=== PATIENT | female | born 1965 | race Caucasian/White ===

== ENCOUNTER 2017-03-18 10:53 | Observation (INO) | payer BC, OTHER ==
--- NOTE | 2017-03-18 12:00 | PDOC ---
History of Present Illness - General Chief Complaint: Chest Pain Stated Complaint: CHEST PAIN Time Seen by Provider: 03/18/17 11:09 - History of Present Illness Initial Comments: 03/18/17 12:15 Patient is a 51 year old female with a history of HLD, arthritis, degenerative disk disease and TIA on coumadin who presents with chest and epigastric pain. Patient reports a several month history of intermittent 4-5 sec sharp chest pain with some accompanied tingling and weakness in her left arm. Over the past week, she has been experiencing intermittent epigastric pain prompting her visit to the ED today. She states that she hasn't tried anything for the pain and had a stress test many years ago. She endorses some nausea and diarrhea with dark fecal matter. She denies SOB, vomiting, tarry stools, fevers, chills , or changes with urination. Past History - Past Medical History Allergies/Adverse Reactions: Allergies Allergy/AdvReac Type Severity Reaction Status Date / Time Penicillins Allergy Severe Rash Verified 09/09/13 14:27 Home Medications: Ambulatory Orders Albuterol 0.083% Nebulizer Alena [Ventolin 0.083% Nebulizer Soln -] 1 amp NEB PRN 03/18/17 Azithromycin [Zithromax -] 250 mg PO DAILY 03/18/17 Beclomethasone Dipropionate [Qvar] 8.7 gm IH BID 03/18/17 Ergocalciferol [Drisdol -] 50,000 unit PO WEEKLY 03/18/17 Escitalopram Oxalate [Lexapro -] 20 mg PO DAILY 03/18/17 Gabapentin [Neurontin] 300 mg PO HS 03/18/17 Halobetasol Propionate 15 gm TP BID 03/18/17 Iron,Carbonyl/Vit C/Vit B12/FA [Fe C Plus Tablet] 142 each PO DAILY 03/18/17 Levothyroxine [Synthroid -] 50 mcg PO DAILY 03/18/17 Meclizine HCl 12.5 mg PO BID 03/18/17 Montelukast Na [Singulair -] 10 mg PO HS 03/18/17 Multivitamin [Poly-Vitamin] 1 each PO DAILY 03/18/17 Nortriptyline HCl [Pamelor -] 50 mg PO HS 03/18/17 Omeprazole 40 mg PO DAILY 03/18/17 Oxybutynin Chloride [Ditropan Xl] 10 mg PO BID 03/18/17 Oxycodone HCl/Acetaminophen [Percocet 10-325 mg Tablet] 10 mg PO PRN 03/18/17 Prednisone 10 mg PO DAILY 03/18/17 Simvastatin 20 mg PO HS 03/18/17 Zolpidem Tartrate [Ambien] 10 mg PO HS 03/18/17 Anemia: No Asthma: Yes (NO RECENT ATTACK) Cancer: Yes (UTERUS) Cardiac Disorders: No CVA: Yes (TIA) COPD: No CHF: No Dementia: No Diabetes: No GI Disorders: Yes (REFLUX) Disorders: No HTN: No Hypercholesterolemia: No Liver Disease: No Seizures: No Thyroid Disease: No - Surgical History Abdominal Surgery: No Appendectomy: No Cardiac Surgery: No Cholecystectomy: No Lung Surgery: No Neurologic Surgery: No Orthopedic Surgery: Yes (BIRD. BUNIONECTOMIES) - Psycho/Social/Smoking Cessation Hx Smoking History: Former smoker Have you smoked in the past 12 months: No If you are a former smoker, when did you quit?: 35 YRS AGO Information on smoking cessation initiated: No Hx Alcohol Use: No Drug/Substance Use Hx: No Substance Use Type: None Review of Systems - Review of Systems Constitutional: No: Chills, Fever HEENTM: No: Nose Congestion, Throat Swelling Respiratory: No: Cough, Shortness of Breath Cardiac (ROS): Yes: Chest Pain. No: Palpitations, Chest Tightness ABD/GI: Yes: Diarrhea, Nausea. No: Constipated, Rectal Bleeding, Vomiting : No: Burning, Dysuria Integumentary: No: Rash Neurological: No: Headache, Tingling, Weakness *Physical Exam - Physical Exam Comments: 03/18/17 12:24 General Appearance: Nourished. No Apparent Distress HEENT: No Pharyngeal Erythema, Tonsillar Exudate, Tonsillar Erythema Respiratory/Chest: Lungs Clear, Normal Breath Sounds. No Crackles, Rales, Rhonchi, Wheezing Cardiovascular: Regular Rhythm, Regular Rate. No Murmur, Gallop/S3, Gallop/S4 Gastrointestinal/Abdominal: Normal Bowel Sounds, Soft, Mild tenderness to palpation in the epigastric region. No Guarding, Rebound Extremity: Normal Capillary Refill Integumentary: Normal Color, Dry, Warm Neurologic: Fully Oriented, Alert, Normal Mood/Affect, Normal Response ED Treatment Course - LABORATORY CBC & Chemistry Diagram: 03/18/17 12:25 03/18/17 12:25 Medical Decision Making - Medical Decision Making 03/18/17 12:27 Patient is a 51 year old female who presents with chest and epigastric pain. Given her long history of chest pain as well as described pain, it is most likely that her symptoms may be due to a peptic ulcer or GERD. However it is reasonable to evaluate for ACS as well and we will obtain an EKG, troponin, and cmp to evaluate. We will also get a cbc to evaluate for anemia and a wbc. 03/18/17 15:25 Patient's EKG is unchanged from previous and labs have been unremarkable thus far with a negative troponin. Dr. Pedro was consulted and obtained a history more concerning for angina with exercise. The patient described her chest pain occurring more with walking up stairs or inclines. Dr. Pedro would like to obtain a stress echo as well as some additional labs. We will admit for observation for the patient to obtain her stress echo given her risk factors. *DC/Admit/Observation/Transfer Diagnosis at time of Disposition: Angina effort - Discharge Dispostion Condition at time of disposition: Stable - Attestations Physician Attestion: 03/18/17 15:30 I, Dr. Leonidas Moffett, attest that this document has been prepared under my direction and personally reviewed by me in its entirety. I further attest, that it accurately reflects all work, treatment, procedures and medical decision -making performed by me.
[2017-03-18 12:16] VITALS: BMI 34.8
--- NOTE | 2017-03-18 12:31 | EKG ---
Test Reason : Blood Pressure : / mmHG Vent. Rate : 062 BPM Atrial Rate : 062 BPM P-R Int : 000 ms QRS Dur : 092 ms QT Int : 442 ms P-R-T Axes : 000 193 178 degrees QTc Int : 448 ms NORMAL SINUS RHYTHM CANNOT RULE OUT SEPTAL INFARCT , AGE UNDETERMINED ABNORMAL ECG WHEN COMPARED WITH ECG OF 15-DEC-2010 12:28, NO SIGNIFICANT CHANGE WAS FOUND Confirmed by ELENA HEATON MD ([id number]) on 03/18/2017 12:30:51 PM Referred By: Confirmed By:ELENA HEATON MD
[2017-03-18 12:35] LABS: BASOPHIL 0.5 % (0-2.0); EOSINOPHIL 3.4 % (0-4.5); MCH 27.7 pg (25.7-33.7); MEAN PLT VOLUME 7.9 fl (7.5-11.1); NEUTROPHILS 61.4 % (42.8-82.8); PLATELET COUNT 179 K/MM3 (134-434); RDW 15.4 % (11.6-15.6); WHITE BLOOD COUNT 9.1 K/mm3 (4.0-10.0)
--- NOTE | 2017-03-18 12:37 | PDOC ---
Attending Attestation - Resident Resident Name: Leonidas Moffett - ED Attending Attestation I have performed the following: I have examined & evaluated the patient, The case was reviewed & discussed with the resident, I agree w/resident's findings & plan, Exceptions are as noted - HPI HPI: 03/18/17 12:34 Agree with the resident's HPI as documented in the electronic medical record. - Physicial Exam PE: 03/18/17 12:34 Agree with the resident's physical examination as documented in the electronic medical record. - Medical Decision Making 03/18/17 12:34 51-year-old female with history of thyroid disease and TIA on Coumadin presents to the emergency Department with complaints of several month history of intermittent chest pain radiating to the epigastric region intermittently associated with left arm tingling. Differential diagnosis includes but is not limited to: GERD, ACS, PUD, anemia, electrolyte abnormality, dehydration, toxic/ metabolic derangement. Plan: 1. EKG 2. Labs 3. Observe and reevaluate
[2017-03-18 12:58] LABS: ALBUMIN 3.5 g/dl (3.4-5.0); ANION GAP 3 (8-16); BILIRUBIN,TOTAL 0.2 mg/dL (0.2-1.0); CALCIUM 9.1 mg/dL (8.5-10.1); CO2 33 mmol/L (21-32); CREATININE 0.7 mg/dL (0.55-1.02); GLUCOSE,RANDOM 87 mg/dL (74-106); SGOT/AST 34 U/L (15-37); SGPT/ALT 40 U/L (12-78); TOT PROT 7.7 g/dl (6.4-8.2)
[2017-03-18 13:00] LABS: ALK PHOS 91 U/L (45-117); TROPONIN I < 0.02 ng/ml (0.00-0.05)
--- NOTE | 2017-03-18 13:04 | CON.CARD ---
Consult Consult Specialty:: Cardiology Referred by:: Gibson Coe MD Reason for Consultation:: Chest pain and dyspnea on exertion - History of Present Illness Chief Complaint: Chest pain and dyspnea on exertion History of Present Illness: Patient is a 51 year old female with a history of HLD, HTN/HCVD, rheumatoid arthritis, hypothyroidism, asthma, DVT, recurrent TIA on coumadin presented with sharp chest and epigastric pain after walking 3 minutes since this past week. Patient reports several month h/o dyspnea on exertion, palpitations, near syncope while walking inclines without true syncope, orthopnea, PND or LE edema. Asymptomatic at rest. - History Source History Provided By: Patient Limitations to Obtaining History: No Limitations - Past Medical History [employer]: Yes: TIA - Alcohol/Substance Use Hx Alcohol Use: No - Smoking History Smoking history: Former smoker Have you smoked in the past 12 months: No If you are a former smoker, when did you quit?: 35 YRS AGO Home Medications - Allergies Allergies/Adverse Reactions: Allergies Allergy/AdvReac Type Severity Reaction Status Date / Time Penicillins Allergy Severe Rash Verified 09/09/13 14:27 - Home Medications Home Medications: Ambulatory Orders Albuterol 0.083% Nebulizer Alena [Ventolin 0.083% Nebulizer Soln -] 1 amp NEB PRN 03/18/17 Azithromycin [Zithromax -] 250 mg PO DAILY 03/18/17 Beclomethasone Dipropionate [Qvar] 8.7 gm IH BID 03/18/17 Ergocalciferol [Drisdol -] 50,000 unit PO WEEKLY 03/18/17 Escitalopram Oxalate [Lexapro -] 20 mg PO DAILY 03/18/17 Gabapentin [Neurontin] 300 mg PO HS 03/18/17 Halobetasol Propionate 15 gm TP BID 03/18/17 Iron,Carbonyl/Vit C/Vit B12/FA [Fe C Plus Tablet] 142 each PO DAILY 03/18/17 Levothyroxine [Synthroid -] 50 mcg PO DAILY 03/18/17 Meclizine HCl 12.5 mg PO BID 03/18/17 Montelukast Na [Singulair -] 10 mg PO HS 03/18/17 Multivitamin [Poly-Vitamin] 1 each PO DAILY 03/18/17 Nortriptyline HCl [Pamelor -] 50 mg PO HS 03/18/17 Omeprazole 40 mg PO DAILY 03/18/17 Oxybutynin Chloride [Ditropan Xl] 10 mg PO BID 03/18/17 Oxycodone HCl/Acetaminophen [Percocet 10-325 mg Tablet] 10 mg PO PRN 03/18/17 Prednisone 10 mg PO DAILY 03/18/17 Simvastatin 20 mg PO HS 03/18/17 Zolpidem Tartrate [Ambien] 10 mg PO HS 03/18/17 Review of Systems - Review of Systems Cardiovascular: reports: Chest Pain Respiratory: reports: SOB on Exertion Vital Signs: Vital Signs Temperature 98.6 F 03/18/17 12:08 Pulse Rate 58 L 03/18/17 12:08 Respiratory Rate 22 03/18/17 12:08 Blood Pressure 121/79 03/18/17 12:08 O2 Sat by Pulse Oximetry (%) 97 03/18/17 12:08 Constitutional: Yes: No Distress, Calm Neck: Yes: Supple Respiratory: Yes: Regular, CTA Bilaterally Gastrointestinal: Yes: Normal Bowel Sounds, Soft Cardiovascular: Yes: Regular Rate and Rhythm JVD: No Carotid Bruit: No Heart Sounds: Yes: S1, S2 Edema: No - Other Data Labs, Other Data: CBC, BMP 03/18/17 12:25 03/18/17 12:25 Troponin, BNP 03/18/17 12:25 Troponin I < 0.02 Troponin, BNP 03/18/17 12:25 Troponin I < 0.02 NSR @ 62 Problem List - Problems (1) Exertional chest pain Code(s): R07.9 - CHEST PAIN, UNSPECIFIED (2) Dyspnea on exertion Code(s): R06.09 - OTHER FORMS OF DYSPNEA (3) Hyperlipidemia Code(s): E78.5 - HYPERLIPIDEMIA, UNSPECIFIED Qualifiers: Hyperlipidemia type: pure hypercholesterolemia Qualified Code(s): E78.00 - Pure hypercholesterolemia, unspecified; E78.0 - Pure hypercholesterolemia (4) Hypothyroidism Code(s): E03.9 - HYPOTHYROIDISM, UNSPECIFIED Qualifiers: Hypothyroidism type: unspecified Qualified Code(s): E03.9 - Hypothyroidism, unspecified (5) Hypertension Code(s): I10 - ESSENTIAL (PRIMARY) HYPERTENSION Qualifiers: Hypertension type: essential hypertension Qualified Code(s): I10 - Essential (primary) hypertension (6) Rheumatoid arthritis Code(s): M06.9 - RHEUMATOID ARTHRITIS, UNSPECIFIED Qualifiers: Rheumatoid arthritis location: unspecified site (7) Asthma Code(s): J45.909 - UNSPECIFIED ASTHMA, UNCOMPLICATED Qualifiers: Asthma severity: unspecified severity (8) Cerebrovascular disease Code(s): I67.9 - CEREBROVASCULAR DISEASE, UNSPECIFIED Assessment/Plan 1. Exertional chest pain and dyspnea r/o ischemia 2. HTN/HCVD 3. Hyperlipidemia 4. Hypothroidism 5. DVT, recurrent TIA on coumadin per INR 6. Rheumatoid arthritis 7. Asthma P:1. Ruling out for CA, check TSH, lipid panel, INR 2. After ruled out for CA, stress echocardiogram to r/o structural heart disease given multiple CV risk factors 3. Continue Zocor 20 qhs or equivalent 4. Thank you for consultative opportunity, further recommendations to follow
[2017-03-18 15:57] LABS: CHOLESTEROL 188 mg/dL (50-200); LDL CHOLESTEROL (ONLY SJRH) 105 mg/dL (5-100)
[2017-03-18 16:20] LABS: INR 2.66 (0.82-1.09); PROTHROMBIN TIME (PATIENT) 29.8 SEC (9.98-11.88)
[2017-03-18] MEDS ORDERED: ALBUTEROL SO4 0.083% IH SOL 2.5 MG/3 ML VIAL.NEB. NEB PRN (19:06)
[2017-03-18] MEDS ORDERED: ACETAMINOPHEN 325 MG TABLET (FP) PO PRN (19:06)
[2017-03-18 19:23] LABS: TROPONIN I < 0.02 ng/ml (0.00-0.05)
[2017-03-18] MEDS ORDERED: PT OWN MED DRAWER 7, Y5N ONE ×2 (20:44→23:07)
[2017-03-18] MEDS: PANTOPRAZOLE 40 MG TABLET (FP) PO SCH (20:45)
[2017-03-18 21:00] LABS: TROPONIN I < 0.02 ng/ml (0.00-0.05)
[2017-03-18] MEDS ORDERED: WARFARIN NA 10 MG TABLET (FP) PO ONE (21:00)
[2017-03-18] MEDS ORDERED: PATIENT'S OWN MEDICATION (NON-FORMULARY) (Oxybutynin Chloride [Ditropan Xl] 10 MG) PO SCH (22:00)
[2017-03-18] MEDS: GABAPENTIN 300 MG CAPSULE (FP) PO SCH (22:22)
[2017-03-18] MEDS: ATORVASTATIN CA 20 MG TABLET (FP) PO SCH (22:22)
[2017-03-18] MEDS: ZOLPIDEM TARTRATE 5 MG TABLET PO SCH (22:22)
[2017-03-18] MEDS: MONTELUKAST NA 10 MG TABLET PO SCH (22:22)
[2017-03-18] MEDS: NORTRIPTYLINE HCL 25 MG CAPSULE PO SCH (22:23)
[2017-03-18] MEDS: MOMETASONE FUROATE 220 MCG/IH INHALER IH SCH (23:04)
[2017-03-18] MEDS: MECLIZINE HCL 12.5 MG TABLET PO SCH (23:05)
[2017-03-19 07:24] LABS: BASOPHIL 0.7 % (0-2.0); EOSINOPHIL 5.8 % (0-4.5); MCH 27.9 pg (25.7-33.7); MCHC 33.4 g/dl (32.0-36.0); MEAN CELL VOLUME 83.4 fl (80-96); MEAN PLT VOLUME 8.4 fl (7.5-11.1); NEUTROPHILS 51.1 % (42.8-82.8); PLATELET COUNT 163 K/MM3 (134-434); RDW 15.5 % (11.6-15.6); WHITE BLOOD COUNT 6.4 K/mm3 (4.0-10.0)
[2017-03-19 07:33] LABS: INR 2.38 (0.82-1.09); PROTHROMBIN TIME (PATIENT) 26.6 SEC (9.98-11.88)
[2017-03-19] MEDS: LEVOTHYROXINE NA 50 MCG TABLET (FP) PO SCH (07:35)
[2017-03-19 08:00] LABS: ALBUMIN 3.2 g/dl (3.4-5.0); ANION GAP 7 (8-16); BILIRUBIN,TOTAL 0.3 mg/dL (0.2-1.0); CALCIUM 8.5 mg/dL (8.5-10.1); CO2 29 mmol/L (21-32); CREATININE 0.7 mg/dL (0.55-1.02); GLUCOSE,RANDOM 81 mg/dL (74-106); SGOT/AST 31 U/L (15-37); SGPT/ALT 35 U/L (12-78); TOT PROT 6.9 g/dl (6.4-8.2)
[2017-03-19 08:02] LABS: ALK PHOS 82 U/L (45-117); TROPONIN I < 0.02 ng/ml (0.00-0.05)
--- NOTE | 2017-03-19 08:29 | HP ---
Admitting History and Physical - Admission History of Present Illness: 51 year old female with a history of HLD, arthritis, degenerative disk disease and TIA on coumadin who presents with chest and epigastric pain. Patient reports several month history of intermittent 4-5 sec sharp chest pain with some accompanied tingling and weakness in her left arm. Over the past week, she has been experiencing intermittent epigastric pain prompting her visit to the ED . She states that she hasn't tried anything for the pain and had a stress test many years ago. She endorses some nausea and diarrhea with dark fecal matter. She denies SOB, vomiting, tarry stools, fevers, chills, or changes with urination. Patient complains of intermittent chest pain - Past Medical History [employer]: Yes: TIA Cardiovascular: Yes: HTN, Hyperlipdemia Pulmonary: Yes: COPD Gastrointestinal: Yes: GERD Heme/Onc: Yes: Hypercoaguable State (DVT) Musculoskeletal: Yes: Osteoarthritis Rheumatology: Yes: Rheumatoid Arthritis Endocrine: Yes: Hypothyroidism - Smoking History Smoking history: Former smoker Have you smoked in the past 12 months: No If you are a former smoker, when did you quit?: 35 YRS AGO - Alcohol/Substance Use Hx Alcohol Use: No Home Medications - Allergies Allergies/Adverse Reactions: Allergies Allergy/AdvReac Type Severity Reaction Status Date / Time Penicillins Allergy Severe Rash Verified 09/09/13 14:27 - Home Medications Home Medications: Ambulatory Orders Albuterol 0.083% Nebulizer Alena [Ventolin 0.083% Nebulizer Soln -] 1 amp NEB PRN 03/18/17 Azithromycin [Zithromax -] 250 mg PO DAILY 03/18/17 Beclomethasone Dipropionate [Qvar] 8.7 gm IH BID 03/18/17 Ergocalciferol [Drisdol -] 50,000 unit PO WEEKLY 03/18/17 Escitalopram Oxalate [Lexapro -] 20 mg PO DAILY 03/18/17 Gabapentin [Neurontin] 300 mg PO HS 03/18/17 Halobetasol Propionate 15 gm TP BID 03/18/17 Iron,Carbonyl/Vit C/Vit B12/FA [Fe C Plus Tablet] 142 each PO DAILY 03/18/17 Levothyroxine [Synthroid -] 50 mcg PO DAILY 03/18/17 Meclizine HCl 12.5 mg PO BID 03/18/17 Montelukast Na [Singulair -] 10 mg PO HS 03/18/17 Multivitamin [Poly-Vitamin] 1 each PO DAILY 03/18/17 Nortriptyline HCl [Pamelor -] 50 mg PO HS 03/18/17 Omeprazole 40 mg PO DAILY 03/18/17 Oxybutynin Chloride [Ditropan Xl] 10 mg PO BID 03/18/17 Oxycodone HCl/Acetaminophen [Percocet 10-325 mg Tablet] 10 mg PO PRN 03/18/17 Prednisone 10 mg PO DAILY 03/18/17 Simvastatin 20 mg PO HS 03/18/17 Zolpidem Tartrate [Ambien] 10 mg PO HS 03/18/17 Review of Systems - Review of Systems Cardiovascular: reports: Chest Pain. denies: Palpitations Respiratory: denies: Cough, SOB Gastrointestinal: reports: Abdominal Pain (epigastric) Physical Examination Vital Signs: Vital Signs Temperature 98.2 F 03/19/17 06:00 Pulse Rate 74 03/19/17 06:00 Respiratory Rate 20 03/19/17 06:00 Blood Pressure 116/79 03/19/17 06:00 O2 Sat by Pulse Oximetry (%) 95 03/19/17 04:00 Cardiovascular: Yes: Regular Rate and Rhythm Respiratory: Yes: Regular, CTA Bilaterally Gastrointestinal: Yes: Normal Bowel Sounds, Soft. No: Tenderness Edema: No Labs: CBC, BMP 03/19/17 05:35 Problem List - Problems (1) Chest pain Assessment/Plan: CE NEGATIVE STRESS TEST SAME MEDS Code(s): R07.9 - CHEST PAIN, UNSPECIFIED (2) Asthma Assessment/Plan: SAME MEDS Code(s): J45.909 - UNSPECIFIED ASTHMA, UNCOMPLICATED Qualifiers: Asthma severity: unspecified severity (3) Hyperlipidemia Assessment/Plan: SAME MEDS Code(s): E78.5 - HYPERLIPIDEMIA, UNSPECIFIED Qualifiers: Hyperlipidemia type: pure hypercholesterolemia Qualified Code(s): E78.00 - Pure hypercholesterolemia, unspecified; E78.0 - Pure hypercholesterolemia (4) Hypertension Assessment/Plan: SAME MEDS MONITOR Code(s): I10 - ESSENTIAL (PRIMARY) HYPERTENSION Qualifiers: Hypertension type: essential hypertension Qualified Code(s): I10 - Essential (primary) hypertension
[2017-03-19] MEDS ORDERED: DIPYRIDAMOLE STRESS TEST 50 MG in DEXTROSE 5%-WATER - 40 ML IVPB ONE (10:00)
--- NOTE | 2017-03-19 13:10 | EKG ---
Test Reason : Blood Pressure : / mmHG Vent. Rate : 067 BPM Atrial Rate : 067 BPM P-R Int : 152 ms QRS Dur : 090 ms QT Int : 426 ms P-R-T Axes : 046 -05 006 degrees QTc Int : 450 ms NORMAL SINUS RHYTHM MINIMAL VOLTAGE CRITERIA FOR LVH, MAY BE NORMAL VARIANT BORDERLINE ECG WHEN COMPARED WITH ECG OF 18-MAR-2017 12:34, NO SIGNIFICANT CHANGE WAS FOUND Confirmed by HANDY BRUNER MD ([id number]) on 03/19/2017 1:09:55 PM Referred By: REILLY ARMAS Confirmed By:HANDY BRUNER MD
[2017-03-19] MEDS ORDERED: PT OWN MED DRAWER 7, Y5N ONE ×3 (13:14→21:37)
[2017-03-19] MEDS: ESCITALOPRAM OXALATE 20 MG TABLET (FP) PO SCH (13:16)
[2017-03-19] MEDS: PANTOPRAZOLE 40 MG TABLET (FP) PO SCH (13:16)
[2017-03-19] MEDS: predniSONE 10 MG TABLET (UD) PO SCH (13:16)
[2017-03-19] MEDS: SOLIFENACIN SUCCINATE 5 MG TAB (FP) PO SCH (13:16)
[2017-03-19] MEDS: MECLIZINE HCL 12.5 MG TABLET PO SCH ×2 (13:16→21:42)
[2017-03-19] MEDS: MOMETASONE FUROATE 220 MCG/IH INHALER IH SCH (13:17)
--- NOTE | 2017-03-19 14:01 | PN ---
Progress Note, Physician - Current Medication List Current Medications: Active Medications Acetaminophen (Tylenol -) 650 mg PO Q4H PRN PRN Reason: FEVER OR PAIN Last Admin: 03/19/17 13:17 Dose: 650 mg Albuterol Sulfate (Ventolin 0.083% Nebulizer Soln -) 1 amp NEB Q6H PRN PRN Reason: SHORT OF BREATH/WHEEZING Atorvastatin Calcium (Lipitor -) 20 mg PO HS [facility] Last Admin: 03/18/17 22:22 Dose: 20 mg Escitalopram Oxalate (Lexapro -) 20 mg PO DAILY [facility] Last Admin: 03/19/17 13:16 Dose: 20 mg Gabapentin (Neurontin -) 300 mg PO HS [facility] Last Admin: 03/18/17 22:22 Dose: 300 mg Levothyroxine Sodium (Synthroid -) 50 mcg PO DAILY@0700 [facility] Last Admin: 03/19/17 07:35 Dose: Not Given Meclizine HCl (Antivert -) 12.5 mg PO BID [facility] Last Admin: 03/19/17 13:16 Dose: 12.5 mg Mometasone Furoate (Asmanex 220mcg -) 1 puff IH DAILY [facility] Last Admin: 03/19/17 13:17 Dose: 1 puff Montelukast Sodium (Singulair -) 10 mg PO HS [facility] Last Admin: 03/18/17 22:22 Dose: 10 mg Nortriptyline HCl (Pamelor -) 50 mg PO HS [facility] Last Admin: 03/18/17 22:23 Dose: 50 mg Pantoprazole Sodium (Protonix -) 40 mg PO DAILY [facility] Last Admin: 03/19/17 13:16 Dose: 40 mg Prednisone (Deltasone -) 10 mg PO DAILY [facility] Last Admin: 03/19/17 13:16 Dose: 10 mg Solifenacin (Vesicare -) 10 mg PO DAILY [facility] Last Admin: 03/19/17 13:16 Dose: 10 mg Zolpidem Tartrate (Ambien -) 10 mg PO [facility] Last Admin: 03/18/17 22:22 Dose: 10 mg - Objective Vital Signs: Vital Signs Temperature 98.2 F 03/19/17 06:00 Pulse Rate 74 03/19/17 06:00 Respiratory Rate 20 03/19/17 06:00 Blood Pressure 116/79 03/19/17 06:00 O2 Sat by Pulse Oximetry (%) 95 03/19/17 04:00 Labs: CBC, BMP 03/19/17 05:35 03/19/17 05:35 INR, PTT INR 2.38 (0.82-1.09) H 03/19/17 05:35
[2017-03-19] MEDS: oxyCODONE HCL 5 MG TABLET PO PRN ×2 (15:01→21:44)
--- NOTE | 2017-03-19 16:49 | PN ---
Progress Note, Physician Chief Complaint: Events noted Denies chest pain or SOB History of Present Illness: Patient was seen and examined. Awake and alert. Chart was reviewed Denies chest pain, SOB or palpitations today Patient was seen in Cardiology while getting nuclear myocardial perfusion imaging - Current Medication List Current Medications: Active Medications Acetaminophen (Tylenol -) 650 mg PO Q4H PRN PRN Reason: FEVER OR PAIN Last Admin: 03/19/17 13:17 Dose: 650 mg Acetaminophen (Tylenol -) 325 mg PO Q4H PRN PRN Reason: PAIN Albuterol Sulfate (Ventolin 0.083% Nebulizer Soln -) 1 amp NEB Q6H PRN PRN Reason: SHORT OF BREATH/WHEEZING Atorvastatin Calcium (Lipitor -) 20 mg PO HS [facility] Last Admin: 03/18/17 22:22 Dose: 20 mg Escitalopram Oxalate (Lexapro -) 20 mg PO DAILY [facility] Last Admin: 03/19/17 13:16 Dose: 20 mg Gabapentin (Neurontin -) [address] [facility] Last Admin: 03/18/17 22:22 Dose: 300 mg Levothyroxine Sodium (Synthroid -) 50 mcg PO DAILY@0700 [facility] Last Admin: 03/19/17 07:35 Dose: Not Given Meclizine HCl (Antivert -) 12.5 mg PO BID [facility] Last Admin: 03/19/17 13:16 Dose: 12.5 mg Mometasone Furoate (Asmanex 220mcg -) 1 puff IH DAILY [facility] Last Admin: 03/19/17 13:17 Dose: 1 puff Montelukast Sodium (Singulair -) [address] [facility] Last Admin: 03/18/17 22:22 Dose: 10 mg Nortriptyline HCl (Pamelor -) [address] [facility] Last Admin: 03/18/17 22:23 Dose: 50 mg Oxycodone HCl (Roxicodone -) 5 mg PO Q4H PRN PRN Reason: PAIN Last Admin: 03/19/17 15:01 Dose: 5 mg Pantoprazole Sodium (Protonix -) 40 mg PO DAILY [facility] Last Admin: 03/19/17 13:16 Dose: 40 mg Prednisone (Deltasone -) 10 mg PO DAILY [facility] Last Admin: 03/19/17 13:16 Dose: 10 mg Solifenacin (Vesicare -) 10 mg PO DAILY [facility] Last Admin: 03/19/17 13:16 Dose: 10 mg Zolpidem Tartrate (Ambien -) 10 mg PO HS [facility] Last Admin: 03/18/17 22:22 Dose: 10 mg - Objective Vital Signs: Vital Signs Temperature 98.2 F 03/19/17 14:00 Pulse Rate 72 03/19/17 14:00 Respiratory Rate 20 03/19/17 14:00 Blood Pressure 124/67 03/19/17 14:00 O2 Sat by Pulse Oximetry (%) 95 03/19/17 12:00 Neck: Yes: Supple Cardiovascular: Yes: Regular Rate and Rhythm, S1, S2 Respiratory: Yes: CTA Bilaterally Gastrointestinal: Yes: Normal Bowel Sounds, Soft. No: Tenderness Edema: No Labs: CBC, BMP 03/19/17 05:35 03/19/17 05:35 INR, PTT INR 2.38 (0.82-1.09) H 03/19/17 05:35 Problem List - Problems (1) Dyspnea on exertion Code(s): R06.09 - OTHER FORMS OF DYSPNEA (2) Exertional chest pain Code(s): R07.9 - CHEST PAIN, UNSPECIFIED (3) Hyperlipidemia Code(s): E78.5 - HYPERLIPIDEMIA, UNSPECIFIED Qualifiers: Hyperlipidemia type: pure hypercholesterolemia Qualified Code(s): E78.00 - Pure hypercholesterolemia, unspecified; E78.0 - Pure hypercholesterolemia (4) Hypertension Code(s): I10 - ESSENTIAL (PRIMARY) HYPERTENSION Qualifiers: Hypertension type: essential hypertension Qualified Code(s): I10 - Essential (primary) hypertension (5) Hypothyroidism Code(s): E03.9 - HYPOTHYROIDISM, UNSPECIFIED Qualifiers: Hypothyroidism type: unspecified Qualified Code(s): E03.9 - Hypothyroidism, unspecified (6) Rheumatoid arthritis Code(s): M06.9 - RHEUMATOID ARTHRITIS, UNSPECIFIED Qualifiers: Rheumatoid arthritis location: unspecified site (7) Asthma Code(s): J45.909 - UNSPECIFIED ASTHMA, UNCOMPLICATED Qualifiers: Asthma severity: unspecified severity (8) DVT (deep venous thrombosis) Code(s): I82.409 - ACUTE EMBOLISM AND THOMBOS UNSP DEEP VN UNSP LOWER EXTREMITY (9) TIA (transient ischemic attack) Code(s): G45.9 - TRANSIENT CEREBRAL ISCHEMIC ATTACK, UNSPECIFIED Assessment/Plan 1. Exertional chest pain and dyspnea - rule out ischemia 2. HTN/HCVD 3. Hyperlipidemia 4. Hypothroidism 5. DVT and recurrent TIA on Coumadin per INR 6. Rheumatoid arthritis 7. Asthma PLAN: 1. Transthoracic echocardiography to assess LV/RV and valvular function 2. Patient was sent for nuclear myocardial perfusion imaging 3. Continue statin therapy - follow lipid panel 4. Continue Coumadin as per INR unless otherwise instructed 5. Consider low dose beta emma if clinically tolerated Further plans are to follow Roosevelt Dasilva MD
[2017-03-19] MEDS: ATORVASTATIN CA 20 MG TABLET (FP) PO SCH (21:42)
[2017-03-19] MEDS: GABAPENTIN 300 MG CAPSULE (FP) PO SCH (21:42)
[2017-03-19] MEDS: CARVEDILOL 3.125 MG TABLET (FP) PO SCH (21:43)
[2017-03-19] MEDS: NORTRIPTYLINE HCL 25 MG CAPSULE PO SCH (21:43)
[2017-03-19] MEDS: MONTELUKAST NA 10 MG TABLET PO SCH (21:43)
[2017-03-19] MEDS: ACETAMINOPHEN 325 MG TABLET (FP) PO PRN (21:43)
[2017-03-19] MEDS: ZOLPIDEM TARTRATE 5 MG TABLET PO SCH (22:39)
[2017-03-20] MEDS: LEVOTHYROXINE NA 50 MCG TABLET (FP) PO SCH (06:31)
[2017-03-20] MEDS: ACETAMINOPHEN 325 MG TABLET (FP) PO PRN (06:31)
[2017-03-20] MEDS: oxyCODONE HCL 5 MG TABLET PO PRN (06:32)
--- NOTE | 2017-03-20 09:06 | DS ---
Physical Examination Vital Signs: Vital Signs Temperature 98.3 F 03/20/17 06:00 Pulse Rate 57 L 03/20/17 06:00 Respiratory Rate 20 03/20/17 06:00 Blood Pressure 111/52 03/20/17 06:00 O2 Sat by Pulse Oximetry (%) 95 03/19/17 21:24 Cardiovascular: Yes: Regular Rate and Rhythm Respiratory: Yes: Regular, CTA Bilaterally Gastrointestinal: Yes: Normal Bowel Sounds, Soft Labs: CBC, BMP 03/19/17 05:35 03/19/17 05:35 Discharge Summary Reason For Visit: EXERCISE INDUCED ANGINA Current Active Problems Angina effort (Acute) Asthma (Acute) Cerebrovascular disease (Acute) Chest pain (Acute) DVT (deep venous thrombosis) (Acute) Dyspnea on exertion (Acute) Exertional chest pain (Acute) Hyperlipidemia (Acute) Hypertension (Acute) Hypothyroidism (Acute) Rheumatoid arthritis (Acute) TIA (transient ischemic attack) (Acute) Hospital Course: 51 year old female with a history of HLD, arthritis, degenerative disk disease and TIA on coumadin who presents with chest and epigastric pain. Patient reports several month history of intermittent 4-5 sec sharp chest pain with some accompanied tingling and weakness in her left arm. Over the past week, she has been experiencing intermittent epigastric pain prompting her visit to the ED . She states that she hasn't tried anything for the pain and had a stress test many years ago. She endorses some nausea and diarrhea with dark fecal matter. She denies SOB, vomiting, tarry stools, fevers, chills, or changes with urination. 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 Cardiovascular: Yes: HTN, Hyperlipdemia Pulmonary: Yes: COPD Gastrointestinal: Yes: GERD Heme/Onc: Yes: Hypercoaguable State (DVT) Musculoskeletal: Yes: Osteoarthritis Rheumatology: Yes: Rheumatoid Arthritis Endocrine: Yes: Hypothyroidism - Smoking History Smoking history: Former smoker - Problems (1) Chest pain Assessment/Plan: CE NEGATIVE STRESS TEST MILD ISCHEMIA--D/W PT--CATH SUGGESTED BY CARDIO ALEXANDRA POE SAME MEDS Code(s): R07.9 - CHEST PAIN, UNSPECIFIED (2) Asthma Assessment/Plan: SAME MEDS Code(s): J45.909 - UNSPECIFIED ASTHMA, UNCOMPLICATED Qualifiers: Asthma severity: unspecified severity (3) Hyperlipidemia Assessment/Plan: SAME MEDS Code(s): E78.5 - HYPERLIPIDEMIA, UNSPECIFIED Qualifiers: Hyperlipidemia type: pure hypercholesterolemia Qualified Code(s): E78.00 - Pure hypercholesterolemia, unspecified; E78.0 - Pure hypercholesterolemia (4) Hypertension Assessment/Plan: SAME MEDS MONITOR Code(s): I10 - ESSENTIAL (PRIMARY) HYPERTENSION Qualifiers: Hypertension type: essential hypertension Qualified Code(s): I10 - Essential (primary) hypertension Condition: Stable - Instructions Referrals: Gibson Coe MD [Primary Care Provider] - Disposition: TRANSFER ACUTE CARE/OTHER HOSP - Home Medications Comprehensive Discharge Medication List: Ambulatory Orders Albuterol 0.083% Nebulizer Alena [Ventolin 0.083% Nebulizer Soln -] 1 amp NEB PRN 03/18/17 Beclomethasone Dipropionate [Qvar] 8.7 gm IH BID 03/18/17 Ergocalciferol [Drisdol -] 50,000 unit PO WEEKLY 03/18/17 Escitalopram Oxalate [Lexapro -] 20 mg PO DAILY 03/18/17 Gabapentin [Neurontin] 300 mg PO HS 03/18/17 Halobetasol Propionate 15 gm TP BID 03/18/17 Iron,Carbonyl/Vit C/Vit B12/FA [Fe C Plus Tablet] 142 each PO DAILY 03/18/17 Levothyroxine [Synthroid -] 50 mcg PO DAILY 03/18/17 Meclizine HCl 12.5 mg PO BID 03/18/17 Montelukast Na [Singulair -] 10 mg PO HS 03/18/17 Multivitamin [Poly-Vitamin] 1 each PO DAILY 03/18/17 Nortriptyline HCl [Pamelor -] 50 mg PO HS 03/18/17 Omeprazole 40 mg PO DAILY 03/18/17 Oxybutynin Chloride [Ditropan Xl] 10 mg PO BID 03/18/17 Oxycodone HCl/Acetaminophen [Percocet 10-325 mg Tablet] 10 mg PO PRN 03/18/17 Prednisone 10 mg PO DAILY 03/18/17 Simvastatin 20 mg PO HS 03/18/17 Zolpidem Tartrate [Ambien] 10 mg PO HS 03/18/17 Carvedilol [Coreg -] 3.125 mg PO BID #60 tablet 03/20/17 Ramipril [Altace] 2.5 mg PO DAILY #30 tab 03/20/17 Ranolazine [Ranexa -] 500 mg PO BID #60 tab 03/20/17
[2017-03-20] MEDS ORDERED: PT OWN MED DRAWER 7, Y5N ONE (09:33)
[2017-03-20] MEDS: SOLIFENACIN SUCCINATE 5 MG TAB (FP) PO SCH (09:51)
[2017-03-20] MEDS: ESCITALOPRAM OXALATE 20 MG TABLET (FP) PO SCH (09:52)
[2017-03-20] MEDS: predniSONE 10 MG TABLET (UD) PO SCH (09:52)
[2017-03-20] MEDS: PANTOPRAZOLE 40 MG TABLET (FP) PO SCH (09:52)
[2017-03-20] MEDS: CARVEDILOL 3.125 MG TABLET (FP) PO SCH (09:52)
[2017-03-20] MEDS ORDERED: RAMIPRIL 2.5 MG CAPSULE (FP) PO SCH (10:00)
[2017-03-20] MEDS ORDERED: RANOLAZINE E.R. 500 MG TABLET (FP) PO SCH (10:00)
--- NOTE | 2017-03-20 11:51 | PN ---
Progress Note, Physician History of Present Illness: Denies chest pain or dyspnea on exertion on flat ground. - Current Medication List Current Medications: Active Medications Acetaminophen (Tylenol -) 650 mg PO Q4H PRN PRN Reason: FEVER OR PAIN Last Admin: 03/19/17 13:17 Dose: 650 mg Acetaminophen (Tylenol -) 325 mg PO Q4H PRN PRN Reason: PAIN Last Admin: 03/20/17 06:31 Dose: 325 mg Albuterol Sulfate (Ventolin 0.083% Nebulizer Soln -) 1 amp NEB Q6H PRN PRN Reason: SHORT OF BREATH/WHEEZING Atorvastatin Calcium (Lipitor -) 20 mg PO [facility] Last Admin: 03/19/17 21:42 Dose: 20 mg Carvedilol (Coreg -) 3.125 mg PO BID [facility] Last Admin: 03/20/17 09:52 Dose: 3.125 mg Escitalopram Oxalate (Lexapro -) 20 mg PO DAILY [facility] Last Admin: 03/20/17 09:52 Dose: 20 mg Gabapentin (Neurontin -) 300 mg PO [facility] Last Admin: 03/19/17 21:42 Dose: 300 mg Levothyroxine Sodium (Synthroid -) 50 mcg PO DAILY@0700 [facility] Last Admin: 03/20/17 06:31 Dose: 50 mcg Meclizine HCl (Antivert -) 12.5 mg PO BID [facility] Last Admin: 03/19/17 21:42 Dose: 12.5 mg Mometasone Furoate (Asmanex 220mcg -) 1 puff IH DAILY [facility] Last Admin: 03/19/17 13:17 Dose: 1 puff Montelukast Sodium (Singulair -) 10 mg PO [facility] Last Admin: 03/19/17 21:43 Dose: 10 mg Nortriptyline HCl (Pamelor -) 50 mg PO [facility] Last Admin: 03/19/17 21:43 Dose: 50 mg Oxycodone HCl (Roxicodone -) 5 mg PO Q4H PRN PRN Reason: PAIN Last Admin: 03/20/17 06:32 Dose: 5 mg Pantoprazole Sodium (Protonix -) 40 mg PO DAILY [facility] Last Admin: 03/20/17 09:52 Dose: 40 mg Prednisone (Deltasone -) 10 mg PO DAILY [facility] Last Admin: 03/20/17 09:52 Dose: 10 mg Ramipril (Altace -) 2.5 mg PO DAILY [facility] Last Admin: 03/20/17 09:51 Dose: 2.5 mg Ranolazine (Ranexa -) 500 mg PO BID [facility] Last Admin: 03/20/17 09:52 Dose: 500 mg Solifenacin (Vesicare -) 10 mg PO DAILY [facility] Last Admin: 03/20/17 09:51 Dose: 10 mg Zolpidem Tartrate (Ambien -) 10 mg PO [facility] Last Admin: 03/19/17 22:39 Dose: 10 mg - Objective Vital Signs: Vital Signs Temperature 98.9 F 03/20/17 10:00 Pulse Rate 70 03/20/17 10:00 Respiratory Rate 20 03/20/17 10:00 Blood Pressure 116/67 03/20/17 10:00 O2 Sat by Pulse Oximetry (%) 95 03/19/17 21:24 Constitutional: Yes: No Distress, Calm Neck: Yes: Supple Cardiovascular: Yes: Regular Rate and Rhythm Respiratory: Yes: Regular, CTA Bilaterally Gastrointestinal: Yes: Normal Bowel Sounds, Soft Edema: No Labs: CBC, BMP 03/19/17 05:35 03/19/17 05:35 INR, PTT INR 2.38 (0.82-1.09) H 03/19/17 05:35 - ....Imaging EKG: Report Reviewed (Tele: SR EKG NSR without ST-T changes) Problem List - Problems (1) Exertional chest pain Code(s): R07.9 - CHEST PAIN, UNSPECIFIED (2) Dyspnea on exertion Code(s): R06.09 - OTHER FORMS OF DYSPNEA (3) Hyperlipidemia Code(s): E78.5 - HYPERLIPIDEMIA, UNSPECIFIED Qualifiers: Hyperlipidemia type: pure hypercholesterolemia Qualified Code(s): E78.00 - Pure hypercholesterolemia, unspecified; E78.0 - Pure hypercholesterolemia (4) Hypothyroidism Code(s): E03.9 - HYPOTHYROIDISM, UNSPECIFIED Qualifiers: Hypothyroidism type: unspecified Qualified Code(s): E03.9 - Hypothyroidism, unspecified (5) Hypertension Code(s): I10 - ESSENTIAL (PRIMARY) HYPERTENSION Qualifiers: Hypertension type: essential hypertension Qualified Code(s): I10 - Essential (primary) hypertension (6) Rheumatoid arthritis Code(s): M06.9 - RHEUMATOID ARTHRITIS, UNSPECIFIED Qualifiers: Rheumatoid arthritis location: unspecified site (7) Asthma Code(s): J45.909 - UNSPECIFIED ASTHMA, UNCOMPLICATED Qualifiers: Asthma severity: unspecified severity (8) Cerebrovascular disease Code(s): I67.9 - CEREBROVASCULAR DISEASE, UNSPECIFIED (9) DVT (deep venous thrombosis) Code(s): I82.409 - ACUTE EMBOLISM AND THOMBOS UNSP DEEP VN UNSP LOWER EXTREMITY (10) Abnormal cardiovascular function study Code(s): R94.30 - ABNORMAL RESULT OF CARDIOVASCULAR FUNCTION STUDY, UNSP (11) Systolic dysfunction without heart failure Code(s): I51.9 - HEART DISEASE, UNSPECIFIED Assessment/Plan 03/19/2017 Echocardiography also revealed mild to moderate global hypokinesia 03/19/2017 Nuclear myocardial perfusion imaging reviewed and report seen with small mild apical ischemia within possible infarcted zone vs apical thinning and global hypokinetic LV with LVEF of 49% 1. Exertional chest pain and dyspnea with mildly abnormal MPI 2. HTN/HCVD 3. Hyperlipidemia 4. Hypothroidism 5. DVT, recurrent TIA on coumadin per INR 6. Rheumatoid arthritis 7. Asthma P:1. Increase carvedilol 6.25 bid, continue ramipril 2.5 qd with uptitration as tolerated and Lipitor 20 qhs 2. Coumadin per INR 3. December d/c home with f/u in office for medication adjustment, referral for cardiac catheterization based on clinical response to medical therapy. 4. Case d/w patient
[2017-03-20] MEDS: MOMETASONE FUROATE 220 MCG/IH INHALER IH SCH (12:58)
[2017-03-20 14:28] LABS: TROPONIN I < 0.02 ng/ml (0.00-0.05)
--- NOTE | 2017-03-20 14:49 | EKG ---
Test Reason : Blood Pressure : / mmHG Vent. Rate : 056 BPM Atrial Rate : 056 BPM P-R Int : 154 ms QRS Dur : 104 ms QT Int : 470 ms P-R-T Axes : 041 000 010 degrees QTc Int : 453 ms SINUS BRADYCARDIA MINIMAL VOLTAGE CRITERIA FOR LVH, MAY BE NORMAL VARIANT BORDERLINE ECG WHEN COMPARED WITH ECG OF 18-MAR-2017 11:08, SINUS RHYTHM HAS REPLACED JUNCTIONAL RHYTHM QRS AXIS SHIFTED RIGHT CRITERIA FOR SEPTAL INFARCT ARE NO LONGER PRESENT ST ELEVATION NOW PRESENT IN LATERAL LEADS T WAVE INVERSION NO LONGER EVIDENT IN LATERAL LEADS Confirmed by MICHELL CEBALLOS, CRESENCIO ([id number]) on 03/20/2017 2:49:16 PM Referred By: ELEONORA Confirmed By:CRESENCIO GALARZA MD
[2017-03-20 14:52] VITALS: BP 109/63; PULSE 78; TEMP 98
--- NOTE | 2017-03-20 14:55 | EKG ---
Test Reason : Blood Pressure : / mmHG Vent. Rate : 062 BPM Atrial Rate : 062 BPM P-R Int : 162 ms QRS Dur : 096 ms QT Int : 438 ms P-R-T Axes : 044 -05 003 degrees QTc Int : 444 ms NORMAL SINUS RHYTHM MINIMAL VOLTAGE CRITERIA FOR LVH, MAY BE NORMAL VARIANT SEPTAL INFARCT , AGE UNDETERMINED ABNORMAL ECG WHEN COMPARED WITH ECG OF 19-MAR-2017 11:10, SEPTAL INFARCT IS NOW PRESENT Confirmed by MICHELL CEBALLOS, CRSEENCIO ([id number]) on 03/20/2017 2:54:59 PM Referred By: REILLY ARMAS Confirmed By:CRESENCIO GALARZA MD
[2017-03-20] MEDS: MECLIZINE HCL 12.5 MG TABLET PO SCH (15:20)
[2017-03-20 17:50] LABS: TROPONIN I < 0.02 ng/ml (0.00-0.05)
== END 2017-03-20 18:58 | disposition home or self-care (01) ==
LOC: JER 10:53 → JERBED 15:22 → J4S 18:45
PROVIDERS: ADMIT Family Medicine; ATTEND Family Medicine
PROC: 3E0F7GC Introduction of Other Therapeutic Substance into Respiratory Tract, Via Natural or Artificial Opening (ICD-10-PCS; principal; 2017-03-18)
DX: I20.8 Other forms of angina pectoris (principal); R07.9 Chest pain, unspecified; R06.09 Other forms of dyspnea; E78.5 Hyperlipidemia, unspecified; E03.9 Hypothyroidism, unspecified; I10 Essential (primary) hypertension; M06.9 Rheumatoid arthritis, unspecified; J45.909 Unspecified asthma, uncomplicated; I67.9 Cerebrovascular disease, unspecified; G45.9 Transient cerebral ischemic attack, unspecified; K21.9 Gastro-esophageal reflux disease without esophagitis; Z86.73 Personal history of transient ischemic attack (TIA), and cerebral infarction without residual deficits; Z79.01 Long term (current) use of anticoagulants; Z88.0 Allergy status to penicillin; Z87.891 Personal history of nicotine dependence; I82.409 Acute embolism and thrombosis of unspecified deep veins of unspecified lower extremity
CPT/HCPCS: 36415; 71010-TC; 78452-TC; 80053; 80061; 82550; 82553; 83036; 83721; 83880; 84443; 84484; 85025; 85610; 93005; 93010; 93017; 93306-TC; 99285-25; A9502; G0378

== ENCOUNTER 2017-04-05 15:24 | Emergency (ER) | payer BC, OTHER ==
[2017-04-05 15:34] VITALS: BMI 34.4
--- NOTE | 2017-04-05 16:23 | PDOC ---
Attending Attestation - Resident Resident Name: Leonidas Moffett - ED Attending Attestation I have performed the following: I have examined & evaluated the patient, The case was reviewed & discussed with the resident, I agree w/resident's findings & plan, Exceptions are as noted - HPI HPI: 04/05/17 17:01 Recent cardiac alejandre including cardiac cath negative. Experienced dyspnea and palpitations earlier today, resolved spontaneously - Physicial Exam PE: 04/05/17 17:02 NAD, NonToxic, Benign Cardorespiratory exam - Medical Decision Making 04/05/17 17:[address] Moffett assessment and plan
--- NOTE | 2017-04-05 16:41 | PDOC ---
History of Present Illness - General Chief Complaint: Shortness of Breath Stated Complaint: DIFFICULTY BREATHING Time Seen by Provider: 04/05/17 15:46 - History of Present Illness Initial Comments: 04/05/17 17:24 Patient is a 51 year old female with a history of HTN, TIA on Coumadin who presents with SOB. The patient reports an episode of SOB while in the bathroom today with associated shaking and tingling in the extremities and a sensation of a pinch in her chest. The episode resolved on it's own after a few minutes, however the patient was concerned and thus presented to the ED. Of note, the patient was recently seen in the ED for similar complaints and was admitted for observation for cardiac echo and stress testing. She eventually underwent cardiac cath 7 days ago where she was not found to have any occlusions. She states that she has SOB at baseline worse with exertion that she has been experiencing for many months. She denies any fevers, chills, abdominal pain, or changes with urination or bowel movements. Past History - Past Medical History Allergies/Adverse Reactions: Allergies Allergy/AdvReac Type Severity Reaction Status Date / Time Penicillins Allergy Severe Rash Verified 04/05/17 15:34 Home Medications: Ambulatory Orders Albuterol 0.083% Nebulizer Alena [Ventolin 0.083% Nebulizer Soln -] 1 amp NEB PRN 03/18/17 Beclomethasone Dipropionate [Qvar] 8.7 gm IH BID 03/18/17 Ergocalciferol [Drisdol -] 50,000 unit PO WEEKLY 03/18/17 Escitalopram Oxalate [Lexapro -] 20 mg PO DAILY 03/18/17 Gabapentin [Neurontin] 300 mg PO HS 03/18/17 Halobetasol Propionate 15 gm TP BID 03/18/17 Iron,Carbonyl/Vit C/Vit B12/FA [Fe C Plus Tablet] 142 each PO DAILY 03/18/17 Levothyroxine [Synthroid -] 50 mcg PO DAILY 03/18/17 Meclizine HCl 12.5 mg PO BID 03/18/17 Montelukast Na [Singulair -] 10 mg PO HS 03/18/17 Multivitamin [Poly-Vitamin] 1 each PO DAILY 03/18/17 Nortriptyline HCl [Pamelor -] 50 mg PO HS 03/18/17 Omeprazole 40 mg PO DAILY 03/18/17 Oxybutynin Chloride [Ditropan Xl] 10 mg PO BID 03/18/17 Oxycodone HCl/Acetaminophen [Percocet 10-325 mg Tablet] 10 mg PO TID PRN Simvastatin 20 mg PO HS 03/18/17 Zolpidem Tartrate [Ambien] 10 mg PO HS 03/18/17 Ranolazine [Ranexa -] 500 mg PO BID #60 tab 03/20/17 Albuterol Sulfate Inhaler - [Ventolin Hfa Inhaler -] 1 - 2 inh PO QID PRN Formoterol Fumarate [Perforomist] 20 mcg IH BID 04/05/17 Nebivolol HCl [Bystolic] 2.5 mg PO DAILY 04/05/17 Remifemin 20 Mg 20 mg PO BID 04/05/17 Tiotropium Elaine [Spiriva] 2 inh IH DAILY 04/05/17 Anemia: No Asthma: Yes Cancer: Yes (UTERUS) Cardiac Disorders: No CVA: Yes (TIA) COPD: No CHF: No Dementia: No Diabetes: No GI Disorders: Yes (REFLUX) Disorders: No HTN: No Hypercholesterolemia: No Liver Disease: No Seizures: No Thyroid Disease: No Other medical history: Fibromyalgia - Surgical History Abdominal Surgery: No Appendectomy: No Cardiac Surgery: No Cholecystectomy: No Lung Surgery: No Neurologic Surgery: No Orthopedic Surgery: Yes (BIRD. BUNIONECTOMIES) - Psycho/Social/Smoking Cessation Hx Suicidal Ideation: No Smoking History: Never smoked Have you smoked in the past 12 months: No If you are a former smoker, when did you quit?: 35 YRS AGO Information on smoking cessation initiated: No Hx Alcohol Use: No Drug/Substance Use Hx: No Substance Use Type: None Review of Systems - Review of Systems Constitutional: No: Chills, Fever HEENTM: No: Recent change in vision Respiratory: Yes: Shortness of Breath, SOB with Exertion. No: Cough Cardiac (ROS): Yes: Chest Pain. No: Lightheadedness, Palpitations ABD/GI: No: Constipated, Diarrhea, Nausea, Vomiting : No: Dysuria Integumentary: No: Rash Neurological: No: Headache, Numbness, Tingling, Weakness *Physical Exam - Vital Signs Last Vital Signs Temp Pulse Resp BP Pulse Ox 98.4 F 83 18 122/83 96 04/05/17 15:30 04/05/17 15:30 04/05/17 15:30 04/05/17 15:30 04/05/17 15:30 - Physical Exam Comments: 04/05/17 17:33 General Appearance: Nourished. No Apparent Distress HEENT: No Pharyngeal Erythema, Tonsillar Exudate, Tonsillar Erythema Respiratory/Chest: Lungs Clear, Normal Breath Sounds. No Crackles, Rales, Rhonchi, Wheezing Cardiovascular: Regular Rhythm, Regular Rate. No Murmur, Gallop/S3, Gallop/S4 Gastrointestinal/Abdominal: Normal Bowel Sounds, Soft. No Guarding, Rebound, Tenderness Extremity: Normal Capillary Refill Integumentary: Normal Color, Dry, Warm Neurologic: Fully Oriented, Alert, Normal Mood/Affect, Normal Response ED Treatment Course - LABORATORY CBC & Chemistry Diagram: 04/05/17 16:59 04/05/17 18:13 Medical Decision Making - Medical Decision Making 04/05/17 17:35 Patient is a 51 year old female who presents with SOB. Differential includes but is not limited to: Anxiety, PE, ACS, Pneumonia, CHF. Given the patient's history of an self resolving episode of SOB with a normal physical exam, her symptoms seem most consistent with an anxiety attack. However, given her medical history and risk factors, it is reasonable to evaluate for PE, ACS, pneumonia or CHF. We have a lower suspicion for ACS or CHF given her recent extensive cardiac work up that was negative. We will send a cbc, cmp, troponin , D-dimer, bnp and obtain a chest radiograph to evaluate. 04/05/17 17:45 Patient signed out to Dr. Cabrera. Pending Labs. *DC/Admit/Observation/Transfer Diagnosis at time of Disposition: Panic attack - Discharge Dispostion Disposition: HOME Condition at time of disposition: Improved - Referrals Referrals: Gibson Coe MD [Primary Care Provider] - - Patient Instructions Printed Discharge Instructions: DI for Panic Disorder Additional Instructions: Your workup for your shortness of breath was negative for any acute cardiac or pulmonary causes. Your symptoms are consistent with a panic attack. Please schedule an appointment with your PMD to discuss treatment options for it. In addition, your CT angiogram showed an opacity suspicious for a pulmonary nodule. Please let your PMD know this. - Attestations Physician Attestion: 04/07/17 08:46 I, Dr. Leonidas Moffett, attest that this document has been prepared under my direction and personally reviewed by me in its entirety. I further attest, that it accurately reflects all work, treatment, procedures and medical decision -making performed by me.
[2017-04-05 17:21] LABS: BASOPHIL 0.7 % (0-2.0); EOSINOPHIL 5.5 % (0-4.5); MCH 28.6 pg (25.7-33.7); MCHC 33.7 g/dl (32.0-36.0); MEAN CELL VOLUME 84.8 fl (80-96); MEAN PLT VOLUME 8.4 fl (7.5-11.1); NEUTROPHILS 62.8 % (42.8-82.8); PLATELET COUNT 198 K/MM3 (134-434); RDW 15.9 % (11.6-15.6); WHITE BLOOD COUNT 5.3 K/mm3 (4.0-10.0)
--- NOTE | 2017-04-05 19:08 | PDOC ---
*Physical Exam - Vital Signs Last Vital Signs Temp Pulse Resp BP Pulse Ox 98.4 F 68 16 116/72 95 04/05/17 17:22 04/05/17 17:22 04/05/17 17:22 04/05/17 17:22 04/05/17 17:22 ED Treatment Course - LABORATORY CBC & Chemistry Diagram: 04/05/17 16:59 04/05/17 18:13 - ADDITIONAL ORDERS Additional order review: Laboratory Results 04/05/17 04/05/17 04/05/17 16:59 16:59 16:59 INR Cancelled D-Dimer Cancelled Sodium Cancelled Potassium Cancelled Chloride Cancelled Carbon Dioxide Cancelled Anion Gap Cancelled BUN Cancelled Creatinine Cancelled Creat Clearance w eGFR Cancelled Random Glucose Cancelled Calcium Cancelled Total Bilirubin Cancelled AST Cancelled ALT Cancelled Alkaline Phosphatase Cancelled Creatine Kinase Cancelled Troponin I Cancelled B-Natriuretic Peptide Cancelled Total Protein Cancelled Albumin Cancelled 04/05/17 16:59 RBC 3.97 MCV 84.8 MCHC 33.7 RDW 15.9 H MPV 8.4 Neutrophils % 62.8 D Lymphocytes % 22.3 D Monocytes % 8.7 Eosinophils % 5.5 H Basophils % 0.7 Medical Decision Making - Medical Decision Making 04/05/17 19:05 Pt was signed out to me by Dr. Moffett. Pt is a 51F w/ recent negative cardiac workup including catheterization presenting with SOB, pinched feeling in chest, and shakiness, likely due to anxiety attack. Pending: D-dimer- + trops- negative EKG: normal sinus rhythm. moderate voltage criteria for LVH, may be normal variant INR: 2.56 CT angio: negative for pulmonary embolus 04/05/17 22:00 *DC/Admit/Observation/Transfer Diagnosis at time of Disposition: Panic attack - Discharge Dispostion Disposition: HOME Condition at time of disposition: Stable Admit: No - Patient Instructions Printed Discharge Instructions: DI for Panic Disorder Additional Instructions: Your workup for your shortness of breath was negative for any acute cardiac or pulmonary causes. Your symptoms are consistent with a panic attack. Please schedule an appointment with your PMD to discuss treatment options for it. In addition, your CT angiogram showed an opacity suspicious for a pulmonary nodule. Please let your PMD know this. - Attestations Physician Attestion: 04/05/17 22:07 I, Dr. Matt Cabrera, attest that this document has been prepared under my direction and personally reviewed by me in its entirety. I further attest, that it accurately reflects all work, treatment, procedures and medical decision -making performed by me.
[2017-04-05 19:12] LABS: INR 2.56 (0.82-1.09); PROTHROMBIN TIME (PATIENT) 28.7 SEC (9.98-11.88)
[2017-04-05 19:54] LABS: ALBUMIN 3.3 g/dl (3.4-5.0); ANION GAP 6 (8-16); CO2 25 mmol/L (21-32); GLUCOSE,RANDOM 75 mg/dL (74-106); SGOT/AST 30 U/L (15-37); SGPT/ALT 39 U/L (12-78)
[2017-04-05 20:00] LABS: ALK PHOS 92 U/L (45-117); BILIRUBIN,TOTAL 0.2 mg/dL (0.2-1.0); CPK 99 IU/L (26-192); CREATININE 0.7 mg/dL (0.55-1.02); TOT PROT 7.5 g/dl (6.4-8.2); TROPONIN I < 0.02 ng/ml (0.00-0.05)
[2017-04-05 20:34] VITALS: BP 117/76; PULSE 86; TEMP 98.7
--- NOTE | 2017-04-06 08:20 | EKG ---
Test Reason : Blood Pressure : / mmHG Vent. Rate : 081 BPM Atrial Rate : 081 BPM P-R Int : 172 ms QRS Dur : 094 ms QT Int : 398 ms P-R-T Axes : 028 -14 014 degrees QTc Int : 462 ms NORMAL SINUS RHYTHM MODERATE VOLTAGE CRITERIA FOR LVH, MAY BE NORMAL VARIANT BORDERLINE ECG WHEN COMPARED WITH ECG OF 20-MAR-2017 13:10, CRITERIA FOR SEPTAL INFARCT ARE NO LONGER PRESENT Confirmed by MICHELL CEBALLOS, CRESENCIO ([id number]) on 04/06/2017 8:19:51 AM Referred By: Confirmed By:CRESENCIO GALARZA MD
== END 2017-04-05 22:16 | disposition home or self-care (01) ==
LOC: JER 15:24
DX: F41.0 Panic disorder [episodic paroxysmal anxiety] (principal); I10 Essential (primary) hypertension; J45.909 Unspecified asthma, uncomplicated; K21.9 Gastro-esophageal reflux disease without esophagitis; M79.7 Fibromyalgia; Z86.73 Personal history of transient ischemic attack (TIA), and cerebral infarction without residual deficits; Z79.01 Long term (current) use of anticoagulants; Z88.0 Allergy status to penicillin
CPT/HCPCS: 36415; 71020-TC; 71275-TC; 80053; 83880; 84484; 85025; 85379; 85610; 93005; 93010; 99283-25

== ENCOUNTER 2017-10-23 17:34 | Emergency (ER) | payer BC, OTHER ==
[2017-10-23 17:55] VITALS: BP 102/71; BMI 34.2
[2017-10-23] MEDS ORDERED: ACETAMINOPHEN 1000 MG/100 ML VIAL (NON FORMULARY) IVPB ONE (21:13)
[2017-10-23] MEDS ORDERED: ACETAMINOPHEN INJECTION 100 ML IVPB ONE (21:17)
[2017-10-23 21:21] LABS: BASO % 0.8 % (0-2.0); EOS % 4.7 % (0-4.5); HEMATOCRIT 34.5 % (32.4-45.2); HEMOGLOBIN 11.4 GM/dL (10.7-15.3); LYMPH % 25.4 % (8-40); MCHC 33.1 g/dl (32.0-36.0); MEAN CELL VOLUME 84.4 fl (80-96); MEAN PLT VOLUME 8.5 fl (7.5-11.1); NEUT % 62.1 % (42.8-82.8); PLATELET COUNT 194 K/MM3 (134-434); RBC 4.09 M/mm3 (3.60-5.2); RDW 15.4 % (11.6-15.6); WHITE BLOOD COUNT 5.4 K/mm3 (4.0-10.0)
--- NOTE | 2017-10-23 21:38 | PDOC ---
History of Present Illness - General Chief Complaint: SIRS, Suspected/Possible Stated Complaint: POSSIBLE PNEUMONIA Time Seen by Provider: 10/23/17 18:32 - History of Present Illness Initial Comments: 10/23/17 21:14 "The patient is a 52 year old female, with a significant past medical history of HTN, cardiac catherization (04/2017), TIA on Coumadin, fibromyalgia, GERD, Asthma and uterus CA, who presents to the emergency department with cough and fever for the last 5 days. She states that she has h/o Pneumonia and that these current symptoms feel similar. She notes that her cough is productive of a green phlegm. The patient denies chest pain, SOB, headache and dizziness. Denies chills, nausea, vomit, diarrhea and constipation. Denies dysuria, frequency, urgency and hematuria. Allergies: Penicillin Past surgical history: BIRD. BUNIONECTOMIES Social history: No alcohol, tobacco or drug use reported " Past History - Past Medical History Allergies/Adverse Reactions: Allergies Allergy/AdvReac Type Severity Reaction Status Date / Time Penicillins Allergy Severe Rash Verified 10/23/17 17:51 Home Medications: Ambulatory Orders Albuterol 0.083% Nebulizer Alena [Ventolin 0.083% Nebulizer Soln -] 1 amp NEB PRN 03/18/17 Ergocalciferol [Vitamin D2] 50,000 unit PO WEEKLY 03/18/17 Escitalopram Oxalate [Lexapro -] 20 mg PO DAILY 03/18/17 Gabapentin [Neurontin] 300 mg PO HS 03/18/17 Halobetasol Propionate 15 gm TP BID 03/18/17 Iron,Carb/Vit C/Vit B12/Folic [Fe C Plus Tablet] 142 each PO DAILY 03/18/17 Levothyroxine [Synthroid -] 50 mcg PO DAILY 03/18/17 Meclizine HCl 12.5 mg PO BID 03/18/17 Montelukast Na [Singulair -] 10 mg PO HS 03/18/17 Multivitamin [Poly-Vitamin] 1 each PO DAILY 03/18/17 Nortriptyline HCl [Pamelor -] 50 mg PO HS 03/18/17 Omeprazole 40 mg PO DAILY 03/18/17 Oxybutynin Chloride [Ditropan Xl] 10 mg PO BID 03/18/17 Oxycodone HCl/Acetaminophen [Percocet 10-325 mg Tablet] 10 mg PO TID PRN Simvastatin 20 mg PO HS 03/18/17 Zolpidem Tartrate [Ambien] 10 mg PO HS 03/18/17 Ranolazine [Ranexa -] 500 mg PO BID #60 tab 03/20/17 Albuterol Sulfate Inhaler - [Ventolin Hfa Inhaler -] 1 - 2 inh PO QID PRN Formoterol Fumarate [Perforomist] 20 mcg IH BID 04/05/17 Nebivolol HCl [Bystolic] 2.5 mg PO DAILY 04/05/17 Remifemin 20 Mg 20 mg PO BID 04/05/17 Tiotropium [place] [Spiriva] 2 inh IH DAILY 04/05/17 Dulera 200 Mcg/5 Mcg Inhaler 10/23/17 Levofloxacin [Levaquin] 500 mg PO DAILY #7 tablet 10/23/17 Tiotropium [place] [Spiriva] 1 inh PO DAILY 10/23/17 Anemia: No Asthma: Yes Cancer: Yes (UTERUS) Cardiac Disorders: No CVA: Yes (TIA) COPD: No CHF: No Dementia: No Diabetes: No GI Disorders: Yes (REFLUX) Disorders: No HTN: No Hypercholesterolemia: No Liver Disease: No Seizures: No Thyroid Disease: No - Surgical History Abdominal Surgery: No Appendectomy: No Cardiac Surgery: No Cholecystectomy: No Lung Surgery: No Neurologic Surgery: No Orthopedic Surgery: Yes (BIRD. BUNIONECTOMIES) - Suicide/Smoking/Psychosocial Hx Smoking History: Former smoker Have you smoked in the past 12 months: No If you are a former smoker, when did you quit?: 35 YRS AGO Information on smoking cessation initiated: No Hx Alcohol Use: No Drug/Substance Use Hx: No Substance Use Type: None Review of Systems - Review of Systems Comments:: 10/23/17 21:38 "GENERAL/CONSTITUTIONAL: (+) fever no chills. No weakness. HEAD, EYES, EARS, NOSE AND THROAT: No change in vision. No ear pain or discharge. No sore throat. CARDIOVASCULAR: No Shortness of breath. No chest pain. RESPIRATORY: (+) Cough. No wheezing, or hemoptysis. GASTROINTESTINAL: No nausea, vomiting, diarrhea or constipation. GENITOURINARY: No dysuria, frequency, or change in urination. MUSCULOSKELETAL: No joint or muscle swelling or pain. No neck pain. SKIN: No rash NEUROLOGIC: No headache, vertigo, loss of consciousness, or change in strength/ sensation. ENDOCRINE: No increased thirst. No abnormal weight change. HEMATOLOGIC/LYMPHATIC: No anemia, easy bleeding, or history of blood clots. ALLERGIC/IMMUNOLOGIC: No hives or skin allergy." *Physical Exam - Vital Signs Last Vital Signs Temp Pulse Resp BP Pulse Ox 100 F H 84 20 102/71 98 10/23/17 17:51 10/23/17 17:51 10/23/17 17:51 10/23/17 17:51 10/23/17 17:51 - Physical Exam Comments: 10/23/17 21:39 "GENERAL: Awake, alert, and fully oriented, in no acute distress HEAD: No signs of trauma EYES: PERRLA, EOMI, sclera anicteric, conjunctiva clear ENT: Auricles normal inspection, hearing grossly normal, nares patent, oropharynx clear without exudates. Moist mucosa NECK: Nontender, no stepoffs, Normal ROM, supple, no lymphadenopathy, JVD, or masses LUNGS: R sided crackles, L lung arellano clear, no wheezing HEART: Regular rate and rhythm, normal S1 and S2, no murmurs, rubs or gallops ABDOMEN: Soft, nontender, normoactive bowel sounds. No guarding, no rebound. No masses EXTREMITIES: Normal range of motion, no edema. No clubbing or cyanosis. No cords, erythema, or tenderness NEUROLOGICAL: Cranial nerves II through XII intact. 5/5 strength and sensation in all extremities, Normal speech, normal gait, normal cerebellar function SKIN: Warm, Dry, normal turgor, no rashes or lesions noted. " Heart Score/ECG Review - ECG Impressions Comment:: 10/23/17 21:39 NSR, no SAM/STDs, TWI in V1-V2, axis wnl, intervals wnl, rate 77 ED Treatment Course - LABORATORY CBC & Chemistry Diagram: 10/23/17 21:12 10/23/17 21:12 - RADIOLOGY Radiology Studies Ordered: Category Date Time Status CHEST PA & LAT [RAD] Stat Radiology 10/23/17 19:54 Ordered Medical Decision Making - Medical Decision Making 10/23/17 21:39 52 F with fevers and cough. Temp 100 in ER. Likely viral URI/influenza vs PNA. - Labs - CXR - Tylenol 10/23/17 22:54 CBC,CMP WBC 5.4 K/mm3 (4.0-10.0) 10/23/17 21:12 RBC 4.09 M/mm3 (3.60-5.2) 10/23/17 21:12 Hgb 11.4 GM/dL (10.7-15.3) 10/23/17 21:12 Hct 34.5 % (32.4-45.2) 10/23/17 21:12 MCV 84.4 fl (80-96) 10/23/17 21:12 MCH 28.0 pg (25.7-33.7) 10/23/17 21:12 MCHC 33.1 g/dl (32.0-36.0) 10/23/17 21:12 RDW 15.4 % (11.6-15.6) 10/23/17 21:12 Plt Count 194 K/MM3 (134-434) 10/23/17 21:12 MPV 8.5 fl (7.5-11.1) 10/23/17 21:12 Neutrophils % 62.1 % (42.8-82.8) 10/23/17 21:12 Lymphocytes % 25.4 % (8-40) 10/23/17 21:12 Monocytes % 7.0 % (3.8-10.2) 10/23/17 21:12 Eosinophils % 4.7 % (0-4.5) H 10/23/17 21:12 Basophils % 0.8 % (0-2.0) 10/23/17 21:12 Sodium 140 mmol/L (136-145) 10/23/17 21:12 Potassium 3.9 mmol/L (3.5-5.1) 10/23/17 21:12 Chloride 109 mmol/L (98-107) H 10/23/17 21:12 Carbon Dioxide 23 mmol/L (21-32) 10/23/17 21:12 Anion Gap 8 (8-16) 10/23/17 21:12 BUN 10 mg/dL (7-18) 10/23/17 21:12 Creatinine 0.9 mg/dL (0.55-1.02) 10/23/17 21:12 Creat Clearance w eGFR > 60 (>60) 10/23/17 21:12 Random Glucose 150 mg/dL (74-106) H 10/23/17 21:12 Calcium 8.0 mg/dL (8.5-10.1) L 10/23/17 21:12 Total Bilirubin 0.3 mg/dL (0.2-1.0) D 10/23/17 21:12 AST 30 U/L (15-37) 10/23/17 21:12 ALT 28 U/L (12-78) 10/23/17 21:12 Alkaline Phosphatase 99 U/L (45-117) 10/23/17 21:12 Creatine Kinase 141 IU/L (26-192) 10/23/17 21:12 Troponin I < 0.02 ng/ml (0.00-0.05) 10/23/17 21:12 B-Natriuretic Peptide 49.72 pg/ml (5-125) 10/23/17 21:12 Total Protein 7.1 g/dl (6.4-8.2) 10/23/17 21:12 Albumin 3.4 g/dl (3.4-5.0) 10/23/17 21:12 Labs unremarkable. CXR without focal consolidation. However, given pt's duration of symptoms and rales on exam, will empirically tx for PNA. Pt is well appearing, with normal vitals. Clinically stable for DC at this time. I discussed the physical exam findings, ancillary test results and final diagnoses with the patient. I answered all of the patient's questions. The patient was satisfied with the care received and felt comfortable with the discharge plan and treatment plan. The patient agrees to follow up with the primary care physician within 24-72 hours. *DC/Admit/Observation/Transfer Diagnosis at time of Disposition: Pneumonia - Discharge Dispostion Disposition: HOME - Prescriptions Prescriptions: Levofloxacin [Levaquin] 500 mg PO DAILY #7 tablet - Referrals Referrals: Gibson Coe MD [Primary Care Provider] - - Patient Instructions Printed Discharge Instructions: DI for Pneumonia -- Adult Additional Instructions: You may have pneumonia. Take the antibiotics as prescribed to treat it. If you experience worsening fevers, cough, chest pain, shortness of breath, or any other concerning symptoms, return to the ER immediately. Otherwise, follow up with your primary doctor within 48 hours. Usted puede tener neumona. [place] los antibiticos segn lo recetado para tratarlo. Si experimenta fiebre empeora, tos, dolor en el pecho, dificultad para respirar o cualquier otro sntoma preocupante, regrese a la mayito de urgencias inmediatamente. De lo contrario, tanisha un seguimiento con rubio mdico primario dentro de las 48 horas. Print Language: MOROCCAN - Post Discharge Activity - Attestations Physician Attestion: 10/23/17 22:57 I, Dr. Manav Huynh MD, attest that this document has been prepared under my direction and personally reviewed by me in its entirety. I further attest, that it accurately reflects all work, treatment, procedures and medical decision -making performed by me.
[2017-10-23 21:52] LABS: ALBUMIN 3.4 g/dl (3.4-5.0); ANION GAP 8 (8-16); BILIRUBIN,TOTAL 0.3 mg/dL (0.2-1.0); BLOOD UREA NITROGEN 10 mg/dL (7-18); CHLORIDE 109 mmol/L (98-107); CO2 23 mmol/L (21-32); CREATININE 0.9 mg/dL (0.55-1.02); GLUCOSE,RANDOM 150 mg/dL (74-106); POTASSIUM 3.9 mmol/L (3.5-5.1); SGOT/AST 30 U/L (15-37); SGPT/ALT 28 U/L (12-78); SODIUM 140 mmol/L (136-145); TOT PROT 7.1 g/dl (6.4-8.2)
[2017-10-23 21:53] LABS: ALK PHOS 99 U/L (45-117)
[2017-10-24 00:09] VITALS: PULSE 82; TEMP 99
--- NOTE | 2017-10-24 16:09 | EKG ---
Test Reason : Blood Pressure : / mmHG Vent. Rate : 077 BPM Atrial Rate : 077 BPM P-R Int : 168 ms QRS Dur : 090 ms QT Int : 402 ms P-R-T Axes : 039 -14 011 degrees QTc Int : 454 ms NORMAL SINUS RHYTHM MODERATE VOLTAGE CRITERIA FOR LVH, MAY BE NORMAL VARIANT CANNOT RULE OUT SEPTAL INFARCT , AGE UNDETERMINED ABNORMAL ECG WHEN COMPARED WITH ECG OF 05-APR-2017 15:45, MINIMAL CRITERIA FOR SEPTAL INFARCT ARE NOW PRESENT T WAVE INVERSION NOW EVIDENT IN ANTERIOR LEADS Confirmed by BUSHRA HER MD ([id number]) on 10/24/2017 4:08:28 PM Referred By: Confirmed By:BUSHRA HER MD
== END 2017-10-24 00:09 | disposition home or self-care (01) ==
LOC: JER 17:34
PROC: 3E033NZ Introduction of Analgesics, Hypnotics, Sedatives into Peripheral Vein, Percutaneous Approach (ICD-10-PCS; principal; 2017-10-23)
DX: J18.9 Pneumonia, unspecified organism (principal); I25.10 Atherosclerotic heart disease of native coronary artery without angina pectoris; Z98.61 Coronary angioplasty status; I10 Essential (primary) hypertension; K21.9 Gastro-esophageal reflux disease without esophagitis; J45.909 Unspecified asthma, uncomplicated; M79.7 Fibromyalgia; Z85.42 Personal history of malignant neoplasm of other parts of uterus; Z86.73 Personal history of transient ischemic attack (TIA), and cerebral infarction without residual deficits; Z79.01 Long term (current) use of anticoagulants
CPT/HCPCS: 36415; 71046-TC-FY; 80053; 82550; 83880; 84484; 85025; 93005; 93010; 99282-25

== ENCOUNTER 2018-05-20 08:21 | Day surgery (SDC) | payer BC, OTHER ==
[2018-05-12 12:44] VITALS: BMI 35.9
--- NOTE | 2018-05-20 08:00 | HP ---
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 Cardiovascular: Yes: HTN, Hyperlipdemia Pulmonary: Yes: COPD Gastrointestinal: Yes: GERD ...LMP Comment: hysterectomy Heme/Onc: Yes: Hypercoaguable State Musculoskeletal: Yes: Osteoarthritis Rheumatology: Yes: Rheumatoid Arthritis Endocrine: Yes: Hypothyroidism - Current Medications Current Medications: Home Medications Medication Instructions Recorded Albuterol 0.083% Nebulizer Alena 1 amp NEB PRN 03/18/17 [Ventolin 0.083% Nebulizer Soln -] Escitalopram Oxalate [Lexapro -] 20 mg PO DAILY 03/18/17 Gabapentin [Neurontin] 300 mg PO HS 03/18/17 Levothyroxine [Synthroid -] 50 mcg PO DAILY 03/18/17 Meclizine HCl 12.5 mg PO BID 03/18/17 Montelukast Na [Singulair -] 10 mg PO DAILY 03/18/17 Multivitamin [Poly-Vitamin] 1 each PO DAILY 03/18/17 Nortriptyline HCl [Pamelor -] 50 mg PO HS 03/18/17 Oxycodone HCl/Acetaminophen 10 mg PO TID PRN 03/18/17 [Percocet 10-325 mg Tablet] Simvastatin 20 mg PO HS 03/18/17 Zolpidem Tartrate [Ambien] 10 mg PO HS 03/18/17 Albuterol Sulfate Inhaler - 1 - 2 inh PO QID PRN 04/05/17 [Ventolin Hfa Inhaler -] Formoterol Fumarate [Perforomist] 20 mcg IH BID 04/05/17 Tiotropium [place] [Spiriva] 2 inh IH DAILY 04/05/17 Butalb/Acetaminophen/Caffeine 1 each PO TID PRN 05/12/18 [Fioricet 50-300-40 mg Capsule] Dexlansoprazole [Dexilant] 60 mg PO DAILY 05/12/18 Diltiazem Cd [Cardizem Cd -] 180 mg PO DAILY 05/12/18 Ergocalciferol (Vitamin D2) 50,000 unit PO WEEKLY 05/12/18 [Drisdol] Escitalopram Oxalate [Lexapro -] 20 mg PO DAILY 05/12/18 Ferrous Sulfate [Iron] 325 mg PO DAILY 05/12/18 Fluticasone Furoate [Arnuity 200 mcg IH DAILY 05/12/18 Ellipta] Guaifenesin/Pseudoephedrne HCl 1 each PO BID PRN 05/12/18 [Mucinex D ER Tablet] Linaclotide [Linzess] 145 mcg PO DAILY 05/12/18 Warfarin Sodium [Coumadin] 4 mg PO DAILY 05/12/18 Warfarin Sodium [Coumadin] 5 mg PO DAILY 05/12/18 Satellite Physical Exam - Physical Examination General Appearance: Well Nourished, Well Developed, Alert & Oriented x3 ENT: Clear Lung: Normal air movement Heart: Regular rate & rhythm Extremities: Other (right knee- + swelling, + ttp laterally, decr rom, nvi xrays show grade 4 lateral djd) Neurological: Intact, Alert, Oriented Satellite Impression/Plan - Impression/Plan Impression: right knee lateral djd Operative Procedure: right lateral aga ukr Date to be Performed: 05/20/18
[2018-05-20] MEDS ORDERED: CEFAZOLIN 2 GM in DEXTROSE 5%-WATER - 50 ML IVPB ONE (08:37)
[2018-05-20] MEDS ORDERED: CELECOXIB 200 MG CAPSULE PO ONE (08:37)
[2018-05-20] MEDS ORDERED: TRANEXAMIC ACID 1000 MG/10 ML VIAL IVPUSH ONE (08:37)
[2018-05-20] MEDS ORDERED: ROPIVICAINE 0.2%/MORPH PF/KETOROLAC - 51ML DISP.SYRINGE IA ONE ×2 (08:37→12:48)
[2018-05-20] MEDS ORDERED: GABAPENTIN 300 MG CAPSULE (FP) PO ONE (08:37)
[2018-05-20] MEDS ORDERED: oxyCODONE HCL 10 MG SUSTAINED ACTING TABLET PO ONE (08:37)
[2018-05-20 09:15] LABS: INR 1.13 (0.82-1.09); PROTHROMBIN TIME (PATIENT) 12.6 SEC (10.2-13.0)
[2018-05-20] MEDS ORDERED: THROMBIN (BOVINE) 5,000 UNIT VIAL TP ONE ×2 (10:29→11:44)
[2018-05-20] MEDS ORDERED: ceFAZolin SODIUM 1 GM VIAL ONE (10:29)
[2018-05-20] MEDS ORDERED: GELATIN, ABSORBABLE 100 EACH SPONGE TP ONE ×2 (10:29→11:45)
[2018-05-20] MEDS ORDERED: VANCOMYCIN 1,000 MG VIAL (RESTRICTED TO ID ONLY) ONE (10:36)
[2018-05-20] MEDS ORDERED: MIDAZOLAM HCL 2 MG/2 ML SINGLE DOSE VIAL ONE (10:43)
[2018-05-20] MEDS ORDERED: ROPIVACAINE HCL 0.5% 30ML VIAL ONE (10:43)
[2018-05-20] MEDS ORDERED: ALBUTEROL SO4 8 GM HFA INHALER IH PRN (13:11)
[2018-05-20] MEDS ORDERED: MAG HYDROX/AL HYDROX/SIMETH 30 ML UNIT-DOSE CUP PO PRN (13:14)
[2018-05-20] MEDS ORDERED: ALBUTEROL SO4 0.083% IH SOL 2.5 MG/3 ML VIAL.NEB. NEB PRN (13:15)
[2018-05-20] MEDS ORDERED: LACTATED RINGERS SOLUTION 1,000 ML IV SCH (13:15)
--- NOTE | 2018-05-20 13:17 | OP ---
Operative Note - Note: Operative Date: 05/20/18 (jmi) Pre-Operative Diagnosis: right knee lateral djd Operation: right lateral aga ukr Post-Operative Diagnosis: Same as Pre-op Surgeon: Jean Carlos Loera Door Opener: Eric Alejandro Anesthesiologist/HOME STEREO EQUIPMENT INSTALLER: Hany Ortiz Anesthesia: Spinal, Local Specimens Removed: bone fragments Estimated Blood Loss (mls): 100 Operative Report Dictated: Yes
[2018-05-20] MEDS ORDERED: ZOLPIDEM TARTRATE 5 MG TABLET PO PRN (13:43)
[2018-05-20] MEDS ORDERED: ACETAMINOPHEN 325 MG TABLET (FP) ONE (14:29)
[2018-05-20] MEDS ORDERED: ACETAMINOPHEN 325 MG TABLET (FP) PO ONE (14:32)
[2018-05-20] MEDS ORDERED: oxyCODONE HCL 5 MG TABLET PO PRN (14:50)
[2018-05-20] MEDS ORDERED: ONDANSETRON 4 MG/2 ML VIAL IVPUSH PRN (14:50)
[2018-05-20] MEDS: ACETAMINOPHEN 325 MG TABLET (FP) PO SCH ×2 (15:12→21:02)
[2018-05-20] MEDS: oxyCODONE HCL 5 MG TABLET PO PRN ×3 (16:00→22:46)
[2018-05-20] MEDS ORDERED: CEFAZOLIN 2 GM in DEXTROSE 5%-WATER - 50 ML IVPB SCH (20:00)
[2018-05-20] MEDS: SENNOSIDES/DOCUSATE COMBO (SENNA PLUS) TABLET (UD) PO SCH (21:07)
[2018-05-20] MEDS: oxyCODONE HCL 10 MG SUSTAINED ACTING TABLET PO SCH (21:07)
[2018-05-20] MEDS: MECLIZINE HCL 12.5 MG TABLET PO SCH (21:07)
[2018-05-20] MEDS ORDERED: FORMOTEROL FUMARATE 20 MCG IH SCH (22:00)
[2018-05-20] MEDS ORDERED: GABAPENTIN 300 MG CAPSULE (FP) PO SCH (22:00)
[2018-05-20] MEDS ORDERED: ATORVASTATIN CA 10 MG TABLET (FP) PO SCH (22:00)
[2018-05-20] MEDS ORDERED: PATIENT'S OWN MEDICATION (NON-FORMULARY) (Zolpidem Tartrate [Ambien] 10 MG) PO SCH (22:00)
[2018-05-20] MEDS ORDERED: NORTRIPTYLINE HCL 25 MG CAPSULE PO SCH (22:00)
[2018-05-20] MEDS ORDERED: PATIENT'S OWN MEDICATION (NON-FORMULARY) (Simvastatin [Simvastatin] 20 MG) PO SCH (22:00)
[2018-05-20] MEDS ORDERED: VANCOMYCIN 1,250 MG in DEXTROSE 5%-WATER - 250 ML IVPB ONE (23:00)
[2018-05-21] MEDS: ACETAMINOPHEN 325 MG TABLET (FP) PO SCH ×2 (02:03→08:18)
[2018-05-21] MEDS: oxyCODONE HCL 5 MG TABLET PO PRN ×2 (05:27→08:45)
[2018-05-21 06:36] VITALS: TEMP 98
[2018-05-21] MEDS ORDERED: LEVOTHYROXINE NA 50 MCG TABLET (FP) PO SCH (07:00)
--- NOTE | 2018-05-21 09:09 | PN ---
Progress Note (short form) - Note Progress Note: Ortho Pt seen and examined s/p right aga lateral ukr pod #1 Selected Entries 05/21/18 06:00 Temperature 98.0 F Pulse Rate 90 Respiratory 19 Rate Blood Pressure 110/52 dressing c/d/i, calf soft, nt rom 0-50, nvi a/p PT dvt ppx pain control d/c home today f/u in 1 week
--- NOTE | 2018-05-21 09:10 | DS ---
Physical Examination Vital Signs: Vital Signs Temperature 98.0 F 05/21/18 06:00 Pulse Rate 90 05/21/18 06:00 Respiratory Rate 19 05/21/18 06:00 Blood Pressure 110/52 05/21/18 06:00 O2 Sat by Pulse Oximetry (%) 97 05/21/18 06:00 Discharge Summary Reason For Visit: OSTEOARTHRITIS Procedures: Principal: right lateral ukr Hospital Course: admitted for elective right aga lateral ukr, uneventful post-op, stable for d/c Condition: Good - Instructions Diet, Activity, Other Instructions: Post-op Instructions-Partial Knee Replacement Call the office for a follow-up appointment in 1 week - [phone] Aspirin 325mg daily for 6 weeks. Pain medication was sent into your pharmacy. Apply Graduated Compression Stockings (TEDs) to both lower extremities- remove daily for hygiene ONLY Apply Sequential Compression Device (SCDs) to both Lower extremities remove for PT and hygiene ONLY Apply cold packs to affected area for 15 minutes every 2 hours. Physical Therapist will come to your home for the first 5 days. You will be set up with outpatient PT at your first post-operative visit. Patient may ambulate as tolerated-encourage self care (at least every 2-3 hours while awake) with walker or cane Maintain Aquacel (waterproof) dressing to operative wound (will be removed by surgeon at first office visit) Shower with Aquacel dressing in place-if Aquacel integrity compromised, remove and apply dry sterile dressing and notify Orthopedist. DO NOT SHOWER unless Orthopedists approves without Aquacel dressing CONTACT THE OFFICE FOR ANY CHANGE IN YOUR CONDITION (for example-fever greater than 102 degrees, excessive bleeding from operative site, purulent drainage, severe swelling or pain) GO TO THE EMERGENCY ROOM IF THERE IS A MEDICAL EMERGENCY Knee Precautions: * Keep a rolled towel under affected heel while in bed or chair (to keep knee in extension) * Keep affected leg elevated except during mealtimes * DO NOT PLACE PILLOW UNDER AFFECTED KNEE * If you have any questions, please do not hesitate to call the office - . Referrals: Jean Carlos Loera MD [Staff Physician] - Disposition: VNS/HOME HEALTH CARE - Home Medications Comprehensive Discharge Medication List: Ambulatory Orders Albuterol 0.083% Nebulizer Alena [Ventolin 0.083% Nebulizer Soln -] 1 amp NEB PRN 03/18/17 Escitalopram Oxalate [Lexapro -] 20 mg PO DAILY 03/18/17 Gabapentin [Neurontin] 300 mg PO HS 03/18/17 Levothyroxine [Synthroid -] 50 mcg PO DAILY 03/18/17 Meclizine HCl 12.5 mg PO BID 03/18/17 Montelukast Na [Singulair -] 10 mg PO DAILY 03/18/17 Multivitamin [Poly-Vitamin] 1 each PO DAILY 03/18/17 Nortriptyline HCl [Pamelor -] 50 mg PO HS 03/18/17 Simvastatin 20 mg PO HS 03/18/17 Zolpidem Tartrate [Ambien] 10 mg PO HS 03/18/17 Albuterol Sulfate Inhaler - [Ventolin HFA Inhaler -] 1 - 2 inh PO QID PRN Formoterol Fumarate [Perforomist] 20 mcg IH BID 04/05/17 Tiotropium [place] [Spiriva] 2 inh IH DAILY 04/05/17 Butalb/Acetaminophen/Caffeine [Fioricet 50-300-40 mg Capsule] 1 each PO TID PRN 05/12/18 Dexlansoprazole [Dexilant] 60 mg PO DAILY 05/12/18 Ergocalciferol (Vitamin D2) [Drisdol] 50,000 unit PO WEEKLY 05/12/18 Escitalopram Oxalate [Lexapro -] 20 mg PO DAILY 05/12/18 Ferrous Sulfate [Iron] 325 mg PO DAILY 05/12/18 Fluticasone Furoate [Arnuity Ellipta] 200 mcg IH DAILY 05/12/18 Guaifenesin/Pseudoephedrne HCl [Mucinex D ER 1,200-120 mg Tab] 1 each PO BID PRN 05/12/18 Linaclotide [Linzess] 145 mcg PO DAILY 05/12/18 Warfarin Sodium [Coumadin] 4 mg PO DAILY 05/12/18 Warfarin Sodium [Coumadin] 5 mg PO DAILY 05/12/18 Oxycodone HCl/Acetaminophen [Percocet 10-325 mg Tablet] 10 mg PO TID PRN #40 tablet MDD 3 05/20/18
[2018-05-21] MEDS ORDERED: TIOTROPIUM BROMIDE 2.5 MCG (SPIRIVA) RESPIMAT INHALER IH SCH (10:00)
[2018-05-21] MEDS ORDERED: WARFARIN NA 5 MG TABLET (UD) PO SCH (10:00)
[2018-05-21] MEDS ORDERED: PATIENT'S OWN MEDICATION (NON-FORMULARY) (Warfarin Sodium [Coumadin] 4 MG) PO SCH (10:00)
[2018-05-21] MEDS ORDERED: MULTIVITAMINS (DAILY MVI) TABLET (FP) PO SCH (10:00)
[2018-05-21] MEDS ORDERED: FERROUS SO4 325 MG TABLET (FP) PO SCH (10:00)
[2018-05-21] MEDS ORDERED: TIOTROPIUM BROMIDE IH SCH (10:00)
[2018-05-21] MEDS ORDERED: PANTOPRAZOLE 40 MG TABLET (FP) PO SCH (10:00)
[2018-05-21] MEDS ORDERED: WARFARIN NA 5 MG, WARFARIN NA 4 MG PO SCH ×2 (10:00→18:00)
[2018-05-21] MEDS ORDERED: ESCITALOPRAM OXALATE 20 MG TABLET (FP) PO SCH (10:00)
[2018-05-21] MEDS ORDERED: PATIENT'S OWN MEDICATION (NON-FORMULARY) (Dexlansoprazole [Dexilant] 60 MG) PO SCH (10:00)
[2018-05-21] MEDS ORDERED: PATIENT'S OWN MEDICATION (NON-FORMULARY) (Ferrous Sulfate [Iron] 325 MG) PO SCH (10:00)
[2018-05-21] MEDS ORDERED: PATIENT'S OWN MEDICATION (NON-FORMULARY) (Linaclotide [Linzess] 145 MCG) PO SCH (10:00)
--- NOTE | 2018-05-21 10:07 | PN ---
Progress Note, Physician Chief Complaint: day #1 s/p right lateral knee aga - Current Medication List Current Medications: Active Medications Acetaminophen (Tylenol -) 650 mg PO Q6H [facility] Stop: 05/23/18 14:59 Last Admin: 05/21/18 08:18 Dose: 650 mg Al Hydroxide/Mg Hydroxide (Mylanta Oral Suspension -) 30 ml PO Q4H PRN PRN Reason: DYSPEPSIA Albuterol Sulfate (Ventolin 0.083% Nebulizer Soln -) 1 amp NEB Q6H PRN PRN Reason: SHORT OF BREATH/WHEEZING Albuterol Sulfate (Ventolin Hfa Inhaler -) 1 - 2 puff IH Q6H PRN PRN Reason: ASTHMA Atorvastatin Calcium (Lipitor -) 10 mg PO [facility] Last Admin: 05/20/18 21:07 Dose: 10 mg Escitalopram Oxalate (Lexapro -) 20 mg PO DAILY [facility] Ferrous Sulfate (Feosol -) 325 mg PO DAILY [facility] Gabapentin (Neurontin -) 300 mg PO [facility] Last Admin: 05/20/18 21:07 Dose: 300 mg Levothyroxine Sodium (Synthroid -) 50 mcg PO DAILY@0700 [facility] Last Admin: 05/21/18 06:07 Dose: 50 mcg Meclizine HCl (Antivert -) 12.5 mg PO BID [facility] Last Admin: 05/20/18 21:07 Dose: 12.5 mg Montelukast Sodium (Singulair -) 10 mg PO [facility] Multivitamins/Minerals/Vitamin C (Tab-A-Vit -) 1 tab PO DAILY [facility] Non-Formulary Medication (Formoterol Fumarate [Perforomist]) 20 mcg IH BID [facility] Non-Formulary Medication (Linaclotide [Linzess]) 145 mcg PO DAILY [facility] Nortriptyline HCl (Pamelor -) 50 mg PO [facility] Last Admin: 05/20/18 21:08 Dose: 50 mg Ondansetron HCl (Zofran Injection) 4 mg IVPUSH Q6H PRN PRN Reason: NAUSEA AND/OR VOMITING Oxycodone HCl (Roxicodone -) 5 mg PO Q3H PRN PRN Reason: PAIN LEVEL 1-5 Oxycodone HCl (Roxicodone -) 10 mg PO Q3H PRN PRN Reason: PAIN LEVEL 6-10 Last Admin: 05/21/18 08:45 Dose: 10 mg Oxycodone HCl (Oxycontin -) 10 mg PO BID [facility] Stop: 05/23/18 14:54 Last Admin: 05/20/18 21:07 Dose: 10 mg Pantoprazole Sodium (Protonix -) 40 mg PO DAILY [facility] Senna/Docusate Sodium (Pericolace -) 2 tablet PO BID [facility] Last Admin: 05/20/18 21:07 Dose: 2 tablet Tiotropium [place] (Spiriva Respimat) 2 puff IH DAILY [facility] Warfarin Sodium 5 mg/ Warfarin (Sodium 4 mg) 9 mg PO DAILY [facility] Zolpidem Tartrate (Ambien -) 10 mg PO HS PRN PRN Reason: INSOMNIA - Objective Vital Signs: Vital Signs Temperature 98.0 F 05/21/18 06:00 Pulse Rate 90 05/21/18 06:00 Respiratory Rate 05/21/18 09:06 Blood Pressure 110/52 05/21/18 06:00 O2 Sat by Pulse Oximetry (%) 97 05/21/18 09:06 Labs: INR, PTT INR 1.13 (0.82-1.09) 05/20/18 08:45 Assessment/Plan doing well s/p spinal and nerve block for knee makoplasty. Minimal pain, which is well controlled on PO pain meds. Ambulating with PT
[2018-05-21] MEDS: SENNOSIDES/DOCUSATE COMBO (SENNA PLUS) TABLET (UD) PO SCH (11:00)
[2018-05-21] MEDS ORDERED: PT OWN MED DRAWER 7, Y5N ONE (11:21)
[2018-05-21] MEDS: oxyCODONE HCL 10 MG SUSTAINED ACTING TABLET PO SCH (11:24)
[2018-05-21] MEDS: MECLIZINE HCL 12.5 MG TABLET PO SCH (11:25)
[2018-05-21 13:29] VITALS: BP 114/68; PULSE 86
[2018-05-21] MEDS ORDERED: MONTELUKAST NA 10 MG TABLET PO SCH (22:00)
--- NOTE | 2018-05-23 07:44 | OP ---
DATE OF OPERATION: 05/20/2018 PREOPERATIVE DIAGNOSIS: Right lateral degenerative joint disease of the knee. POSTOPERATIVE DIAGNOSIS: Right lateral degenerative joint disease of the knee. PROCEDURE: Right lateral unicompartmental knee replacement with robotic-assisted navigation (MAKOplasty) and patelloplasty. SURGICAL ATTENDING: Jean Carlos Loera MD CHIEF GREEN OFFICER: KATLIN White ANESTHESIA: Regional and spinal. CLOSURE: Lateral MAKOplasty components with a 5 femur, 4 tibia, 8 polyethylene, 1 Vicryl to fascia, 0 and 2-0 subcutaneous, and 3-0 Monocryl subcuticular with skin with skin glue, 4-0 undyed Vicryl for pin sites. ESTIMATED BLOOD LOSS: Less than 10 mL. TOURNIQUET TIME: Less than 25 minutes. COMPLICATIONS: None. CONDITION: To recovery room in stable condition. DESCRIPTION OF OPERATIVE PROCEDURE: Patient was taken to the operating room on May 20, 2018. Regional and spinal anesthesia was administered by the anesthesiologist. IV Kefzol was administered prophylactically prior to the case. A well-padded pneumatic tourniquet was placed on the right proximal thigh. The right lower extremity was prepped and draped in the usual sterile fashion. A 6 cm longitudinal incision was made over the lateral aspect of the knee from the mid patella to the tibial tubercle. Hemostasis was achieved using Bovie cautery. Sharp dissection was carried through the fascia down to the level of the knee. Subperiosteal dissection was done in the anteromedial proximal tibia exposing the lateral compartment. Partial fat pad excision was performed. Checkpoints were malleable on both the tibia and the femur. Two stab incisions were made, one handbreadth above the patella, one handbreadth below the tibial tubercle. Through these stab incisions, 2 parallel threaded pins were drilled from the anterior cortex and up through the posterior cortex. The navigation arrays were assembled on these pins. The knee was then registered, multiple points on the knee, medial malleoli, and the center of rotation of the hip. Confirmation of registration was confirmed b popping the bubbles. The osteophytes then removed. The knee was taken through a range of motion with tension with varus stress at 0, 30, 60, 90, and 120 degrees of flexion producing tightness/ looseness graft. At the virtual positions of the components were optimized until the graft showed an excellent alignment. The robot was brought on the field and cut the bone for this patient from our preoperative templating. Trial components were applied. The knee went through a range of motion and had an excellent track with excellent looseness/weakness/tightness graft. Trial components were removed. Real components were then cemented in using modern generation cement techniques and pressurization. The was then placed. The knee was thoroughly irrigated. The fascia was closed using No. 1 Vicryl, 0 and 2-0 Vicryl for subcutaneous, and 3-0 Monocryl subcuticular for skin with skin glue for the skin. This was done after the checkpoints were removed. The pins were then removed, thoroughly irrigated, and closed with 4-0 undyed Vicryl. Sterile pressure dressing was applied over the knee. Patient was awakened from anesthesia, transferred to the recovery room in stable condition. X-rays revealed excellent position of the components. Gillian [id number]
== END 2018-05-21 13:20 | disposition home health service (06) ==
LOC: FASUSAT 08:21 → FM/S 08:37 → FASUSAT 05-21 13:20
PROVIDERS: ATTEND Orthopaedic Surgery
PROC: 8E0YXBZ Computer Assisted Procedure of Lower Extremity (ICD-10-PCS; 2018-05-20)
PROC: 8E0Y0CZ Robotic Assisted Procedure of Lower Extremity, Open Approach (ICD-10-PCS; 2018-05-20)
PROC: 0SRC0L9 Replacement of Right Knee Joint with Medial Unicondylar Synthetic Substitute, Cemented, Open Approach (ICD-10-PCS; principal; 2018-05-20 11:39)
DX: M17.11 Unilateral primary osteoarthritis, right knee (principal); I10 Essential (primary) hypertension; E03.9 Hypothyroidism, unspecified; E78.5 Hyperlipidemia, unspecified; K21.9 Gastro-esophageal reflux disease without esophagitis; J44.9 Chronic obstructive pulmonary disease, unspecified; M06.9 Rheumatoid arthritis, unspecified
CPT/HCPCS: 20985; 27446; C1776; S2900; 36415; 73560-TC-RT-FY; 85610; 94760; 97116-GP; 97162-GP

== ENCOUNTER 2018-05-24 09:13 | Inpatient (IN) | payer BC, OTHER ==
--- NOTE | 2018-05-24 09:28 | PDOC ---
History of Present Illness - General Chief Complaint: Redness To Affected Area Stated Complaint: RIGHT KNEE PAIN Time Seen by Provider: 05/24/18 09:27 History Source: Patient Exam Limitations: No Limitations - History of Present Illness Initial Comments: 05/24/18 11:12 Nichots 52 YOF with h/o HTN, TIA on Coumadin, fibromyalgia, GERD, Asthma and uterus CA, CAD s/p cath, hypothyroid, degenerative disc disease, Recent right knee arthritis s/p lateral makoplasty 05.20.[address] Loera presenting with fever, increased pain, swelling and redness to RLE x 4 days. The patient reports moderate right lower extremity pain. The patient reports a T max of 100.1 last night. She reports taking percocet with minimal relief to her pain. Denies follow up with Dr. Loera. The patient denies chest pain, shortness of breath, headache, and dizziness. Denies chills, nausea, vomiting, and any bowel/urinary symptoms. Allergy: Penicillin Social History: No reported alcohol, cigarette, or drug use. Surgical History: Lateral makoplasty 05.20.18 PCP: Dr. Salas Past History - Past Medical History Allergies/Adverse Reactions: Allergies Allergy/AdvReac Type Severity Reaction Status Date / Time Penicillins Allergy Severe Rash Verified 05/24/18 09:28 Home Medications: Ambulatory Orders Albuterol 0.083% Nebulizer Alena [Ventolin 0.083% Nebulizer Soln -] 1 amp NEB PRN 03/18/17 Escitalopram Oxalate [Lexapro -] 20 mg PO DAILY 03/18/17 Gabapentin [Neurontin] 300 mg PO HS 03/18/17 Levothyroxine [Synthroid -] 50 mcg PO DAILY 03/18/17 Meclizine HCl 12.5 mg PO BID 03/18/17 Montelukast Na [Singulair -] 10 mg PO DAILY 03/18/17 Multivitamin [Poly-Vitamin] 1 each PO DAILY 03/18/17 Nortriptyline HCl [Pamelor -] 50 mg PO HS 03/18/17 Simvastatin 20 mg PO HS 03/18/17 Zolpidem Tartrate [Ambien] 10 mg PO HS 03/18/17 Albuterol Sulfate Inhaler - [Ventolin HFA Inhaler -] 1 - 2 inh PO QID PRN Formoterol Fumarate [Perforomist] 20 mcg IH BID 04/05/17 Tiotropium [place] [Spiriva] 2 inh IH DAILY 04/05/17 Butalb/Acetaminophen/Caffeine [Fioricet 50-300-40 mg Capsule] 1 each PO TID PRN 05/12/18 Dexlansoprazole [Dexilant] 60 mg PO DAILY 05/12/18 Ergocalciferol (Vitamin D2) [Drisdol] 50,000 unit PO WEEKLY 05/12/18 Ferrous Sulfate [Iron] 325 mg PO DAILY 05/12/18 Fluticasone Furoate [Arnuity Ellipta] 200 mcg IH DAILY 05/12/18 Guaifenesin/Pseudoephedrne HCl [Mucinex D ER 1,200-120 mg Tab] 1 each PO BID PRN 05/12/18 Linaclotide [Linzess] 145 mcg PO DAILY 05/12/18 Warfarin Sodium [Coumadin] 9 mg PO DAILY 05/12/18 Oxycodone HCl/Acetaminophen [Percocet 10-325 mg Tablet] 10 mg PO TID PRN #40 tablet MDD 3 05/20/18 Anemia: No Asthma: Yes Cancer: Yes (UTERUS) Cardiac Disorders: No CVA: Yes (TIA) COPD: No CHF: No Dementia: No Diabetes: No GI Disorders: Yes (REFLUX) Disorders: No HTN: No Hypercholesterolemia: No Liver Disease: No Seizures: No Thyroid Disease: No - Surgical History Abdominal Surgery: No Appendectomy: No Cardiac Surgery: No Cholecystectomy: No Lung Surgery: No Neurologic Surgery: No Orthopedic Surgery: Yes (BIRD. BUNIONECTOMIES) - Suicide/Smoking/Psychosocial Hx Smoking History: Former smoker Have you smoked in the past 12 months: No If you are a former smoker, when did you quit?: 35 YRS AGO Hx Alcohol Use: No Drug/Substance Use Hx: No Substance Use Type: None Review of Systems - Review of Systems Able to Perform ROS?: Yes Comments:: 05/24/18 11:13 GENERAL/CONSTITUTIONAL: (+)fever and chills. No weakness. no sweats. CARDIOVASCULAR: No chest pain or palpitations, syncope or edema. RESPIRATORY: No SOB, cough, wheezing, or hemoptysis. GASTROINTESTINAL No nausea/vomiting. No diarrhea or constipation. No bloody stools. GENITOURINARY: No hematuria, dysuria, frequency, urgency or other changes. MUSCULOSKELETAL: (+)Right knee swelling. (+)Right lower extremity pain. SKIN: (+)Redness on right lower extremity. No rash or lesions. NEUROLOGIC: No headache, vertigo, loss of consciousness, or change in strength/ sensation. No gait instability. HEMATOLOGIC/LYMPHATIC: No anemia or history of blood clots. +bleeding tendency. ALLERGIC/IMMUNOLOGIC: No allergies All other systems reviewed and negative, or as documented in HPI. *Physical Exam - Physical Exam Comments: 05/24/18 11:14 General: Well appearing, awake and alert, NAD. HEENT: NCAT, PERRL, EOMI, clear conjunctiva, anicteric, moist mucus membranes, clear oropharynx, no oral lesions.. Neck: neck supple, FROM Resp: CTAB, normal and even respirations, no respiratory distress CVS: RRR, no murmurs, 2+ peripheral pulses throughout, no peripheral edema Abdomen: soft, NTND, no peritoneal signs. Back: nontender, normal inspection and ROM MSK: (+)diffuse warmth, swelling, and tenderness in right thigh, knee, and lower leg. (+)calf and thigh tenderness. (+)ROM in RLE limited secondary to pain.(+) Anterolateral scar, no active drainage with diffuse erythema and tenderness in right knee/thigh/LE. (+)2 scars on anterior thigh and ayala. No crepitus. +soft compartments. +RLE edema. Neuro: alert, oriented appropriately; no focal neurologic deficits. SILT, 5/5 distal and prox strength in all extrem. speech clear. Skin: warm and well perfused, cap refill <2 sec, +erythema and warmth to RLE Heart Score/ECG Review - ECG Impressions Comment:: 05/24/18 11:44 EKG normal sinus rhythm, no interval abnormalities, left axis deviation, narrow QRS, ST and T wave segments and morphology normal. Nonspecific T wave abnormalities ED Treatment Course - LABORATORY CBC & Chemistry Diagram: 05/24/18 10:00 05/24/18 10:00 - RADIOLOGY Radiology Studies Ordered: Category Date Time Status KNEE 3 POS-RIGHT [RAD] Stat Radiology 05/24/18 09:19 Ordered Medical Decision Making - Medical Decision Making 05/24/18 09:41 Nichots 52 YOF with h/o HTN, TIA on Coumadin, fibromyalgia, GERD, Asthma and uterus CA, CAD s/p cath, hypothyroid, degenerative disc disease, Recent right knee arthritis s/p lateral makoplasty 05.20.[address] Loera presenting with fever, increased pain, swelling and redness to RLE x 4 days. DDx. post op DVT, cellulitis, hematoma, bacteremia, sepsis, septic arthritis, considered but clinially doubt nec fasciitis or compartment syndrome as soft compartments and no crepitus palpated/. Vital signs reviewed, wnl. mild elevation in HR to 90s, but no fever rectally. + RLE pain and signs of infection vs post op DVT. limitations in msk exam 2/2 pain and swelling and significant erythema. Prior notes reviewed, including admissions, discharges and consultations. laboratory results and imaging reviewed, basic labs and lytes wnl, notable for normal WBC ct, coags subtherapeutic so less likely bleeding complication but still possible. inflammatory markers are elevated, c/w infection/post op state. Blood cultures x2 pending.. lactic normal, reassuring, not meeting sepsis criteria but does have extensive cellulitic changes as documented. EKG normal sinus rhythm, no interval abnormalities, left axis deviation, narrow QRS, ST and T wave segments and morphology normal. Nonspecific T wave abnormalities ED course: given IVF, morphine for pain, cultures obtained. IV abx with cefepime /vancomycin for broad coverage and MRSA risk. XRay knee with hardware visible, normal joint alignment. Duplex US_ neg for DVT *ortho consult for post op knee infection/pain, Dr. Loera/[facility]. spoke with Dr. Noonan who agrees with plan, with broad spec abx with the extensive cellulitic changes and requiring IV abx and inpatient ID consultation. Dispo: Admit to [facility] Salas/Chinyere joshua for RLE cellulitis/post op infection vs septic arthritis with recent post op knee. Discussed results and management plan with pt and family member at bedside, agree with impression and plan signed out to SARAH Sylvester with plan outlined. 05/24/18 12:55 *DC/Admit/Observation/Transfer Diagnosis at time of Disposition: Cellulitis of right lower leg - Discharge Dispostion Condition at time of disposition: Guarded Decision to Admit order: Yes Decision to Admit order Date/Time: 05/24/18 11:42 Decision to Admit Order Category Date Time Status Decision to Admit to Hospital Routine Admission 05/24/18 09:51 Active - Referrals - Patient Instructions - Post Discharge Activity - Attestations Physician Attestion: 05/24/18 09:41 I, Kathy Bae MD, attest that this document has been prepared under my direction and personally reviewed by me in its entirety. I further attest, that it accurately reflects all work, treatment, procedures and medical decision -making performed by me.
[2018-05-24 09:31] VITALS: BMI 36.6
[2018-05-24] MEDS ORDERED: SODIUM CHLORIDE 1,000 ML IV STA (09:39)
[2018-05-24] MEDS ORDERED: morphine CARPU-JECT 4 MG/1 ML DISP.SYRIN IVPUSH ONE (09:40)
[2018-05-24] MEDS ORDERED: morphine SULFATE 4 MG/ML VIAL ONE (09:43)
[2018-05-24 10:09] LABS: BASO % 0.7 % (0-2.0); EOS % 2.2 % (0-4.5); HEMATOCRIT 34.2 % (32.4-45.2); HEMOGLOBIN 11.5 GM/dL (10.7-15.3); LYMPH % 19.8 % (8-40); MCH 29.3 pg (25.7-33.7); MCHC 33.5 g/dl (32.0-36.0); MEAN CELL VOLUME 87.4 fl (80-96); MEAN PLT VOLUME 8.5 fl (7.5-11.1); MONO % 10.8 % (3.8-10.2); NEUT % 66.5 % (42.8-82.8); PLATELET COUNT 186 K/MM3 (134-434); RBC 3.91 M/mm3 (3.60-5.2); RDW 15.3 % (11.6-15.6); WHITE BLOOD COUNT 6.3 K/mm3 (4.0-10.0)
[2018-05-24 10:27] LABS: INR 1.39 (0.83-1.09); PROTHROMBIN TIME (PATIENT) 15.7 SEC (9.7-13.0)
[2018-05-24 11:05] LABS: ALBUMIN 3.1 g/dl (3.4-5.0); ALK PHOS 105 U/L (45-117); ANION GAP 8 MMOL/L (8-16); BILIRUBIN,TOTAL 0.5 mg/dL (0.2-1); BLOOD UREA NITROGEN 5 mg/dL (7-18); CALCIUM 8.7 mg/dL (8.5-10.1); CHLORIDE 106 mmol/L (98-107); CO2 25 mmol/L (21-32); CREATININE 0.7 mg/dL (0.55-1.3); GLUCOSE,RANDOM 94 mg/dL (74-106); POTASSIUM 3.9 mmol/L (3.5-5.1); SGOT/AST 43 U/L (15-37); SGPT/ALT 38 U/L (13-61); SODIUM 139 mmol/L (136-145); TOT PROT 6.8 g/dl (6.4-8.2)
[2018-05-24] MEDS ORDERED: CEFEPIME HCL/D5W 1 GM/50 ML BAG IVPB ONE (11:17)
[2018-05-24] MEDS ORDERED: VANCOMYCIN 1,500 MG in DEXTROSE 5%-WATER - 250 ML IVPB ONE (11:18)
[2018-05-24] MEDS ORDERED: VANCOMYCIN 1,500 MG in DEXTROSE 5%-WATER - 500 ML IVPB ONE (11:30)
[2018-05-24] MEDS ORDERED: CEFEPIME 1 GM/100 ML BAG IVPB ONE (11:44)
--- NOTE | 2018-05-24 15:27 | EKG ---
Test Reason : Blood Pressure : / mmHG Vent. Rate : 093 BPM Atrial Rate : 093 BPM P-R Int : 166 ms QRS Dur : 096 ms QT Int : 382 ms P-R-T Axes : 040 -19 033 degrees QTc Int : 474 ms NORMAL SINUS RHYTHM MODERATE VOLTAGE CRITERIA FOR LVH, MAY BE NORMAL VARIANT SEPTAL INFARCT (CITED ON OR BEFORE 20-MAR-2017) ABNORMAL ECG WHEN COMPARED WITH ECG OF 23-OCT-2017 21:32, NONSPECIFIC T WAVE ABNORMALITY HAS REPLACED INVERTED T WAVES IN ANTERIOR LEADS Confirmed by MD Lavon, Leonidas ([id number]) on 05/24/2018 3:26:47 PM Referred By: Confirmed By:Leonidas Doll MD
[2018-05-24] MEDS ORDERED: ACETAMINOPHEN 325 MG TABLET (FP) PO PRN ×2 (16:18→16:22)
[2018-05-24] MEDS: oxyCODONE HCL 5 MG TABLET PO PRN (16:25)
[2018-05-24] MEDS ORDERED: ALBUTEROL SO4 0.083% IH SOL 2.5 MG/3 ML VIAL.NEB. NEB SCH (16:30)
--- NOTE | 2018-05-24 16:30 | HP ---
Admitting History and Physical - Admission Chief Complaint: Right knee pain/swelling History of Present Illness: Rey 52 YOF with h/o HTN, TIA on Coumadin, fibromyalgia, GERD, Asthma and uterus CA, CAD s/p cath, hypothyroid, degenerative disc disease, Recent right knee arthritis s/p lateral makoplasty 05.20.[address] Loera presenting with fever, increased pain, swelling and redness to RLE x 4 days. The patient reports moderate right lower extremity pain. The patient reports a T max of 100.1 last night. She reports taking percocet with minimal relief to her pain. Denies follow up with Dr. Loera. The patient denies chest pain, shortness of breath, headache, and dizziness. Denies chills, nausea, vomiting, and any bowel/urinary symptoms. 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 Cardiovascular: Yes: HTN, Hyperlipdemia Pulmonary: Yes: COPD Gastrointestinal: Yes: GERD Heme/Onc: Yes: Hypercoaguable State Musculoskeletal: Yes: Osteoarthritis Rheumatology: Yes: Rheumatoid Arthritis Endocrine: Yes: Hypothyroidism - Smoking History Smoking history: Former smoker Have you smoked in the past 12 months: No If you are a former smoker, when did you quit?: 35 YRS AGO - Alcohol/Substance Use Hx Alcohol Use: No Home Medications - Allergies Allergies/Adverse Reactions: Allergies Allergy/AdvReac Type Severity Reaction Status Date / Time Penicillins Allergy Severe Rash Verified 05/24/18 09:28 - Home Medications Home Medications: Ambulatory Orders Albuterol 0.083% Nebulizer Alena [Ventolin 0.083% Nebulizer Soln -] 1 amp NEB PRN 03/18/17 Escitalopram Oxalate [Lexapro -] 20 mg PO DAILY 03/18/17 Gabapentin [Neurontin] 300 mg PO HS 03/18/17 Levothyroxine [Synthroid -] 50 mcg PO DAILY 03/18/17 Meclizine HCl 12.5 mg PO BID 03/18/17 Montelukast Na [Singulair -] 10 mg PO DAILY 03/18/17 Multivitamin [Poly-Vitamin] 1 each PO DAILY 03/18/17 Nortriptyline HCl [Pamelor -] 50 mg PO HS 03/18/17 Simvastatin 20 mg PO HS 03/18/17 Zolpidem Tartrate [Ambien] 10 mg PO HS 03/18/17 Albuterol Sulfate Inhaler - [Ventolin HFA Inhaler -] 1 - 2 inh PO QID PRN Formoterol Fumarate [Perforomist] 20 mcg IH BID 04/05/17 Tiotropium [place] [Spiriva] 2 inh IH DAILY 04/05/17 Butalb/Acetaminophen/Caffeine [Fioricet 50-300-40 mg Capsule] 1 each PO TID PRN 05/12/18 Dexlansoprazole [Dexilant] 60 mg PO DAILY 05/12/18 Ergocalciferol (Vitamin D2) [Drisdol] 50,000 unit PO WEEKLY 05/12/18 Ferrous Sulfate [Iron] 325 mg PO DAILY 05/12/18 Fluticasone Furoate [Arnuity Ellipta] 200 mcg IH DAILY 05/12/18 Guaifenesin/Pseudoephedrne HCl [Mucinex D ER 1,200-120 mg Tab] 1 each PO BID PRN 05/12/18 Linaclotide [Linzess] 145 mcg PO DAILY 05/12/18 Warfarin Sodium [Coumadin] 9 mg PO DAILY 05/12/18 Oxycodone HCl/Acetaminophen [Percocet 10-325 mg Tablet] 10 mg PO TID PRN #40 tablet MDD 3 05/20/18 Review of Systems - Review of Systems Constitutional: reports: No Symptoms Eyes: reports: No Symptoms HENT: reports: No Symptoms Neck: reports: No Symptoms Cardiovascular: reports: No Symptoms Respiratory: reports: No Symptoms Gastrointestinal: reports: No Symptoms Genitourinary: reports: No Symptoms Breasts: reports: No Symptoms Reported Musculoskeletal: reports: Joint Swelling (right knee) Integumentary: reports: No Symptoms Neurological: reports: No Symptoms Endocrine: reports: No Symptoms Hematology/Lymphatic: reports: No Symptoms Psychiatric: reports: No Symptoms Pain Intensity: 10 Physical Examination Vital Signs: Vital Signs Temperature 98.7 F 05/24/18 15:12 Pulse Rate 81 05/24/18 15:12 Respiratory Rate 18 05/24/18 15:12 Blood Pressure 119/61 05/24/18 15:12 O2 Sat by Pulse Oximetry (%) 96 05/24/18 15:12 Constitutional: Yes: Well Nourished, No Distress, Calm Cardiovascular: Yes: Regular Rate and Rhythm Respiratory: Yes: Regular Gastrointestinal: Yes: Normal Bowel Sounds, Soft Musculoskeletal: Yes: Joint Swelling (right knee) Extremities: Yes: Erythema (right knee) Edema: Yes (RKjuliethe) Neurological: Yes: Alert, Oriented Psychiatric: Yes: Alert, Oriented Labs: CBC, BMP 05/24/18 10:00 05/24/18 10:00 Imaging - Results Chest X-ray: Report Reviewed X-ray: Report Reviewed Problem List - Problems (1) Infection of right knee Assessment/Plan: -RKnee xray shows soft tissue swelling -ortho to see patient -receive IV abx in ER -ID consult Code(s): M00.9 - PYOGENIC ARTHRITIS, UNSPECIFIED Assessment/Plan see problem list lovenox for now until therapeutic on warfarin
[2018-05-24] MEDS ORDERED: WARFARIN NA 2 MG TABLET (UD) ONE (16:44)
[2018-05-24] MEDS ORDERED: WARFARIN NA 5 MG TABLET (UD) ONE (16:45)
[2018-05-24] MEDS: FERROUS SO4 300 MG/5 ML ORAL SOLN UNIT DOSE CUPS PO SCH (17:05)
[2018-05-24] MEDS ORDERED: WARFARIN NA 5 MG, WARFARIN NA 4 MG PO SCH (18:00)
[2018-05-24] MEDS: traMADol HCL 50 MG TABLET PO PRN (18:46)
[2018-05-24] MEDS ORDERED: oxyCODONE HCL 5 MG TABLET PO ONE (20:40)
[2018-05-24] MEDS: GABAPENTIN 300 MG CAPSULE (FP) PO SCH (21:12)
[2018-05-24] MEDS: ENOXAPARIN NA (PORCINE) 30 MG/0.3 ML DISP.SYRIN SQ SCH (21:12)
[2018-05-24] MEDS: MECLIZINE HCL 12.5 MG TABLET PO SCH (21:12)
[2018-05-24] MEDS: ATORVASTATIN CA 20 MG TABLET (FP) PO SCH (21:12)
[2018-05-24] MEDS: DOCUSATE SODIUM 100 MG CAPSULE (FP) PO SCH (21:12)
[2018-05-24] MEDS: MONTELUKAST NA 10 MG TABLET PO SCH (21:13)
[2018-05-24] MEDS: NORTRIPTYLINE HCL 25 MG CAPSULE PO SCH (21:13)
[2018-05-24] MEDS ORDERED: ZOLPIDEM TARTRATE 5 MG TABLET PO ONE (21:30)
[2018-05-24] MEDS ORDERED: ZOLPIDEM TARTRATE 5 MG TABLET PO PRN (22:00)
[2018-05-25] MEDS: oxyCODONE HCL 5 MG TABLET PO PRN ×4 (03:43→21:54)
[2018-05-25] MEDS: LEVOTHYROXINE NA 50 MCG TABLET (FP) PO SCH (06:08)
[2018-05-25] MEDS: FERROUS SO4 300 MG/5 ML ORAL SOLN UNIT DOSE CUPS PO SCH ×2 (07:41→16:30)
[2018-05-25] MEDS: traMADol HCL 50 MG TABLET PO PRN (07:44)
[2018-05-25 07:58] LABS: INR 1.54 (0.83-1.09); PROTHROMBIN TIME (PATIENT) 17.4 SEC (9.7-13.0)
[2018-05-25] MEDS ORDERED: ESCITALOPRAM OXALATE 10 MG TABLET (FP) ONE (09:18)
[2018-05-25] MEDS ORDERED: PT OWN MED DRAWER 7, Y5N ONE ×2 (09:18→11:37)
[2018-05-25] MEDS: MULTIVITAMINS (DAILY MVI) TABLET (FP) PO SCH (09:20)
[2018-05-25] MEDS: ESCITALOPRAM OXALATE 20 MG TABLET (FP) PO SCH (09:20)
[2018-05-25] MEDS: ENOXAPARIN NA (PORCINE) 30 MG/0.3 ML DISP.SYRIN SQ SCH ×2 (09:20→21:51)
[2018-05-25] MEDS: MECLIZINE HCL 12.5 MG TABLET PO SCH ×2 (09:20→21:53)
[2018-05-25] MEDS ORDERED: WARFARIN NA 5 MG TABLET (UD) PO SCH (10:00)
--- NOTE | 2018-05-25 10:44 | PN ---
Progress Note, Physician Chief Complaint: S/P right knee markoplasty infection History of Present Illness: NAD in bed Right lower extremity swelling Seen by ortho ID consult called in IV abx - Current Medication List Current Medications: Active Medications Acetaminophen (Tylenol -) 650 mg PO Q4H PRN PRN Reason: FEVER Last Admin: 05/24/18 16:28 Dose: 650 mg Acetaminophen (Tylenol -) 650 mg PO Q4H PRN PRN Reason: PAIN 1-3 Albuterol Sulfate (Ventolin 0.083% Nebulizer Soln -) 1 amp NEB Q6H PRN PRN Reason: SHORT OF BREATH/WHEEZING Atorvastatin Calcium (Lipitor -) 20 mg PO [facility] Last Admin: 05/24/18 21:12 Dose: 20 mg Docusate Sodium (Colace -) 300 mg PO [facility] Last Admin: 05/24/18 21:12 Dose: 300 mg Enoxaparin Sodium (Lovenox -) 30 mg SQ BID [facility] Last Admin: 05/25/18 09:20 Dose: 30 mg Escitalopram Oxalate (Lexapro -) 20 mg PO DAILY [facility] Last Admin: 05/25/18 09:20 Dose: 20 mg Ferrous Sulfate (Feosol) 300 mg PO BIDWM [facility] Last Admin: 05/25/18 07:41 Dose: Not Given Gabapentin (Neurontin -) 300 mg PO [facility] Last Admin: 05/24/18 21:12 Dose: 300 mg Levothyroxine Sodium (Synthroid -) 50 mcg PO 0700 [facility] Last Admin: 05/25/18 06:08 Dose: 50 mcg Meclizine HCl (Antivert -) 12.5 mg PO BID [facility] Last Admin: 05/25/18 09:20 Dose: 12.5 mg Montelukast Sodium (Singulair -) 10 mg PO [facility] Last Admin: 05/24/18 21:13 Dose: 10 mg Multivitamins/Minerals/Vitamin C (Tab-A-Vit -) 1 tab PO DAILY [facility] Last Admin: 05/25/18 09:20 Dose: 1 tab Nortriptyline HCl (Pamelor -) 50 mg PO [facility] Last Admin: 05/24/18 21:13 Dose: 50 mg Oxycodone HCl (Roxicodone -) 10 mg PO Q6H PRN PRN Reason: PAIN LEVEL 6-10 Last Admin: 05/25/18 09:19 Dose: 10 mg Tramadol HCl (Ultram -) 100 mg PO Q6H PRN PRN Reason: PAIN LEVEL 4 - 6 Warfarin Sodium 5 mg/ Warfarin (Sodium 4 mg) 9 mg PO DAILY@1800 [facility] Last Admin: 05/24/18 17:05 Dose: 9 mg Zolpidem Tartrate (Ambien -) 10 mg PO HS PRN PRN Reason: INSOMNIA - Objective Vital Signs: Vital Signs Temperature 98.4 F 05/25/18 07:41 Pulse Rate 95 H 05/25/18 07:41 Respiratory Rate 16 05/25/18 07:41 Blood Pressure 110/70 05/25/18 07:41 O2 Sat by Pulse Oximetry (%) 95 05/25/18 08:00 Constitutional: Yes: Well Nourished, No Distress, Calm Cardiovascular: Yes: Regular Rate and Rhythm Respiratory: Yes: Regular Gastrointestinal: Yes: Normal Bowel Sounds, Soft Musculoskeletal: Yes: Joint Swelling (Rknee), Muscle Pain (RLE) Extremities: Yes: Erythema (RLE) Edema: Yes Peripheral Pulses WNL: Yes Neurological: Yes: Alert, Oriented Psychiatric: Yes: Alert, Oriented Labs: CBC, BMP 05/24/18 10:00 05/24/18 10:00 INR, PTT INR 1.54 (0.83-1.09) H 05/25/18 07:00 Problem List - Problems (1) Infection of right knee Assessment/Plan: -RKnee xray shows soft tissue swelling -ortho to see patient -receive IV abx in ER -ID consult -CT without contrast RLE -BC pending -pain management Code(s): M00.9 - PYOGENIC ARTHRITIS, UNSPECIFIED Assessment/Plan see problem list lovenox for now until therapeutic on warfarin Spoke to daughter in law Roxy Yanez
--- NOTE | 2018-05-25 10:45 | PN ---
Progress Note (short form) - Note Progress Note: Pt seen and examined. She is a 52 year old F pt who is 5 days s/p lateral Makoplasty partial knee replacement 05-20-2018. She c/o a few days of increasing pain, swelling and redness in the right leg and thigh. Denies post op trauma. Reports increased temp, not documented. AVSS currently Labs Blood Cx neg x 24 hrs WBC=6.3 ESR = 84 elevated CRP = 16 elevated Xrays right knee look fine, lateral Donal prosthesis in an excellent position PE Right leg with post operative echymosis on the medial thigh and calf, this is not infectious, this is normal post operative changes Right lateral thigh, knee, main anterior midline incision, lateral calf all with erythema, swelling, hot, tender Incisions intact, no drainage. No obvious pockets of pus/abscesses RLE grossly NVI Limited ROM throughout secondary to pain and post op stiffness Imp 5 days s/p right knee LATERAL Makoplasty with RLE widespread cellultis Rec Agree with admission. IV antibiotics, ID consultation. Elevation RLE WBAT
--- NOTE | 2018-05-25 11:20 | CON.ID ---
Consult Consult Specialty:: infectious diseases Reason for Consultation:: cellulitits of the rt knee post op - History of Present Illness Chief Complaint: pain and swelling of the rt knee joint History of Present Illness: 52 F with h/o HTN, TIA on Coumadin, fibromyalgia, GERD, Asthma and uterus CA, CAD s/p cath, hypothyroid, degenerative disc disease, Recent right knee arthritis s/p lateral makoplasty 05.20.18 admitted because of fever, increased pain, swelling and redness to RLE x 4 days. The patient reports moderate right lower extremity pain. patient mentions that her swelling has increased and gone up her thigh. 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 Cardio/Vascular: Yes: HTN, Hyperlipdemia Pulmonary: Yes: COPD Gastrointestinal: Yes: GERD Musculoskeletal: Yes: Osteoarthritis Rheumatology: Yes: Rheumatoid Arthritis Endocrine: Yes: Hypothyroidism - Alcohol/Substance Use Hx Alcohol Use: No - Smoking History Smoking history: Former smoker Have you smoked in the past 12 months: No If you are a former smoker, when did you quit?: 35 YRS AGO Home Medications - Allergies Allergies/Adverse Reactions: Allergies Allergy/AdvReac Type Severity Reaction Status Date / Time Penicillins Allergy Severe Rash Verified 05/24/18 09:28 - Home Medications Home Medications: Ambulatory Orders Albuterol 0.083% Nebulizer Alena [Ventolin 0.083% Nebulizer Soln -] 1 amp NEB PRN 03/18/17 Escitalopram Oxalate [Lexapro -] 20 mg PO DAILY 03/18/17 Gabapentin [Neurontin] 300 mg PO HS 03/18/17 Levothyroxine [Synthroid -] 50 mcg PO DAILY 03/18/17 Meclizine HCl 12.5 mg PO BID 03/18/17 Montelukast Na [Singulair -] 10 mg PO DAILY 03/18/17 Multivitamin [Poly-Vitamin] 1 each PO DAILY 03/18/17 Nortriptyline HCl [Pamelor -] 50 mg PO HS 03/18/17 Simvastatin 20 mg PO HS 03/18/17 Zolpidem Tartrate [Ambien] 10 mg PO HS 03/18/17 Albuterol Sulfate Inhaler - [Ventolin HFA Inhaler -] 1 - 2 inh PO QID PRN Formoterol Fumarate [Perforomist] 20 mcg IH BID 04/05/17 Tiotropium [place] [Spiriva] 2 inh IH DAILY 04/05/17 Butalb/Acetaminophen/Caffeine [Fioricet 50-300-40 mg Capsule] 1 each PO TID PRN 05/12/18 Dexlansoprazole [Dexilant] 60 mg PO DAILY 05/12/18 Ergocalciferol (Vitamin D2) [Drisdol] 50,000 unit PO WEEKLY 05/12/18 Ferrous Sulfate [Iron] 325 mg PO DAILY 05/12/18 Fluticasone Furoate [Arnuity Ellipta] 200 mcg IH DAILY 05/12/18 Guaifenesin/Pseudoephedrne HCl [Mucinex D ER 1,200-120 mg Tab] 1 each PO BID PRN 05/12/18 Linaclotide [Linzess] 145 mcg PO DAILY 05/12/18 Warfarin Sodium [Coumadin] 9 mg PO DAILY 05/12/18 Oxycodone HCl/Acetaminophen [Percocet 10-325 mg Tablet] 10 mg PO TID PRN #40 tablet MDD 3 05/20/18 Review of Systems - Review of Systems Constitutional: reports: Fever Eyes: reports: No Symptoms HENT: reports: No Symptoms Neck: reports: No Symptoms Cardiovascular: reports: No Symptoms Respiratory: reports: No Symptoms Gastrointestinal: reports: No Symptoms Genitourinary: reports: No Symptoms Musculoskeletal: reports: Joint Swelling Integumentary: reports: Change in Color, Erythema Neurological: reports: No Symptoms Endocrine: reports: No Symptoms Hematology/Lymphatic: reports: No Symptoms Psychiatric: reports: No Symptoms Physical Exam Vital Signs: Vital Signs Temperature 98.4 F 05/25/18 07:41 Pulse Rate 95 H 05/25/18 07:41 Respiratory Rate 16 05/25/18 07:41 Blood Pressure 110/70 05/25/18 07:41 O2 Sat by Pulse Oximetry (%) 95 05/25/18 08:00 Constitutional: Yes: Well Nourished, Calm, Moderate Distress Eyes: Yes: Conjunctiva Clear Neck: Yes: Supple, Trachea Midline Cardiovascular: Yes: Regular Rate and Rhythm Respiratory: Yes: Regular, CTA Bilaterally Gastrointestinal: Yes: Normal Bowel Sounds, Soft Musculoskeletal: Yes: Other Extremities: Yes: Erythema (of the rt calf and the knee joint) Integumentary: Yes: Erythema, Other (swelling on the lateral side of the leg) Wound/Incision: Yes: Other (inscision is c/d/i) Neurological: Yes: Alert, Oriented Psychiatric: Yes: Alert, Oriented Labs: CBC, BMP 05/24/18 10:00 05/24/18 10:00 Imaging - Results Chest X-ray: Report Reviewed, Image Reviewed X-ray: Report Reviewed, Image Reviewed Assessment/Plan Problem List - Problems (1) Infection of right knee Code(s): M00.9 - PYOGENIC ARTHRITIS, UNSPECIFIED cellulitits of the rt knee plan will start ertapenam ct scan of the leg to see the extent of the hematoma/collection close watch repeat esr crp on saturday will see how the progression occurs
[2018-05-25] MEDS ORDERED: ERTAPENEM SODIUM 1 GM/50 ML PRE-DOCKED IVPB SCH (11:30)
[2018-05-25] MEDS: ERTAPENEM SODIUM 1 GM in SODIUM CHLORIDE 50 ML IVPB SCH (13:00)
[2018-05-25] MEDS ORDERED: WARFARIN NA 5 MG TABLET (UD) PO ONE (18:00)
[2018-05-25] MEDS ORDERED: WARFARIN NA 5 MG, WARFARIN NA 4 MG PO SCH (18:00)
[2018-05-25] MEDS ORDERED: morphine CARPU-JECT 2 MG/1 ML DISP.SYRIN IVPUSH PRN (20:00)
[2018-05-25] MEDS: MORPHINE SULFATE 2 MG/ML VIAL IVPUSH PRN (20:20)
[2018-05-25] MEDS: GABAPENTIN 300 MG CAPSULE (FP) PO SCH (21:53)
[2018-05-25] MEDS: MONTELUKAST NA 10 MG TABLET PO SCH (21:53)
[2018-05-25] MEDS: DOCUSATE SODIUM 100 MG CAPSULE (FP) PO SCH (21:54)
[2018-05-25] MEDS: ZOLPIDEM TARTRATE 5 MG TABLET PO PRN (21:55)
[2018-05-25] MEDS: NORTRIPTYLINE HCL 25 MG CAPSULE PO SCH (21:57)
[2018-05-25] MEDS: ATORVASTATIN CA 20 MG TABLET (FP) PO SCH (21:58)
[2018-05-26] MEDS: oxyCODONE HCL 5 MG TABLET PO PRN ×3 (04:28→22:58)
[2018-05-26] MEDS: LEVOTHYROXINE NA 50 MCG TABLET (FP) PO SCH (06:21)
[2018-05-26] MEDS: FERROUS SO4 300 MG/5 ML ORAL SOLN UNIT DOSE CUPS PO SCH ×2 (07:38→16:45)
[2018-05-26 07:54] LABS: BASO % 0.8 % (0-2.0); EOS % 3.2 % (0-4.5); LYMPH % 27.2 % (8-40); MCHC 33.2 g/dl (32.0-36.0); MEAN CELL VOLUME 87.3 fl (80-96); MEAN PLT VOLUME 8.4 fl (7.5-11.1); MONO % 11.1 % (3.8-10.2); NEUT % 57.7 % (42.8-82.8); PLATELET COUNT 189 K/MM3 (134-434); RBC 3.78 M/mm3 (3.60-5.2); RDW 15.8 % (11.6-15.6); WHITE BLOOD COUNT 4.5 K/mm3 (4.0-10.0)
[2018-05-26 08:18] LABS: INR 1.85 (0.83-1.09); PROTHROMBIN TIME (PATIENT) 20.9 SEC (9.7-13.0)
[2018-05-26 08:41] LABS: ALBUMIN 2.9 g/dl (3.4-5.0); ALK PHOS 98 U/L (45-117); ANION GAP 5 MMOL/L (8-16); BILIRUBIN,TOTAL 0.4 mg/dL (0.2-1); BLOOD UREA NITROGEN 4 mg/dL (7-18); CALCIUM 8.1 mg/dL (8.5-10.1); CHLORIDE 103 mmol/L (98-107); CO2 29 mmol/L (21-32); CREATININE 0.7 mg/dL (0.55-1.3); GLUCOSE,RANDOM 88 mg/dL (74-106); POTASSIUM 3.8 mmol/L (3.5-5.1); SGOT/AST 37 U/L (15-37); SGPT/ALT 33 U/L (13-61); SODIUM 137 mmol/L (136-145); TOT PROT 6.6 g/dl (6.4-8.2)
[2018-05-26 09:35] LABS: ERYTHROCYTE SEDIMENTATION RATE 66 mm/hr (0-30)
[2018-05-26] MEDS ORDERED: ESCITALOPRAM OXALATE 10 MG TABLET (FP) ONE (10:23)
[2018-05-26] MEDS ORDERED: PT OWN MED DRAWER 7, Y5N ONE ×3 (10:23→23:04)
[2018-05-26] MEDS: MECLIZINE HCL 12.5 MG TABLET PO SCH ×2 (10:42→23:10)
[2018-05-26] MEDS: MULTIVITAMINS (DAILY MVI) TABLET (FP) PO SCH (10:42)
[2018-05-26] MEDS: ENOXAPARIN NA (PORCINE) 30 MG/0.3 ML DISP.SYRIN SQ SCH ×2 (10:42→23:09)
[2018-05-26] MEDS: ERTAPENEM SODIUM 1 GM in SODIUM CHLORIDE 50 ML IVPB SCH (10:43)
[2018-05-26] MEDS: ESCITALOPRAM OXALATE 20 MG TABLET (FP) PO SCH (10:43)
--- NOTE | 2018-05-26 11:04 | PN ---
Progress Note (short form) - Note Progress Note: Ortho Pt seen and examined s/p right lateral aga ukr pod #6 Selected Entries 05/26/18 06:00 Temperature 98.4 F Pulse Rate 94 H Respiratory 18 Rate Blood Pressure 106/64 Laboratory Tests 05/26/18 05/26/18 06:35 06:35 WBC 4.5 Hgb 11.0 Hct 33.0 Plt Count 189 ESR 66 H C-Reactive Protein 11.7 H incision c/d/i, sutures removed, + erythema, + swelling, rom 0-50, calf soft, nt nvi CT scan reviewed a/p- right lateral aga ukr with cellulitis PT, wbat ROM exercises abx as per ID pain control ok to d/c from ortho pov once ID ok with PO abx d/w Dr. Noonan
--- NOTE | 2018-05-26 11:32 | PN ---
Progress Note, Physician History of Present Illness: patient stable still with swelling and cellulitis ortho note noted - Current Medication List Current Medications: Active Medications Acetaminophen (Tylenol -) 650 mg PO Q4H PRN PRN Reason: FEVER Last Admin: 05/24/18 16:28 Dose: 650 mg Acetaminophen (Tylenol -) 650 mg PO Q4H PRN PRN Reason: PAIN 1-3 Albuterol Sulfate (Ventolin 0.083% Nebulizer Soln -) 1 amp NEB Q6H PRN PRN Reason: SHORT OF BREATH/WHEEZING Atorvastatin Calcium (Lipitor -) 20 mg PO HS [facility] Last Admin: 05/25/18 21:58 Dose: 20 mg Docusate Sodium (Colace -) 300 mg PO HS [facility] Last Admin: 05/25/18 21:54 Dose: 300 mg Enoxaparin Sodium (Lovenox -) 30 mg SQ BID [facility] Last Admin: 05/26/18 10:42 Dose: 30 mg Escitalopram Oxalate (Lexapro -) 20 mg PO DAILY [facility] Last Admin: 05/26/18 10:43 Dose: 20 mg Ferrous Sulfate (Feosol) [facility] [place] Last Admin: 05/26/18 07:38 Dose: Not Given Gabapentin (Neurontin -) 300 mg PO [facility] Last Admin: 05/25/18 21:53 Dose: 300 mg Ertapenem 1 gm/ Sodium (Chloride) 50 mls @ 100 mls/hr IVPB DAILY [facility] Last Admin: 05/26/18 10:43 Dose: 100 mls/hr Levothyroxine Sodium (Synthroid -) 50 mcg PO 0700 [facility] Last Admin: 05/26/18 06:21 Dose: 50 mcg Meclizine HCl (Antivert -) 12.5 mg PO BID [facility] Last Admin: 05/26/18 10:42 Dose: 12.5 mg Montelukast Sodium (Singulair -) 10 mg PO HS [facility] Last Admin: 05/25/18 21:53 Dose: 10 mg Morphine Sulfate (Morphine Sulfate) 1 mg IVPUSH Q6H PRN PRN Reason: if oxycodone 10mg ineffective Last Admin: 05/25/18 20:20 Dose: 1 mg Multivitamins/Minerals/Vitamin C (Tab-A-Vit -) 1 tab PO DAILY [facility] Last Admin: 05/26/18 10:42 Dose: 1 tab Nortriptyline HCl (Pamelor -) 50 mg PO HS [facility] Last Admin: 05/25/18 21:57 Dose: 50 mg Oxycodone HCl (Roxicodone -) 10 mg PO Q6H PRN PRN Reason: PAIN LEVEL 6-10 Last Admin: 05/26/18 04:28 Dose: 10 mg Tramadol HCl (Ultram -) 100 mg PO Q6H PRN PRN Reason: PAIN LEVEL 4 - 6 Zolpidem Tartrate (Ambien -) 10 mg PO HS PRN PRN Reason: INSOMNIA Last Admin: 05/25/18 21:55 Dose: 10 mg - Objective Vital Signs: Vital Signs Temperature 98.4 F 05/26/18 06:00 Pulse Rate 94 H 05/26/18 06:00 Respiratory Rate 18 05/26/18 06:00 Blood Pressure 106/64 05/26/18 06:00 O2 Sat by Pulse Oximetry (%) 95 05/25/18 23:33 Constitutional: Yes: No Distress, Calm Cardiovascular: Yes: Regular Rate and Rhythm Respiratory: Yes: Regular, CTA Bilaterally Gastrointestinal: Yes: Normal Bowel Sounds, Soft Musculoskeletal: Yes: Other Extremities: Yes: Erythema (rt knee), Other Integumentary: Yes: Erythema Neurological: Yes: Alert, Oriented Psychiatric: Yes: Alert, Oriented Labs: CBC, BMP 05/26/18 06:35 05/26/18 06:35 INR, PTT INR 1.85 (0.83-1.09) H 05/26/18 06:35 - ....Imaging Cat Scan: Report Reviewed, Image Reviewed Assessment/Plan Problem List - Problems (1) Infection of right knee Code(s): M00.9 - PYOGENIC ARTHRITIS, UNSPECIFIED cellulitits of the rt knee plan conitnue current abx will see how the leg is doing and if we can switch to oral in couple of days exercise rest as per ortho
[2018-05-26] MEDS: MORPHINE SULFATE 2 MG/ML VIAL IVPUSH PRN (14:27)
--- NOTE | 2018-05-26 16:47 | PN ---
Progress Note, Physician Chief Complaint: EVENTS AND NOTES REVIEWED IN PAIN DENIES CHEST PAIN - Current Medication List Current Medications: Active Medications Acetaminophen (Tylenol -) 650 mg PO Q4H PRN PRN Reason: FEVER Last Admin: 05/24/18 16:28 Dose: 650 mg Acetaminophen (Tylenol -) 650 mg PO Q4H PRN PRN Reason: PAIN 1-3 Albuterol Sulfate (Ventolin 0.083% Nebulizer Soln -) 1 amp NEB Q6H PRN PRN Reason: SHORT OF BREATH/WHEEZING Atorvastatin Calcium (Lipitor -) 20 mg PO [facility] Last Admin: 05/25/18 21:58 Dose: 20 mg Docusate Sodium (Colace -) 300 mg PO [facility] Last Admin: 05/25/18 21:54 Dose: 300 mg Enoxaparin Sodium (Lovenox -) 30 mg SQ BID [facility] Last Admin: 05/26/18 10:42 Dose: 30 mg Escitalopram Oxalate (Lexapro -) 20 mg PO DAILY [facility] Last Admin: 05/26/18 10:43 Dose: 20 mg Ferrous Sulfate (Feosol) [facility] [place] Last Admin: 05/26/18 07:38 Dose: Not Given Gabapentin (Neurontin -) 300 mg PO [facility] Last Admin: 05/25/18 21:53 Dose: 300 mg Ertapenem 1 gm/ Sodium (Chloride) 50 mls @ 100 mls/hr IVPB DAILY [facility] Last Admin: 05/26/18 10:43 Dose: 100 mls/hr Levothyroxine Sodium (Synthroid -) 50 mcg PO 0700 [facility] Last Admin: 05/26/18 06:21 Dose: 50 mcg Meclizine HCl (Antivert -) 12.5 mg PO BID [facility] Last Admin: 05/26/18 10:42 Dose: 12.5 mg Montelukast Sodium (Singulair -) 10 mg PO [facility] Last Admin: 05/25/18 21:53 Dose: 10 mg Multivitamins/Minerals/Vitamin C (Tab-A-Vit -) 1 tab PO DAILY [facility] Last Admin: 05/26/18 10:42 Dose: 1 tab Nortriptyline HCl (Pamelor -) 50 mg PO [facility] Last Admin: 05/25/18 21:57 Dose: 50 mg Oxycodone HCl (Roxicodone -) 10 mg PO Q6H PRN PRN Reason: PAIN LEVEL 6-10 Last Admin: 05/26/18 04:28 Dose: 10 mg Tramadol HCl (Ultram -) 100 mg PO Q6H PRN PRN Reason: PAIN LEVEL 4 - 6 Zolpidem Tartrate (Ambien -) 10 mg PO HS PRN PRN Reason: INSOMNIA Last Admin: 05/25/18 21:55 Dose: 10 mg - Objective Vital Signs: Vital Signs Temperature 98.4 F 05/26/18 06:00 Pulse Rate 86 05/26/18 14:00 Respiratory Rate 18 05/26/18 14:00 Blood Pressure 118/72 05/26/18 14:00 O2 Sat by Pulse Oximetry (%) 95 05/26/18 15:00 Constitutional: Yes: Mild Distress Eyes: Yes: WNL HENT: Yes: WNL Neck: Yes: WNL Cardiovascular: Yes: WNL Respiratory: Yes: WNL Gastrointestinal: Yes: WNL Genitourinary: Yes: WNL Musculoskeletal: Yes: Joint Swelling Extremities: Yes: Erythema Edema: Yes Edema: RLE: 2+ Peripheral Pulses WNL: Yes Wound/Incision: Yes: Open to air, Reddened, Excoriated, Unapproximated Neurological: Yes: WNL ...Motor Strength: RLE Psychiatric: Yes: WNL Labs: CBC, BMP 05/26/18 06:35 05/26/18 06:35 INR, PTT INR 1.85 (0.83-1.09) H 05/26/18 06:35 Problem List - Problems (1) Cellulitis of right lower leg Code(s): L03.115 - CELLULITIS OF RIGHT LOWER LIMB (2) Infection of right knee Code(s): M00.9 - PYOGENIC ARTHRITIS, UNSPECIFIED (3) Hyperlipidemia Code(s): E78.5 - HYPERLIPIDEMIA, UNSPECIFIED Qualifiers: Hyperlipidemia type: pure hypercholesterolemia Qualified Code(s): E78.00 - Pure hypercholesterolemia, unspecified (4) Hypertension Code(s): I10 - ESSENTIAL (PRIMARY) HYPERTENSION Qualifiers: Hypertension type: essential hypertension Qualified Code(s): I10 - Essential (primary) hypertension (5) Hypothyroidism Code(s): E03.9 - HYPOTHYROIDISM, UNSPECIFIED Qualifiers: Hypothyroidism type: unspecified Qualified Code(s): E03.9 - Hypothyroidism , unspecified (6) Systolic dysfunction without heart failure Code(s): I51.9 - HEART DISEASE, UNSPECIFIED Assessment/Plan IV ABX ORTHOPEDIC CONSULT DVT PROPHYLAXIS CHECK CULTURES R/U DVT VASC SX EVAL
[2018-05-26] MEDS: traMADol HCL 50 MG TABLET PO PRN (21:11)
[2018-05-26] MEDS: ZOLPIDEM TARTRATE 5 MG TABLET PO PRN (23:09)
[2018-05-26] MEDS: GABAPENTIN 300 MG CAPSULE (FP) PO SCH (23:09)
[2018-05-26] MEDS: DOCUSATE SODIUM 100 MG CAPSULE (FP) PO SCH (23:09)
[2018-05-26] MEDS: ATORVASTATIN CA 20 MG TABLET (FP) PO SCH (23:10)
[2018-05-26] MEDS: MONTELUKAST NA 10 MG TABLET PO SCH (23:10)
[2018-05-26] MEDS: NORTRIPTYLINE HCL 25 MG CAPSULE PO SCH (23:13)
[2018-05-27] MEDS: LEVOTHYROXINE NA 50 MCG TABLET (FP) PO SCH (06:16)
[2018-05-27] MEDS: oxyCODONE HCL 5 MG TABLET PO PRN ×3 (06:16→19:43)
[2018-05-27 07:44] LABS: INR 1.88 (0.83-1.09); PROTHROMBIN TIME (PATIENT) 21.3 SEC (9.7-13.0)
--- NOTE | 2018-05-27 08:05 | CONSULT ---
- Consultation REQUESTING PROVIDER: CONSULT REQUEST: We have been asked to surgically evaluate this patient for cellulitis. PCP:Rogerio Salas HISTORY OF PRESENT ILLNESS: 53yo F s/p Right knee Makoplasty on 05/20/[address] Loera, was admitted for cellulitis and swelling of the knee. Pt has been on abx as per ID for several days. Pt complains of a lot of pain and swelling around her knee but admits that the pain has been improving. Pt denies any history of vascular issues. Denies fever, chills, n/v. PMHx: Fibromyalgia, HTN, Uterine cancer, TIA, asthma, HLD, hypothyroidism Home Medications Medication Instructions Recorded Albuterol 0.083% Nebulizer Alena 1 amp NEB PRN 03/18/17 [Ventolin 0.083% Nebulizer Soln -] Escitalopram Oxalate [Lexapro -] 20 mg PO DAILY 03/18/17 Gabapentin [Neurontin] 300 mg PO HS 03/18/17 Levothyroxine [Synthroid -] 50 mcg PO DAILY 03/18/17 Meclizine HCl 12.5 mg PO BID 03/18/17 Montelukast Na [Singulair -] 10 mg PO DAILY 03/18/17 Multivitamin [Poly-Vitamin] 1 each PO DAILY 03/18/17 Nortriptyline HCl [Pamelor -] 50 mg PO HS 03/18/17 Simvastatin 20 mg PO HS 03/18/17 Zolpidem Tartrate [Ambien] 10 mg PO HS 03/18/17 Albuterol Sulfate Inhaler - 1 - 2 inh PO QID PRN 04/05/17 [Ventolin HFA Inhaler -] Formoterol Fumarate [Perforomist] 20 mcg IH BID 04/05/17 Tiotropium [place] [Spiriva] 2 inh IH DAILY 04/05/17 Butalb/Acetaminophen/Caffeine 1 each PO TID PRN 05/12/18 [Fioricet 50-300-40 mg Capsule] Dexlansoprazole [Dexilant] 60 mg PO DAILY 05/12/18 Ergocalciferol (Vitamin D2) 50,000 unit PO WEEKLY 05/12/18 [Drisdol] Ferrous Sulfate [Iron] 325 mg PO DAILY 05/12/18 Fluticasone Furoate [Arnuity 200 mcg IH DAILY 05/12/18 Ellipta] Guaifenesin/Pseudoephedrne HCl 1 each PO BID PRN 05/12/18 [Mucinex D ER 1,200-120 mg Tab] Linaclotide [Linzess] 145 mcg PO DAILY 05/12/18 Warfarin Sodium [Coumadin] 9 mg PO DAILY 05/12/18 Oxycodone HCl/Acetaminophen 10 mg PO TID PRN #40 tablet MDD 3 05/20/18 [Percocet 10-325 mg Tablet] Allergies Allergy/AdvReac Type Severity Reaction Status Date / Time Penicillins Allergy Severe Rash Verified 05/24/18 09:28 REVIEW OF SYSTEMS: CONSTITUTIONAL: Absent: fever, chills, diaphoresis, generalized weakness, malaise, loss of appetite, weight change CARDIOVASCULAR: Absent: chest pain, syncope, palpitations, irregular heart rate, lightheadedness , peripheral edema RESPIRATORY: Absent: cough, shortness of breath, dyspnea with exertion, wheezing, GASTROINTESTINAL: Absent: abdominal pain, abdominal distension, nausea, vomiting, diarrhea, constipation SKIN: Absent: redness and swelling Rt leg HEMATOLOGIC/IMMUNOLOGIC: Absent: easy bleeding, easy bruising, lymphadenopathy NEUROLOGIC: Absent: headache, focal weakness, paresthesias, dizziness, unsteady gait, seizure, mental status changes, bladder or bowel incontinence PHYSICAL EXAM: GENERAL: Awake, alert, and fully oriented, in no acute distress. HEAD: Normal with no signs of trauma. EYES: PERRL, sclera anicteric, conjunctiva clear. NECK: Normal ROM LUNGS: Clear to auscultation bilat anteriorly. No wheezes, and no crackles. No accessory muscle use. HEART: Regular rate and rhythm. LOWER EXTREMITIES: 2+ pulses, warm, well-perfused. Significant erythema around anterior Right knee, incision site is clean with no drainage, +1 edema of RLE, diffuse tenderness throughout leg NEUROLOGICAL: Normal speech, PSYCH: Cooperative. Good eye contact. Appropriate mood and affect. SKIN: Warm, dry, normal turgor, no rashes or lesions noted. Vital Signs Temperature 98.6 F 05/27/18 05:55 Pulse Rate 85 05/27/18 05:55 Respiratory Rate 20 05/27/18 05:55 Blood Pressure 109/63 05/27/18 05:55 O2 Sat by Pulse Oximetry (%) 96 05/26/18 23:00 Lab Results WBC 4.5 K/mm3 (4.0-10.0) 05/26/18 06:35 RBC 3.78 M/mm3 (3.60-5.2) 05/26/18 06:35 Hgb 11.0 GM/dL (10.7-15.3) 05/26/18 06:35 Hct 33.0 % (32.4-45.2) 05/26/18 06:35 MCV 87.3 fl (80-96) 05/26/18 06:35 MCHC 33.2 g/dl (32.0-36.0) 05/26/18 06:35 RDW 15.8 % (11.6-15.6) H 05/26/18 06:35 Plt Count 189 K/MM3 (134-434) 05/26/18 06:35 Sodium 137 mmol/L (136-145) 05/26/18 06:35 Potassium 3.8 mmol/L (3.5-5.1) 05/26/18 06:35 Chloride 103 mmol/L (98-107) 05/26/18 06:35 Carbon Dioxide 29 mmol/L (21-32) 05/26/18 06:35 Anion Gap 5 MMOL/L (8-16) L 05/26/18 06:35 BUN 4 mg/dL (7-18) L 05/26/18 06:35 Creatinine 0.7 mg/dL (0.55-1.3) 05/26/18 06:35 Random Glucose 88 mg/dL (74-106) 05/26/18 06:35 Calcium 8.1 mg/dL (8.5-10.1) L 05/26/18 06:35 Blood Type A POSITIVE 05/24/18 10:00 Antibody Screen Negative 05/24/18 10:00 INR 1.85 (0.83-1.09) H 05/26/18 06:35 Problem List - Problems (1) Cellulitis of right lower leg Assessment/Plan: Plan -Pt does not appear to have any vascular or wound issues at this time, so no vascular surgical interventions indicated. -continue abx as per ID -continue surgical management under ortho Please contact vascular team if any changes Code(s): L03.115 - CELLULITIS OF RIGHT LOWER LIMB
--- NOTE | 2018-05-27 08:36 | PN ---
Progress Note, Physician Chief Complaint: AWAKE ALERT C/O PAIN RIGHT LOWER EXTREMITY - Current Medication List Current Medications: Active Medications Acetaminophen (Tylenol -) 650 mg PO Q4H PRN PRN Reason: FEVER Last Admin: 05/24/18 16:28 Dose: 650 mg Acetaminophen (Tylenol -) 650 mg PO Q4H PRN PRN Reason: PAIN 1-3 Albuterol Sulfate (Ventolin 0.083% Nebulizer Soln -) 1 amp NEB Q6H PRN PRN Reason: SHORT OF BREATH/WHEEZING Atorvastatin Calcium (Lipitor -) 20 mg PO [facility] Last Admin: 05/26/18 23:10 Dose: 20 mg Docusate Sodium (Colace -) 300 mg PO HS [facility] Last Admin: 05/26/18 23:09 Dose: 300 mg Enoxaparin Sodium (Lovenox -) 30 mg SQ BID [facility] Last Admin: 05/26/18 23:09 Dose: 30 mg Escitalopram Oxalate (Lexapro -) 20 mg PO DAILY [facility] Last Admin: 05/26/18 10:43 Dose: 20 mg Ferrous Sulfate (Feosol) 300 mg PO BIDWM [facility] Last Admin: 05/26/18 16:45 Dose: Not Given Gabapentin (Neurontin -) 300 mg PO [facility] Last Admin: 05/26/18 23:09 Dose: 300 mg Ertapenem 1 gm/ Sodium (Chloride) 50 mls @ 100 mls/hr IVPB DAILY [facility] Last Admin: 05/26/18 10:43 Dose: 100 mls/hr Levothyroxine Sodium (Synthroid -) 50 mcg PO 0700 [facility] Last Admin: 05/27/18 06:16 Dose: 50 mcg Meclizine HCl (Antivert -) 12.5 mg PO BID [facility] Last Admin: 05/26/18 23:10 Dose: 12.5 mg Montelukast Sodium (Singulair -) 10 mg PO [facility] Last Admin: 05/26/18 23:10 Dose: 10 mg Multivitamins/Minerals/Vitamin C (Tab-A-Vit -) 1 tab PO DAILY [facility] Last Admin: 05/26/18 10:42 Dose: 1 tab Nortriptyline HCl (Pamelor -) 50 mg PO [facility] Last Admin: 05/26/18 23:13 Dose: 50 mg Oxycodone HCl (Roxicodone -) 10 mg PO Q6H PRN PRN Reason: PAIN LEVEL 6-10 Last Admin: 05/27/18 06:16 Dose: 10 mg Tramadol HCl (Ultram -) 100 mg PO Q6H PRN PRN Reason: PAIN LEVEL 4 - 6 Last Admin: 05/26/18 21:11 Dose: 100 mg Zolpidem Tartrate (Ambien -) 10 mg PO HS PRN PRN Reason: INSOMNIA Last Admin: 05/26/18 23:09 Dose: 10 mg - Objective Vital Signs: Vital Signs Temperature 98.6 F 05/27/18 05:55 Pulse Rate 85 05/27/18 05:55 Respiratory Rate 20 05/27/18 05:55 Blood Pressure 109/63 05/27/18 05:55 O2 Sat by Pulse Oximetry (%) 96 05/26/18 23:00 Constitutional: Yes: Mild Distress Eyes: Yes: WNL HENT: Yes: WNL Neck: Yes: WNL Cardiovascular: Yes: WNL Respiratory: Yes: WNL Gastrointestinal: Yes: WNL Genitourinary: Yes: WNL Musculoskeletal: Yes: Muscle Pain, Muscle Weakness Extremities: Yes: Erythema Edema: Yes Edema: RLE: 2+ Peripheral Pulses WNL: Yes Integumentary: Yes: Erythema Wound/Incision: Yes: Open to air, Reddened, Excoriated Neurological: Yes: WNL ...Motor Strength: RLE Psychiatric: Yes: WNL Labs: CBC, BMP 05/26/18 06:35 05/26/18 06:35 INR, PTT INR 1.88 (0.83-1.09) H 05/27/18 06:30 Problem List - Problems (1) Cellulitis of right lower leg Code(s): L03.115 - CELLULITIS OF RIGHT LOWER LIMB (2) Infection of right knee Code(s): M00.9 - PYOGENIC ARTHRITIS, UNSPECIFIED (3) Hyperlipidemia Code(s): E78.5 - HYPERLIPIDEMIA, UNSPECIFIED Qualifiers: Hyperlipidemia type: pure hypercholesterolemia Qualified Code(s): E78.00 - Pure hypercholesterolemia, unspecified (4) Hypertension Code(s): I10 - ESSENTIAL (PRIMARY) HYPERTENSION Qualifiers: Hypertension type: essential hypertension Qualified Code(s): I10 - Essential (primary) hypertension (5) Hypothyroidism Code(s): E03.9 - HYPOTHYROIDISM, UNSPECIFIED Qualifiers: Hypothyroidism type: unspecified Qualified Code(s): E03.9 - Hypothyroidism , unspecified (6) Systolic dysfunction without heart failure Code(s): I51.9 - HEART DISEASE, UNSPECIFIED Assessment/Plan IV ABX ORTHOPEDIC CONSULT APPRECIATED DVT PROPHYLAXIS CHECK CULTURES R/U DVT VASC SX EVAL
[2018-05-27] MEDS: FERROUS SO4 300 MG/5 ML ORAL SOLN UNIT DOSE CUPS PO SCH ×2 (08:54→17:14)
--- NOTE | 2018-05-27 09:24 | PN ---
Progress Note (short form) - Note Progress Note: Ortho Pt seen and examined s/p right lateral aga ukr pod #7 Selected Entries 05/27/18 09:00 Temperature 98.4 F Pulse Rate 92 H Respiratory 20 Rate Blood Pressure 110/68 Laboratory Tests 05/26/18 06:35 WBC 4.5 Hgb 11.0 Hct 33.0 Plt Count 189 incision c/d/i, + erythema, + swelling, rom 0-80, calf soft, nt nvi CT scan reviewed a/p- right lateral aga ukr with cellulitis Hold lovenox if ok with medicine PT, wbat ROM exercises abx as per ID pain control ok to d/c from ortho pov once ID ok with PO abx d/w Dr. Noonan
[2018-05-27] MEDS: traMADol HCL 50 MG TABLET PO PRN ×2 (10:59→21:19)
[2018-05-27] MEDS ORDERED: ESCITALOPRAM OXALATE 10 MG TABLET (FP) ONE (11:34)
[2018-05-27] MEDS ORDERED: PT OWN MED DRAWER 7, Y5N ONE ×3 (11:35→21:15)
[2018-05-27] MEDS: MULTIVITAMINS (DAILY MVI) TABLET (FP) PO SCH (11:49)
[2018-05-27] MEDS: MECLIZINE HCL 12.5 MG TABLET PO SCH ×2 (11:49→21:21)
[2018-05-27] MEDS: ERTAPENEM SODIUM 1 GM in SODIUM CHLORIDE 50 ML IVPB SCH (11:50)
[2018-05-27] MEDS: ESCITALOPRAM OXALATE 20 MG TABLET (FP) PO SCH (11:50)
[2018-05-27] MEDS: ENOXAPARIN NA (PORCINE) 30 MG/0.3 ML DISP.SYRIN SQ SCH ×2 (11:50→21:21)
--- NOTE | 2018-05-27 14:20 | PN ---
Progress Note, Physician History of Present Illness: patient stable still with swelling and cellulitis ortho note noted swelling decreasing - Current Medication List Current Medications: Active Medications Acetaminophen (Tylenol -) 650 mg PO Q4H PRN PRN Reason: FEVER Last Admin: 05/24/18 16:28 Dose: 650 mg Acetaminophen (Tylenol -) 650 mg PO Q4H PRN PRN Reason: PAIN 1-3 Albuterol Sulfate (Ventolin 0.083% Nebulizer Soln -) 1 amp NEB Q6H PRN PRN Reason: SHORT OF BREATH/WHEEZING Atorvastatin Calcium (Lipitor -) 20 mg PO HS [facility] Last Admin: 05/26/18 23:10 Dose: 20 mg Docusate Sodium (Colace -) 300 mg PO HS [facility] Last Admin: 05/26/18 23:09 Dose: 300 mg Enoxaparin Sodium (Lovenox -) 30 mg SQ BID [facility] Last Admin: 05/27/18 11:50 Dose: 30 mg Escitalopram Oxalate (Lexapro -) 20 mg PO DAILY [facility] Last Admin: 05/27/18 11:50 Dose: 20 mg Ferrous Sulfate (Feosol) [facility] [place] Last Admin: 05/27/18 08:54 Dose: 300 mg Gabapentin (Neurontin -) 300 mg PO [facility] Last Admin: 05/26/18 23:09 Dose: 300 mg Ertapenem 1 gm/ Sodium (Chloride) 50 mls @ 100 mls/hr IVPB DAILY [facility] Last Admin: 05/27/18 11:50 Dose: 100 mls/hr Levothyroxine Sodium (Synthroid -) 50 mcg PO 0700 [facility] Last Admin: 05/27/18 06:16 Dose: 50 mcg Meclizine HCl (Antivert -) 12.5 mg PO BID [facility] Last Admin: 05/27/18 11:49 Dose: 12.5 mg Montelukast Sodium (Singulair -) 10 mg PO [facility] Last Admin: 05/26/18 23:10 Dose: 10 mg Multivitamins/Minerals/Vitamin C (Tab-A-Vit -) 1 tab PO DAILY [facility] Last Admin: 05/27/18 11:49 Dose: 1 tab Nortriptyline HCl (Pamelor -) 50 mg PO [facility] Last Admin: 05/26/18 23:13 Dose: 50 mg Oxycodone HCl (Roxicodone -) 10 mg PO Q6H PRN PRN Reason: PAIN LEVEL 6-10 Last Admin: 05/27/18 13:50 Dose: 10 mg Tramadol HCl (Ultram -) 100 mg PO Q6H PRN PRN Reason: PAIN LEVEL 4 - 6 Last Admin: 05/27/18 10:59 Dose: 100 mg Warfarin Sodium (Coumadin -) 7.5 mg PO DAILY@1800 [facility] Zolpidem Tartrate (Ambien -) 10 mg PO HS PRN PRN Reason: INSOMNIA Last Admin: 05/26/18 23:09 Dose: 10 mg - Objective Vital Signs: Vital Signs Temperature 98.4 F 05/27/18 09:00 Pulse Rate 92 H 05/27/18 09:00 Respiratory Rate 20 05/27/18 09:00 Blood Pressure 110/68 05/27/18 09:00 O2 Sat by Pulse Oximetry (%) 96 05/26/18 23:00 Constitutional: Yes: Calm, Mild Distress Cardiovascular: Yes: Regular Rate and Rhythm Respiratory: Yes: Regular, CTA Bilaterally Gastrointestinal: Yes: Normal Bowel Sounds, Soft Musculoskeletal: Yes: Other Extremities: Yes: Erythema (improving), Other Neurological: Yes: Alert, Oriented Psychiatric: Yes: Alert, Oriented Labs: CBC, BMP 05/26/18 06:35 05/26/18 06:35 INR, PTT INR 1.88 (0.83-1.09) H 05/27/18 06:30 Assessment/Plan Problem List - Problems (1) Infection of right knee Code(s): M00.9 - PYOGENIC ARTHRITIS, UNSPECIFIED cellulitits of the rt knee plan conitnue current abx continue to follow the swelling rest as per the team
[2018-05-27] MEDS ORDERED: WARFARIN NA 7.5 MG TABLET (FP) PO SCH (18:00)
[2018-05-27] MEDS: MONTELUKAST NA 10 MG TABLET PO SCH (21:20)
[2018-05-27] MEDS: GABAPENTIN 300 MG CAPSULE (FP) PO SCH (21:20)
[2018-05-27] MEDS: ATORVASTATIN CA 20 MG TABLET (FP) PO SCH (21:20)
[2018-05-27] MEDS: NORTRIPTYLINE HCL 25 MG CAPSULE PO SCH (21:21)
[2018-05-27] MEDS: DOCUSATE SODIUM 100 MG CAPSULE (FP) PO SCH (21:21)
[2018-05-27] MEDS: ZOLPIDEM TARTRATE 5 MG TABLET PO PRN (23:31)
[2018-05-28] MEDS: oxyCODONE HCL 5 MG TABLET PO PRN ×3 (06:19→17:51)
[2018-05-28] MEDS: LEVOTHYROXINE NA 50 MCG TABLET (FP) PO SCH (06:20)
[2018-05-28] MEDS ORDERED: WARFARIN NA 7.5 MG TABLET (FP) PO SCH (09:14)
--- NOTE | 2018-05-28 09:14 | PN ---
Progress Note, Physician Chief Complaint: AWAKE ALERT FEELING BETTER - Current Medication List Current Medications: Active Medications Acetaminophen (Tylenol -) 650 mg PO Q4H PRN PRN Reason: FEVER Last Admin: 05/24/18 16:28 Dose: 650 mg Acetaminophen (Tylenol -) 650 mg PO Q4H PRN PRN Reason: PAIN 1-3 Albuterol Sulfate (Ventolin 0.083% Nebulizer Soln -) 1 amp NEB Q6H PRN PRN Reason: SHORT OF BREATH/WHEEZING Atorvastatin Calcium (Lipitor -) 20 mg PO [facility] Last Admin: 05/27/18 21:20 Dose: 20 mg Docusate Sodium (Colace -) 300 mg PO [facility] Last Admin: 05/27/18 21:21 Dose: Not Given Enoxaparin Sodium (Lovenox -) 30 mg SQ BID [facility] Last Admin: 05/27/18 21:21 Dose: 30 mg Escitalopram Oxalate (Lexapro -) 20 mg PO DAILY [facility] Last Admin: 05/27/18 11:50 Dose: 20 mg Ferrous Sulfate (Feosol) [facility] [place] Last Admin: 05/27/18 17:14 Dose: 300 mg Gabapentin (Neurontin -) 300 mg PO [facility] Last Admin: 05/27/18 21:20 Dose: 300 mg Ertapenem 1 gm/ Sodium (Chloride) 50 mls @ 100 mls/hr IVPB DAILY [facility] Last Admin: 05/27/18 11:50 Dose: 100 mls/hr Levothyroxine Sodium (Synthroid -) 50 mcg PO 0700 [facility] Last Admin: 05/28/18 06:20 Dose: 50 mcg Meclizine HCl (Antivert -) 12.5 mg PO BID [facility] Last Admin: 05/27/18 21:21 Dose: 12.5 mg Montelukast Sodium (Singulair -) 10 mg PO [facility] Last Admin: 05/27/18 21:20 Dose: 10 mg Multivitamins/Minerals/Vitamin C (Tab-A-Vit -) 1 tab PO DAILY [facility] Last Admin: 05/27/18 11:49 Dose: 1 tab Nortriptyline HCl (Pamelor -) 50 mg PO [facility] Last Admin: 05/27/18 21:21 Dose: 50 mg Oxycodone HCl (Roxicodone -) 10 mg PO Q6H PRN PRN Reason: PAIN LEVEL 6-10 Last Admin: 05/28/18 06:19 Dose: 10 mg Tramadol HCl (Ultram -) 100 mg PO Q6H PRN PRN Reason: PAIN LEVEL 4 - 6 Last Admin: 05/27/18 21:19 Dose: 100 mg Warfarin Sodium (Coumadin -) 7.5 mg PO DAILY@1800 [facility] Last Admin: 05/27/18 17:14 Dose: 7.5 mg Zolpidem Tartrate (Ambien -) 10 mg PO HS PRN PRN Reason: INSOMNIA Last Admin: 05/27/18 23:31 Dose: 10 mg - Objective Vital Signs: Vital Signs Temperature 98.5 F 05/28/18 06:00 Pulse Rate 81 05/28/18 06:00 Respiratory Rate 20 05/28/18 06:00 Blood Pressure 121/66 05/28/18 06:00 O2 Sat by Pulse Oximetry (%) 97 05/27/18 23:00 Constitutional: Yes: Mild Distress Eyes: Yes: WNL HENT: Yes: WNL Neck: Yes: WNL Cardiovascular: Yes: WNL Respiratory: Yes: WNL Gastrointestinal: Yes: WNL Genitourinary: Yes: WNL Musculoskeletal: Yes: Muscle Weakness Extremities: Yes: Erythema Edema: Yes Edema: RLE: 2+ Peripheral Pulses WNL: Yes Integumentary: Yes: Erythema, Rash, Venous Stasis Changes Wound/Incision: Yes: Dressing Dry and Intact Neurological: Yes: WNL ...Motor Strength: RLE (POOR ROM) Psychiatric: Yes: WNL Labs: CBC, BMP 05/26/18 06:35 05/26/18 06:35 INR, PTT INR 1.88 (0.83-1.09) H 05/27/18 06:30 Problem List - Problems (1) Cellulitis of right lower leg Code(s): L03.115 - CELLULITIS OF RIGHT LOWER LIMB (2) Infection of right knee Code(s): M00.9 - PYOGENIC ARTHRITIS, UNSPECIFIED (3) Hyperlipidemia Code(s): E78.5 - HYPERLIPIDEMIA, UNSPECIFIED Qualifiers: Hyperlipidemia type: pure hypercholesterolemia Qualified Code(s): E78.00 - Pure hypercholesterolemia, unspecified (4) Hypertension Code(s): I10 - ESSENTIAL (PRIMARY) HYPERTENSION Qualifiers: Hypertension type: essential hypertension Qualified Code(s): I10 - Essential (primary) hypertension (5) Hypothyroidism Code(s): E03.9 - HYPOTHYROIDISM, UNSPECIFIED Qualifiers: Hypothyroidism type: unspecified Qualified Code(s): E03.9 - Hypothyroidism , unspecified (6) Systolic dysfunction without heart failure Code(s): I51.9 - HEART DISEASE, UNSPECIFIED Assessment/Plan IV ABX ORTHOPEDIC CONSULT APPRECIATED DVT PROPHYLAXIS CHECK CULTURES R/U DVT VASC SX EVAL PT EVAL
[2018-05-28] MEDS: ALBUTEROL SO4 0.083% IH SOL 2.5 MG/3 ML VIAL.NEB. NEB PRN ×3 (09:52→22:05)
[2018-05-28] MEDS: ACETAMINOPHEN/CAFFEINE/BUTALBITAL 1 TAB PO PRN (10:06)
[2018-05-28] MEDS: FERROUS SO4 300 MG/5 ML ORAL SOLN UNIT DOSE CUPS PO SCH ×2 (10:28→17:51)
[2018-05-28] MEDS: MECLIZINE HCL 12.5 MG TABLET PO SCH ×2 (10:29→21:08)
[2018-05-28] MEDS: ESCITALOPRAM OXALATE 20 MG TABLET (FP) PO SCH (10:29)
[2018-05-28] MEDS: MULTIVITAMINS (DAILY MVI) TABLET (FP) PO SCH (10:30)
[2018-05-28] MEDS: ENOXAPARIN NA (PORCINE) 30 MG/0.3 ML DISP.SYRIN SQ SCH ×2 (10:30→21:07)
[2018-05-28] MEDS: ERTAPENEM SODIUM 1 GM in SODIUM CHLORIDE 50 ML IVPB SCH (10:50)
[2018-05-28 11:02] LABS: INR 1.82 (0.83-1.09); PROTHROMBIN TIME (PATIENT) 20.6 SEC (9.7-13.0)
--- NOTE | 2018-05-28 11:17 | PN ---
Progress Note (short form) - Note Progress Note: Ortho NOTE DICTATED BY > JAC
[2018-05-28] MEDS ORDERED: ESCITALOPRAM OXALATE 10 MG TABLET (FP) ONE (11:26)
--- NOTE | 2018-05-28 11:43 | PN ---
DATE OF VISIT: 05/28/2018 SUBJECTIVE: The patient is improving. The swelling and erythema are decreased. The skin is "pruning". Her range of motion is 0-95. No effusion. Calf is soft and nontender. Her white count is normal. She has no fever. The patient will continue antibiotics, and we will follow the patient while she is here in the hospital until she is ready to be changed to p.o. antibiotics. EMILIA NATHAN M.D. SUSANNE/[id number]
--- NOTE | 2018-05-28 13:37 | PN ---
Progress Note, Physician History of Present Illness: swelling and redness improving leg starting to look better swelling in the ankle region noted still has difficulty walking - Current Medication List Current Medications: Active Medications Acetaminophen (Tylenol -) 650 mg PO Q4H PRN PRN Reason: FEVER Last Admin: 05/24/18 16:28 Dose: 650 mg Acetaminophen (Tylenol -) 650 mg PO Q4H PRN PRN Reason: PAIN 1-3 Acetaminophen/Butalbital/Caffeine (Fioricet -) 1 tablet PO Q6H PRN PRN Reason: HEADACHE Last Admin: 05/28/18 10:06 Dose: 1 tablet Albuterol Sulfate (Ventolin 0.083% Nebulizer Soln -) 1 amp NEB Q6H PRN PRN Reason: SHORT OF BREATH/WHEEZING Last Admin: 05/28/18 09:52 Dose: 1 amp Atorvastatin Calcium (Lipitor -) 20 mg PO [facility] Last Admin: 05/27/18 21:20 Dose: 20 mg Docusate Sodium (Colace -) 300 mg PO [facility] Last Admin: 05/27/18 21:21 Dose: Not Given Enoxaparin Sodium (Lovenox -) 30 mg SQ BID [facility] Last Admin: 05/28/18 10:30 Dose: 30 mg Escitalopram Oxalate (Lexapro -) 20 mg PO DAILY [facility] Last Admin: 05/28/18 10:29 Dose: 20 mg Ferrous Sulfate (Feosol) 300 mg PO BIDWM [facility] Last Admin: 05/28/18 10:28 Dose: Not Given Gabapentin (Neurontin -) 300 mg PO [facility] Last Admin: 05/27/18 21:20 Dose: 300 mg Ertapenem 1 gm/ Sodium (Chloride) 50 mls @ 100 mls/hr IVPB DAILY [facility] Last Admin: 05/28/18 10:50 Dose: 100 mls/hr Levothyroxine Sodium (Synthroid -) 50 mcg PO 0700 [facility] Last Admin: 05/28/18 06:20 Dose: 50 mcg Meclizine HCl (Antivert -) 12.5 mg PO BID [facility] Last Admin: 05/28/18 10:29 Dose: 12.5 mg Montelukast Sodium (Singulair -) 10 mg PO [facility] Last Admin: 05/27/18 21:20 Dose: 10 mg Multivitamins/Minerals/Vitamin C (Tab-A-Vit -) 1 tab PO DAILY [facility] Last Admin: 05/28/18 10:30 Dose: 1 tab Nortriptyline HCl (Pamelor -) 50 mg PO HS [facility] Last Admin: 05/27/18 21:21 Dose: 50 mg Oxycodone HCl (Roxicodone -) 10 mg PO Q6H PRN PRN Reason: PAIN LEVEL 6-10 Last Admin: 05/28/18 11:44 Dose: 10 mg Tramadol HCl (Ultram -) 100 mg PO Q6H PRN PRN Reason: PAIN LEVEL 4 - 6 Last Admin: 05/27/18 21:19 Dose: 100 mg Warfarin Sodium 5 mg/ Warfarin (Sodium 3 mg) 8 mg PO DAILY@1800 [facility] Zolpidem Tartrate (Ambien -) 10 mg PO HS PRN PRN Reason: INSOMNIA Last Admin: 05/27/18 23:31 Dose: 10 mg - Objective Vital Signs: Vital Signs Temperature 98.5 F 05/28/18 10:17 Pulse Rate 80 05/28/18 10:17 Respiratory Rate 20 05/28/18 10:17 Blood Pressure 108/64 05/28/18 10:17 O2 Sat by Pulse Oximetry (%) 97 05/27/18 23:00 Constitutional: Yes: Calm, Mild Distress Cardiovascular: Yes: Regular Rate and Rhythm Respiratory: Yes: Regular, CTA Bilaterally Gastrointestinal: Yes: Normal Bowel Sounds, Soft Extremities: Yes: Other (rt knee swellin with cellulitis rt ankle swelling) Integumentary: Yes: Erythema Wound/Incision: Yes: Clean/Dry Neurological: Yes: Alert, Oriented Psychiatric: Yes: Alert, Oriented Labs: CBC, BMP 05/26/18 06:35 05/26/18 06:35 INR, PTT INR 1.82 (0.83-1.09) H 05/28/18 10:25 Assessment/Plan Problem List - Problems (1) Infection of right knee Code(s): M00.9 - PYOGENIC ARTHRITIS, UNSPECIFIED cellulitits of the rt knee swelling of the rt ankle plan continue iv abx monitor ankle swelling rest as per ortho elevation of leg
[2018-05-28] MEDS ORDERED: WARFARIN NA 3 MG TABLET ONE (17:37)
[2018-05-28] MEDS ORDERED: WARFARIN NA 5 MG TABLET (UD) ONE (17:38)
[2018-05-28] MEDS: WARFARIN NA 5 MG, WARFARIN NA 3 MG PO SCH (17:50)
[2018-05-28] MEDS ORDERED: PT OWN MED DRAWER 7, Y5N ONE (21:04)
[2018-05-28] MEDS: ZOLPIDEM TARTRATE 5 MG TABLET PO PRN (21:08)
[2018-05-28] MEDS: MONTELUKAST NA 10 MG TABLET PO SCH (21:08)
[2018-05-28] MEDS: DOCUSATE SODIUM 100 MG CAPSULE (FP) PO SCH (21:08)
[2018-05-28] MEDS: GABAPENTIN 300 MG CAPSULE (FP) PO SCH (21:08)
[2018-05-28] MEDS: ATORVASTATIN CA 20 MG TABLET (FP) PO SCH (21:08)
[2018-05-28] MEDS: NORTRIPTYLINE HCL 25 MG CAPSULE PO SCH (21:09)
[2018-05-28] MEDS: traMADol HCL 50 MG TABLET PO PRN (21:13)
[2018-05-29] MEDS: oxyCODONE HCL 5 MG TABLET PO PRN ×2 (06:20→17:34)
[2018-05-29] MEDS: LEVOTHYROXINE NA 50 MCG TABLET (FP) PO SCH (06:20)
[2018-05-29 08:03] LABS: HEMATOCRIT 34.4 % (32.4-45.2); HEMOGLOBIN 11.6 GM/dL (10.7-15.3); MCHC 33.6 g/dl (32.0-36.0); MEAN CELL VOLUME 86.2 fl (80-96); MEAN PLT VOLUME 7.8 fl (7.5-11.1); PLATELET COUNT 244 K/MM3 (134-434); RBC 3.99 M/mm3 (3.60-5.2); RDW 15.5 % (11.6-15.6); WHITE BLOOD COUNT 5.2 K/mm3 (4.0-10.0)
[2018-05-29 08:11] LABS: INR 1.85 (0.83-1.09); PROTHROMBIN TIME (PATIENT) 20.9 SEC (9.7-13.0)
[2018-05-29 08:19] LABS: ANION GAP 6 MMOL/L (8-16); BLOOD UREA NITROGEN 4 mg/dL (7-18); CALCIUM 8.6 mg/dL (8.5-10.1); CHLORIDE 106 mmol/L (98-107); CO2 27 mmol/L (21-32); CREATININE 0.6 mg/dL (0.55-1.3); GLUCOSE,RANDOM 85 mg/dL (74-106); POTASSIUM 4.6 mmol/L (3.5-5.1); SODIUM 139 mmol/L (136-145)
--- NOTE | 2018-05-29 08:20 | PN ---
Progress Note, Physician Chief Complaint: AWAKE ALERT FEELING BETTER C/O RIGHT FOOT PAIN - Current Medication List Current Medications: Active Medications Acetaminophen (Tylenol -) 650 mg PO Q4H PRN PRN Reason: FEVER Last Admin: 05/24/18 16:28 Dose: 650 mg Acetaminophen (Tylenol -) 650 mg PO Q4H PRN PRN Reason: PAIN 1-3 Acetaminophen/Butalbital/Caffeine (Fioricet -) 1 tablet PO Q6H PRN PRN Reason: HEADACHE Last Admin: 05/28/18 10:06 Dose: 1 tablet Albuterol Sulfate (Ventolin 0.083% Nebulizer Soln -) 1 amp NEB Q6H PRN PRN Reason: SHORT OF BREATH/WHEEZING Last Admin: 05/28/18 22:05 Dose: 1 amp Atorvastatin Calcium (Lipitor -) 20 mg PO HS [facility] Last Admin: 05/28/18 21:08 Dose: 20 mg Docusate Sodium (Colace -) 300 mg PO HS [facility] Last Admin: 05/28/18 21:08 Dose: 300 mg Enoxaparin Sodium (Lovenox -) 30 mg SQ BID [facility] Last Admin: 05/28/18 21:07 Dose: 30 mg Escitalopram Oxalate (Lexapro -) 20 mg PO DAILY [facility] Last Admin: 05/28/18 10:29 Dose: 20 mg Ferrous Sulfate (Feosol) 300 mg PO BIDWM [facility] Last Admin: 05/28/18 17:51 Dose: 300 mg Gabapentin (Neurontin -) 300 mg PO HS [facility] Last Admin: 05/28/18 21:08 Dose: 300 mg Ertapenem 1 gm/ Sodium (Chloride) 50 mls @ 100 mls/hr IVPB DAILY [facility] Last Admin: 05/28/18 10:50 Dose: 100 mls/hr Levothyroxine Sodium (Synthroid -) 50 mcg PO 0700 [facility] Last Admin: 05/29/18 06:20 Dose: 50 mcg Meclizine HCl (Antivert -) 12.5 mg PO BID [facility] Last Admin: 05/28/18 21:08 Dose: 12.5 mg Montelukast Sodium (Singulair -) 10 mg PO HS [facility] Last Admin: 05/28/18 21:08 Dose: 10 mg Multivitamins/Minerals/Vitamin C (Tab-A-Vit -) 1 tab PO DAILY [facility] Last Admin: 05/28/18 10:30 Dose: 1 tab Nortriptyline HCl (Pamelor -) 50 mg PO HS [facility] Last Admin: 05/28/18 21:09 Dose: 50 mg Oxycodone HCl (Roxicodone -) 10 mg PO Q6H PRN PRN Reason: PAIN LEVEL 6-10 Last Admin: 05/29/18 06:20 Dose: 10 mg Tramadol HCl (Ultram -) 100 mg PO Q6H PRN PRN Reason: PAIN LEVEL 4 - 6 Last Admin: 05/28/18 21:13 Dose: 100 mg Warfarin Sodium 5 mg/ Warfarin (Sodium 3 mg) 8 mg PO DAILY@1800 [facility] Last Admin: 05/28/18 17:50 Dose: 8 mg - Objective Vital Signs: Vital Signs Temperature 98.8 F 05/29/18 06:00 Pulse Rate 79 05/29/18 06:00 Respiratory Rate 20 05/29/18 06:35 Blood Pressure 104/56 L 05/29/18 06:00 O2 Sat by Pulse Oximetry (%) 96 05/29/18 06:35 Constitutional: Yes: Mild Distress Eyes: Yes: WNL HENT: Yes: WNL Neck: Yes: WNL Respiratory: Yes: WNL Gastrointestinal: Yes: WNL Genitourinary: Yes: WNL Musculoskeletal: Yes: Joint Swelling Extremities: Yes: Erythema, Other Edema: Yes Edema: RLE: 1+ Peripheral Pulses WNL: Yes Integumentary: Yes: Erythema Wound/Incision: Yes: Clean/Dry Neurological: Yes: WNL ...Motor Strength: WNL Psychiatric: Yes: WNL Labs: CBC, BMP 05/29/18 06:18 05/29/18 06:18 INR, PTT INR 1.82 (0.83-1.09) H 05/28/18 10:25 Problem List - Problems (1) Cellulitis of right lower leg Code(s): L03.115 - CELLULITIS OF RIGHT LOWER LIMB (2) Infection of right knee Code(s): M00.9 - PYOGENIC ARTHRITIS, UNSPECIFIED (3) Hyperlipidemia Code(s): E78.5 - HYPERLIPIDEMIA, UNSPECIFIED Qualifiers: Hyperlipidemia type: pure hypercholesterolemia Qualified Code(s): E78.00 - Pure hypercholesterolemia, unspecified (4) Hypertension Code(s): I10 - ESSENTIAL (PRIMARY) HYPERTENSION Qualifiers: Hypertension type: essential hypertension Qualified Code(s): I10 - Essential (primary) hypertension (5) Hypothyroidism Code(s): E03.9 - HYPOTHYROIDISM, UNSPECIFIED Qualifiers: Hypothyroidism type: unspecified Qualified Code(s): E03.9 - Hypothyroidism , unspecified (6) Systolic dysfunction without heart failure Code(s): I51.9 - HEART DISEASE, UNSPECIFIED Assessment/Plan IV ABX ORTHOPEDIC CONSULT APPRECIATED DVT PROPHYLAXIS CHECK CULTURES R/U DVT VASC SX EVAL PT EVAL XRAY RIGHT FOOT
[2018-05-29] MEDS: FERROUS SO4 300 MG/5 ML ORAL SOLN UNIT DOSE CUPS PO SCH (08:51)
[2018-05-29] MEDS ORDERED: ESCITALOPRAM OXALATE 10 MG TABLET (FP) ONE (10:30)
[2018-05-29] MEDS ORDERED: PT OWN MED DRAWER 7, Y5N ONE (10:31)
[2018-05-29] MEDS: traMADol HCL 50 MG TABLET PO PRN ×2 (10:32→23:18)
[2018-05-29] MEDS: MECLIZINE HCL 12.5 MG TABLET PO SCH ×2 (10:33→23:19)
[2018-05-29] MEDS: ENOXAPARIN NA (PORCINE) 30 MG/0.3 ML DISP.SYRIN SQ SCH ×2 (10:33→23:19)
[2018-05-29] MEDS: ESCITALOPRAM OXALATE 20 MG TABLET (FP) PO SCH (10:33)
[2018-05-29] MEDS: MULTIVITAMINS (DAILY MVI) TABLET (FP) PO SCH (10:33)
[2018-05-29] MEDS: ERTAPENEM SODIUM 1 GM in SODIUM CHLORIDE 50 ML IVPB SCH (10:36)
--- NOTE | 2018-05-29 15:42 | PN ---
Progress Note, Physician History of Present Illness: knee right improving ankle still swollen and pain full - Current Medication List Current Medications: Active Medications Acetaminophen (Tylenol -) 650 mg PO Q4H PRN PRN Reason: FEVER Last Admin: 05/24/18 16:28 Dose: 650 mg Acetaminophen (Tylenol -) 650 mg PO Q4H PRN PRN Reason: PAIN 1-3 Acetaminophen/Butalbital/Caffeine (Fioricet -) 1 tablet PO Q6H PRN PRN Reason: HEADACHE Last Admin: 05/28/18 10:06 Dose: 1 tablet Albuterol Sulfate (Ventolin 0.083% Nebulizer Soln -) 1 amp NEB Q6H PRN PRN Reason: SHORT OF BREATH/WHEEZING Last Admin: 05/28/18 22:05 Dose: 1 amp Atorvastatin Calcium (Lipitor -) 20 mg PO [facility] Last Admin: 05/28/18 21:08 Dose: 20 mg Docusate Sodium (Colace -) 300 mg PO [facility] Last Admin: 05/28/18 21:08 Dose: 300 mg Enoxaparin Sodium (Lovenox -) 30 mg SQ BID [facility] Last Admin: 05/29/18 10:33 Dose: 30 mg Escitalopram Oxalate (Lexapro -) 20 mg PO DAILY [facility] Last Admin: 05/29/18 10:33 Dose: 20 mg Ferrous Sulfate (Feosol -) 325 mg PO BIDWM [facility] Gabapentin (Neurontin -) 300 mg PO HS [facility] Last Admin: 05/28/18 21:08 Dose: 300 mg Ertapenem 1 gm/ Sodium (Chloride) 50 mls @ 100 mls/hr IVPB DAILY [facility] Last Admin: 05/29/18 10:36 Dose: 100 mls/hr Levothyroxine Sodium (Synthroid -) 50 mcg PO 0700 [facility] Last Admin: 05/29/18 06:20 Dose: 50 mcg Meclizine HCl (Antivert -) 12.5 mg PO BID [facility] Last Admin: 05/29/18 10:33 Dose: 12.5 mg Montelukast Sodium (Singulair -) 10 mg PO [facility] Last Admin: 05/28/18 21:08 Dose: 10 mg Multivitamins/Minerals/Vitamin C (Tab-A-Vit -) 1 tab PO DAILY [facility] Last Admin: 05/29/18 10:33 Dose: 1 tab Nortriptyline HCl (Pamelor -) 50 mg PO HS [facility] Last Admin: 05/28/18 21:09 Dose: 50 mg Oxycodone HCl (Roxicodone -) 10 mg PO Q6H PRN PRN Reason: PAIN LEVEL 6-10 Last Admin: 05/29/18 06:20 Dose: 10 mg Tramadol HCl (Ultram -) 100 mg PO Q6H PRN PRN Reason: PAIN LEVEL 4 - 6 Last Admin: 05/29/18 10:32 Dose: 100 mg Warfarin Sodium 5 mg/ Warfarin (Sodium 3 mg) 8 mg PO DAILY@1800 [facility] Last Admin: 05/28/18 17:50 Dose: 8 mg - Objective Vital Signs: Vital Signs Temperature 98.2 F 05/29/18 09:01 Pulse Rate 83 05/29/18 09:01 Respiratory Rate 18 05/29/18 09:01 Blood Pressure 100/65 05/29/18 09:01 O2 Sat by Pulse Oximetry (%) 96 05/29/18 06:35 Constitutional: Yes: Calm, Mild Distress Cardiovascular: Yes: Regular Rate and Rhythm Respiratory: Yes: Regular, CTA Bilaterally Gastrointestinal: Yes: Normal Bowel Sounds, Soft Musculoskeletal: Yes: Other Extremities: Yes: Other (ankle swelling knee improving) Integumentary: Yes: Erythema, Other (swelling) Wound/Incision: Yes: Clean/Dry Neurological: Yes: Alert, Oriented Psychiatric: Yes: Alert, Oriented Labs: CBC, BMP 05/29/18 06:18 05/29/18 06:18 INR, PTT INR 1.85 (0.83-1.09) H 05/29/18 06:18 Assessment/Plan Problem List - Problems (1) Infection of right knee Code(s): M00.9 - PYOGENIC ARTHRITIS, UNSPECIFIED cellulitits of the rt knee swelling of the rt ankle plan continue iv abx monitor ankle swelling rest as per ortho elevation of leg
[2018-05-29] MEDS ORDERED: WARFARIN NA 5 MG TABLET (UD) ONE (17:30)
[2018-05-29] MEDS ORDERED: WARFARIN NA 3 MG TABLET ONE (17:30)
[2018-05-29] MEDS: WARFARIN NA 5 MG, WARFARIN NA 3 MG PO SCH (17:33)
[2018-05-29] MEDS: FERROUS SO4 325 MG TABLET (FP) PO SCH (17:33)
[2018-05-29] MEDS: DOCUSATE SODIUM 100 MG CAPSULE (FP) PO SCH (23:17)
[2018-05-29] MEDS: ATORVASTATIN CA 20 MG TABLET (FP) PO SCH (23:17)
[2018-05-29] MEDS: MONTELUKAST NA 10 MG TABLET PO SCH (23:19)
[2018-05-29] MEDS: GABAPENTIN 300 MG CAPSULE (FP) PO SCH (23:19)
[2018-05-29] MEDS: NORTRIPTYLINE HCL 25 MG CAPSULE PO SCH (23:20)
[2018-05-30] MEDS: LEVOTHYROXINE NA 50 MCG TABLET (FP) PO SCH (06:20)
[2018-05-30] MEDS: oxyCODONE HCL 5 MG TABLET PO PRN ×2 (06:20→21:48)
[2018-05-30 07:54] LABS: PROTHROMBIN TIME (PATIENT) 22.6 SEC (9.7-13.0)
[2018-05-30] MEDS: FERROUS SO4 325 MG TABLET (FP) PO SCH ×2 (08:21→17:47)
[2018-05-30] MEDS: ACETAMINOPHEN/CAFFEINE/BUTALBITAL 1 TAB PO PRN (08:24)
[2018-05-30] MEDS ORDERED: ESCITALOPRAM OXALATE 10 MG TABLET (FP) ONE (11:09)
[2018-05-30] MEDS ORDERED: PT OWN MED DRAWER 7, Y5N ONE ×2 (11:10→21:42)
[2018-05-30] MEDS: ENOXAPARIN NA (PORCINE) 30 MG/0.3 ML DISP.SYRIN SQ SCH ×2 (11:12→21:46)
[2018-05-30] MEDS: MECLIZINE HCL 12.5 MG TABLET PO SCH ×2 (11:13→21:48)
[2018-05-30] MEDS: MULTIVITAMINS (DAILY MVI) TABLET (FP) PO SCH (11:13)
[2018-05-30] MEDS: ESCITALOPRAM OXALATE 20 MG TABLET (FP) PO SCH (11:13)
--- NOTE | 2018-05-30 11:16 | PN ---
Progress Note (short form) - Note Progress Note: Ortho Pt seen and examined- right knee feeling better, right ankle is now swollen and painful. Xrays of right ankle and foot were taken. Selected Entries 05/30/18 10:00 Temperature 98.3 F Pulse Rate 87 Respiratory 20 Rate Blood Pressure 106/65 Laboratory Tests 05/29/18 06:18 WBC 5.2 Hgb 11.6 Hct 34.4 Plt Count 244 D right knee- incision healing well, decr erythema, decr pain and swelling, incr rom nvi right ankle- + swelling, + ttp medially, full rom, able to ambulate, nvi xrays of foot/ankle are neg a/p- s/p right later aga ukr with cellulitis, right ankle swelling- associated with recent surgery continue with IV abx PT, wbat dvt ppx pain control d/w Dr. Loera
[2018-05-30] MEDS: ERTAPENEM SODIUM 1 GM in SODIUM CHLORIDE 50 ML IVPB SCH (11:18)
--- NOTE | 2018-05-30 13:01 | PN ---
Progress Note, Physician History of Present Illness: patient stable improving has ankle swelling ortho note noted - Current Medication List Current Medications: Active Medications Acetaminophen (Tylenol -) 650 mg PO Q4H PRN PRN Reason: FEVER Last Admin: 05/24/18 16:28 Dose: 650 mg Acetaminophen (Tylenol -) 650 mg PO Q4H PRN PRN Reason: PAIN 1-3 Acetaminophen/Butalbital/Caffeine (Fioricet -) 1 tablet PO Q6H PRN PRN Reason: HEADACHE Last Admin: 05/30/18 08:24 Dose: 1 tablet Atorvastatin Calcium (Lipitor -) 20 mg PO HS [facility] Last Admin: 05/29/18 23:17 Dose: 20 mg Docusate Sodium (Colace -) 300 mg PO [facility] Last Admin: 05/29/18 23:17 Dose: 300 mg Enoxaparin Sodium (Lovenox -) 30 mg SQ BID [facility] Last Admin: 05/30/18 11:12 Dose: 30 mg Escitalopram Oxalate (Lexapro -) 20 mg PO DAILY [facility] Last Admin: 05/30/18 11:13 Dose: 20 mg Ferrous Sulfate (Feosol -) 325 mg PO BIDWM [facility] Last Admin: 05/30/18 08:21 Dose: 325 mg Gabapentin (Neurontin -) 300 mg PO [facility] Last Admin: 05/29/18 23:19 Dose: 300 mg Ertapenem 1 gm/ Sodium (Chloride) 50 mls @ 100 mls/hr IVPB DAILY [facility] Last Admin: 05/30/18 11:18 Dose: 100 mls/hr Levothyroxine Sodium (Synthroid -) 50 mcg PO 0700 [facility] Last Admin: 05/30/18 06:20 Dose: 50 mcg Meclizine HCl (Antivert -) 12.5 mg PO BID [facility] Last Admin: 05/30/18 11:13 Dose: 12.5 mg Montelukast Sodium (Singulair -) 10 mg PO [facility] Last Admin: 05/29/18 23:19 Dose: 10 mg Multivitamins/Minerals/Vitamin C (Tab-A-Vit -) 1 tab PO DAILY [facility] Last Admin: 05/30/18 11:13 Dose: 1 tab Nortriptyline HCl (Pamelor -) 50 mg PO [facility] Last Admin: 05/29/18 23:20 Dose: 50 mg Oxycodone HCl (Roxicodone -) 10 mg PO Q6H PRN PRN Reason: PAIN LEVEL 6-10 Last Admin: 05/30/18 06:20 Dose: 10 mg Tramadol HCl (Ultram -) 100 mg PO Q6H PRN PRN Reason: PAIN LEVEL 4 - 6 Last Admin: 05/29/18 23:18 Dose: 100 mg Warfarin Sodium 5 mg/ Warfarin (Sodium 3 mg) 8 mg PO DAILY@1800 [facility] Last Admin: 05/29/18 17:33 Dose: 8 mg - Objective Vital Signs: Vital Signs Temperature 98.3 F 05/30/18 10:00 Pulse Rate 87 05/30/18 10:00 Respiratory Rate 20 05/30/18 10:00 Blood Pressure 106/65 05/30/18 10:00 O2 Sat by Pulse Oximetry (%) 96 05/29/18 23:00 Constitutional: Yes: No Distress, Calm Cardiovascular: Yes: Regular Rate and Rhythm Respiratory: Yes: Regular, CTA Bilaterally Gastrointestinal: Yes: Normal Bowel Sounds, Soft Musculoskeletal: Yes: Joint Swelling Extremities: Yes: Other Neurological: Yes: Alert, Oriented Psychiatric: Yes: Alert, Oriented Labs: CBC, BMP 05/29/18 06:18 05/29/18 06:18 INR, PTT INR 2.00 (0.83-1.09) H 05/30/18 06:00 Assessment/Plan Problem List - Problems (1) Infection of right knee Code(s): M00.9 - PYOGENIC ARTHRITIS, UNSPECIFIED cellulitits of the rt knee swelling of the rt ankle plan ortho note noted suggesting iv abx to continue will reevalaute once patient stable will switch to oral
--- NOTE | 2018-05-30 13:33 | PN ---
Progress Note, Physician Chief Complaint: AWAKE ALERT DENIES CHEST PAIN OR SOB FEELS LIKE HER LEG IS IMPROVING - Current Medication List Current Medications: Active Medications Acetaminophen (Tylenol -) 650 mg PO Q4H PRN PRN Reason: FEVER Last Admin: 05/24/18 16:28 Dose: 650 mg Acetaminophen (Tylenol -) 650 mg PO Q4H PRN PRN Reason: PAIN 1-3 Acetaminophen/Butalbital/Caffeine (Fioricet -) 1 tablet PO Q6H PRN PRN Reason: HEADACHE Last Admin: 05/30/18 08:24 Dose: 1 tablet Atorvastatin Calcium (Lipitor -) 20 mg PO [facility] Last Admin: 05/29/18 23:17 Dose: 20 mg Docusate Sodium (Colace -) 300 mg PO [facility] Last Admin: 05/29/18 23:17 Dose: 300 mg Enoxaparin Sodium (Lovenox -) 30 mg SQ BID [facility] Last Admin: 05/30/18 11:12 Dose: 30 mg Escitalopram Oxalate (Lexapro -) 20 mg PO DAILY [facility] Last Admin: 05/30/18 11:13 Dose: 20 mg Ferrous Sulfate (Feosol -) 325 mg PO BIDWM [facility] Last Admin: 05/30/18 08:21 Dose: 325 mg Gabapentin (Neurontin -) 300 mg PO [facility] Last Admin: 05/29/18 23:19 Dose: 300 mg Ertapenem 1 gm/ Sodium (Chloride) 50 mls @ 100 mls/hr IVPB DAILY [facility] Last Admin: 05/30/18 11:18 Dose: 100 mls/hr Levothyroxine Sodium (Synthroid -) 50 mcg PO 0700 [facility] Last Admin: 05/30/18 06:20 Dose: 50 mcg Meclizine HCl (Antivert -) 12.5 mg PO BID [facility] Last Admin: 05/30/18 11:13 Dose: 12.5 mg Montelukast Sodium (Singulair -) 10 mg PO [facility] Last Admin: 05/29/18 23:19 Dose: 10 mg Multivitamins/Minerals/Vitamin C (Tab-A-Vit -) 1 tab PO DAILY [facility] Last Admin: 05/30/18 11:13 Dose: 1 tab Nortriptyline HCl (Pamelor -) 50 mg PO [facility] Last Admin: 05/29/18 23:20 Dose: 50 mg Oxycodone HCl (Roxicodone -) 10 mg PO Q6H PRN PRN Reason: PAIN LEVEL 6-10 Last Admin: 05/30/18 06:20 Dose: 10 mg Tramadol HCl (Ultram -) 100 mg PO Q6H PRN PRN Reason: PAIN LEVEL 4 - 6 Last Admin: 05/29/18 23:18 Dose: 100 mg Warfarin Sodium 5 mg/ Warfarin (Sodium 3 mg) 8 mg PO DAILY@1800 [facility] Last Admin: 05/29/18 17:33 Dose: 8 mg - Objective Vital Signs: Vital Signs Temperature 98.3 F 05/30/18 10:00 Pulse Rate 87 05/30/18 10:00 Respiratory Rate 20 05/30/18 10:00 Blood Pressure 106/65 05/30/18 10:00 O2 Sat by Pulse Oximetry (%) 96 05/29/18 23:00 Constitutional: Yes: Mild Distress Eyes: Yes: WNL HENT: Yes: WNL Neck: Yes: WNL Cardiovascular: Yes: WNL Respiratory: Yes: WNL Gastrointestinal: Yes: WNL Genitourinary: Yes: WNL Musculoskeletal: Yes: Muscle Pain Extremities: Yes: Erythema Edema: Yes Edema: RLE: 2+ Peripheral Pulses WNL: Yes Integumentary: Yes: Erythema Wound/Incision: Yes: Dressing Dry and Intact, Excoriated, Unapproximated Neurological: Yes: WNL ...Motor Strength: RLE Psychiatric: Yes: WNL Labs: CBC, BMP 05/29/18 06:18 05/29/18 06:18 INR, PTT INR 2.00 (0.83-1.09) H 05/30/18 06:00 Problem List - Problems (1) Cellulitis of right lower leg Code(s): L03.115 - CELLULITIS OF RIGHT LOWER LIMB (2) Infection of right knee Code(s): M00.9 - PYOGENIC ARTHRITIS, UNSPECIFIED (3) Hyperlipidemia Code(s): E78.5 - HYPERLIPIDEMIA, UNSPECIFIED Qualifiers: Hyperlipidemia type: pure hypercholesterolemia Qualified Code(s): E78.00 - Pure hypercholesterolemia, unspecified (4) Hypertension Code(s): I10 - ESSENTIAL (PRIMARY) HYPERTENSION Qualifiers: Hypertension type: essential hypertension Qualified Code(s): I10 - Essential (primary) hypertension (5) Hypothyroidism Code(s): E03.9 - HYPOTHYROIDISM, UNSPECIFIED Qualifiers: Hypothyroidism type: unspecified Qualified Code(s): E03.9 - Hypothyroidism , unspecified (6) Systolic dysfunction without heart failure Code(s): I51.9 - HEART DISEASE, UNSPECIFIED Assessment/Plan IV ABX FOR 3 MORE DAYS ORTHOPEDIC CONSULT APPRECIATED DVT PROPHYLAXIS CHECK CULTURES R/U DVT VASC SX EVAL PT EVAL XRAY RIGHT FOOT NO ACUTE CHANGES
[2018-05-30] MEDS ORDERED: WARFARIN NA 3 MG TABLET ONE (17:42)
[2018-05-30] MEDS ORDERED: WARFARIN NA 5 MG TABLET (UD) ONE (17:42)
[2018-05-30] MEDS: WARFARIN NA 5 MG, WARFARIN NA 3 MG PO SCH (17:47)
[2018-05-30] MEDS: MONTELUKAST NA 10 MG TABLET PO SCH (21:47)
[2018-05-30] MEDS: GABAPENTIN 300 MG CAPSULE (FP) PO SCH (21:47)
[2018-05-30] MEDS: ATORVASTATIN CA 20 MG TABLET (FP) PO SCH (21:47)
[2018-05-30] MEDS: DOCUSATE SODIUM 100 MG CAPSULE (FP) PO SCH (21:48)
[2018-05-30] MEDS: NORTRIPTYLINE HCL 25 MG CAPSULE PO SCH (21:50)
[2018-05-30] MEDS: ZOLPIDEM TARTRATE 5 MG TABLET PO PRN (22:06)
[2018-05-31] MEDS: oxyCODONE HCL 5 MG TABLET PO PRN ×2 (06:18→22:07)
[2018-05-31] MEDS: LEVOTHYROXINE NA 50 MCG TABLET (FP) PO SCH (06:18)
[2018-05-31] MEDS: FERROUS SO4 325 MG TABLET (FP) PO SCH ×2 (08:25→17:21)
[2018-05-31 09:21] LABS: INR 2.09 (0.83-1.09); PROTHROMBIN TIME (PATIENT) 24.8 SEC (9.7-13.0)
[2018-05-31] MEDS ORDERED: ESCITALOPRAM OXALATE 10 MG TABLET (FP) ONE (10:06)
[2018-05-31] MEDS: ERTAPENEM SODIUM 1 GM in SODIUM CHLORIDE 50 ML IVPB SCH (10:11)
[2018-05-31] MEDS: ENOXAPARIN NA (PORCINE) 30 MG/0.3 ML DISP.SYRIN SQ SCH ×2 (10:11→22:03)
[2018-05-31] MEDS: MULTIVITAMINS (DAILY MVI) TABLET (FP) PO SCH (10:12)
[2018-05-31] MEDS: MECLIZINE HCL 12.5 MG TABLET PO SCH ×2 (10:12→22:04)
[2018-05-31] MEDS: ESCITALOPRAM OXALATE 20 MG TABLET (FP) PO SCH (10:17)
--- NOTE | 2018-05-31 11:58 | PN ---
Progress Note, Physician - Current Medication List Current Medications: Active Medications Acetaminophen (Tylenol -) 650 mg PO Q4H PRN PRN Reason: FEVER Last Admin: 05/24/18 16:28 Dose: 650 mg Acetaminophen (Tylenol -) 650 mg PO Q4H PRN PRN Reason: PAIN 1-3 Acetaminophen/Butalbital/Caffeine (Fioricet -) 1 tablet PO Q6H PRN PRN Reason: HEADACHE Last Admin: 05/30/18 08:24 Dose: 1 tablet Atorvastatin Calcium (Lipitor -) 20 mg PO HS [facility] Last Admin: 05/30/18 21:47 Dose: 20 mg Docusate Sodium (Colace -) 300 mg PO HS [facility] Last Admin: 05/30/18 21:48 Dose: 300 mg Enoxaparin Sodium (Lovenox -) 30 mg SQ BID [facility] Last Admin: 05/31/18 10:11 Dose: 30 mg Escitalopram Oxalate (Lexapro -) 20 mg PO DAILY [facility] Last Admin: 05/31/18 10:17 Dose: 20 mg [facility]ous Sulfate ([facility]os[facility] -) [facility] Last Admin: 05/31/18 08:25 Dose: 325 mg Gabapentin (Neurontin -) 300 mg PO [facility] Last Admin: 05/30/18 21:47 Dose: 300 mg Ertapenem 1 gm/ Sodium (Chloride) 50 mls @ 100 mls/hr IVPB DAILY [facility] Last Admin: 05/31/18 10:11 Dose: 100 mls/hr Levothyroxine Sodium (Synthroid -) 50 mcg PO 0700 [facility] Last Admin: 05/31/18 06:18 Dose: 50 mcg Meclizine HCl (Antivert -) 12.5 mg PO BID [facility] Last Admin: 05/31/18 10:12 Dose: 12.5 mg Montelukast Sodium (Singulair -) 10 mg PO [facility] Last Admin: 05/30/18 21:47 Dose: 10 mg Multivitamins/Minerals/Vitamin C (Tab-A-Vit -) 1 tab PO DAILY [facility] Last Admin: 05/31/18 10:12 Dose: 1 tab Nortriptyline HCl (Pamelor -) 50 mg PO [facility] Last Admin: 05/30/18 21:50 Dose: 50 mg Oxycodone HCl (Roxicodone -) 10 mg PO Q6H PRN PRN Reason: PAIN LEVEL 6-10 Last Admin: 05/31/18 06:18 Dose: 10 mg Tramadol HCl (Ultram -) 100 mg PO Q6H PRN PRN Reason: PAIN LEVEL 4 - 6 Last Admin: 05/29/18 23:18 Dose: 100 mg Warfarin Sodium 5 mg/ Warfarin (Sodium 3 mg) 8 mg PO DAILY@1800 [facility] Last Admin: 05/30/18 17:47 Dose: 8 mg Zolpidem Tartrate (Ambien -) 10 mg PO HS PRN PRN Reason: INSOMNIA Last Admin: 05/30/18 22:06 Dose: 10 mg - Objective Vital Signs: Vital Signs Temperature 97.7 F 05/31/18 09:31 Pulse Rate 85 05/31/18 09:31 Respiratory Rate 20 05/31/18 09:31 Blood Pressure 101/68 05/31/18 09:31 O2 Sat by Pulse Oximetry (%) 95 05/30/18 21:00 Cardiovascular: Yes: S1, S2 Respiratory: Yes: Regular, CTA Bilaterally Extremities: Yes: Other (rt knee with erythema) Edema: Yes Labs: CBC, BMP 05/29/18 06:18 05/29/18 06:18 INR, PTT INR 2.09 (0.83-1.09) H 05/31/18 07:36 Problem List - Problems (1) Cellulitis of right lower leg Assessment/Plan: -RKnee xray shows soft tissue swelling -ortho consult noted -ID consult -CT without contrast RLE -BC Microbiology 05/24/18 10:00 Blood - Peripheral Venous Blood Culture - Final NO GROWTH AFTER 5 DAYS INCUBATION 05/24/18 10:00 Blood - Peripheral Venous Blood Culture - Final NO GROWTH AFTER 5 DAYS INCUBATION -pain management Code(s): L03.115 - CELLULITIS OF RIGHT LOWER LIMB (2) Infection of right knee Assessment/Plan: -As above Code(s): M00.9 - PYOGENIC ARTHRITIS, UNSPECIFIED (3) DVT (deep venous thrombosis) Assessment/Plan: INR, PTT INR 2.09 (0.83-1.09) H 05/31/18 07:36 Code(s): I82.409 - ACUTE EMBOLISM AND THOMBOS UNSP DEEP VN UNSP LOWER EXTREMITY (4) Hypertension Assessment/Plan: Vital Signs Period Temp Pulse Resp BP Sys/Us Pulse Ox Last 24 Hr 97.7 F-98.7 F 81-85 17-20 101-116/68-68 95 Code(s): I10 - ESSENTIAL (PRIMARY) HYPERTENSION Qualifiers: Hypertension type: essential hypertension Qualified Code(s): I10 - Essential (primary) hypertension
[2018-05-31] MEDS ORDERED: WARFARIN NA 5 MG TABLET (UD) ONE (17:16)
[2018-05-31] MEDS ORDERED: WARFARIN NA 3 MG TABLET ONE (17:16)
[2018-05-31] MEDS: traMADol HCL 50 MG TABLET PO PRN (17:21)
[2018-05-31] MEDS: WARFARIN NA 5 MG, WARFARIN NA 3 MG PO SCH (17:21)
--- NOTE | 2018-05-31 17:42 | PN ---
Progress Note, Physician History of Present Illness: Pt is alert. States she is having less pain in Rt knee and erythema has been improving. Mild Rt ankle tenderness. No other specific complaints. - Current Medication List Current Medications: Active Medications Acetaminophen (Tylenol -) 650 mg PO Q4H PRN PRN Reason: FEVER Last Admin: 05/24/18 16:28 Dose: 650 mg Acetaminophen (Tylenol -) 650 mg PO Q4H PRN PRN Reason: PAIN 1-3 Acetaminophen/Butalbital/Caffeine (Fioricet -) 1 tablet PO Q6H PRN PRN Reason: HEADACHE Last Admin: 05/30/18 08:24 Dose: 1 tablet Atorvastatin Calcium (Lipitor -) 20 mg PO [facility] Last Admin: 05/30/18 21:47 Dose: 20 mg Docusate Sodium (Colace -) 300 mg PO HS [facility] Last Admin: 05/30/18 21:48 Dose: 300 mg Enoxaparin Sodium (Lovenox -) 30 mg SQ BID [facility] Last Admin: 05/31/18 10:11 Dose: 30 mg Escitalopram Oxalate (Lexapro -) 20 mg PO DAILY [facility] Last Admin: 05/31/18 10:17 Dose: 20 mg Ferrous Sulfate (Feosol -) 325 mg PO BIDWM [facility] Last Admin: 05/31/18 17:21 Dose: 325 mg Gabapentin (Neurontin -) 300 mg PO [facility] Last Admin: 05/30/18 21:47 Dose: 300 mg Ertapenem 1 gm/ Sodium (Chloride) 50 mls @ 100 mls/hr IVPB DAILY [facility] Last Admin: 05/31/18 10:11 Dose: 100 mls/hr Levothyroxine Sodium (Synthroid -) 50 mcg PO 0700 [facility] Last Admin: 05/31/18 06:18 Dose: 50 mcg Meclizine HCl (Antivert -) 12.5 mg PO BID [facility] Last Admin: 05/31/18 10:12 Dose: 12.5 mg Montelukast Sodium (Singulair -) 10 mg PO [facility] Last Admin: 05/30/18 21:47 Dose: 10 mg Multivitamins/Minerals/Vitamin C (Tab-A-Vit -) 1 tab PO DAILY [facility] Last Admin: 05/31/18 10:12 Dose: 1 tab Nortriptyline HCl (Pamelor -) 50 mg PO [facility] Last Admin: 05/30/18 21:50 Dose: 50 mg Oxycodone HCl (Roxicodone -) 10 mg PO Q6H PRN PRN Reason: PAIN LEVEL 6-10 Last Admin: 05/31/18 06:18 Dose: 10 mg Tramadol HCl (Ultram -) 100 mg PO Q6H PRN PRN Reason: PAIN LEVEL 4 - 6 Last Admin: 05/31/18 17:21 Dose: 100 mg Warfarin Sodium 5 mg/ Warfarin (Sodium 3 mg) 8 mg PO DAILY@1800 [facility] Last Admin: 05/31/18 17:21 Dose: 8 mg Zolpidem Tartrate (Ambien -) 10 mg PO HS PRN PRN Reason: INSOMNIA Last Admin: 05/30/18 22:06 Dose: 10 mg - Objective Vital Signs: Vital Signs Temperature 97.5 F L 05/31/18 14:56 Pulse Rate 86 05/31/18 14:56 Respiratory Rate 20 05/31/18 14:56 Blood Pressure 117/73 05/31/18 14:56 O2 Sat by Pulse Oximetry (%) 95 05/31/18 09:00 Constitutional: Yes: No Distress, Calm Cardiovascular: Yes: Regular Rate and Rhythm Respiratory: Yes: Regular Gastrointestinal: Yes: Normal Bowel Sounds, Soft, Abdomen, Obese Extremities: Yes: Erythema (Rt knee) Integumentary: Yes: Erythema (Rt knee erythema/warmth/tenderness, no drainage) Wound/Incision: Yes: Well Approximated Neurological: Yes: Alert, Oriented Labs: CBC, BMP 05/29/18 06:18 05/29/18 06:18 INR, PTT INR 2.09 (0.83-1.09) H 05/31/18 07:36 CBC,CMP WBC 5.2 K/mm3 (4.0-10.0) 05/29/18 06:18 RBC 3.99 M/mm3 (3.60-5.2) 05/29/18 06:18 Hgb 11.6 GM/dL (10.7-15.3) 05/29/18 06:18 Hct 34.4 % (32.4-45.2) 05/29/18 06:18 MCV 86.2 fl (80-96) 05/29/18 06:18 MCH 29.0 pg (25.7-33.7) 05/29/18 06:18 MCHC 33.6 g/dl (32.0-36.0) 05/29/18 06:18 RDW 15.5 % (11.6-15.6) 05/29/18 06:18 Plt Count 244 K/MM3 (134-434) D 05/29/18 06:18 MPV 7.8 fl (7.5-11.1) 05/29/18 06:18 Absolute Neuts (auto) 2.6 K/mm3 (1.5-8.0) 05/26/18 06:35 Neutrophils % 57.7 % (42.8-82.8) 05/26/18 06:35 Lymphocytes % 27.2 % (8-40) D 05/26/18 06:35 Monocytes % 11.1 % (3.8-10.2) H 05/26/18 06:35 Eosinophils % 3.2 % (0-4.5) 05/26/18 06:35 Basophils % 0.8 % (0-2.0) 05/26/18 06:35 Nucleated RBC % 0 % (0-0) 05/26/18 06:35 ESR 64 mm/hr (0-30) H 05/29/18 06:18 Sodium 139 mmol/L (136-145) 05/29/18 06:18 Potassium 4.6 mmol/L (3.5-5.1) 05/29/18 06:18 Chloride 106 mmol/L (98-107) 05/29/18 06:18 Carbon Dioxide 27 mmol/L (21-32) 05/29/18 06:18 Anion Gap 6 MMOL/L (8-16) L 05/29/18 06:18 BUN 4 mg/dL (7-18) L 05/29/18 06:18 Creatinine 0.6 mg/dL (0.55-1.3) 05/29/18 06:18 Creat Clearance w eGFR > 60 (>60) 05/29/18 06:18 Random Glucose 85 mg/dL (74-106) 05/29/18 06:18 Lactic Acid 0.9 mmol/L (0.4-2.0) 05/24/18 10:00 Uric Acid 3.0 mg/dL (2.6-7.2) 05/29/18 06:18 Calcium 8.6 mg/dL (8.5-10.1) 05/29/18 06:18 Total Bilirubin 0.4 mg/dL (0.2-1) 05/26/18 06:35 AST 37 U/L (15-37) 05/26/18 06:35 ALT 33 U/L (13-61) 05/26/18 06:35 Alkaline Phosphatase 98 U/L (45-117) 05/26/18 06:35 C-Reactive Protein 5.1 MG/DL (0.00-0.3) H 05/29/18 06:18 Total Protein 6.6 g/dl (6.4-8.2) 05/26/18 06:35 Albumin 2.9 g/dl (3.4-5.0) L 05/26/18 06:35 Problem List - Problems (1) Cellulitis of right lower leg Code(s): L03.115 - CELLULITIS OF RIGHT LOWER LIMB (2) Infection of right knee Code(s): M00.9 - PYOGENIC ARTHRITIS, UNSPECIFIED (3) Hyperlipidemia Code(s): E78.5 - HYPERLIPIDEMIA, UNSPECIFIED Qualifiers: Hyperlipidemia type: pure hypercholesterolemia Qualified Code(s): E78.00 - Pure hypercholesterolemia, unspecified (4) Hypertension Code(s): I10 - ESSENTIAL (PRIMARY) HYPERTENSION Qualifiers: Hypertension type: essential hypertension Qualified Code(s): I10 - Essential (primary) hypertension (5) Hypothyroidism Code(s): E03.9 - HYPOTHYROIDISM, UNSPECIFIED Qualifiers: Hypothyroidism type: unspecified Qualified Code(s): E03.9 - Hypothyroidism , unspecified (6) TIA (transient ischemic attack) Code(s): G45.9 - TRANSIENT CEREBRAL ISCHEMIC ATTACK, UNSPECIFIED Assessment/Plan 53 y.o. female with HTN, TIA, Asthma, uterine CA, CAD, hypothyroidism, OA s/p recent Rt knee Makoplasty admitted for Rt knee erythema/edema/tenderness expanding to thigh Rt knee cellulitis -- esr/crp trending down -- appears to be slowly improving -- continue IV antibiotics for now, if shows further improvement will switch to oral antibiotics
--- NOTE | 2018-05-31 19:22 | PN ---
Progress Note (short form) - Note Progress Note: Ortho Pt seen and examined- much improved Selected Entries 05/31/18 14:56 Temperature 97.5 F L Pulse Rate 86 Respiratory 20 Rate Blood Pressure 117/73 Laboratory Tests 05/29/18 06:18 WBC 5.2 Hgb 11.6 Hct 34.4 Plt Count 244 D right knee- incision healing well, decr erythema, decr pain and swelling, incr rom nvi a/p- continue with IV abx, change to PO Saturday? PT, wbat dvt ppx pain control d/c planning for snf d/w Dr. Loera
[2018-05-31] MEDS ORDERED: PT OWN MED DRAWER 7, Y5N ONE (22:03)
[2018-05-31] MEDS: DOCUSATE SODIUM 100 MG CAPSULE (FP) PO SCH (22:04)
[2018-05-31] MEDS: ATORVASTATIN CA 20 MG TABLET (FP) PO SCH (22:04)
[2018-05-31] MEDS: NORTRIPTYLINE HCL 25 MG CAPSULE PO SCH (22:04)
[2018-05-31] MEDS: MONTELUKAST NA 10 MG TABLET PO SCH (22:04)
[2018-05-31] MEDS: ZOLPIDEM TARTRATE 5 MG TABLET PO PRN (22:07)
[2018-05-31] MEDS: GABAPENTIN 300 MG CAPSULE (FP) PO SCH (23:03)
[2018-06-01] MEDS: LEVOTHYROXINE NA 50 MCG TABLET (FP) PO SCH (06:11)
[2018-06-01] MEDS: FERROUS SO4 325 MG TABLET (FP) PO SCH ×2 (08:30→17:04)
[2018-06-01 08:53] LABS: BASO % 0.9 % (0-2.0); HEMATOCRIT 32.3 % (32.4-45.2); HEMOGLOBIN 10.9 GM/dL (10.7-15.3); LYMPH % 31.3 % (8-40); MCH 29.7 pg (25.7-33.7); MCHC 33.7 g/dl (32.0-36.0); MEAN PLT VOLUME 8.2 fl (7.5-11.1); MONO % 10.1 % (3.8-10.2); NEUT % 53.7 % (42.8-82.8); PLATELET COUNT 243 K/MM3 (134-434); RBC 3.67 M/mm3 (3.60-5.2); WHITE BLOOD COUNT 4.4 K/mm3 (4.0-10.0)
--- NOTE | 2018-06-01 09:23 | PN ---
Progress Note, Physician - Current Medication List Current Medications: Active Medications Acetaminophen (Tylenol -) 650 mg PO Q4H PRN PRN Reason: FEVER Last Admin: 05/24/18 16:28 Dose: 650 mg Acetaminophen (Tylenol -) 650 mg PO Q4H PRN PRN Reason: PAIN 1-3 Acetaminophen/Butalbital/Caffeine (Fioricet -) 1 tablet PO Q6H PRN PRN Reason: HEADACHE Last Admin: 05/30/18 08:24 Dose: 1 tablet Atorvastatin Calcium (Lipitor -) 20 mg PO HS [facility] Last Admin: 05/31/18 22:04 Dose: 20 mg Docusate Sodium (Colace -) 300 mg PO HS [facility] Last Admin: 05/31/18 22:04 Dose: 300 mg Enoxaparin Sodium (Lovenox -) 30 mg SQ BID [facility] Last Admin: 05/31/18 22:03 Dose: 30 mg Escitalopram Oxalate (Lexapro -) 20 mg PO DAILY [facility] Last Admin: 05/31/18 10:17 Dose: 20 mg Ferrous Sulfate ([facility] -) [facility] Admin: 06/01/18 08:30 Dose: 325 mg Gabapentin (Neurontin -) 300 mg PO [facility] Last Admin: 05/31/18 23:03 Dose: 300 mg Ertapenem 1 gm/ Sodium (Chloride) 50 mls @ 100 mls/hr IVPB DAILY [facility] Last Admin: 05/31/18 10:11 Dose: 100 mls/hr Levothyroxine Sodium (Synthroid -) 50 mcg PO 0700 [facility] Last Admin: 06/01/18 06:11 Dose: 50 mcg Meclizine HCl (Antivert -) 12.5 mg PO BID [facility] Last Admin: 05/31/18 22:04 Dose: 12.5 mg Montelukast Sodium (Singulair -) 10 mg PO [facility] Last Admin: 05/31/18 22:04 Dose: 10 mg Multivitamins/Minerals/Vitamin C (Tab-A-Vit -) 1 tab PO DAILY [facility] Last Admin: 05/31/18 10:12 Dose: 1 tab Nortriptyline HCl (Pamelor -) 50 mg PO [facility] Last Admin: 05/31/18 22:04 Dose: 50 mg Oxycodone HCl (Roxicodone -) 10 mg PO Q6H PRN PRN Reason: PAIN LEVEL 6-10 Last Admin: 05/31/18 22:07 Dose: 10 mg Tramadol HCl (Ultram -) 100 mg PO Q6H PRN PRN Reason: PAIN LEVEL 4 - 6 Last Admin: 05/31/18 17:21 Dose: 100 mg Warfarin Sodium 5 mg/ Warfarin (Sodium 3 mg) 8 mg PO DAILY@1800 [facility] Last Admin: 05/31/18 17:21 Dose: 8 mg Zolpidem Tartrate (Ambien -) 10 mg PO HS PRN PRN Reason: INSOMNIA Last Admin: 05/31/18 22:07 Dose: 10 mg - Objective Vital Signs: Vital Signs Temperature 98 F 06/01/18 06:00 Pulse Rate 76 06/01/18 06:00 Respiratory Rate 20 06/01/18 06:00 Blood Pressure 105/65 06/01/18 06:00 O2 Sat by Pulse Oximetry (%) 95 05/31/18 21:00 Cardiovascular: Yes: S2, S3 Respiratory: Yes: Regular, CTA Bilaterally Gastrointestinal: Yes: Normal Bowel Sounds, Soft Musculoskeletal: Yes: Joint Stiffness, Joint Swelling Extremities: Yes: Erythema Labs: CBC, BMP 06/01/18 07:13 05/29/18 06:18 INR, PTT INR 2.09 (0.83-1.09) H 05/31/18 07:36 Problem List - Problems (1) Cellulitis of right lower leg Assessment/Plan: -RKnee xray shows soft tissue swelling -ortho consult noted -ID consult -CT without contrast RLE -BC Microbiology 05/24/18 10:00 Blood - Peripheral Venous Blood Culture - Final NO GROWTH AFTER 5 DAYS INCUBATION 05/24/18 10:00 Blood - Peripheral Venous Blood Culture - Final NO GROWTH AFTER 5 DAYS INCUBATION -pain management Code(s): L03.115 - CELLULITIS OF RIGHT LOWER LIMB (2) Infection of right knee Assessment/Plan: -As above Code(s): M00.9 - PYOGENIC ARTHRITIS, UNSPECIFIED (3) DVT (deep venous thrombosis) Assessment/Plan: INR, PTT INR 2.09 (0.83-1.09) H 05/31/18 07:36 dc lovenox Code(s): I82.409 - ACUTE EMBOLISM AND THOMBOS UNSP DEEP VN UNSP LOWER EXTREMITY (4) Hypertension Assessment/Plan: Vital Signs Period Temp Pulse Resp BP Sys/Us Pulse Ox Last 24 Hr 97.7 F-98.7 F 81-85 17-20 101-116/68-68 95 Code(s): I10 - ESSENTIAL (PRIMARY) HYPERTENSION Qualifiers: Hypertension type: essential hypertension Qualified Code(s): I10 - Essential (primary) hypertension Assessment/Plan DC PLANNING__SNF
[2018-06-01 09:46] LABS: ERYTHROCYTE SEDIMENTATION RATE 53 mm/hr (0-30)
[2018-06-01] MEDS ORDERED: ESCITALOPRAM OXALATE 10 MG TABLET (FP) ONE (10:00)
[2018-06-01] MEDS: ERTAPENEM SODIUM 1 GM in SODIUM CHLORIDE 50 ML IVPB SCH (10:03)
[2018-06-01] MEDS: ENOXAPARIN NA (PORCINE) 30 MG/0.3 ML DISP.SYRIN SQ SCH (10:03)
[2018-06-01] MEDS: MULTIVITAMINS (DAILY MVI) TABLET (FP) PO SCH (10:07)
[2018-06-01] MEDS: MECLIZINE HCL 12.5 MG TABLET PO SCH ×2 (10:07→22:10)
[2018-06-01] MEDS: ESCITALOPRAM OXALATE 20 MG TABLET (FP) PO SCH (10:15)
[2018-06-01 16:47] LABS: INR 2.27 (0.83-1.09)
[2018-06-01] MEDS ORDERED: WARFARIN NA 5 MG TABLET (UD) ONE (16:53)
[2018-06-01] MEDS ORDERED: WARFARIN NA 3 MG TABLET ONE (16:53)
[2018-06-01] MEDS: WARFARIN NA 5 MG, WARFARIN NA 3 MG PO SCH (17:04)
[2018-06-01] MEDS ORDERED: PT OWN MED DRAWER 7, Y5N ONE (22:08)
[2018-06-01] MEDS: oxyCODONE HCL 5 MG TABLET PO PRN (22:10)
[2018-06-01] MEDS: ZOLPIDEM TARTRATE 5 MG TABLET PO PRN (22:11)
[2018-06-01] MEDS: ATORVASTATIN CA 20 MG TABLET (FP) PO SCH (22:12)
[2018-06-01] MEDS: NORTRIPTYLINE HCL 25 MG CAPSULE PO SCH (22:12)
[2018-06-01] MEDS: GABAPENTIN 300 MG CAPSULE (FP) PO SCH (22:12)
[2018-06-01] MEDS: MONTELUKAST NA 10 MG TABLET PO SCH (22:12)
[2018-06-01] MEDS: DOCUSATE SODIUM 100 MG CAPSULE (FP) PO SCH (22:14)
[2018-06-02] MEDS: LEVOTHYROXINE NA 50 MCG TABLET (FP) PO SCH (06:27)
[2018-06-02 07:31] LABS: INR 2.16 (0.83-1.09); PROTHROMBIN TIME (PATIENT) 25.7 SEC (9.7-13.0)
[2018-06-02] MEDS: FERROUS SO4 325 MG TABLET (FP) PO SCH (07:55)
[2018-06-02 07:59] VITALS: TEMP 98.4
--- NOTE | 2018-06-02 09:20 | DS ---
Physical Examination Vital Signs: Vital Signs Temperature 98.4 F 06/02/18 06:00 Pulse Rate 77 06/02/18 06:00 Respiratory Rate 19 06/01/18 19:37 Blood Pressure 119/60 06/02/18 06:00 O2 Sat by Pulse Oximetry (%) 95 05/31/18 21:00 Labs: CBC, BMP 06/01/18 07:13 05/29/18 06:18 Discharge Summary Reason For Visit: CELLULITIS OF RIGHT LOWER LEG Current Active Problems Cellulitis of right lower leg (Acute) Infection of right knee (Acute) Condition: Guarded - Instructions Referrals: Rogerio Salas MD [Primary Care Provider] - - Home Medications Comprehensive Discharge Medication List: Ambulatory Orders Albuterol 0.083% Nebulizer Alena [Ventolin 0.083% Nebulizer Soln -] 1 amp NEB PRN 03/18/17 Escitalopram Oxalate [Lexapro -] 20 mg PO DAILY 03/18/17 Gabapentin [Neurontin] 300 mg PO HS 03/18/17 Levothyroxine [Synthroid -] 50 mcg PO DAILY 03/18/17 Meclizine HCl 12.5 mg PO BID 03/18/17 Montelukast Na [Singulair -] 10 mg PO DAILY 03/18/17 Multivitamin [Poly-Vitamin] 1 each PO DAILY 03/18/17 Nortriptyline HCl [Pamelor -] 50 mg PO HS 03/18/17 Simvastatin 20 mg PO HS 03/18/17 Zolpidem Tartrate [Ambien] 10 mg PO HS 03/18/17 Albuterol Sulfate Inhaler - [Ventolin HFA Inhaler -] 1 - 2 inh PO QID PRN Formoterol Fumarate [Perforomist] 20 mcg IH BID 04/05/17 Tiotropium [place] [Spiriva] 2 inh IH DAILY 04/05/17 Butalb/Acetaminophen/Caffeine [Fioricet 50-300-40 mg Capsule] 1 each PO TID PRN 05/12/18 Dexlansoprazole [Dexilant] 60 mg PO DAILY 05/12/18 Ergocalciferol (Vitamin D2) [Drisdol] 50,000 unit PO WEEKLY 05/12/18 Ferrous Sulfate [Iron] 325 mg PO DAILY 05/12/18 Fluticasone Furoate [Arnuity Ellipta] 200 mcg IH DAILY 05/12/18 Guaifenesin/Pseudoephedrne HCl [Mucinex D ER 1,200-120 mg Tab] 1 each PO BID PRN 05/12/18 Linaclotide [Linzess] 145 mcg PO DAILY 05/12/18 Warfarin Sodium [Coumadin] 9 mg PO DAILY 05/12/18 Oxycodone HCl/Acetaminophen [Percocet 10-325 mg Tablet] 10 mg PO TID PRN #40 tablet MDD 3 05/20/18
[2018-06-02] MEDS ORDERED: ESCITALOPRAM OXALATE 10 MG TABLET (FP) ONE (09:44)
[2018-06-02] MEDS: ERTAPENEM SODIUM 1 GM in SODIUM CHLORIDE 50 ML IVPB SCH (09:49)
[2018-06-02] MEDS: MULTIVITAMINS (DAILY MVI) TABLET (FP) PO SCH (09:51)
[2018-06-02] MEDS: MECLIZINE HCL 12.5 MG TABLET PO SCH (09:51)
[2018-06-02] MEDS: ESCITALOPRAM OXALATE 20 MG TABLET (FP) PO SCH (09:51)
--- NOTE | 2018-06-02 10:15 | PN ---
Progress Note, Physician History of Present Illness: doing well leg feels much better movement has improved swelling has decreased - Current Medication List Current Medications: Active Medications Acetaminophen (Tylenol -) 650 mg PO Q4H PRN PRN Reason: FEVER Last Admin: 05/24/18 16:28 Dose: 650 mg Acetaminophen (Tylenol -) 650 mg PO Q4H PRN PRN Reason: PAIN 1-3 Atorvastatin Calcium (Lipitor -) 20 mg PO [facility] Last Admin: 06/01/18 22:12 Dose: 20 mg Docusate Sodium (Colace -) 300 mg PO [facility] Last Admin: 06/01/18 22:14 Dose: Not Given Escitalopram Oxalate (Lexapro -) 20 mg PO DAILY [facility] Last Admin: 06/02/18 09:51 Dose: 20 mg Ferrous Sulfate (Feosol -) 325 mg PO BIDWM [facility] Last Admin: 06/02/18 07:55 Dose: 325 mg Gabapentin (Neurontin -) 300 mg PO [facility] Last Admin: 06/01/18 22:12 Dose: 300 mg Ertapenem 1 gm/ Sodium (Chloride) 50 mls @ 100 mls/hr IVPB DAILY [facility] Last Admin: 06/02/18 09:49 Dose: 100 mls/hr Levothyroxine Sodium (Synthroid -) 50 mcg PO 0700 [facility] Last Admin: 06/02/18 06:27 Dose: 50 mcg Meclizine HCl (Antivert -) 12.5 mg PO BID [facility] Last Admin: 06/02/18 09:51 Dose: 12.5 mg Montelukast Sodium (Singulair -) 10 mg PO [facility] Last Admin: 06/01/18 22:12 Dose: 10 mg Multivitamins/Minerals/Vitamin C (Tab-A-Vit -) 1 tab PO DAILY [facility] Last Admin: 06/02/18 09:51 Dose: 1 tab Nortriptyline HCl (Pamelor -) 50 mg PO [facility] Last Admin: 06/01/18 22:12 Dose: 50 mg Oxycodone HCl (Roxicodone -) 10 mg PO Q6H PRN PRN Reason: PAIN LEVEL 6-10 Last Admin: 06/01/18 22:10 Dose: 10 mg Tramadol HCl (Ultram -) 100 mg PO Q6H PRN PRN Reason: PAIN LEVEL 4 - 6 Last Admin: 05/31/18 17:21 Dose: 100 mg Warfarin Sodium 5 mg/ Warfarin (Sodium 3 mg) 8 mg PO DAILY@1800 [facility] Last Admin: 06/01/18 17:04 Dose: 8 mg Zolpidem Tartrate (Ambien -) 10 mg PO HS PRN PRN Reason: INSOMNIA Last Admin: 06/01/18 22:11 Dose: 10 mg - Objective Vital Signs: Vital Signs Temperature 98.4 F 06/02/18 06:00 Pulse Rate 77 06/02/18 06:00 Respiratory Rate 19 06/01/18 19:37 Blood Pressure 119/60 06/02/18 06:00 O2 Sat by Pulse Oximetry (%) 95 05/31/18 21:00 Constitutional: Yes: Calm, Mild Distress Cardiovascular: Yes: Regular Rate and Rhythm Respiratory: Yes: Regular, CTA Bilaterally Gastrointestinal: Yes: Normal Bowel Sounds, Soft Musculoskeletal: Yes: WNL Extremities: Yes: Other Integumentary: Yes: Erythema (resolved), Other (swelling minimal anle swelling improved) Wound/Incision: Yes: Clean/Dry Neurological: Yes: Alert, Oriented Psychiatric: Yes: Alert, Oriented Labs: CBC, BMP 06/01/18 07:13 05/29/18 06:18 INR, PTT INR 2.16 (0.83-1.09) H 06/02/18 06:10 Assessment/Plan Problem List - Problems (1) Infection of right knee Code(s): M00.9 - PYOGENIC ARTHRITIS, UNSPECIFIED cellulitits of the rt knee swelling of the rt ankle plan can be discharged on levaquin 750 mg daily for 7 days physio
--- NOTE | 2018-06-02 10:35 | PN ---
Progress Note (short form) - Note Progress Note: Ortho Pt seen and examined- much improved Selected Entries 06/01/18 06/02/18 19:37 06:00 Temperature 98.4 F Pulse Rate 77 Respiratory 19 Rate Blood Pressure 119/60 Laboratory Tests 06/01/18 07:13 WBC 4.4 Hgb 10.9 Hct 32.3 L Plt Count 243 right knee- incision healing well, decr erythema, decr pain and swelling, incr rom nvi a/p- PO abx as per iD PT, wbat dvt ppx pain control d/c today, f/u in the office in 1 week d/w Dr. Noonan
[2018-06-02 10:49] VITALS: BP 107/70; PULSE 79
== END 2018-06-02 13:01 | disposition home or self-care (01) | DRG 863 ==
LOC: JER 09:13 → JERBED 09:51 → J6S 15:00 → OBSVTOIN 05-27 10:08
PROVIDERS: ADMIT Family Medicine; ATTEND Family Medicine
DX: T81.49XA Infection following a procedure, other surgical site, initial encounter (principal); L03.115 Cellulitis of right lower limb; Y83.8 Other surgical procedures as the cause of abnormal reaction of the patient, or of later complication, without mention of misadventure at the time of the procedure; I10 Essential (primary) hypertension; Z86.73 Personal history of transient ischemic attack (TIA), and cerebral infarction without residual deficits; K21.9 Gastro-esophageal reflux disease without esophagitis; M79.7 Fibromyalgia; J45.909 Unspecified asthma, uncomplicated; I25.10 Atherosclerotic heart disease of native coronary artery without angina pectoris; Z88.0 Allergy status to penicillin; E03.9 Hypothyroidism, unspecified; C55 Malignant neoplasm of uterus, part unspecified
CPT/HCPCS: 36415; 71045-TC-FY; 73562-TC-RT-FY; 73610-TC-RT-FY; 73630-TC-RT-FY; 73700-TC-RT; 80048; 80053; 83605; 84550; 85025; 85027; 85610; 85651; 86140; 86850; 86900; 86901; 87040; 93005; 93010; 93971-TC; 94640; 97116-GP; 97161-GP; 99284-25; G0378; J7030

== ENCOUNTER 2018-06-10 13:51 | Inpatient (IN) | payer BC, OTHER ==
--- NOTE | 2018-06-10 15:12 | PDOC ---
History of Present Illness - General Chief Complaint: Wound Stated Complaint: RT KNEE PAIN/OPERATION Time Seen by Provider: 06/10/18 14:40 History Source: Patient Exam Limitations: No Limitations - History of Present Illness Initial Comments: 06/10/18 15:10 53 year old with history of TIA on Coumadin, fibromyalgia, GERD, Asthma and uterus CA, CAD s/p cath, hypothyroid, degenerative disc disease, recent right knee arthritis s/p lateral makoplasty 05.20.[address] Loera who presents with one day of redness, swelling and warmth to the R knee extending down to the ankle. The patient was seen here on 05/24 for the same complaint of swelling and redness to the R knee was admitted to this hospital and treated with IV antibiotics (ertapenem) with relief of symptoms. She was discharged on 06/02/18 had a follow up orthopedics visit on 06/05/18 where the R knee did not have redness or swelling. She notes that her current symptoms only began last night. She is able to bear weight with pain but has been walking with a walker since the surgery. She admits to a fever of 100F since last night. PMHX: as in HPI PSHX: as in HPI Meds: see below Allergies: penicillins Tob: none Etoh: none Rec drugs: none Past History - Past Medical History Allergies/Adverse Reactions: Allergies Allergy/AdvReac Type Severity Reaction Status Date / Time Penicillins Allergy Severe Rash Verified 06/10/18 13:54 Home Medications: Ambulatory Orders Albuterol 0.083% Nebulizer Alena [Ventolin 0.083% Nebulizer Soln -] 1 amp NEB PRN 03/18/17 Escitalopram Oxalate [Lexapro -] 20 mg PO DAILY 03/18/17 Levothyroxine [Synthroid -] 50 mcg PO DAILY 03/18/17 Montelukast Na [Singulair -] 10 mg PO DAILY 03/18/17 Multivitamin [Poly-Vitamin] 1 each PO DAILY 03/18/17 Simvastatin 20 mg PO HS 03/18/17 Albuterol Sulfate Inhaler - [Ventolin HFA Inhaler -] 1 - 2 inh PO QID PRN Formoterol Fumarate [Perforomist] 20 mcg IH BID 04/05/17 Tiotropium Startex [Spiriva] 2 inh IH DAILY 04/05/17 Dexlansoprazole [Dexilant] 60 mg PO DAILY 05/12/18 Fluticasone Furoate [Arnuity Ellipta] 200 mcg IH DAILY 05/12/18 Linaclotide [Linzess] 145 mcg PO DAILY 05/12/18 Acetaminophen [Tylenol .Regular Strength -] 650 mg PO Q4H PRN tablet 06/02/18 Docusate Sodium [Colace -] 300 mg PO HS capsule 06/02/18 Ferrous Sulfate [Feosol] 325 mg PO BIDWM [facility] 06/02/18 Gabapentin [Neurontin] 300 mg PO HS #30 capsule 06/02/18 Meclizine HCl 12.5 mg PO BID #60 tablet 06/02/18 Nortriptyline HCl [Pamelor -] 50 mg PO HS #30 cap 06/02/18 Warfarin Na [Coumadin -] 9 mg PO DAILY@1800 06/10/18 Mometasone Furoate [Asmanex 220Mcg -] 1 puff IH BID #1 inhaler 06/17/18 levoFLOXacin [Levaquin -] 750 mg PO DAILY #30 tablet MDD 3 06/17/18 Anemia: No Asthma: Yes Cancer: Yes (UTERUS) Cardiac Disorders: No CVA: Yes (TIA) COPD: No CHF: No Dementia: No Diabetes: No GI Disorders: Yes (REFLUX) Disorders: No HTN: No Hypercholesterolemia: No Liver Disease: No Seizures: No Thyroid Disease: No - Surgical History Abdominal Surgery: No Appendectomy: No Cardiac Surgery: No Cholecystectomy: No Lung Surgery: No Neurologic Surgery: No Orthopedic Surgery: Yes (BIRD. BUNIONECTOMIES) - Immunization History Immunization Up to Date: Yes - Suicide/Smoking/Psychosocial Hx Smoking History: Never smoked Have you smoked in the past 12 months: No If you are a former smoker, when did you quit?: 35 YRS AGO Information on smoking cessation initiated: No Hx Alcohol Use: No Drug/Substance Use Hx: No Substance Use Type: None Review of Systems - Review of Systems Able to Perform ROS?: Yes Is the patient limited Latvian proficient: No Constitutional: Yes: Fever. No: Chills, Diaphoresis, Night Sweats HEENTM: No: Blurred Vision, Tinnitus Respiratory: No: Cough, Orthopnea, Shortness of Breath Cardiac (ROS): No: Chest Pain, Palpitations, Syncope ABD/GI: No: Constipated, Diarrhea, Nausea, Vomiting : No: Burning, Dysuria, Hematuria Musculoskeletal: No: Back Pain, Muscle Pain, Muscle Weakness Neurological: No: Headache, Numbness, Tingling *Physical Exam - Vital Signs Last Vital Signs Temp Pulse Resp BP Pulse Ox 98.4 F 92 H 18 117/57 L 94 L 06/10/18 13:54 06/10/18 13:54 06/10/18 13:54 06/10/18 13:54 06/10/18 13:54 - Physical Exam Comments: 06/10/18 15:15 GENERAL: Awake, alert, and fully oriented, in no acute distress HEAD: No signs of trauma, normocephalic, atraumatic EYES: EOMI, sclera anicteric, conjunctiva clear ENT: oropharynx clear without exudates. Moist mucosa NECK: Normal ROM, supple LUNGS: No distress, speaks full sentences, clear to auscultation bilaterally HEART: Regular rate and rhythm, normal S1 and S2, no murmurs, rubs or gallops, peripheral pulses normal and equal bilaterally. ABDOMEN: Soft, nontender, normoactive bowel sounds. No guarding, no rebound. No masses EXTREMITIES : swelling from R knee to below the R ankle, erythema from R knee to the ankle lateral aspect > medial, warm to touch, palpable pulses. No clubbing or cyanosis. FROM of R knee and R ankle NEUROLOGICAL: Cranial nerves II through XII grossly intact. Normal speech, no focal sensorimotor deficits SKIN: Warm, Dry, normal turgor, no rashes or lesions noted ED Treatment Course - LABORATORY CBC & Chemistry Diagram: 06/15/18 11:55 06/15/18 11:55 - RADIOLOGY Radiology Studies Ordered: Category Date Time Status KNEE 3 POS-RIGHT [RAD] Stat Radiology 06/10/18 15:06 Ordered Medical Decision Making - Medical Decision Making 06/10/18 15:19 53 year old with history of TIA on Coumadin, fibromyalgia, GERD, Asthma and uterus CA, CAD s/p cath, hypothyroid, degenerative disc disease, recent right knee arthritis s/p lateral makoplasty 05.20.[address] Loera who presents with one day of redness, swelling and warmth to the R knee extending down to the ankle. The patient was seen here on 05/24 for the same complaint of swelling and redness to the R knee was admitted to this hospital and treated with IV antibiotics (ertapenem) with relief of symptoms. She was discharged on 06/02/18 had a follow up orthopedics visit on 06/05/18 where the R knee did not have redness or swelling. She notes that her current symptoms only began last night. She is able to bear weight with pain but has been walking with a walker since the surgery. She admits to a fever of 100F since last night. DDX including but not limited to: cellulitis vs septic joint vs fracture vs osteomyelitis W/U: - cbc, cmp, PT/INR, PTT - XR R knee TX: - 1L NS ED Course: 06/10/18 15:19 Patient expresses pain to light touch of the R leg no acute distress. 06/10/18 16:16 ID consulted as patient was on ertapenem at last hospitalization. ID recommends meropenem and vancomycin as patient is allergic to penicillin. WBC: 5.2, patient without leukocytosis, likely due to very recent presentation of erythema and pain. Patient clinically concerning and will likely require IV antibiotcs. Will plan for hospital admission. R knee XR: unremarkable Patient informed of all lab and imaging results. Patient expressed understanding and agrees to plan for admission. Medicine accepts patient for further work up and treatment. *DC/Admit/Observation/Transfer Diagnosis at time of Disposition: Cellulitis - Discharge Dispostion Disposition: HOME Condition at time of disposition: Improved Decision to Admit order: Yes - Prescriptions - Referrals - Patient Instructions - Post Discharge Activity
--- NOTE | 2018-06-10 15:12 | PDOC ---
Attending Attestation - HPI HPI: 06/10/18 15:30 The patient is a 53 year old female, with a significant past medical history of CVA (on Coumadin), Diabetes, s/p lateral Makoplasty partial knee replacement , who presents to the emergency department with sudden increased in redness and swelling to her right lower extremity from knee to ankle. She completed a recent course of Abx. She also reports feeling feverish and chills. The patient denies chest pain, shortness of breath, headache and dizziness. The patient denies nausea, vomit, diarrhea and constipation. The patient denies dysuria, frequency, urgency and hematuria. Allergies: Penicillins Surgical Hx: lateral Makoplasty partial knee replacement Orthopedist: Dr. Loera - Physicial Exam PE: 06/10/18 15:31 ROS: A complete review of 10 out of 10 review of systems is taken and is negative apart from what is previously mentioned below and in the HPI. Vitals: Triage vital signs reviewed General Appearance: No acute distress, well nourished, well developed Head: Atraumatic Eyes: Pupils equal reactive round, extraocular movement intact Neck: Supple; No nuchal rigidity Chest Wall: Nontender Cardiac: Regular rate and rhythm, no murmurs, no rubs, no gallops Extremities: Full range of motion to all extremities, no cyanosis, clubbing Skin: (+) redness and increased warmth to right lower extremity. Warm and dry, no rashes or lesions, no rash, no petechiae Neuro: AOX3; Cranial Nerves 2-12 grossly intact, Strength intact to all extremities, Sensation intact to all extremities, Psych: Normal mood, normal affect - Medical Decision Making 06/10/18 15:33 Documentation prepared by Alina Tabares, acting as biomedical engineering aide for Hari Davidson MD. 06/10/18 15:54 Pt's case was discussed with Dr. Noble at this time. <Alina Tabares - Last Filed: 06/10/18 17:00> - Resident Resident Name: Bree Zavaleta - ED Attending Attestation I have performed the following: I have examined & evaluated the patient, The case was reviewed & discussed with the resident, I agree w/resident's findings & plan, Exceptions are as noted - Medical Decision Making Patient recently admitted for cellulitis treated with ertapenem initially improved returned home last night redness developed again to patient's leg Case discussed with infectious disease will start on meropenem plus vancomycin and admit to medicine for further management. <Hari Davidson - Last Filed: 06/10/18 19:13>
[2018-06-10] MEDS ORDERED: VANCOMYCIN 500 MG in DEXTROSE 5%-WATER - 100 ML IVPB ONE (16:01)
[2018-06-10] MEDS ORDERED: VANCOMYCIN 1,000 MG in DEXTROSE 5%-WATER - 250 ML IVPB ONE (16:07)
[2018-06-10 16:08] LABS: BASO % 0.9 % (0-2.0); EOS % 5.8 % (0-4.5); HEMATOCRIT 37.2 % (32.4-45.2); HEMOGLOBIN 12.5 GM/dL (10.7-15.3); LYMPH % 29.1 % (8-40); MCH 29.4 pg (25.7-33.7); MCHC 33.6 g/dl (32.0-36.0); MEAN CELL VOLUME 87.3 fl (80-96); MEAN PLT VOLUME 8.6 fl (7.5-11.1); MONO % 8.9 % (3.8-10.2); NEUT % 55.3 % (42.8-82.8); PLATELET COUNT 232 K/MM3 (134-434); RBC 4.26 M/mm3 (3.60-5.2); RDW 14.8 % (11.6-15.6); WHITE BLOOD COUNT 5.2 K/mm3 (4.0-10.0)
[2018-06-10 16:15] LABS: ALBUMIN 3.5 g/dl (3.4-5.0); ALK PHOS 120 U/L (45-117); ANION GAP 3 MMOL/L (8-16); BILIRUBIN,TOTAL 0.2 mg/dL (0.2-1); BLOOD UREA NITROGEN 7 mg/dL (7-18); CALCIUM 9.6 mg/dL (8.5-10.1); CHLORIDE 106 mmol/L (98-107); CO2 28 mmol/L (21-32); CREATININE 0.7 mg/dL (0.55-1.3); GLUCOSE,RANDOM 84 mg/dL (74-106); INR 2.17 (0.83-1.09); POTASSIUM 4.2 mmol/L (3.5-5.1); PROTHROMBIN TIME (PATIENT) 25.8 SEC (9.7-13.0); SGOT/AST 35 U/L (15-37); SGPT/ALT 28 U/L (13-61); SODIUM 138 mmol/L (136-145); TOT PROT 7.7 g/dl (6.4-8.2)
[2018-06-10] MEDS ORDERED: VANCOMYCIN 1 GRAM (PRE-DOCKED) 1,000 MG/250 ML BAG IVPB ONE (16:58)
[2018-06-10] MEDS: SODIUM CHLORIDE 1,000 ML IV SCH (17:14)
[2018-06-10] MEDS ORDERED: MEROPENEM 500 MG in DEXTROSE 5%-WATER 100 ML IVPB SCH ×2 (18:00)
[2018-06-10] MEDS: WARFARIN NA 3 MG TABLET PO SCH (20:34)
[2018-06-10] MEDS: ALBUTEROL SO4 2.5/IPRATROPIUM 0.5 INH SOL 3 ML VIAL.NEB. NEB SCH (21:19)
[2018-06-10] MEDS: MEROPENEM 1 GM in DEXTROSE 5%-WATER 100 ML IVPB SCH (21:19)
[2018-06-10] MEDS ORDERED: PATIENT'S OWN MEDICATION (NON-FORMULARY) (Simvastatin [Simvastatin] 20 MG) PO SCH (22:00)
[2018-06-10] MEDS ORDERED: MECLIZINE HCL 12.5 MG TABLET ONE (22:47)
[2018-06-10] MEDS ORDERED: HEMOQUE TEST 1 EACH EACH ONE (22:48)
[2018-06-10] MEDS: ATORVASTATIN CA 10 MG TABLET (FP) PO SCH (22:55)
[2018-06-10] MEDS: GABAPENTIN 300 MG CAPSULE (FP) PO SCH (22:55)
[2018-06-10] MEDS: ZOLPIDEM TARTRATE 5 MG TABLET PO PRN (22:55)
[2018-06-10] MEDS: DOCUSATE SODIUM 100 MG CAPSULE (FP) PO SCH (22:55)
[2018-06-10] MEDS: MECLIZINE HCL 12.5 MG TABLET PO SCH (22:55)
[2018-06-10] MEDS: MOMETASONE FUROATE 220 MCG/IH INHALER IH SCH (22:55)
[2018-06-10] MEDS: NORTRIPTYLINE HCL 25 MG CAPSULE PO SCH (22:56)
[2018-06-10] MEDS: MONTELUKAST NA 10 MG TABLET PO SCH (22:56)
[2018-06-10] MEDS: PANTOPRAZOLE 40 MG TABLET (FP) PO SCH (22:56)
[2018-06-11] MEDS ORDERED: MEROPENEM 1 GM in DEXTROSE 5%-WATER 100 ML IVPB SCH (02:00)
[2018-06-11] MEDS: MEROPENEM 1 GM in DEXTROSE 5%-WATER 100 ML IVPB SCH ×2 (03:20→18:42)
[2018-06-11 06:58] LABS: BASO % 1.1 % (0-2.0); EOS % 5.9 % (0-4.5); HEMATOCRIT 35.2 % (32.4-45.2); HEMOGLOBIN 11.6 GM/dL (10.7-15.3); MCH 28.8 pg (25.7-33.7); MCHC 32.8 g/dl (32.0-36.0); MEAN CELL VOLUME 87.9 fl (80-96); MEAN PLT VOLUME 8.2 fl (7.5-11.1); MONO % 9.1 % (3.8-10.2); NEUT % 54.9 % (42.8-82.8); PLATELET COUNT 190 K/MM3 (134-434); RBC 4.01 M/mm3 (3.60-5.2); RDW 14.7 % (11.6-15.6); WHITE BLOOD COUNT 4.4 K/mm3 (4.0-10.0)
[2018-06-11] MEDS: LEVOTHYROXINE NA 50 MCG TABLET (FP) PO SCH (07:08)
[2018-06-11 07:24] LABS: INR 2.4 (0.83-1.09); PROTHROMBIN TIME (PATIENT) 28.6 SEC (9.7-13.0)
[2018-06-11 07:26] LABS: ALK PHOS 105 U/L (45-117); ANION GAP 4 MMOL/L (8-16); BILIRUBIN,TOTAL 0.4 mg/dL (0.2-1); BLOOD UREA NITROGEN 5 mg/dL (7-18); CALCIUM 8.6 mg/dL (8.5-10.1); CHLORIDE 109 mmol/L (98-107); CO2 26 mmol/L (21-32); CREATININE 0.6 mg/dL (0.55-1.3); GLUCOSE,RANDOM 94 mg/dL (74-106); POTASSIUM 4.3 mmol/L (3.5-5.1); SGOT/AST 34 U/L (15-37); SGPT/ALT 24 U/L (13-61); SODIUM 140 mmol/L (136-145); TOT PROT 6.8 g/dl (6.4-8.2)
[2018-06-11] MEDS: ALBUTEROL SO4 2.5/IPRATROPIUM 0.5 INH SOL 3 ML VIAL.NEB. NEB SCH ×4 (08:55→20:45)
--- NOTE | 2018-06-11 09:30 | HP ---
Admitting History and Physical - Admission History of Present Illness: 53 year old female, with a significant past medical history of CVA (on Coumadin) , Diabetes, s/p lateral Makoplasty partial knee replacement 05/20/18, who presents to the emergency department with sudden increased in redness and swelling to her right lower extremity from knee to ankle. She completed a recent course of Abx. She also reports feeling feverish and chills. The patient denies chest pain, shortness of breath, headache and dizziness. The patient denies nausea, vomit, diarrhea and constipation. The patient denies dysuria, frequency, urgency and hematuria. 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 Cardiovascular: Yes: HTN, Hyperlipdemia Pulmonary: Yes: COPD Gastrointestinal: Yes: GERD Heme/Onc: Yes: Hypercoaguable State Musculoskeletal: Yes: Osteoarthritis Rheumatology: Yes: Rheumatoid Arthritis Endocrine: Yes: Hypothyroidism - Smoking History Smoking history: Never smoked Have you smoked in the past 12 months: No If you are a former smoker, when did you quit?: 35 YRS AGO - Alcohol/Substance Use Hx Alcohol Use: No Home Medications - Allergies Allergies/Adverse Reactions: Allergies Allergy/AdvReac Type Severity Reaction Status Date / Time Penicillins Allergy Severe Rash Verified 06/10/18 13:54 - Home Medications Home Medications: Ambulatory Orders Albuterol 0.083% Nebulizer Alena [Ventolin 0.083% Nebulizer Soln -] 1 amp NEB PRN 03/18/17 Escitalopram Oxalate [Lexapro -] 20 mg PO DAILY 03/18/17 Levothyroxine [Synthroid -] 50 mcg PO DAILY 03/18/17 Montelukast Na [Singulair -] 10 mg PO DAILY 03/18/17 Multivitamin [Poly-Vitamin] 1 each PO DAILY 03/18/17 Simvastatin 20 mg PO HS 03/18/17 Albuterol Sulfate Inhaler - [Ventolin HFA Inhaler -] 1 - 2 inh PO QID PRN Formoterol Fumarate [Perforomist] 20 mcg IH BID 04/05/17 Tiotropium [place] [Spiriva] 2 inh IH DAILY 04/05/17 Dexlansoprazole [Dexilant] 60 mg PO DAILY 05/12/18 Ergocalciferol (Vitamin D2) [Drisdol] 50,000 unit PO WEEKLY 05/12/18 Ferrous Sulfate [Iron] 325 mg PO DAILY 05/12/18 Fluticasone Furoate [Arnuity Ellipta] 200 mcg IH DAILY 05/12/18 Guaifenesin/Pseudoephedrne HCl [Mucinex D ER 1,200-120 mg Tab] 1 each PO BID PRN 05/12/18 Linaclotide [Linzess] 145 mcg PO DAILY 05/12/18 Oxycodone HCl/Acetaminophen [Percocet 10-325 mg Tablet] 10 mg PO TID PRN #40 tablet MDD 3 05/20/18 Acetaminophen [Tylenol .Regular Strength -] 650 mg PO Q4H PRN tablet 06/02/18 Docusate Sodium [Colace -] 300 mg PO HS capsule 06/02/18 Ferrous Sulfate [Feosol] 325 mg PO BIDWM ud 06/02/18 Gabapentin [Neurontin] 300 mg PO HS #30 capsule 06/02/18 Levofloxacin [Levaquin] 500 mg PO DAILY #7 tablet 06/02/18 Meclizine HCl 12.5 mg PO BID #60 tablet 06/02/18 Nortriptyline HCl [Pamelor -] 50 mg PO HS #30 cap 06/02/18 Zolpidem Tartrate [Ambien] 10 mg PO HS PRN tablet MDD 1 06/02/18 Warfarin Na [Coumadin -] 9 mg PO DAILY@1800 06/10/18 Physical Examination Vital Signs: Vital Signs Temperature 98.9 F 06/11/18 06:42 Pulse Rate 92 H 06/11/18 06:42 Respiratory Rate 20 06/11/18 06:42 Blood Pressure 121/77 06/11/18 06:42 O2 Sat by Pulse Oximetry (%) 99 06/11/18 06:42 Cardiovascular: Yes: S1, S2 Respiratory: Yes: Regular, CTA Bilaterally Gastrointestinal: Yes: Normal Bowel Sounds, Soft Musculoskeletal: Yes: Joint Swelling Extremities: Yes: Erythema (around knee) Edema: No Labs: CBC, BMP 06/11/18 06:30 06/11/18 06:30 Problem List - Problems (1) Cellulitis of right lower leg Assessment/Plan: IV abx ID consult Code(s): L03.115 - CELLULITIS OF RIGHT LOWER LIMB (2) Status post knee surgery Assessment/Plan: Ortho consult (3) DVT (deep venous thrombosis) Assessment/Plan: on coumadin therapeutic Code(s): I82.409 - ACUTE EMBOLISM AND THOMBOS UNSP DEEP VN UNSP LOWER EXTREMITY (4) Hypertension Assessment/Plan: same meds Code(s): I10 - ESSENTIAL (PRIMARY) HYPERTENSION Qualifiers: Hypertension type: essential hypertension Qualified Code(s): I10 - Essential (primary) hypertension
--- NOTE | 2018-06-11 09:38 | CONSULT ---
Consult - text type - Consultation Consultation Note: FULL CONSULT DICTATED IMP: NO EVIDENCE OF INFECTION PLAN: DC WITH NO ABX, CONTINUE PT AND F/U IN MY OFFICE X 1 WEEK
[2018-06-11] MEDS: MECLIZINE HCL 12.5 MG TABLET PO SCH ×2 (09:54→22:17)
[2018-06-11] MEDS: ESCITALOPRAM OXALATE 20 MG TABLET (FP) PO SCH (09:55)
[2018-06-11] MEDS: MOMETASONE FUROATE 220 MCG/IH INHALER IH SCH ×2 (09:55→23:18)
[2018-06-11] MEDS: PANTOPRAZOLE 40 MG TABLET (FP) PO SCH ×2 (09:55→22:18)
[2018-06-11] MEDS ORDERED: PATIENT'S OWN MEDICATION (NON-FORMULARY) (Linaclotide [Linzess] 145 MCG) PO SCH (10:00)
[2018-06-11] MEDS ORDERED: MONTELUKAST NA 10 MG TABLET PO SCH (10:00)
--- NOTE | 2018-06-11 10:38 | CONS ---
DATE OF CONSULTATION: 06/11/2018 [facility]/ORTHOPEDIC CONSULTATION Patient is a 53-year-old female well known to me. I had done a right lateral partial knee replacement on her approximately 3 weeks ago. She was admitted to the hospital postoperatively for cellulitic infection which had resolved on antibiotics and was doing quite well. Patient returned yesterday to the emergency room with increased pain, was admitted for presumption of return of her cellulitis. Patient denies any fever or chills. No fall or trauma. On physical exam, I reevaluated her this morning. She has range of motion 0-120 degrees. Her incision is well healed. There is no erythema. She has no effusion. Calf is soft, nontender. She does have some tenderness laterally around the incision, but there is no redness. There is no lymphangitis. She has excellent range of motion. Negative Homans sign, negative Vaca sign. Excellent range of motion hip, ankle, and toes. Labs which I reviewed show a sedimentation rate in the 30s and a white count approximately 5. She has no fever or chills documented for 24 hours. IMPRESSION: Postoperative right lateral partial knee replacement with some pain in her knee but with excellent range of motion, no evidence today of any infection. At this point I would discharge the patient on analgesics, physical therapy, ice, and will see her back in the office in a week's time. I do not believe the patient needs admission, and I do not believe patient needs antibiotics at this time. We will follow the patient serially as an outpatient with serial erythrocyte sedimentation rates if necessary and with serial white counts. Patient can return to my office at any time if redness presents itself or patient develops fever. EMILIA NATHAN M.D. [id number]
[2018-06-11] MEDS ORDERED: ALBUTEROL SO4 2.5/IPRATROPIUM 0.5 INH SOL 3 ML VIAL.NEB. NEB ONE (12:30)
[2018-06-11] MEDS ORDERED: PT OWN MED DRAWER 7, Y5N ONE (16:33)
[2018-06-11] MEDS: ACETAMINOPHEN 325 MG TABLET (FP) PO PRN (16:47)
[2018-06-11] MEDS: SODIUM CHLORIDE 1,000 ML IV SCH (17:41)
[2018-06-11] MEDS: WARFARIN NA 3 MG TABLET PO SCH (18:41)
[2018-06-11 19:55] VITALS: BMI 35.4
[2018-06-11] MEDS: DOCUSATE SODIUM 100 MG CAPSULE (FP) PO SCH (22:17)
[2018-06-11] MEDS: ATORVASTATIN CA 10 MG TABLET (FP) PO SCH (22:18)
[2018-06-11] MEDS: GABAPENTIN 300 MG CAPSULE (FP) PO SCH (22:18)
[2018-06-11] MEDS: MONTELUKAST NA 10 MG TABLET PO SCH (22:19)
[2018-06-11] MEDS: NORTRIPTYLINE HCL 25 MG CAPSULE PO SCH (22:20)
[2018-06-11] MEDS: ZOLPIDEM TARTRATE 5 MG TABLET PO PRN (22:27)
[2018-06-12] MEDS: MEROPENEM 1 GM in DEXTROSE 5%-WATER 100 ML IVPB SCH ×3 (01:37→17:14)
[2018-06-12] MEDS ORDERED: PT OWN MED DRAWER 7, Y5N ONE ×3 (02:07→17:12)
[2018-06-12] MEDS: LEVOTHYROXINE NA 50 MCG TABLET (FP) PO SCH (06:11)
[2018-06-12] MEDS: ALBUTEROL SO4 2.5/IPRATROPIUM 0.5 INH SOL 3 ML VIAL.NEB. NEB SCH ×4 (08:32→20:15)
[2018-06-12] MEDS: ESCITALOPRAM OXALATE 20 MG TABLET (FP) PO SCH (09:06)
[2018-06-12] MEDS: ACETAMINOPHEN 325 MG TABLET (FP) PO PRN (09:06)
[2018-06-12] MEDS: PANTOPRAZOLE 40 MG TABLET (FP) PO SCH ×2 (09:08→21:15)
[2018-06-12] MEDS: MOMETASONE FUROATE 220 MCG/IH INHALER IH SCH ×2 (09:08→22:39)
[2018-06-12] MEDS: MECLIZINE HCL 12.5 MG TABLET PO SCH ×2 (09:08→21:14)
--- NOTE | 2018-06-12 10:22 | PN ---
Progress Note (short form) - Note Progress Note: Pt seen and examined. She is s/p right knee Donal, with recent RLE cellulitis. She states it is much improved after being on antibiotics for the past 24 hours. Less pain, less swelling, less erythema. Her area of worst pain is at the anterior aspect of the right tibia. AVSS Labs stable RLE Knee is mildly swollen, mildly erythematous, moderately tender, no fluid collection. Improved. Lower leg is mildly warm but very tender over the anterior tibial crest. No cellulitis, no erythema, no fluid collection. Imp RLE cellulitis is improving. Rec Con't antibiotic regimen WBAT Nothing else to do at this time
[2018-06-12] MEDS ORDERED: ACETAMINOPHEN/CAFFEINE/BUTALBITAL 1 TAB PO PRN (12:26)
--- NOTE | 2018-06-12 12:28 | PN ---
Progress Note, Physician Chief Complaint: patient has h/o of chronic migraines takes fioricet at home knee pain is better complaining of leg pain and ankle pain on meropenem - Current Medication List Current Medications: Active Medications Acetaminophen (Tylenol -) 650 mg PO Q4H PRN PRN Reason: PAIN 1-3 Last Admin: 06/12/18 09:06 Dose: 650 mg Albuterol/Ipratropium (Duoneb -) 1 amp NEB RQID [facility] Last Admin: 06/12/18 08:32 Dose: 1 amp Atorvastatin Calcium (Lipitor -) 10 mg PO HS [facility] Last Admin: 06/11/18 22:18 Dose: 10 mg Docusate Sodium (Colace -) 300 mg PO [facility] Last Admin: 06/11/18 22:17 Dose: 300 mg Escitalopram Oxalate (Lexapro -) 20 mg PO DAILY [facility] Last Admin: 06/12/18 09:06 Dose: 20 mg Gabapentin (Neurontin -) 300 mg PO [facility] Last Admin: 06/11/18 22:18 Dose: 300 mg Meropenem 1 gm/ Dextrose 100 mls @ 200 mls/hr IVPB Q8H-IV [facility] Last Admin: 06/12/18 09:06 Dose: 200 mls/hr Levothyroxine Sodium (Synthroid -) 50 mcg PO ACBK [facility] Last Admin: 06/12/18 06:11 Dose: 50 mcg Meclizine HCl (Antivert -) 12.5 mg PO BID [facility] Last Admin: 06/12/18 09:08 Dose: 12.5 mg Mometasone Furoate (Asmanex 220mcg -) 1 puff IH BID [facility] Last Admin: 06/12/18 09:08 Dose: 1 puff Montelukast Sodium (Singulair -) 10 mg PO [facility] Last Admin: 06/11/18 22:19 Dose: 10 mg Non-Formulary Medication (Linaclotide [Linzess]) 145 mcg PO DAILY [facility] Nortriptyline HCl (Pamelor -) 50 mg PO [facility] Last Admin: 06/11/18 22:20 Dose: 50 mg Pantoprazole Sodium (Protonix -) 40 mg PO BID [facility] Last Admin: 06/12/18 09:08 Dose: 40 mg Warfarin Sodium (Coumadin -) 9 mg PO DAILY@1800 [facility] Last Admin: 06/11/18 18:41 Dose: 9 mg Zolpidem Tartrate (Ambien -) 10 mg PO HS PRN PRN Reason: INSOMNIA Last Admin: 06/11/18 22:27 Dose: 10 mg - Objective Vital Signs: Vital Signs Temperature 98.8 F 06/12/18 09:05 Pulse Rate 99 H 06/12/18 09:05 Respiratory Rate 18 06/12/18 09:05 Blood Pressure 124/72 06/12/18 09:05 O2 Sat by Pulse Oximetry (%) 93 L 06/11/18 17:00 Constitutional: Yes: Calm Neck: Yes: Trachea Midline Cardiovascular: Yes: Regular Rate and Rhythm, S1, S2 Respiratory: Yes: CTA Bilaterally Gastrointestinal: Yes: Normal Bowel Sounds, Soft Extremities: Yes: Other (right knee swollen warm to touch right ankle tender to touch) Edema: Yes Labs: CBC, BMP 06/11/18 06:30 06/11/18 06:30 INR, PTT INR 2.40 (0.83-1.09) H 06/11/18 06:30 Problem List - Problems (1) Cellulitis Assessment/Plan: iv abx per ID appreicate ortho consult right leg pain dopler to r/o dvt Code(s): L03.90 - CELLULITIS, UNSPECIFIED (2) Status post knee surgery Assessment/Plan: WBAT follow up in office right ankle pain - xray PT (3) Hyperlipidemia Assessment/Plan: statin Code(s): E78.5 - HYPERLIPIDEMIA, UNSPECIFIED Qualifiers: Hyperlipidemia type: pure hypercholesterolemia Qualified Code(s): E78.00 - Pure hypercholesterolemia, unspecified (4) Hypothyroidism Assessment/Plan: check tsh on synthroid Code(s): E03.9 - HYPOTHYROIDISM, UNSPECIFIED Qualifiers: Hypothyroidism type: unspecified Qualified Code(s): E03.9 - Hypothyroidism , unspecified (5) Migraine Assessment/Plan: fioricet prn Code(s): G43.909 - MIGRAINE, UNSP, NOT INTRACTABLE, WITHOUT STATUS MIGRAINOSUS (6) Cerebrovascular disease Assessment/Plan: on coumadin inr therapeutic Code(s): I67.9 - CEREBROVASCULAR DISEASE, UNSPECIFIED Assessment/Plan vale have ID see patient dc home in AM
--- NOTE | 2018-06-12 16:33 | CON.ID ---
Consult Consult Specialty:: infectious diseases Reason for Consultation:: cellulitits of the rt knee - History of Present Illness Chief Complaint: pain swelling and inability to ove the right knee History of Present Illness: 52 F with h/o HTN, TIA on Coumadin, fibromyalgia, GERD, Asthma and uterus CA, CAD s/p cath, hypothyroid, degenerative disc disease, Recent right knee arthritis s/p lateral makoplasty 05.20.18 coming to the hospital for recurrent swelling and redness of the knee patient was admitted couple of weeks back with the same problem was treated with abx and the swelling had resolved. patient states that couple of days back the swelling came back again and patient could not move her leg again. 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 Cardio/Vascular: Yes: HTN, Hyperlipdemia Pulmonary: Yes: COPD Gastrointestinal: Yes: GERD Musculoskeletal: Yes: Osteoarthritis Rheumatology: Yes: Rheumatoid Arthritis Endocrine: Yes: Hypothyroidism - Alcohol/Substance Use Hx Alcohol Use: No - Smoking History Smoking history: Never smoked Have you smoked in the past 12 months: No If you are a former smoker, when did you quit?: 35 YRS AGO Home Medications - Allergies Allergies/Adverse Reactions: Allergies Allergy/AdvReac Type Severity Reaction Status Date / Time Penicillins Allergy Severe Rash Verified 06/10/18 13:54 - Home Medications Home Medications: Ambulatory Orders Albuterol 0.083% Nebulizer Alena [Ventolin 0.083% Nebulizer Soln -] 1 amp NEB PRN 03/18/17 Escitalopram Oxalate [Lexapro -] 20 mg PO DAILY 03/18/17 Levothyroxine [Synthroid -] 50 mcg PO DAILY 03/18/17 Montelukast Na [Singulair -] 10 mg PO DAILY 03/18/17 Multivitamin [Poly-Vitamin] 1 each PO DAILY 03/18/17 Simvastatin 20 mg PO HS 03/18/17 Albuterol Sulfate Inhaler - [Ventolin HFA Inhaler -] 1 - 2 inh PO QID PRN Formoterol Fumarate [Perforomist] 20 mcg IH BID 04/05/17 Tiotropium [place] [Spiriva] 2 inh IH DAILY 04/05/17 Dexlansoprazole [Dexilant] 60 mg PO DAILY 05/12/18 Ergocalciferol (Vitamin D2) [Drisdol] 50,000 unit PO WEEKLY 05/12/18 Ferrous Sulfate [Iron] 325 mg PO DAILY 05/12/18 Fluticasone Furoate [Arnuity Ellipta] 200 mcg IH DAILY 05/12/18 Guaifenesin/Pseudoephedrne HCl [Mucinex D ER 1,200-120 mg Tab] 1 each PO BID PRN 05/12/18 Linaclotide [Linzess] 145 mcg PO DAILY 05/12/18 Oxycodone HCl/Acetaminophen [Percocet 10-325 mg Tablet] 10 mg PO TID PRN #40 tablet MDD 3 05/20/18 Acetaminophen [Tylenol .Regular Strength -] 650 mg PO Q4H PRN tablet 06/02/18 Docusate Sodium [Colace -] 300 mg PO HS capsule 06/02/18 Ferrous Sulfate [Feosol] 325 mg PO BIDWM ud 06/02/18 Gabapentin [Neurontin] 300 mg PO HS #30 capsule 06/02/18 Levofloxacin [Levaquin] 500 mg PO DAILY #7 tablet 06/02/18 Meclizine HCl 12.5 mg PO BID #60 tablet 06/02/18 Nortriptyline HCl [Pamelor -] 50 mg PO HS #30 cap 06/02/18 Zolpidem Tartrate [Ambien] 10 mg PO HS PRN tablet MDD 1 06/02/18 Warfarin Na [Coumadin -] 9 mg PO DAILY@1800 06/10/18 Review of Systems - Review of Systems Constitutional: reports: No Symptoms Eyes: reports: No Symptoms HENT: reports: No Symptoms Neck: reports: No Symptoms Cardiovascular: reports: No Symptoms Respiratory: reports: No Symptoms Gastrointestinal: reports: No Symptoms Genitourinary: reports: No Symptoms Musculoskeletal: reports: Joint Swelling, Muscle Pain Integumentary: reports: Change in Color, Erythema Neurological: reports: No Symptoms Endocrine: reports: No Symptoms Hematology/Lymphatic: reports: No Symptoms Psychiatric: reports: No Symptoms Physical Exam Vital Signs: Vital Signs Temperature 98.2 F 06/12/18 14:50 Pulse Rate 86 06/12/18 14:50 Respiratory Rate 20 06/12/18 14:50 Blood Pressure 106/56 L 06/12/18 14:50 O2 Sat by Pulse Oximetry (%) 94 L 06/12/18 10:00 Constitutional: Yes: Well Nourished, Calm, Mild Distress, Obese Eyes: Yes: Conjunctiva Clear Neck: Yes: Supple, Trachea Midline Cardiovascular: Yes: Regular Rate and Rhythm Respiratory: Yes: Regular, CTA Bilaterally Gastrointestinal: Yes: Normal Bowel Sounds, Soft Musculoskeletal: Yes: Other Extremities: Yes: Erythema (of the knee joint) Integumentary: Yes: Erythema, Other Wound/Incision: Yes: Clean/Dry Neurological: Yes: Alert, Oriented Psychiatric: Yes: Alert, Oriented Labs: CBC, BMP 06/11/18 06:30 06/11/18 06:30 Imaging - Results X-ray: Report Reviewed, Image Reviewed Assessment/Plan patient known to me from last admission coming with cellulittis of the knee and swelling cellulitis of the knee joint swelling of the knee joint pain plan will start patient on meropenam close watch ortho rest as per the team
--- NOTE | 2018-06-12 16:42 | PN ---
Progress Note, Physician History of Present Illness: knee joint looks much better swelling improving erythema improving patient feels much better - Current Medication List Current Medications: Active Medications Acetaminophen/Butalbital/Caffeine (Fioricet -) 1 tablet PO Q6H PRN PRN Reason: HEADACHE Albuterol/Ipratropium (Duoneb -) 1 amp NEB RQID [facility] Last Admin: 06/12/18 16:03 Dose: 1 amp Atorvastatin Calcium (Lipitor -) 10 mg PO HS [facility] Last Admin: 06/11/18 22:18 Dose: 10 mg Docusate Sodium (Colace -) 300 mg PO HS [facility] Last Admin: 06/11/18 22:17 Dose: 300 mg Escitalopram Oxalate (Lexapro -) 20 mg PO DAILY [facility] Last Admin: 06/12/18 09:06 Dose: 20 mg Gabapentin (Neurontin -) 300 mg PO HS [facility] Last Admin: 06/11/18 22:18 Dose: 300 mg Meropenem 1 gm/ Dextrose 100 mls @ 200 mls/hr IVPB Q8H-IV [facility] Last Admin: 06/12/18 09:06 Dose: 200 mls/hr Levothyroxine Sodium (Synthroid -) 50 mcg PO ACBK [facility] Last Admin: 06/12/18 06:11 Dose: 50 mcg Meclizine HCl (Antivert -) 12.5 mg PO BID [facility] Last Admin: 06/12/18 09:08 Dose: 12.5 mg Mometasone Furoate (Asmanex 220mcg -) 1 puff IH BID [facility] Last Admin: 06/12/18 09:08 Dose: 1 puff Montelukast Sodium (Singulair -) 10 mg PO HS [facility] Last Admin: 06/11/18 22:19 Dose: 10 mg Non-Formulary Medication (Linaclotide [Linzess]) 145 mcg PO DAILY [facility] Nortriptyline HCl (Pamelor -) 50 mg PO HS [facility] Last Admin: 06/11/18 22:20 Dose: 50 mg Pantoprazole Sodium (Protonix -) 40 mg PO BID [facility] Last Admin: 06/12/18 09:08 Dose: 40 mg Warfarin Sodium (Coumadin -) 9 mg PO DAILY@1800 [facility] Last Admin: 06/11/18 18:41 Dose: 9 mg Zolpidem Tartrate (Ambien -) 10 mg PO HS PRN PRN Reason: INSOMNIA Last Admin: 06/11/18 22:27 Dose: 10 mg - Objective Vital Signs: Vital Signs Temperature 98.2 F 06/12/18 14:50 Pulse Rate 86 06/12/18 14:50 Respiratory Rate 20 06/12/18 14:50 Blood Pressure 106/56 L 06/12/18 14:50 O2 Sat by Pulse Oximetry (%) 94 L 06/12/18 10:00 Constitutional: Yes: Calm, Mild Distress Cardiovascular: Yes: Regular Rate and Rhythm Respiratory: Yes: Regular, CTA Bilaterally Gastrointestinal: Yes: Normal Bowel Sounds, Soft Musculoskeletal: Yes: Joint Swelling Extremities: Yes: Erythema Integumentary: Yes: Erythema, Other Neurological: Yes: Alert, Oriented Psychiatric: Yes: Alert, Oriented Labs: CBC, BMP 06/11/18 06:30 06/11/18 06:30 INR, PTT INR 2.40 (0.83-1.09) H 06/11/18 06:30 Assessment/Plan patient known to me from last admission coming with cellulittis of the knee and swelling cellulitis of the knee joint swelling of the knee joint pain plan continue meropenam close watch ortho rest as per the team patients knee looks much better
[2018-06-12 20:23] LABS: INR 2.66 (0.83-1.09); PROTHROMBIN TIME (PATIENT) 31.7 SEC (9.7-13.0)
[2018-06-12] MEDS: WARFARIN NA 3 MG TABLET PO SCH (21:13)
[2018-06-12] MEDS: DOCUSATE SODIUM 100 MG CAPSULE (FP) PO SCH (21:14)
[2018-06-12] MEDS: ATORVASTATIN CA 10 MG TABLET (FP) PO SCH (21:14)
[2018-06-12] MEDS: GABAPENTIN 300 MG CAPSULE (FP) PO SCH (21:15)
[2018-06-12] MEDS: NORTRIPTYLINE HCL 25 MG CAPSULE PO SCH (21:15)
[2018-06-12] MEDS: MONTELUKAST NA 10 MG TABLET PO SCH (21:15)
[2018-06-12] MEDS: ZOLPIDEM TARTRATE 5 MG TABLET PO PRN (22:13)
[2018-06-13] MEDS: MEROPENEM 1 GM in DEXTROSE 5%-WATER 100 ML IVPB SCH ×3 (02:20→17:43)
[2018-06-13] MEDS: LEVOTHYROXINE NA 50 MCG TABLET (FP) PO SCH (06:18)
[2018-06-13 08:11] LABS: EOS % 6.6 % (0-4.5); HEMATOCRIT 36.4 % (32.4-45.2); HEMOGLOBIN 11.9 GM/dL (10.7-15.3); LYMPH % 24.4 % (8-40); MCH 28.8 pg (25.7-33.7); MCHC 32.8 g/dl (32.0-36.0); MEAN CELL VOLUME 87.9 fl (80-96); MONO % 8.9 % (3.8-10.2); NEUT % 59.1 % (42.8-82.8); PLATELET COUNT 191 K/MM3 (134-434); RBC 4.14 M/mm3 (3.60-5.2); RDW 14.7 % (11.6-15.6); WHITE BLOOD COUNT 5.1 K/mm3 (4.0-10.0)
[2018-06-13 08:36] LABS: INR 2.88 (0.83-1.09); PROTHROMBIN TIME (PATIENT) 34.3 SEC (9.7-13.0)
[2018-06-13 08:39] LABS: ALBUMIN 3.2 g/dl (3.4-5.0); ALK PHOS 106 U/L (45-117); ANION GAP 7 MMOL/L (8-16); BILIRUBIN,TOTAL 0.4 mg/dL (0.2-1); BLOOD UREA NITROGEN 5 mg/dL (7-18); CALCIUM 9.2 mg/dL (8.5-10.1); CHLORIDE 110 mmol/L (98-107); CHOLESTEROL 142 mg/dL (50-200); CO2 27 mmol/L (21-32); CREATININE 0.6 mg/dL (0.55-1.3); GLUCOSE,RANDOM 89 mg/dL (74-106); HDL CHOLESTEROL 43 mg/dL (40-60); POTASSIUM 4.6 mmol/L (3.5-5.1); SGOT/AST 27 U/L (15-37); SGPT/ALT 25 U/L (13-61); SODIUM 144 mmol/L (136-145); TOT PROT 6.9 g/dl (6.4-8.2); TRIGLYCERIDES 85 mg/dL (0-150)
[2018-06-13] MEDS: ALBUTEROL SO4 2.5/IPRATROPIUM 0.5 INH SOL 3 ML VIAL.NEB. NEB SCH ×4 (08:47→20:54)
[2018-06-13] MEDS ORDERED: PT OWN MED DRAWER 7, Y5N ONE ×3 (10:12→17:50)
[2018-06-13] MEDS: ESCITALOPRAM OXALATE 20 MG TABLET (FP) PO SCH (10:16)
[2018-06-13] MEDS: PANTOPRAZOLE 40 MG TABLET (FP) PO SCH ×2 (10:17→21:41)
[2018-06-13] MEDS: MOMETASONE FUROATE 220 MCG/IH INHALER IH SCH ×2 (10:17→21:41)
[2018-06-13] MEDS: MECLIZINE HCL 12.5 MG TABLET PO SCH ×2 (10:17→21:41)
--- NOTE | 2018-06-13 11:00 | PN ---
Progress Note, Physician Chief Complaint: patient feeling better today on iv meropenem foot xray and doppler negative - Current Medication List Current Medications: Active Medications Acetaminophen/Butalbital/Caffeine (Fioricet -) 1 tablet PO Q6H PRN PRN Reason: HEADACHE Albuterol/Ipratropium (Duoneb -) 1 amp NEB RQID [facility] Last Admin: 06/13/18 08:47 Dose: 1 amp Atorvastatin Calcium (Lipitor -) 10 mg PO HS [facility] Last Admin: 06/12/18 21:14 Dose: 10 mg Docusate Sodium (Colace -) 300 mg PO HS [facility] Last Admin: 06/12/18 21:14 Dose: 300 mg Escitalopram Oxalate (Lexapro -) 20 mg PO DAILY [facility] Last Admin: 06/13/18 10:16 Dose: 20 mg Gabapentin (Neurontin -) 300 mg PO HS [facility] Last Admin: 06/12/18 21:15 Dose: 300 mg Meropenem 1 gm/ Dextrose 100 mls @ 200 mls/hr IVPB Q8H-IV [facility] Last Admin: 06/13/18 10:15 Dose: 200 mls/hr Levothyroxine Sodium (Synthroid -) 50 mcg PO ACBK [facility] Last Admin: 06/13/18 06:18 Dose: 50 mcg Meclizine HCl (Antivert -) 12.5 mg PO BID [facility] Last Admin: 06/13/18 10:17 Dose: 12.5 mg Mometasone Furoate (Asmanex 220mcg -) 1 puff IH BID [facility] Last Admin: 06/13/18 10:17 Dose: 1 puff Montelukast Sodium (Singulair -) 10 mg PO HS [facility] Last Admin: 06/12/18 21:15 Dose: 10 mg Non-Formulary Medication (Linaclotide [Linzess]) 145 mcg PO DAILY [facility] Nortriptyline HCl (Pamelor -) 50 mg PO HS [facility] Last Admin: 06/12/18 21:15 Dose: 50 mg Pantoprazole Sodium (Protonix -) 40 mg PO BID [facility] Last Admin: 06/13/18 10:17 Dose: 40 mg Warfarin Sodium (Coumadin -) 9 mg PO DAILY@1800 [facility] Last Admin: 06/12/18 21:13 Dose: 9 mg Zolpidem Tartrate (Ambien -) 10 mg PO HS PRN PRN Reason: INSOMNIA Last Admin: 06/12/18 22:13 Dose: 10 mg - Objective Vital Signs: Vital Signs Temperature 98.3 F 06/13/18 10:00 Pulse Rate 91 H 06/13/18 10:00 Respiratory Rate 20 06/13/18 10:00 Blood Pressure 120/68 06/13/18 10:00 O2 Sat by Pulse Oximetry (%) 94 L 06/12/18 21:00 Constitutional: Yes: Calm Cardiovascular: Yes: Regular Rate and Rhythm, S1, S2 Respiratory: Yes: CTA Bilaterally Gastrointestinal: Yes: Normal Bowel Sounds, Soft Musculoskeletal: Yes: Joint Swelling (right knee swelling decreased and erythema is better as well) Neurological: Yes: Alert, Oriented Labs: CBC, BMP 06/13/18 07:08 06/13/18 07:08 INR, PTT INR 2.88 (0.83-1.09) H 06/13/18 07:08 Problem List - Problems (1) Cellulitis Assessment/Plan: iv abx per ID- meropenem- improving appreciate ortho note doppler is negative and foot xray is negative as well esr and crp trending down Code(s): L03.90 - CELLULITIS, UNSPECIFIED (2) Status post knee surgery Assessment/Plan: WBAT follow up in office right ankle pain - xray negative soft tissue swellling decreased PT (3) Hyperlipidemia Assessment/Plan: statin Code(s): E78.5 - HYPERLIPIDEMIA, UNSPECIFIED Qualifiers: Hyperlipidemia type: pure hypercholesterolemia Qualified Code(s): E78.00 - Pure hypercholesterolemia, unspecified (4) Hypothyroidism Assessment/Plan: tsh is normal on synthroid Code(s): E03.9 - HYPOTHYROIDISM, UNSPECIFIED Qualifiers: Hypothyroidism type: unspecified Qualified Code(s): E03.9 - Hypothyroidism , unspecified (5) Migraine Assessment/Plan: fioricet prn Code(s): G43.909 - MIGRAINE, UNSP, NOT INTRACTABLE, WITHOUT STATUS MIGRAINOSUS (6) Cerebrovascular disease Assessment/Plan: on coumadin inr therapeutic Code(s): I67.9 - CEREBROVASCULAR DISEASE, UNSPECIFIED
--- NOTE | 2018-06-13 13:12 | PN ---
Progress Note, Physician History of Present Illness: continues to improve still with some redness and swelling mobility improving pain still present - Current Medication List Current Medications: Active Medications Acetaminophen/Butalbital/Caffeine (Fioricet -) 1 tablet PO Q6H PRN PRN Reason: HEADACHE Albuterol/Ipratropium (Duoneb -) 1 amp NEB RQID [facility] Last Admin: 06/13/18 12:11 Dose: 1 amp Atorvastatin Calcium (Lipitor -) 10 mg PO HS [facility] Last Admin: 06/12/18 21:14 Dose: 10 mg Docusate Sodium (Colace -) 300 mg PO HS [facility] Last Admin: 06/12/18 21:14 Dose: 300 mg Escitalopram Oxalate (Lexapro -) 20 mg PO DAILY [facility] Last Admin: 06/13/18 10:16 Dose: 20 mg Gabapentin (Neurontin -) 300 mg PO HS [facility] Last Admin: 06/12/18 21:15 Dose: 300 mg Meropenem 1 gm/ Dextrose 100 mls @ 200 mls/hr IVPB Q8H-IV [facility] Last Admin: 06/13/18 10:15 Dose: 200 mls/hr Levothyroxine Sodium (Synthroid -) 50 mcg PO ACBK [facility] Last Admin: 06/13/18 06:18 Dose: 50 mcg Meclizine HCl (Antivert -) 12.5 mg PO BID [facility] Last Admin: 06/13/18 10:17 Dose: 12.5 mg Mometasone Furoate (Asmanex 220mcg -) 1 puff IH BID [facility] Last Admin: 06/13/18 10:17 Dose: 1 puff Montelukast Sodium (Singulair -) [address] [facility] Last Admin: 06/12/18 21:15 Dose: 10 mg Non-Formulary Medication (Linaclotide [Linzess]) 145 mcg PO DAILY [facility] Nortriptyline HCl (Pamelor -) 50 mg PO HS [facility] Last Admin: 06/12/18 21:15 Dose: 50 mg Pantoprazole Sodium (Protonix -) 40 mg PO BID [facility] Last Admin: 06/13/18 10:17 Dose: 40 mg Warfarin Sodium (Coumadin -) 9 mg PO DAILY@1800 [facility] Last Admin: 06/12/18 21:13 Dose: 9 mg Zolpidem Tartrate (Ambien -) 10 mg PO HS PRN PRN Reason: INSOMNIA Last Admin: 06/12/18 22:13 Dose: 10 mg - Objective Vital Signs: Vital Signs Temperature 98.3 F 06/13/18 10:00 Pulse Rate 91 H 06/13/18 10:00 Respiratory Rate 20 06/13/18 10:00 Blood Pressure 120/68 06/13/18 10:00 O2 Sat by Pulse Oximetry (%) 94 L 06/12/18 21:00 Constitutional: Yes: Calm, Mild Distress Cardiovascular: Yes: Regular Rate and Rhythm Respiratory: Yes: Regular, CTA Bilaterally Gastrointestinal: Yes: Normal Bowel Sounds, Soft Musculoskeletal: Yes: WNL Extremities: Yes: Erythema, Other Integumentary: Yes: Erythema Wound/Incision: Yes: Clean/Dry Neurological: Yes: Alert, Oriented Psychiatric: Yes: Alert, Oriented Labs: CBC, BMP 06/13/18 07:08 06/13/18 07:08 INR, PTT INR 2.88 (0.83-1.09) H 06/13/18 07:08 Assessment/Plan patient known to me from last admission coming with cellulittis of the knee and swelling cellulitis of the knee joint swelling of the knee joint pain plan continue meropenam close watch ortho rest as per the team will deescalte in couple of days
[2018-06-13] MEDS: WARFARIN NA 3 MG TABLET PO SCH (17:43)
[2018-06-13] MEDS: DOCUSATE SODIUM 100 MG CAPSULE (FP) PO SCH (21:40)
[2018-06-13] MEDS: NORTRIPTYLINE HCL 25 MG CAPSULE PO SCH (21:40)
[2018-06-13] MEDS: MONTELUKAST NA 10 MG TABLET PO SCH (21:41)
[2018-06-13] MEDS: GABAPENTIN 300 MG CAPSULE (FP) PO SCH (21:41)
[2018-06-13] MEDS: ATORVASTATIN CA 10 MG TABLET (FP) PO SCH (21:41)
[2018-06-13] MEDS: ZOLPIDEM TARTRATE 5 MG TABLET PO PRN (23:01)
[2018-06-14] MEDS: MEROPENEM 1 GM in DEXTROSE 5%-WATER 100 ML IVPB SCH ×3 (01:31→17:55)
[2018-06-14] MEDS: LEVOTHYROXINE NA 50 MCG TABLET (FP) PO SCH (06:31)
[2018-06-14] MEDS: ALBUTEROL SO4 2.5/IPRATROPIUM 0.5 INH SOL 3 ML VIAL.NEB. NEB SCH ×4 (08:18→20:50)
[2018-06-14 08:42] LABS: INR 2.84 (0.83-1.09); PROTHROMBIN TIME (PATIENT) 33.9 SEC (9.7-13.0)
[2018-06-14 08:46] LABS: BASO % 0.7 % (0-2.0); EOS % 7.4 % (0-4.5); HEMATOCRIT 39.1 % (32.4-45.2); HEMOGLOBIN 13.1 GM/dL (10.7-15.3); LYMPH % 28.3 % (8-40); MCH 29.2 pg (25.7-33.7); MCHC 33.6 g/dl (32.0-36.0); MEAN CELL VOLUME 86.9 fl (80-96); MEAN PLT VOLUME 8.3 fl (7.5-11.1); MONO % 8.7 % (3.8-10.2); NEUT % 54.9 % (42.8-82.8); PLATELET COUNT 223 K/MM3 (134-434); RBC 4.49 M/mm3 (3.60-5.2); RDW 14.9 % (11.6-15.6); WHITE BLOOD COUNT 6.2 K/mm3 (4.0-10.0)
[2018-06-14 09:20] LABS: ALBUMIN 3.6 g/dl (3.4-5.0); ALK PHOS 126 U/L (45-117); ANION GAP 9 MMOL/L (8-16); BILIRUBIN,TOTAL 0.5 mg/dL (0.2-1); BLOOD UREA NITROGEN 5 mg/dL (7-18); CALCIUM 9.2 mg/dL (8.5-10.1); CHLORIDE 109 mmol/L (98-107); CO2 23 mmol/L (21-32); CREATININE 0.7 mg/dL (0.55-1.3); GLUCOSE,RANDOM 98 mg/dL (74-106); POTASSIUM 4.6 mmol/L (3.5-5.1); SGOT/AST 34 U/L (15-37); SGPT/ALT 27 U/L (13-61); SODIUM 141 mmol/L (136-145); TOT PROT 7.9 g/dl (6.4-8.2)
[2018-06-14] MEDS ORDERED: PT OWN MED DRAWER 7, Y5N ONE ×3 (10:04→21:34)
[2018-06-14] MEDS: ESCITALOPRAM OXALATE 20 MG TABLET (FP) PO SCH (10:19)
[2018-06-14] MEDS: MECLIZINE HCL 12.5 MG TABLET PO SCH ×2 (10:19→21:46)
[2018-06-14] MEDS: PANTOPRAZOLE 40 MG TABLET (FP) PO SCH ×2 (10:19→21:47)
[2018-06-14] MEDS: MOMETASONE FUROATE 220 MCG/IH INHALER IH SCH ×2 (10:19→21:46)
--- NOTE | 2018-06-14 11:08 | PN ---
Progress Note, Physician - Current Medication List Current Medications: Active Medications Acetaminophen/Butalbital/Caffeine (Fioricet -) 1 tablet PO Q6H PRN PRN Reason: HEADACHE Last Admin: 06/14/18 10:35 Dose: 1 tablet Albuterol/Ipratropium (Duoneb -) 1 amp NEB RQID [facility] Last Admin: 06/14/18 08:18 Dose: 1 amp Atorvastatin Calcium (Lipitor -) 10 mg PO HS [facility] Last Admin: 06/13/18 21:41 Dose: 10 mg Docusate Sodium (Colace -) 300 mg PO HS [facility] Last Admin: 06/13/18 21:40 Dose: 300 mg Escitalopram Oxalate (Lexapro -) 20 mg PO DAILY [facility] Last Admin: 06/14/18 10:19 Dose: 20 mg Gabapentin (Neurontin -) 300 mg PO HS [facility] Last Admin: 06/13/18 21:41 Dose: 300 mg Meropenem 1 gm/ Dextrose 100 mls @ 200 mls/hr IVPB Q8H-IV [facility] Last Admin: 06/14/18 10:19 Dose: 200 mls/hr Levothyroxine Sodium (Synthroid -) 50 mcg PO ACBK [facility] Last Admin: 06/14/18 06:31 Dose: 50 mcg Meclizine HCl (Antivert -) 12.5 mg PO BID [facility] Last Admin: 06/14/18 10:19 Dose: 12.5 mg Mometasone Furoate (Asmanex 220mcg -) 1 puff IH BID [facility] Last Admin: 06/14/18 10:19 Dose: 1 puff Montelukast Sodium (Singulair -) 10 mg PO HS [facility] Last Admin: 06/13/18 21:41 Dose: 10 mg Non-Formulary Medication (Linaclotide [Linzess]) 145 mcg PO DAILY [facility] Nortriptyline HCl (Pamelor -) 50 mg PO HS [facility] Last Admin: 06/13/18 21:40 Dose: 50 mg Pantoprazole Sodium (Protonix -) 40 mg PO BID [facility] Last Admin: 06/14/18 10:19 Dose: 40 mg Warfarin Sodium (Coumadin -) 9 mg PO DAILY@1800 [facility] Last Admin: 06/13/18 17:43 Dose: 9 mg Zolpidem Tartrate (Ambien -) 10 mg PO HS PRN PRN Reason: INSOMNIA Last Admin: 06/13/18 23:01 Dose: 10 mg - Objective Vital Signs: Vital Signs Temperature 98.1 F 06/14/18 09:29 Pulse Rate 96 H 06/14/18 09:29 Respiratory Rate 20 06/14/18 09:29 Blood Pressure 99/52 L 06/14/18 09:29 O2 Sat by Pulse Oximetry (%) 94 L 06/13/18 09:00 Cardiovascular: Yes: S1, S2 Respiratory: Yes: Regular, CTA Bilaterally Gastrointestinal: Yes: Normal Bowel Sounds, Soft Extremities: Yes: Erythema (less around knee) Labs: CBC, BMP 06/14/18 07:30 06/14/18 07:30 INR, PTT INR 2.84 (0.83-1.09) H 06/14/18 07:30 Problem List - Problems (1) Cellulitis of right lower leg Code(s): L03.115 - CELLULITIS OF RIGHT LOWER LIMB (3) DVT (deep venous thrombosis) Code(s): I82.409 - ACUTE EMBOLISM AND THOMBOS UNSP DEEP VN UNSP LOWER EXTREMITY (4) Hypertension Code(s): I10 - ESSENTIAL (PRIMARY) HYPERTENSION Qualifiers: Hypertension type: essential hypertension Qualified Code(s): I10 - Essential (primary) hypertension Assessment/Plan - Problems (1) Cellulitis Assessment/Plan: iv abx per ID- meropenem- improving appreciate ortho note doppler is negative and foot xray is negative as well esr and crp trending down Code(s): L03.90 - CELLULITIS, UNSPECIFIED (2) Status post knee surgery Assessment/Plan: WBAT follow up in office right ankle pain - xray negative soft tissue swellling decreased PT (3) Hyperlipidemia Assessment/Plan: statin Code(s): E78.5 - HYPERLIPIDEMIA, UNSPECIFIED Qualifiers: Hyperlipidemia type: pure hypercholesterolemia Qualified Code(s): E78.00 - Pure hypercholesterolemia, unspecified (4) Hypothyroidism Assessment/Plan: tsh is normal on synthroid Code(s): E03.9 - HYPOTHYROIDISM, UNSPECIFIED Qualifiers: Hypothyroidism type: unspecified Qualified Code(s): E03.9 - Hypothyroidism , unspecified (5) Migraine Assessment/Plan: fioricet prn Code(s): G43.909 - MIGRAINE, UNSP, NOT INTRACTABLE, WITHOUT STATUS MIGRAINOSUS (6) Cerebrovascular disease Assessment/Plan: on coumadin inr therapeutic Code(s): I67.9 - CEREBROVASCULAR DISEASE, UNSPECIFIED
--- NOTE | 2018-06-14 15:45 | PN ---
Progress Note, Physician History of Present Illness: Events noted. Pt seen and examined. She reports less pain in Rt knee as well as less swelling. - Current Medication List Current Medications: Active Medications Acetaminophen/Butalbital/Caffeine (Fioricet -) 1 tablet PO Q6H PRN PRN Reason: HEADACHE Last Admin: 06/14/18 10:35 Dose: 1 tablet Albuterol/Ipratropium (Duoneb -) 1 amp NEB RQID [facility] Last Admin: 06/14/18 11:50 Dose: 1 amp Atorvastatin Calcium (Lipitor -) 10 mg PO HS [facility] Last Admin: 06/13/18 21:41 Dose: 10 mg Docusate Sodium (Colace -) 300 mg PO HS [facility] Last Admin: 06/13/18 21:40 Dose: 300 mg Escitalopram Oxalate (Lexapro -) 20 mg PO DAILY [facility] Last Admin: 06/14/18 10:19 Dose: 20 mg Gabapentin (Neurontin -) 300 mg PO HS [facility] Last Admin: 06/13/18 21:41 Dose: 300 mg Meropenem 1 gm/ Dextrose 100 mls @ 200 mls/hr IVPB Q8H-IV [facility] Last Admin: 06/14/18 10:19 Dose: 200 mls/hr Levothyroxine Sodium (Synthroid -) 50 mcg PO ACBK [facility] Last Admin: 06/14/18 06:31 Dose: 50 mcg Meclizine HCl (Antivert -) 12.5 mg PO BID [facility] Last Admin: 06/14/18 10:19 Dose: 12.5 mg Mometasone Furoate (Asmanex 220mcg -) 1 puff IH BID [facility] Last Admin: 06/14/18 10:19 Dose: 1 puff Montelukast Sodium (Singulair -) 10 mg PO HS [facility] Last Admin: 06/13/18 21:41 Dose: 10 mg Non-Formulary Medication (Linaclotide [Linzess]) 145 mcg PO DAILY [facility] Nortriptyline HCl (Pamelor -) 50 mg PO HS [facility] Last Admin: 06/13/18 21:40 Dose: 50 mg Pantoprazole Sodium (Protonix -) 40 mg PO BID [facility] Last Admin: 06/14/18 10:19 Dose: 40 mg Warfarin Sodium (Coumadin -) 9 mg PO DAILY@1800 [facility] Last Admin: 06/13/18 17:43 Dose: 9 mg Zolpidem Tartrate (Ambien -) 10 mg PO HS PRN PRN Reason: INSOMNIA Last Admin: 06/13/18 23:01 Dose: 10 mg - Objective Vital Signs: Vital Signs Temperature 98.0 F 06/14/18 14:32 Pulse Rate 83 06/14/18 14:32 Respiratory Rate 20 06/14/18 14:32 Blood Pressure 127/81 06/14/18 14:32 O2 Sat by Pulse Oximetry (%) 95 06/14/18 09:00 Constitutional: Yes: No Distress, Calm Cardiovascular: Yes: Regular Rate and Rhythm Respiratory: Yes: Regular Gastrointestinal: Yes: Normal Bowel Sounds, Soft Genitourinary: Yes: WNL Extremities: Yes: Erythema (Rt knee erythema/swelling/mild tenderness, no open/ draining wound) Neurological: Yes: Alert Labs: CBC, BMP 06/14/18 07:30 06/14/18 07:30 INR, PTT INR 2.84 (0.83-1.09) H 06/14/18 07:30 Problem List - Problems (1) Cellulitis Code(s): L03.90 - CELLULITIS, UNSPECIFIED (3) Hyperlipidemia Code(s): E78.5 - HYPERLIPIDEMIA, UNSPECIFIED Qualifiers: Hyperlipidemia type: pure hypercholesterolemia Qualified Code(s): E78.00 - Pure hypercholesterolemia, unspecified (4) Hypertension Code(s): I10 - ESSENTIAL (PRIMARY) HYPERTENSION Qualifiers: Hypertension type: essential hypertension Qualified Code(s): I10 - Essential (primary) hypertension Assessment/Plan Rt knee cellulitis OA s/p lateral makoplasty -- appears to be improving -- continue current antibiotic for now continue monitor site pt afebrile, stable
[2018-06-14] MEDS: WARFARIN NA 3 MG TABLET PO SCH (17:54)
[2018-06-14] MEDS: DOCUSATE SODIUM 100 MG CAPSULE (FP) PO SCH (21:47)
[2018-06-14] MEDS: MONTELUKAST NA 10 MG TABLET PO SCH (21:47)
[2018-06-14] MEDS: GABAPENTIN 300 MG CAPSULE (FP) PO SCH (21:47)
[2018-06-14] MEDS: ATORVASTATIN CA 10 MG TABLET (FP) PO SCH (21:47)
[2018-06-14] MEDS: NORTRIPTYLINE HCL 25 MG CAPSULE PO SCH (21:49)
[2018-06-14] MEDS: ZOLPIDEM TARTRATE 5 MG TABLET PO PRN (22:48)
[2018-06-15] MEDS: MEROPENEM 1 GM in DEXTROSE 5%-WATER 100 ML IVPB SCH ×3 (01:45→17:46)
[2018-06-15] MEDS: LEVOTHYROXINE NA 50 MCG TABLET (FP) PO SCH (06:36)
[2018-06-15] MEDS: ALBUTEROL SO4 2.5/IPRATROPIUM 0.5 INH SOL 3 ML VIAL.NEB. NEB SCH ×4 (08:35→22:02)
[2018-06-15] MEDS ORDERED: PT OWN MED DRAWER 7, Y5N ONE ×3 (09:42→16:58)
[2018-06-15] MEDS: MOMETASONE FUROATE 220 MCG/IH INHALER IH SCH ×2 (10:35→21:56)
[2018-06-15] MEDS: PANTOPRAZOLE 40 MG TABLET (FP) PO SCH ×2 (10:35→21:56)
[2018-06-15] MEDS: ESCITALOPRAM OXALATE 20 MG TABLET (FP) PO SCH (10:35)
[2018-06-15] MEDS: MECLIZINE HCL 12.5 MG TABLET PO SCH ×2 (10:35→21:56)
[2018-06-15] MEDS ORDERED: ACETAMINOPHEN/CAFFEINE/BUTALBITAL 1 TAB PO PRN (11:53)
[2018-06-15 12:17] LABS: BASO % 0.8 % (0-2.0); EOS % 7.2 % (0-4.5); HEMATOCRIT 37.9 % (32.4-45.2); HEMOGLOBIN 12.4 GM/dL (10.7-15.3); MCH 28.8 pg (25.7-33.7); MCHC 32.6 g/dl (32.0-36.0); MEAN CELL VOLUME 88.3 fl (80-96); MEAN PLT VOLUME 8.3 fl (7.5-11.1); MONO % 8.1 % (3.8-10.2); NEUT % 61.9 % (42.8-82.8); PLATELET COUNT 182 K/MM3 (134-434); RDW 14.6 % (11.6-15.6); WHITE BLOOD COUNT 5.2 K/mm3 (4.0-10.0)
[2018-06-15 12:31] LABS: INR 3.53 (0.83-1.09); PROTHROMBIN TIME (PATIENT) 42.2 SEC (9.7-13.0)
[2018-06-15 12:48] LABS: ALBUMIN 3.2 g/dl (3.4-5.0); ALK PHOS 110 U/L (45-117); ANION GAP 6 MMOL/L (8-16); BILIRUBIN,TOTAL 0.3 mg/dL (0.2-1); BLOOD UREA NITROGEN 6 mg/dL (7-18); CHLORIDE 106 mmol/L (98-107); CO2 28 mmol/L (21-32); CREATININE 0.7 mg/dL (0.55-1.3); GLUCOSE,RANDOM 125 mg/dL (74-106); POTASSIUM 4.4 mmol/L (3.5-5.1); SGOT/AST 28 U/L (15-37); SGPT/ALT 24 U/L (13-61); SODIUM 140 mmol/L (136-145); TOT PROT 7.1 g/dl (6.4-8.2)
--- NOTE | 2018-06-15 16:03 | PN ---
Progress Note, Physician History of Present Illness: Pt remains stable, states knee pain improving. Afebrile, tolerating antibiotics. Had intermittent dry cough. CXR negative. No current wheezing. - Current Medication List Current Medications: Active Medications Acetaminophen/Butalbital/Caffeine (Fioricet -) 1 tablet PO Q6H PRN PRN Reason: HEADACHE Albuterol/Ipratropium (Duoneb -) 1 amp NEB RQID [facility] Last Admin: 06/15/18 12:10 Dose: 1 amp Atorvastatin Calcium (Lipitor -) 10 mg PO HS [facility] Last Admin: 06/14/18 21:47 Dose: 10 mg Clotrimazole (Lotrisone Cream (Small Tube)) 1 applic TP BID [facility] Docusate Sodium (Colace -) [address] [facility] Last Admin: 06/14/18 21:47 Dose: 300 mg Escitalopram Oxalate (Lexapro -) 20 mg PO DAILY [facility] Last Admin: 06/15/18 10:35 Dose: 20 mg Gabapentin (Neurontin -) [address] [facility] Last Admin: 06/14/18 21:47 Dose: 300 mg Meropenem 1 gm/ Dextrose 100 mls @ 200 mls/hr IVPB Q8H-IV [facility] Last Admin: 06/15/18 10:34 Dose: 200 mls/hr Levothyroxine Sodium (Synthroid -) 50 mcg PO ACBK [facility] Last Admin: 06/15/18 06:36 Dose: 50 mcg Meclizine HCl (Antivert -) 12.5 mg PO BID [facility] Last Admin: 06/15/18 10:35 Dose: 12.5 mg Mometasone Furoate (Asmanex 220mcg -) 1 puff IH BID [facility] Last Admin: 06/15/18 10:35 Dose: 1 puff Montelukast Sodium (Singulair -) [address] [facility] Last Admin: 06/14/18 21:47 Dose: 10 mg Non-Formulary Medication (Linaclotide [Linzess]) 145 mcg PO DAILY [facility] Nortriptyline HCl (Pamelor -) 50 mg PO HS [facility] Last Admin: 06/14/18 21:49 Dose: 50 mg Pantoprazole Sodium (Protonix -) 40 mg PO BID [facility] Last Admin: 06/15/18 10:35 Dose: 40 mg Warfarin Sodium (Coumadin -) 9 mg PO DAILY@1800 [facility] Zolpidem Tartrate (Ambien -) 10 mg PO HS PRN PRN Reason: INSOMNIA Last Admin: 06/14/18 22:48 Dose: 10 mg - Objective Vital Signs: Vital Signs Temperature 98.9 F 06/15/18 14:51 Pulse Rate 91 H 06/15/18 14:51 Respiratory Rate 20 06/15/18 14:51 Blood Pressure 107/65 06/15/18 14:51 O2 Sat by Pulse Oximetry (%) 97 06/14/18 21:00 Constitutional: Yes: No Distress, Calm Cardiovascular: Yes: Regular Rate and Rhythm Respiratory: Yes: CTA Bilaterally Gastrointestinal: Yes: Normal Bowel Sounds, Soft Genitourinary: Yes: WNL Musculoskeletal: Yes: Joint Swelling (Rt knee mild edema/warmth/erythema - less) Integumentary: Yes: WNL Neurological: Yes: Alert, Oriented Labs: CBC, BMP 06/15/18 11:55 06/15/18 11:55 INR, PTT INR 3.53 (0.83-1.09) H 06/15/18 11:55 - ....Imaging X-ray: Report Reviewed Problem List - Problems (1) Cellulitis Code(s): L03.90 - CELLULITIS, UNSPECIFIED (3) Hyperlipidemia Code(s): E78.5 - HYPERLIPIDEMIA, UNSPECIFIED Qualifiers: Hyperlipidemia type: pure hypercholesterolemia Qualified Code(s): E78.00 - Pure hypercholesterolemia, unspecified (4) Hypertension Code(s): I10 - ESSENTIAL (PRIMARY) HYPERTENSION Qualifiers: Hypertension type: essential hypertension Qualified Code(s): I10 - Essential (primary) hypertension Assessment/Plan Rt knee cellulitis -- improving, still with some erythema/edema OA s/p lateral makoplasty -- continue current antibiotic , plan to switch oral as pt improves continue monitor site pt afebrile, stable
[2018-06-15] MEDS: WARFARIN NA 3 MG TABLET PO SCH (17:31)
[2018-06-15] MEDS: CLOTRIMAZOLE/BETAMET DIPROP 15 GM TUBE TP SCH (21:56)
[2018-06-15] MEDS: ATORVASTATIN CA 10 MG TABLET (FP) PO SCH (21:56)
[2018-06-15] MEDS: MONTELUKAST NA 10 MG TABLET PO SCH (21:56)
[2018-06-15] MEDS: GABAPENTIN 300 MG CAPSULE (FP) PO SCH (21:56)
[2018-06-15] MEDS: NORTRIPTYLINE HCL 25 MG CAPSULE PO SCH (21:57)
[2018-06-15] MEDS: DOCUSATE SODIUM 100 MG CAPSULE (FP) PO SCH (21:57)
[2018-06-15] MEDS: ZOLPIDEM TARTRATE 5 MG TABLET PO PRN (23:21)
[2018-06-16] MEDS: MEROPENEM 1 GM in DEXTROSE 5%-WATER 100 ML IVPB SCH ×3 (02:02→18:10)
[2018-06-16] MEDS ORDERED: PT OWN MED DRAWER 7, Y5N ONE ×4 (02:08→21:15)
[2018-06-16] MEDS: LEVOTHYROXINE NA 50 MCG TABLET (FP) PO SCH (06:08)
[2018-06-16] MEDS: ALBUTEROL SO4 2.5/IPRATROPIUM 0.5 INH SOL 3 ML VIAL.NEB. NEB SCH ×4 (07:39→20:16)
[2018-06-16 08:21] LABS: INR 2.69 (0.83-1.09); PROTHROMBIN TIME (PATIENT) 32.1 SEC (9.7-13.0)
[2018-06-16] MEDS: MECLIZINE HCL 12.5 MG TABLET PO SCH ×2 (09:58→21:35)
[2018-06-16] MEDS: PANTOPRAZOLE 40 MG TABLET (FP) PO SCH ×2 (09:58→21:36)
[2018-06-16] MEDS: ESCITALOPRAM OXALATE 20 MG TABLET (FP) PO SCH (09:58)
[2018-06-16] MEDS: MOMETASONE FUROATE 220 MCG/IH INHALER IH SCH ×2 (09:59→21:34)
[2018-06-16] MEDS: CLOTRIMAZOLE/BETAMET DIPROP 15 GM TUBE TP SCH ×2 (10:05→21:34)
--- NOTE | 2018-06-16 11:40 | PN ---
Progress Note, Physician Chief Complaint: patient seen and examined knee pain and leg pain much better on iv meropenem- day 5 no fever no wbc ambulating - Current Medication List Current Medications: Active Medications Acetaminophen/Butalbital/Caffeine (Fioricet -) 1 tablet PO Q6H PRN PRN Reason: HEADACHE Albuterol/Ipratropium (Duoneb -) 1 amp NEB RQID [facility] Last Admin: 06/16/18 11:37 Dose: 1 amp Atorvastatin Calcium (Lipitor -) 10 mg PO [facility] Last Admin: 06/15/18 21:56 Dose: 10 mg Clotrimazole (Lotrisone Cream (Small Tube)) 1 applic TP BID [facility] Last Admin: 06/16/18 10:05 Dose: 1 applic Docusate Sodium (Colace -) 300 mg PO [facility] Last Admin: 06/15/18 21:57 Dose: 300 mg Escitalopram Oxalate (Lexapro -) 20 mg PO DAILY [facility] Last Admin: 06/16/18 09:58 Dose: 20 mg Gabapentin (Neurontin -) 300 mg PO [facility] Last Admin: 06/15/18 21:56 Dose: 300 mg Meropenem 1 gm/ Dextrose 100 mls @ 200 mls/hr IVPB Q8H-IV [facility] Last Admin: 06/16/18 09:58 Dose: 200 mls/hr Levothyroxine Sodium (Synthroid -) 50 mcg PO ACBK [facility] Last Admin: 06/16/18 06:08 Dose: 50 mcg Meclizine HCl (Antivert -) 12.5 mg PO BID [facility] Last Admin: 06/16/18 09:58 Dose: 12.5 mg Mometasone Furoate (Asmanex 220mcg -) 1 puff IH BID [facility] Last Admin: 06/16/18 09:59 Dose: 1 puff Montelukast Sodium (Singulair -) 10 mg PO [facility] Last Admin: 06/15/18 21:56 Dose: 10 mg Non-Formulary Medication (Linaclotide [Linzess]) 145 mcg PO DAILY [facility] Nortriptyline HCl (Pamelor -) 50 mg PO [facility] Last Admin: 06/15/18 21:57 Dose: 50 mg Pantoprazole Sodium (Protonix -) 40 mg PO BID [facility] Last Admin: 06/16/18 09:58 Dose: 40 mg Warfarin Sodium (Coumadin -) 9 mg PO DAILY@1800 [facility] Last Admin: 06/15/18 17:31 Dose: Not Given Zolpidem Tartrate (Ambien -) 10 mg PO HS PRN PRN Reason: INSOMNIA Last Admin: 06/15/18 23:21 Dose: 10 mg - Objective Vital Signs: Vital Signs Temperature 97.6 F 06/16/18 05:48 Pulse Rate 79 06/16/18 05:48 Respiratory Rate 20 06/16/18 05:48 Blood Pressure 99/49 L 06/16/18 05:48 O2 Sat by Pulse Oximetry (%) 95 06/15/18 21:00 Constitutional: Yes: Calm Cardiovascular: Yes: Regular Rate and Rhythm, S1, S2 Respiratory: Yes: CTA Bilaterally Gastrointestinal: Yes: Normal Bowel Sounds, Soft Extremities: Yes: Other (knee swelling tenderness warmth- resolved much improved ) Edema: No Neurological: Yes: Alert, Oriented Labs: CBC, BMP 06/15/18 11:55 06/15/18 11:55 INR, PTT INR 2.69 (0.83-1.09) H 06/16/18 07:00 Problem List - Problems (1) Cellulitis Assessment/Plan: iv abx per ID- meropenem- improving- will change to po once ok with ID appreciate ortho note doppler is negative and foot xray is negative as well esr and crp trending down Code(s): L03.90 - CELLULITIS, UNSPECIFIED (2) Status post knee surgery Assessment/Plan: WBAT follow up in office right ankle pain - xray negative soft tissue swellling decreased PT (3) Hyperlipidemia Assessment/Plan: statin Code(s): E78.5 - HYPERLIPIDEMIA, UNSPECIFIED Qualifiers: Hyperlipidemia type: pure hypercholesterolemia Qualified Code(s): E78.00 - Pure hypercholesterolemia, unspecified (4) Hypothyroidism Assessment/Plan: tsh is normal on synthroid Code(s): E03.9 - HYPOTHYROIDISM, UNSPECIFIED Qualifiers: Hypothyroidism type: unspecified Qualified Code(s): E03.9 - Hypothyroidism , unspecified (5) Migraine Assessment/Plan: fioricet prn Code(s): G43.909 - MIGRAINE, UNSP, NOT INTRACTABLE, WITHOUT STATUS MIGRAINOSUS (6) Cerebrovascular disease Assessment/Plan: on coumadin inr therapeutic Code(s): I67.9 - CEREBROVASCULAR DISEASE, UNSPECIFIED
--- NOTE | 2018-06-16 15:27 | PN ---
Progress Note, Physician History of Present Illness: doing well knee has improved a lot still slight redness mobility much better - Current Medication List Current Medications: Active Medications Acetaminophen/Butalbital/Caffeine (Fioricet -) 1 tablet PO Q6H PRN PRN Reason: HEADACHE Albuterol/Ipratropium (Duoneb -) 1 amp NEB RQID [facility] Last Admin: 06/16/18 11:37 Dose: 1 amp Atorvastatin Calcium (Lipitor -) 10 mg PO [facility] Last Admin: 06/15/18 21:56 Dose: 10 mg Clotrimazole (Lotrisone Cream (Small Tube)) 1 applic TP BID [facility] Last Admin: 06/16/18 10:05 Dose: 1 applic Docusate Sodium (Colace -) 300 mg PO [facility] Last Admin: 06/15/18 21:57 Dose: 300 mg Escitalopram Oxalate (Lexapro -) 20 mg PO DAILY [facility] Last Admin: 06/16/18 09:58 Dose: 20 mg Gabapentin (Neurontin -) 300 mg PO [facility] Last Admin: 06/15/18 21:56 Dose: 300 mg Meropenem 1 gm/ Dextrose 100 mls @ 200 mls/hr IVPB Q8H-IV [facility] Last Admin: 06/16/18 09:58 Dose: 200 mls/hr Levothyroxine Sodium (Synthroid -) 50 mcg PO ACBK [facility] Last Admin: 06/16/18 06:08 Dose: 50 mcg Meclizine HCl (Antivert -) 12.5 mg PO BID [facility] Last Admin: 06/16/18 09:58 Dose: 12.5 mg Mometasone Furoate (Asmanex 220mcg -) 1 puff IH BID [facility] Last Admin: 06/16/18 09:59 Dose: 1 puff Montelukast Sodium (Singulair -) 10 mg PO [facility] Last Admin: 06/15/18 21:56 Dose: 10 mg Non-Formulary Medication (Linaclotide [Linzess]) 145 mcg PO DAILY [facility] Nortriptyline HCl (Pamelor -) 50 mg PO [facility] Last Admin: 06/15/18 21:57 Dose: 50 mg Pantoprazole Sodium (Protonix -) 40 mg PO BID [facility] Last Admin: 06/16/18 09:58 Dose: 40 mg Warfarin Sodium (Coumadin -) 9 mg PO DAILY@1800 [facility] Last Admin: 06/15/18 17:31 Dose: Not Given Zolpidem Tartrate (Ambien -) 10 mg PO HS PRN PRN Reason: INSOMNIA Last Admin: 06/15/18 23:21 Dose: 10 mg - Objective Vital Signs: Vital Signs Temperature 98.2 F 06/16/18 10:00 Pulse Rate 106 H 06/16/18 10:00 Respiratory Rate 18 06/16/18 10:00 Blood Pressure 119/74 06/16/18 10:00 O2 Sat by Pulse Oximetry (%) 99 06/16/18 10:00 Constitutional: Yes: No Distress, Calm Cardiovascular: Yes: Regular Rate and Rhythm Respiratory: Yes: Regular, CTA Bilaterally Gastrointestinal: Yes: Normal Bowel Sounds, Soft Musculoskeletal: Yes: WNL Extremities: Yes: Erythema (knee jont improved), Other Integumentary: Yes: Erythema (resolving) Neurological: Yes: Alert, Oriented Psychiatric: Yes: Alert, Oriented Labs: CBC, BMP 06/15/18 11:55 06/15/18 11:55 INR, PTT INR 2.69 (0.83-1.09) H 06/16/18 07:00 Assessment/Plan patient known to me from last admission coming with cellulittis of the knee and swelling cellulitis of the knee joint swelling of the knee joint pain plan continue meropenam close watch ortho rest as per the team patient can be switched to levaquin 750 mg daily for 8 more days
[2018-06-16] MEDS: WARFARIN NA 3 MG TABLET PO SCH (18:10)
[2018-06-16] MEDS ORDERED: INSULIN (LEVEMIR) 100 UNITS/ML UNITS SQ ONE (21:12)
[2018-06-16] MEDS ORDERED: INSULIN (NOVOLOG) ASPART 100 UNITS/ML 10ML VIAL ONE (21:13)
[2018-06-16] MEDS: MONTELUKAST NA 10 MG TABLET PO SCH (21:35)
[2018-06-16] MEDS: DOCUSATE SODIUM 100 MG CAPSULE (FP) PO SCH (21:35)
[2018-06-16] MEDS: NORTRIPTYLINE HCL 25 MG CAPSULE PO SCH (21:36)
[2018-06-16] MEDS: GABAPENTIN 300 MG CAPSULE (FP) PO SCH (21:36)
[2018-06-16] MEDS: ATORVASTATIN CA 10 MG TABLET (FP) PO SCH (21:36)
[2018-06-16] MEDS: ZOLPIDEM TARTRATE 5 MG TABLET PO PRN (23:09)
[2018-06-17] MEDS ORDERED: PT OWN MED DRAWER 7, Y5N ONE ×3 (01:25→11:05)
[2018-06-17] MEDS: MEROPENEM 1 GM in DEXTROSE 5%-WATER 100 ML IVPB SCH ×2 (01:35→11:10)
[2018-06-17] MEDS: LEVOTHYROXINE NA 50 MCG TABLET (FP) PO SCH (06:26)
[2018-06-17] MEDS: ALBUTEROL SO4 2.5/IPRATROPIUM 0.5 INH SOL 3 ML VIAL.NEB. NEB SCH ×2 (08:00→12:00)
[2018-06-17 08:11] LABS: INR 1.84 (0.83-1.09); PROTHROMBIN TIME (PATIENT) 21.8 SEC (9.7-13.0)
--- NOTE | 2018-06-17 10:00 | PN ---
Progress Note, Physician History of Present Illness: doing well knee has improved a lot still slight redness mobility much better - Current Medication List Current Medications: Active Medications Acetaminophen/Butalbital/Caffeine (Fioricet -) 1 tablet PO Q6H PRN PRN Reason: HEADACHE Albuterol/Ipratropium (Duoneb -) 1 amp NEB RQID [facility] Last Admin: 06/17/18 08:00 Dose: 1 amp Atorvastatin Calcium (Lipitor -) 10 mg PO [facility] Last Admin: 06/16/18 21:36 Dose: 10 mg Clotrimazole (Lotrisone Cream (Small Tube)) 1 applic TP BID [facility] Last Admin: 06/16/18 21:34 Dose: 1 applic Docusate Sodium (Colace -) 300 mg PO [facility] Last Admin: 06/16/18 21:35 Dose: 300 mg Escitalopram Oxalate (Lexapro -) 20 mg PO DAILY [facility] Last Admin: 06/16/18 09:58 Dose: 20 mg Gabapentin (Neurontin -) 300 mg PO [facility] Last Admin: 06/16/18 21:36 Dose: 300 mg Meropenem 1 gm/ Dextrose 100 mls @ 200 mls/hr IVPB Q8H-IV [facility] Last Admin: 06/17/18 01:35 Dose: 200 mls/hr Levothyroxine Sodium (Synthroid -) 50 mcg PO ACBK [facility] Last Admin: 06/17/18 06:26 Dose: 50 mcg Meclizine HCl (Antivert -) 12.5 mg PO BID [facility] Last Admin: 06/16/18 21:35 Dose: 12.5 mg Mometasone Furoate (Asmanex 220mcg -) 1 puff IH BID [facility] Last Admin: 06/16/18 21:34 Dose: 1 puff Montelukast Sodium (Singulair -) 10 mg PO [facility] Last Admin: 06/16/18 21:35 Dose: 10 mg Non-Formulary Medication (Linaclotide [Linzess]) 145 mcg PO DAILY [facility] Nortriptyline HCl (Pamelor -) 50 mg PO [facility] Last Admin: 06/16/18 21:36 Dose: 50 mg Pantoprazole Sodium (Protonix -) 40 mg PO BID [facility] Last Admin: 06/16/18 21:36 Dose: 40 mg Warfarin Sodium (Coumadin -) 9 mg PO DAILY@1800 [facility] Last Admin: 06/16/18 18:10 Dose: 9 mg Zolpidem Tartrate (Ambien -) 10 mg PO HS PRN PRN Reason: INSOMNIA Last Admin: 06/16/18 23:09 Dose: 10 mg - Objective Vital Signs: Vital Signs Temperature 98.1 F 06/17/18 07:00 Pulse Rate 69 06/17/18 07:00 Respiratory Rate 18 06/17/18 07:00 Blood Pressure 117/66 06/17/18 07:00 O2 Sat by Pulse Oximetry (%) 96 06/16/18 21:00 Constitutional: Yes: No Distress, Calm Cardiovascular: Yes: Regular Rate and Rhythm Respiratory: Yes: Regular, CTA Bilaterally Gastrointestinal: Yes: Normal Bowel Sounds, Soft Musculoskeletal: Yes: WNL Extremities: Yes: WNL Integumentary: Yes: Erythema Neurological: Yes: Alert, Oriented Psychiatric: Yes: Alert, Oriented Labs: CBC, BMP 06/15/18 11:55 06/15/18 11:55 INR, PTT INR 1.84 (0.83-1.09) H 06/17/18 06:00 Assessment/Plan patient known to me from last admission coming with cellulittis of the knee and swelling cellulitis of the knee joint swelling of the knee joint pain plan stopped meropenam close watch ortho rest as per the team patient can be switched to levaquin 750 mg daily for 8 more days
[2018-06-17] MEDS: PANTOPRAZOLE 40 MG TABLET (FP) PO SCH (11:09)
[2018-06-17] MEDS: ESCITALOPRAM OXALATE 20 MG TABLET (FP) PO SCH (11:09)
[2018-06-17] MEDS: MECLIZINE HCL 12.5 MG TABLET PO SCH (11:09)
[2018-06-17] MEDS: MOMETASONE FUROATE 220 MCG/IH INHALER IH SCH (11:10)
[2018-06-17] MEDS: CLOTRIMAZOLE/BETAMET DIPROP 15 GM TUBE TP SCH (11:10)
[2018-06-17 11:17] VITALS: BP 123/77; PULSE 96; TEMP 97.6
--- NOTE | 2018-06-17 11:50 | DS ---
Physical Examination Vital Signs: Vital Signs Temperature 97.6 F 06/17/18 11:00 Pulse Rate 96 H 06/17/18 11:00 Respiratory Rate 18 06/17/18 11:00 Blood Pressure 123/77 06/17/18 11:00 O2 Sat by Pulse Oximetry (%) 96 06/16/18 21:00 Constitutional: Yes: Calm Neck: Yes: Trachea Midline Cardiovascular: Yes: Regular Rate and Rhythm, S1, S2 Respiratory: Yes: CTA Bilaterally Gastrointestinal: Yes: Normal Bowel Sounds, Soft Extremities: Yes: Other (knee swelling and tenderness improved) Edema: No Neurological: Yes: Alert, Oriented Labs: CBC, BMP 06/15/18 11:55 06/15/18 11:55 Discharge Summary Reason For Visit: CELLULITIS OF RIGHT LOWER LEG Current Active Problems Cellulitis (Acute) Migraine (Acute) Status post knee surgery (Acute) Other Procedures: doppler showed no dvt Hospital Course: 53 year old female, with a significant past medical history of CVA (on Coumadin) , Diabetes, s/p lateral Makoplasty partial knee replacement 05/20/18, who presents to the emergency department with sudden increased in redness and swelling to her right lower extremity from knee to ankle. She completed a recent course of Abx. She also reports feeling feverish and chills. The patient denies chest pain, shortness of breath, headache and dizziness. The patient denies nausea, vomit, diarrhea and constipation. The patient denies dysuria, frequency, urgency and hematuria. in hospital: seen by ID and ortho got meropenem for 6 days now to change to po levaquin Condition: Improved - Instructions Referrals: Gibson Coe MD [Primary Care Provider] - Disposition: HOME - Home Medications Comprehensive Discharge Medication List: Ambulatory Orders Albuterol 0.083% Nebulizer Alena [Ventolin 0.083% Nebulizer Soln -] 1 amp NEB PRN 03/18/17 Escitalopram Oxalate [Lexapro -] 20 mg PO DAILY 03/18/17 Levothyroxine [Synthroid -] 50 mcg PO DAILY 03/18/17 Montelukast Na [Singulair -] 10 mg PO DAILY 03/18/17 Multivitamin [Poly-Vitamin] 1 each PO DAILY 03/18/17 Simvastatin 20 mg PO HS 03/18/17 Albuterol Sulfate Inhaler - [Ventolin HFA Inhaler -] 1 - 2 inh PO QID PRN Formoterol Fumarate [Perforomist] 20 mcg IH BID 04/05/17 Tiotropium Martin [Spiriva] 2 inh IH DAILY 04/05/17 Dexlansoprazole [Dexilant] 60 mg PO DAILY 05/12/18 Ergocalciferol (Vitamin D2) [Drisdol] 50,000 unit PO WEEKLY 05/12/18 Ferrous Sulfate [Iron] 325 mg PO DAILY 05/12/18 Fluticasone Furoate [Arnuity Ellipta] 200 mcg IH DAILY 05/12/18 Guaifenesin/Pseudoephedrne HCl [Mucinex D ER 1,200-120 mg Tab] 1 each PO BID PRN 05/12/18 Linaclotide [Linzess] 145 mcg PO DAILY 05/12/18 Oxycodone HCl/Acetaminophen [Percocet 10-325 mg Tablet] 10 mg PO TID PRN #40 tablet MDD 3 05/20/18 Acetaminophen [Tylenol .Regular Strength -] 650 mg PO Q4H PRN tablet 06/02/18 Docusate Sodium [Colace -] 300 mg PO HS capsule 06/02/18 Ferrous Sulfate [Feosol] 325 mg PO BIDWM ud 06/02/18 Gabapentin [Neurontin] 300 mg PO HS #30 capsule 06/02/18 Levofloxacin [Levaquin] 500 mg PO DAILY #7 tablet 06/02/18 Meclizine HCl 12.5 mg PO BID #60 tablet 06/02/18 Nortriptyline HCl [Pamelor -] 50 mg PO HS #30 cap 06/02/18 Zolpidem Tartrate [Ambien] 10 mg PO HS PRN tablet MDD 1 06/02/18 Warfarin Na [Coumadin -] 9 mg PO DAILY@1800 06/10/18
== END 2018-06-17 13:12 | disposition home or self-care (01) | DRG 603 ==
LOC: JER 13:51 → JERBED 16:58 → J5S 06-11 15:54
PROVIDERS: ADMIT Family Medicine; ATTEND Family Medicine
DX: L03.115 Cellulitis of right lower limb (principal); Z86.73 Personal history of transient ischemic attack (TIA), and cerebral infarction without residual deficits; K21.9 Gastro-esophageal reflux disease without esophagitis; J45.909 Unspecified asthma, uncomplicated; Z85.42 Personal history of malignant neoplasm of other parts of uterus; I25.10 Atherosclerotic heart disease of native coronary artery without angina pectoris; E03.9 Hypothyroidism, unspecified; M17.11 Unilateral primary osteoarthritis, right knee; Z96.651 Presence of right artificial knee joint; M79.7 Fibromyalgia; Z87.891 Personal history of nicotine dependence; Z88.0 Allergy status to penicillin; Z79.01 Long term (current) use of anticoagulants; J44.9 Chronic obstructive pulmonary disease, unspecified; E78.5 Hyperlipidemia, unspecified; M06.9 Rheumatoid arthritis, unspecified; E66.9 Obesity, unspecified; Z68.35 Body mass index [BMI] 35.0-35.9, adult; G43.909 Migraine, unspecified, not intractable, without status migrainosus
CPT/HCPCS: 36415; 71046-TC-FY; 73562-TC-RT-FY; 73610-TC-RT-FY; 73630-TC-RT-FY; 80053; 80061; 83036; 83721; 84439; 84443; 85025; 85610; 85651; 85730; 86140; 87040; 93970-TC; 94640; 99284-25; J7030; J7620

== ENCOUNTER 2018-08-16 13:03 | Emergency (ER) | payer BC, OTHER ==
[2018-08-16 13:25] VITALS: TEMP 97.9; BMI 35.8
[2018-08-16] MEDS ORDERED: ACETAMINOPHEN 325 MG TABLET (FP) PO ONE (13:37)
[2018-08-16] MEDS ORDERED: SODIUM CHLORIDE 1,000 ML IV STA (13:37)
--- NOTE | 2018-08-16 13:38 | PDOC ---
Attending Attestation - HPI HPI: 08/16/18 13:58 The patient is a 53 year old female, with a significant past medical history of TIA, DVT (on Coumadin), fibromyalgia, GERD, Asthma and uterus CA, CAD (s/p cath) , hypothyroidism, degenerative disc disease, and arthritis (s/p lateral Makoplasty partial knee replacement 05/20/18), who presents to the emergency department with, 3 weeks intermittent left flank pain. She describes her pain as waxing and waning, radiating to her abdomen and groin, and lasting for hours at time. She notes associated nausea with one episode of emesis and that today the pain has gotten to its worst. She endorses recently going to her PCP where her urinalysis was positive for blood. She denies recent fevers, chills, headache or dizziness. She denies recent diarrhea or constipation. She denies recent dysuria, frequency, urgency or hematuria. She denies recent chest pain. Allergies: Penicillins Past surgical history: lateral Makoplasty partial knee replacement 05/20/18 Social history: Nonsmoker. Denies EtOH use and recreational drug use. Primary Care Physician: Dr. Salas Orthopedist: Dr. Loera <Kalin Montanez - Last Filed: 08/16/18 13:58> - Resident Resident Name: Daisy Burgess - ED Attending Attestation I have performed the following: I have examined & evaluated the patient, The case was reviewed & discussed with the resident, I agree w/resident's findings & plan, Exceptions are as noted - Physicial Exam PE: 08/16/18 13:39 L sided CVA tenderness, well appearing, no distress no rebound/gaurding - Medical Decision Making 08/16/18 13:39 53y F hx of multiplemedical problems including cad, RA, hypothyroidism, dvt on coumadin, asthma, fibromyalgia, cva presenting with several 3 weeks of complaint of L flank pain that radaites from the abd down to the groin. was evaluated by her PMD showing hematuria. pain is intermittent, waxing and waning lasting hrs at a time. no associated fever/cihlls, cp, sob, cough, ddx includes but not limited to kidney stones vs msk pain will obtain lab work, UA, consider imaging 08/16/18 15:47 her labs were reviewed and unremarkable the patient's UA is negative for hematuria will obtain a CT of the abdomen to rule out stone versus diverticulitis <Michael Campos - Last Filed: 08/19/18 09:21> Attestations - Attestations 08/16/18 13:58 Documentation prepared by Kalin Montanez, acting as medical billing coordinator for Michael Campos MD. <Kalin Montanez - Last Filed: 08/16/18 13:58>
[2018-08-16] MEDS ORDERED: ACETAMINOPHEN 325 MG TABLET (FP) ONE (13:54)
[2018-08-16] MEDS ORDERED: ONDANSETRON 4 MG/2 ML VIAL IVPUSH ONE (13:55)
[2018-08-16 14:04] LABS: BASO % 0.7 % (0-2.0); EOS % 5.1 % (0-4.5); HEMATOCRIT 42.2 % (32.4-45.2); HEMOGLOBIN 13.6 GM/dL (10.7-15.3); LYMPH % 24.2 % (8-40); MCH 28.4 pg (25.7-33.7); MCHC 32.2 g/dl (32.0-36.0); MEAN CELL VOLUME 88.3 fl (80-96); MEAN PLT VOLUME 8.3 fl (7.5-11.1); MONO % 8.3 % (3.8-10.2); NEUT % 61.7 % (42.8-82.8); PLATELET COUNT 204 K/MM3 (134-434); RBC 4.78 M/mm3 (3.60-5.2); RDW 14.4 % (11.6-15.6); WHITE BLOOD COUNT 5.9 K/mm3 (4.0-10.0)
[2018-08-16] MEDS ORDERED: ONDANSETRON 4 MG/2 ML VIAL ONE (14:06)
[2018-08-16 14:20] LABS: INR 1.76 (0.83-1.09); PROTHROMBIN TIME (PATIENT) 20.9 SEC (9.7-13.0)
[2018-08-16 14:23] LABS: ACTIVATED PTT 37.6 SECONDS (25.2-36.5)
[2018-08-16 14:24] LABS: ALBUMIN 3.5 g/dl (3.4-5.0); ALK PHOS 120 U/L (45-117); ANION GAP 6 MMOL/L (8-16); BILIRUBIN,TOTAL 0.3 mg/dL (0.2-1); BLOOD UREA NITROGEN 7 mg/dL (7-18); CALCIUM 9.4 mg/dL (8.5-10.1); CHLORIDE 106 mmol/L (98-107); CO2 26 mmol/L (21-32); CREATININE 0.8 mg/dL (0.55-1.3); GLUCOSE,RANDOM 102 mg/dL (74-106); LIPASE 81 U/L (73-393); MAGNESIUM 2.3 mg/dL (1.8-2.4); POTASSIUM 4.2 mmol/L (3.5-5.1); SGOT/AST 23 U/L (15-37); SGPT/ALT 23 U/L (13-61); SODIUM 139 mmol/L (136-145); TOT PROT 7.7 g/dl (6.4-8.2)
--- NOTE | 2018-08-16 14:28 | PDOC ---
History of Present Illness - General Chief Complaint: Pain, Acute Stated Complaint: SIDE PAIN Time Seen by Provider: 08/16/18 13:27 - History of Present Illness Initial Comments: Jamal Le is a 53yo woman with a PMH of RA, HTN, HLD, CAD, TIA, h/o DVT on warfarin, asthma w/ chronic SOB, fibromyalgia, and hypothyroidism who presents with on and off left flank pain for several weeks, notably worsened today. She reports that she first started noticing the flank pain about 2-3 weeks ago but it was not severe. The pain would last for several hours at a time. She recently saw her PMD and had a urine test; she was told there was a small amount of blood in her urine, but she was not given a diagnosis. She does report that she has frequent pain due to her fibromyalgia but this pain is different and she had never experienced anything similar. Previously the pain was located only in the left flank but today also radiates around to the abdomen and down to the left groin. It has increased to a 9/10 and is significantly worsen than it has been previously. She has some associated nausea when the pain is severe but no significant vomiting. She denies any recent fevers or shivering chills, previous kidney stones, dysuria or urinary frequency, chest pain, shortness of breath (states her breathing is at baseline), or other new symptoms. Past History - Past Medical History Allergies/Adverse Reactions: Allergies Allergy/AdvReac Type Severity Reaction Status Date / Time Penicillins Allergy Severe Rash Verified 08/16/18 13:27 Home Medications: Ambulatory Orders Albuterol 0.083% Nebulizer Alena [Ventolin 0.083% Nebulizer Soln -] 1 amp NEB PRN 03/18/17 Escitalopram Oxalate [Lexapro -] 20 mg PO DAILY 03/18/17 Levothyroxine [Synthroid -] 50 mcg PO DAILY 03/18/17 Montelukast Na [Singulair -] 10 mg PO DAILY 03/18/17 Multivitamin [Poly-Vitamin] 1 each PO DAILY 03/18/17 Simvastatin 20 mg PO HS 03/18/17 Albuterol Sulfate Inhaler - [Ventolin HFA Inhaler -] 1 - 2 inh PO QID PRN Formoterol Fumarate [Perforomist] 20 mcg IH BID 04/05/17 Tiotropium Yarnell [Spiriva] 2 inh IH DAILY 04/05/17 Dexlansoprazole [Dexilant] 60 mg PO DAILY 05/12/18 Fluticasone Furoate [Arnuity Ellipta] 200 mcg IH DAILY 05/12/18 Linaclotide [Linzess] 145 mcg PO DAILY 05/12/18 Acetaminophen [Tylenol .Regular Strength -] 650 mg PO Q4H PRN tablet 06/02/18 Docusate Sodium [Colace -] 300 mg PO HS capsule 06/02/18 Ferrous Sulfate [Feosol] 325 mg PO BIDWM ud 06/02/18 Gabapentin [Neurontin] 300 mg PO HS #30 capsule 06/02/18 Meclizine HCl 12.5 mg PO BID #60 tablet 06/02/18 Nortriptyline HCl [Pamelor -] 50 mg PO HS #30 cap 06/02/18 Warfarin Na [Coumadin -] 9 mg PO DAILY@1800 06/10/18 Mometasone Furoate [Asmanex 220Mcg -] 1 puff IH BID #1 inhaler 06/17/18 Anemia: No Asthma: Yes Cancer: Yes (UTERUS) Cardiac Disorders: No CVA: Yes (TIA) COPD: No CHF: No Dementia: No Diabetes: No GI Disorders: Yes (REFLUX) Disorders: No HTN: No Hypercholesterolemia: No Liver Disease: No Seizures: No Thyroid Disease: No - Surgical History Abdominal Surgery: No Appendectomy: No Cardiac Surgery: No Cholecystectomy: No Lung Surgery: No Neurologic Surgery: No Orthopedic Surgery: Yes (BIRD. BUNIONECTOMIES) - Immunization History Immunization Up to Date: Yes - Suicide/Smoking/Psychosocial Hx Smoking History: Never smoked Have you smoked in the past 12 months: No If you are a former smoker, when did you quit?: 35 YRS AGO Hx Alcohol Use: No Drug/Substance Use Hx: No Substance Use Type: None Review of Systems - Review of Systems Comments:: General: No fevers, no chills, no weight or appetite change, no malaise HEENT: No changes in vision, no changes in hearing, no congestion, no sore throat CV: No chest pain, no palpitations, no LE edema Pulm: +asthma, +chronic SOB, +frequent wheezing GI: +mild nausea, no vomiting, no change in bowel habits, no melena : No frequency, no urgency, no dysuria. +flank pain Musc: +Chronic back pain, no joint swelling, no recent injury Skin: No rash, no lesions, no erythema Endo: No excessive thirst, no heat/cold intolerance Heme: No unusual bruising or bleeding, no swollen glands. Fully anticoagulated, h/o DVT Neuro: No syncope, no numbness/tingling, no focal weakness Vasc: No claudication Psych: No recent change in mood, no SI or HI *Physical Exam - Vital Signs Last Vital Signs Temp Pulse Resp BP Pulse Ox 97.9 F 101 H 20 115/76 99 08/16/18 13:19 08/16/18 13:19 08/16/18 13:19 08/16/18 13:19 08/16/18 13:19 - Physical Exam Comments: General: Uncomfortable, no acute distress HEENT: PERRL, EOMI, MMM, voice normal, normal neck ROM, no LAD Cards: RRR, no murmur appreciated Pulm: Comfortable on room air, few scattered wheezing that cleared with cough Abd: Soft, nondistended. Moderate left lateral upper abdominal tenderness, left groin pain : +left CVA tenderness Ext: Atraumatic. No LE edema. ROM intact. Strength 5/5 and equal bilaterally Vasc: Extremities WWP. Skin: Normal color, no rashes or lesions Neuro: A&Ox3, CN grossly intact, normal speech, motor/sensory grossly intact and symmetric Psych: Mood appropriate to situation Moderate Sedation - Procedure Monitoring Vital Signs: Procedure Monitoring Vital Signs Temperature 97.9 F 08/16/18 13:19 Pulse Rate 101 H 08/16/18 13:19 Respiratory Rate 20 08/16/18 13:19 Blood Pressure 115/76 08/16/18 13:19 O2 Sat by Pulse Oximetry (%) 99 08/16/18 13:19 ED Treatment Course - LABORATORY CBC & Chemistry Diagram: 08/16/18 13:59 08/16/18 13:53 Medical Decision Making - Medical Decision Making 08/16/18 13:57 Jamal Le is a 53yo woman with a PMH of RA, HTN, HLD, CAD, TIA, h/o DVT on warfarin, asthma w/ chronic SOB, fibromyalgia, and hypothyroidism who presents with on and off left flank pain for 2-3 weeks, today with significantly worsened left flank pain that radiates around to the abdomen and down to the left groin and associated nausea. She additionally reports that a recent UA at her PMD was positive for blood. - Kidney stone is most consistent with history and physical. With flank pain, hematuria, CVA tenderness could also be pyelonephritis but less likely as she has no fever. No plan to pursue ACS or PE as these are inconsistent with H&P, no associated symptoms, no hypoxia, breathing at baseline, and appears to be compliant with anticoagulation. - CBC, CMP, mag, phos, UA, UCx for evaluation - Acetaminophen for pain, zofran for nausea. IVF for hydration, especially given suspected stone 08/16/18 15:16 - Labs reviewed, no concerning abnormalities - UA negative for hematuria or infection - Given presentation, still feel that kidney stone is the most likely diagnosis , especially given report of hematuria on a UA several days ago. However, could also be musculoskeletal pain or due to known fibromyalgia. Spiral CT ordered for evaluation. - Reports continued pain following acetaminophen. Will give 2mg morphine as pt cannot take NSAIDs due to anticoagulation use 08/16/18 15:44 - Spoke to Ms Le to inform her about ordering CT. Per the patient, she is not having back pain as much as she is having LLQ pain that radiates to the upper left back. She disclosed that she saw her PMD earlier this week with the same complaint and was supposed to schedule a CT abd/pelvis. As we were planning to obtain a CT regardless, will change order to CT abd/pelvis w/ contrast to prevent need for a second CT in the near future. 08/16/18 18:45 - CT completed, read by radiology. Notes diverticulosis but no diverticulitis. Fatty infiltrate in liver and pancreas. Gallstone and possible sludge, but no sign of cholecystitis. Mild right pelvocaliectasis, no stones in kidneys, ureters, or bladder. Notes moderate stool burden. - Pt reports improved pain following medications. Discussed results at length. - Plan to discharge home with PMD follow up. No acute process seen other than moderate constipation. Pain likely due to known fibromyalgia or discomfort from stool burden. Discussed home care and follow up with Ms Le, she agrees and understands. Discussed with Igor Campos and Fabricio. Daisy Burgess PGY1 *DC/Admit/Observation/Transfer Diagnosis at time of Disposition: Left sided abdominal pain - Discharge Dispostion Disposition: HOME Condition at time of disposition: Stable Decision to Admit order: No - Referrals Referrals: Rogerio Salas MD [Primary Care Provider] - - Patient Instructions Printed Discharge Instructions: DI for Constipation, DI for Abdominal Pain- Adult Additional Instructions: Discharge Instructions: You were seen in the emergency department with left-sided abdominal pain and left flank pain. You had blood tests, a urine test, and a CT scan of your abdomen and pelvis. All of your tests were normal, though the CT scan showed some moderate constipation. This may be the cause of your pain. Home Care: - You may use acetaminophen (Tylenol) 1000mg every 6-8 hours as needed for pain - You may wish to discuss your fiber intake. Eat plenty of fruits and vegetables. You can add over the counter mild laxatives such as Miralax 1-2 times daily or docusate (colace) 1-2 times daily. - Continue to drink plenty of fluids Follow Up: - Make an appointment to follow up with your primary doctor to re-evalute your pain and discuss the results of your CT scan. - Seek immediate medical care if your pain becomes significantly more severe, you are unable to eat or drink, you stop having bowel movements or stop urinating, you have fevers to 101F or higher, or you have any other medical emergency. Instrucciones de descarga: Se lo atendi en el servicio de urgencias con dolor abdominal en el lado charlee y dolor en el flanco charlee. Le hicieron anlisis de yumiko, un anlisis de orina y rosy tomografa computarizada de rubio abdomen y pelvis. Todas bambi pruebas fueron normales, aunque la tomografa computarizada mostr un estreimiento moderado. Esta puede ser la causa de rubio dolor. Cuidados en el hogar: - Puede usar acetaminofn (Tylenol) 1000 mg cada 6-8 horas segn sea necesario para el dolor. - Es posible que desee discutir rubio ingesta de fibra. [place] muchas frutas y verduras. Puede agregar sin receta laxantes suaves tonia Miralax 1-2 veces al da o docusate (colace) 1-2 veces al da. - Continuar bebiendo muchos lquidos. Seguir: - Alida rosy demond para hacer un seguimiento con rubio mdico de cabecera para reevaluar rubio dolor y discutir los resultados de rubio tomografa computarizada. - Busque atencin mdica inmediata si rubio dolor se agrava considerablemente, no puede comer ni beber, yeison de evacuar o yeison de orinar, tiene fiebre de 101 F o ms, o tiene cualquier otra emergencia mdica. Print Language: TELUGU - Post Discharge Activity
[2018-08-16 14:43] LABS: URINE APPEARANCE CLEAR; URINE BILIRUBIN NEGATIVE (<2.0 mg/dL); URINE COLOR YELLOW; URINE GLUCOSE (UA) NEGATIVE (NEGATIVE); URINE KETONE NEGATIVE (NEGATIVE); URINE LEUK ESTERASE NEGATIVE (NEGATIVE); URINE NITRITE NEGATIVE (NEGATIVE); URINE PROTEIN NEGATIVE (NEGATIVE)
[2018-08-16] MEDS ORDERED: morphine CARPU-JECT 2 MG/1 ML DISP.SYRIN IVPUSH ONE (15:14)
[2018-08-16] MEDS ORDERED: MORPHINE SULFATE 2 MG/ML VIAL ONE (15:21)
[2018-08-16 17:55] VITALS: BP 121/70; PULSE 61
== END 2018-08-16 19:27 | disposition home or self-care (01) ==
LOC: JER 13:03
PROC: 3E033GC Introduction of Other Therapeutic Substance into Peripheral Vein, Percutaneous Approach (ICD-10-PCS; principal; 2018-08-16)
PROC: 3E0337Z Introduction of Electrolytic and Water Balance Substance into Peripheral Vein, Percutaneous Approach (ICD-10-PCS; 2018-08-16)
DX: R10.32 Left lower quadrant pain (principal); M06.9 Rheumatoid arthritis, unspecified; I10 Essential (primary) hypertension; E78.5 Hyperlipidemia, unspecified; I25.10 Atherosclerotic heart disease of native coronary artery without angina pectoris; Z86.718 Personal history of other venous thrombosis and embolism; Z79.01 Long term (current) use of anticoagulants; J45.909 Unspecified asthma, uncomplicated; E03.9 Hypothyroidism, unspecified
CPT/HCPCS: 36415; 74177-TC; 80053; 81003; 83690; 83735; 84100; 85025; 85610; 85730; 87086; 99284-25; J7030

== ENCOUNTER 2018-09-23 05:11 | Day surgery (SDC) | payer BC, OTHER ==
[2018-09-11 13:19] VITALS: BMI 35.8
[2018-09-23] MEDS ORDERED: BUPIVACAINE HCL/PF 0.5% (5MG/ML) 10 ML VIAL ONE ×2 (07:21→17:30)
[2018-09-23] MEDS ORDERED: LIDOCAINE 1%/EPI 1:100000 (20 ML MULTI DOSE VIAL) ONE (07:21)
[2018-09-23 13:41] LABS: INR 1.03 (0.83-1.09); PROTHROMBIN TIME (PATIENT) 12.1 SEC (9.7-13.0)
[2018-09-23 13:43] LABS: ACTIVATED PTT 28.4 SECONDS (25.2-36.5)
[2018-09-23] MEDS ORDERED: LIDOCAINE HCL 1%, 10 MG/ML (20ML VIAL) ONE (17:30)
[2018-09-23] MEDS ORDERED: LIDOCAINE 1%-EPI 1:100,000 30 ML MDV IJ ONE (17:30)
[2018-09-23] MEDS ORDERED: ACETAMINOPHEN 325 MG TABLET (FP) PO ONE ×2 (19:17→19:50)
[2018-09-23] MEDS ORDERED: ACETAMINOPHEN 325 MG TABLET (FP) ONE (19:19)
[2018-09-23] MEDS ORDERED: MIDAZOLAM HCL 2 MG/2 ML SINGLE DOSE VIAL ONE (19:53)
[2018-09-23] MEDS ORDERED: PROPOFOL 20 ML ONE ×4 (19:53→21:23)
[2018-09-23] MEDS ORDERED: KETOROLAC TROMETHAMINE 30 MG/1 ML VIAL ONE (19:57)
[2018-09-23] MEDS ORDERED: ceFAZolin SODIUM 1 GM VIAL ONE (20:10)
[2018-09-23] MEDS ORDERED: DEXAMETHASONE SOD PHOSPHATE 4 MG/1 ML VIAL ONE (20:13)
[2018-09-23] MEDS ORDERED: fentaNYL CITRATE 250 MCG/5 ML VIAL ONE (20:19)
[2018-09-23] MEDS ORDERED: LIDOCAINE 1%/EPI 1:100000 (50 ML MULTI DOSE VIAL) NR ONE (20:24)
[2018-09-23] MEDS ORDERED: BUPIVACAINE HCL/PF 0.5% (5MG/ML) 10 ML VIAL IJ ONE (20:24)
[2018-09-23] MEDS ORDERED: KETAMINE HCL 200 MG/20 ML VIAL ONE (20:51)
[2018-09-23] MEDS ORDERED: oxyCODONE HCL 5 MG TABLET PO PRN (21:39)
[2018-09-23] MEDS ORDERED: ONDANSETRON 4 MG/2 ML VIAL IVPUSH PRN (21:39)
--- NOTE | 2018-09-23 21:42 | HP ---
Admitting History and Physical - Primary Care Physician PCP: Juan Perez (Podiatry) - Admission Chief Complaint: Pain inferior to the left 2nd and 3rd metatarsals and left 5th. Pain on the dorsum of the right hallux. - Past Medical History CRM COORDINATOR: Yes: TIA Cardiovascular: Yes: HTN, Hyperlipdemia Pulmonary: Yes: COPD Gastrointestinal: Yes: GERD ...LMP Comment: 23yrs ago Heme/Onc: Yes: Hypercoaguable State Musculoskeletal: Yes: Osteoarthritis Rheumatology: Yes: Rheumatoid Arthritis Endocrine: Yes: Hypothyroidism - Smoking History Smoking history: Never smoked Have you smoked in the past 12 months: No If you are a former smoker, when did you quit?: 35 YRS AGO - Alcohol/Substance Use Hx Alcohol Use: No Home Medications - Allergies Allergies/Adverse Reactions: Allergies Allergy/AdvReac Type Severity Reaction Status Date / Time Penicillins Allergy Severe "throat Verified 09/23/18 13:52 closes" - Home Medications Home Medications: Ambulatory Orders Escitalopram Oxalate [Lexapro -] 20 mg PO DAILY 03/18/17 Levothyroxine [Synthroid -] 50 mcg PO DAILY 03/18/17 Multivitamin [Poly-Vitamin] 1 each PO DAILY 03/18/17 Simvastatin 20 mg PO HS 03/18/17 Albuterol Sulfate Inhaler - [Ventolin HFA Inhaler -] 1 - 2 inh PO QID PRN Dexlansoprazole [Dexilant] 60 mg PO DAILY 05/12/18 Linaclotide [Linzess] 145 mcg PO DAILY 05/12/18 Meclizine HCl 12.5 mg PO BID #60 tablet 06/02/18 Nortriptyline HCl [Pamelor -] 50 mg PO HS #30 cap 06/02/18 Warfarin Na [Coumadin -] 9 mg PO DAILY@1800 06/10/18 Cardizem - 180 mg PO DAILY 09/23/18 Drisdol 50,000 units PO WEEKLY 09/23/18 Gabapentin [Neurontin] 300 mg PO DAILY 09/23/18 Halobetasol Prop 0.05% Tp Crm [Ultravate (Nf) -] 1 applic TP DAILY 09/23/18 Montelukast Sodium [Singulair] 10 mg PO DAILY 09/23/18 Oxycodone HCl/Acetaminophen [Percocet 5-325 mg Tablet] 1 tab PO PRN PRN Zolpidem Tartrate [Ambien] 10 mg PO HS 09/23/18 Physical Examination Vital Signs: Vital Signs Temperature 98 F 09/23/18 13:41 Pulse Rate 75 09/23/18 13:41 Respiratory Rate 16 09/23/18 13:41 Blood Pressure 103/65 09/23/18 13:41 O2 Sat by Pulse Oximetry (%) 94 L 09/23/18 13:31 Extremities: Yes: Other (Right hallux flexed with dorsal proximal phalangeal head prominence. Left 5th toe hammered with hyperkeratosis, left 2nd and 3rd metatarsal heads plantarly prominent and painful on palpation.) Assessment/Plan Assessment 1. Right hallux flexed with dorsal proximal phalangeal head exostosis. 2. Left 5th hammertoe 3. Left 2nd and 3rd metatarsalgia. Plan 1. Right hallux proximal phalangeal exostectomy 2. Left 5th toe arthroplasty 3. Metatarsal ostetotomy left 2nd and 3rd to shorten bone and reduce weight bearing pressure.
[2018-09-23 22:35] VITALS: BP 118/68; PULSE 72; TEMP 98
--- NOTE | 2018-09-23 23:24 | OP ---
DATE OF OPERATION: 09/23/2018 PREOPERATIVE DIAGNOSES: 1. Metatarsalgia left 2nd and 3rd. 2. Hammertoe left 5th. 3. Exostosis of bone spurs right hallux dorsum. POSTOPERATIVE DIAGNOSES: 1. Metatarsalgia left 2nd and 3rd. 2. Hammertoe left 5th. 3. Exostosis of bone spurs right hallux dorsum. PROCEDURES: 1. Condylectomy, ostectomy of bone from the right hallux. 2. Hammertoe operation left 5th toe proximal interphalangeal joint. 3. Siria osteotomy of the left 2nd metatarsal. 4. Siria osteotomy of the left 3rd metatarsal. DESCRIPTION OF PROCEDURE: Under fractional anesthesia and a surgical scrub and a betadine scrub and solution x2, the patient was draped using sterile technique. Attention was first directed to the right hallux that was slightly plantarflexed and showed dorsal exostoses at the head of the proximal phalanx of the toe. A transverse incision was made on the dorsal interphalangeal joint of the right hallux. The incision was deepened through the joint capsule and the head of the proximal phalanx was delivered into the wound. Dorsal exostoses were identified and resected using a bone saw. The bone was smoothed and then a copious irrigation was performed. Deep tissues were closed with 4-0 Vicryl and then skin was reapproximated and closed with simple interrupted 4-0 nylon sutures. A dry sterile dressing was applied to the right foot and then attention was directed to the left foot. The 5th toe was hammered with a dorsolateral hyperkeratosis. Using double, semielliptical incisions the hyperkeratosis was excised. The joint capsule of the proximal phalanx was transversely incised and the head of the proximal phalanx, which had regenerated from previous surgery, was delivered into the wound. It was resected using bone-cutting forceps because the bone was somewhat irregular in its shape, perhaps a complete bone resection was not performed, but the prominence was resected. The wound was irrigated with sterile saline. The toe was reduced into normal anatomic position and was sutured with 4-0 Vicryl for deep tissues including extensor tendon and then 4-0 nylon to reapproximate and close the skin. Attention now directed to the left 2nd and 3rd metatarsals where plantar and metatarsal pressure causes pain in the ball of the foot. Using a number 15 blade, a linear longitudinal incision was made in the interspace between the 2nd and 3rd metatarsals and the surgical incision was deepened through the fascia and retracted, exposing the deep fascia, covering the 2nd metatarsal and 3rd metatarsophalangeal joints. First the deep fascia and joint capsule of the 2nd metatarsal was longitudinally incised on its medial surface. The periosteum and joint capsule were reflected medially and laterally and then a Siria-type oblique osteotomy was performed at the surgical neck of the 2nd metatarsal. The 2nd metatarsal was shortened by 4 mm. Overhanging bone was resected and then a 1-cm long, 2.5-cm headless bone screw was placed into the osteotomy for fixation. The wound was irrigated and then the 2nd metatarsophalangeal joint capsule was repaired using 4-0 Vicryl. Attention now directed to the left 3rd metatarsophalangeal joint. A linear longitudinal capsular incision was made on the medial surface of this joint, exposing the 3rd metatarsal head. Similarly, a Siria-type osteotomy in the oblique was performed at the surgical neck and the head of the 3rd metatarsal was transposed proximally 4-mm. Overhang was resected and then this was also fixed with a 1-cm long by 2.5-mm headless bone screw. The wound was irrigated with saline and then joint capsule was reapproximated and closed with 4-0 Vicryl. Superficial tissue closed in similar fashion and then skin was reapproximated and closed with 4-0 nylon simple interrupted sutures. A dry, sterile dressing was applied to the left foot as well. The patient tolerated the surgical procedure well, left the operating room stable, alert, awake, and in no pain. ANTONIO CHANDRA/[id number]
--- NOTE | 2018-09-25 16:09 | PATH ---
Surgical Pathology Report Patient Name: ELROY BROWN [facility]. Rec. #: [id number] /Age/Gender: 1965 (Age: 53) / F Account: [id number] Location: [facility] SURGICAL Taken: 09/23/2018 Received: 09/24/2018 Reported: 09/25/2018 Physicians: Juan Perez M.D. Specimen(s) Received A: BONE FROM RIGHT BIG TOE B: BONE FROM LEFT FIFTH TOE C: BONE FROM SECOND METATARSAL LEFT FOOT Clinical History Metatarsalgia left foot, hammertoe left foot, arthropathies Bone spur right big toe Final Diagnosis A. BONE, BIG TOE, RIGHT, OSTECTOMY: BONE WITH DEGENERATIVE CHANGES, SKIN, AND DENSE FIBROCONNECTIVE TISSUE B. BONE, FIFTH TOE, LEFT, OSTEOTOMY: BONE WITH DEGENERATIVE CHANGES, DENSE FIBROCONNECTIVE TISSUE, SKIN, AND FIBROADIPOSE TISSUE. C. BONE, SECOND METATARSAL, FOOT, LEFT, OSTEOTOMY: BONE WITH DEGENERATIVE CHANGES AND FIBROADIPOSE TISSUE. Electronically Signed Farnaz Arce M.D. Gross Description A. Received in formalin labeled "bone from right big toe," is a 2.4 x 1.5 x 0.3 cm aggregate of carroll skin, soft tissue and bone fragments. The specimen is submitted entirely in one cassette, following decalcification. B. Received in formalin labeled "bone from left fifth toe," is a 0.9 x 0.7 x 0.3 cm carroll portion of bone. Also received within the same container is a 1.7 x 0.8 cm carroll, elliptical portion of skin. The specimen is sectioned and direct customer service representative sections are submitted in one cassette, following decalcification. C. Received in formalin labeled "bone from second metatarsal left foot," are 2 carroll bone fragments measuring 0.8 x 0.6 x 0.1 cm and 1.3 x 0.6 x 0.2 cm. The specimens are submitted in toto in one cassette, following decalcification. /09/24/201809/24/2018
== END 2018-09-24 01:13 | disposition home or self-care (01) ==
LOC: JASU-SURG 05:11 → J6S 20:47 → JASU-SURG 09-24 01:13
PROVIDERS: ATTEND Podiatrist Foot Surgery
PROC: 0QSP04Z Reposition Left Metatarsal with Internal Fixation Device, Open Approach (ICD-10-PCS; 2018-09-23)
PROC: 0QSP04Z Reposition Left Metatarsal with Internal Fixation Device, Open Approach (ICD-10-PCS; 2018-09-23)
PROC: 0SRQ0JZ Replacement of Left Toe Phalangeal Joint with Synthetic Substitute, Open Approach (ICD-10-PCS; principal; 2018-09-23 14:30)
DX: M77.42 Metatarsalgia, left foot (principal); M20.42 Other hammer toe(s) (acquired), left foot; M77.51 Other enthesopathy of right foot and ankle
CPT/HCPCS: 36415; 85610; 85730; 88305-TC; 88311-TC; 94760

== ENCOUNTER → 2019-02-24 | Day surgery (SDC) | payer BC, OTHER ==
--- NOTE | 2019-02-27 18:14 | PATH ---
Cytology Non-Gynecological Report Patient Name: ELROY BROWN [facility]. Rec. #: [id number] /Age/Gender: 1965 (Age: 53) / F Account: [id number] Location: RADIOLOGY INTER Taken: 02/24/2019 Received: 02/24/2019 Reported: 02/27/2019 Physicians: Gillian Gomez M.D. Specimen(s) Received LEFT THYROID FNA Clinical History Left thyroid nodule Final Diagnosis THYROID, LEFT, FINE NEEDLE ASPIRATION: SATISFACTORY FOR EVALUATION. BETHESDA III: ATYPIA OF UNDETERMINED SIGNIFICANCE. CLUSTERS OF ATYPICAL FOLLICULAR CELLS WITH FOCAL HURTHLE CELL METAPLASIA, NUCLEAR ENLARGEMENT, CLEARING, SUBTLE NUCLEAR GROOVES, AND FOCAL CROWDING, IN A BACKGROUND OF MANY HETEROGENEOUS LYMPHOCYTES. SEE COMMENT. Comment: The presence of many lymphocytes raises the possibility of chronic lymphocytic thyroiditis. Suggest clinical correlation. Electronically Signed Joe Fowler M.D. Gross Description Received are eight direct smears, four of which are air-dried and Diff-Quik stained, and four of which are alcohol fixed and Pap stained. Also received is 20 ml of bloody formalin from which one cellblock is prepared.
== END | disposition home or self-care (01) ==
LOC: JRADIR 08:36
PROVIDERS: ATTEND Internal Medicine Endocrinology, Diabetes & Metabolism
PROC: 0G9K3ZX Drainage of Thyroid Gland, Percutaneous Approach, Diagnostic (ICD-10-PCS; principal; 2019-02-24)
DX: E04.1 Nontoxic single thyroid nodule (principal)
CPT/HCPCS: 10005; 76942; 88173; 88305-TC

== ENCOUNTER 2019-04-29 15:52 | Inpatient (IN) | payer BC, OTHER ==
--- NOTE | 2019-04-29 16:13 | PDOC ---
History of Present Illness - General Chief Complaint: Syncope/Near Syncope Stated Complaint: FALL Time Seen by Provider: 04/29/19 16:13 History Source: Patient Exam Limitations: No Limitations - History of Present Illness Initial Comments: 53 year old female with PMH of vertigo, RA, HTN, HLD, CAD, TIA, h/o DVT on warfarin, asthma w/ chronic SOB, fibromyalgia, and hypothyroidism presented to ED for dizziness today. Pt reported she was at the [employer], felt a room spinning sensation, then fell to the ground, hitting her head. She stated she awoke without memory of all of the events. She denied LOC, vomiting, neck pain, laceration. Pt reported she went home, but continued to have episodes of dizziness/lightheadedness, prompting her to come to the ED for evaluation. Pt reported she has had episodes of vertigo in the past, and that todays symptoms feel similar to prior episodes. Pt complained of right posterior head pain where she hit her head, left upper back pain, and sacral pain. Allergies: PCN Past History - Past Medical History Allergies/Adverse Reactions: Allergies Allergy/AdvReac Type Severity Reaction Status Date / Time Penicillins Allergy Severe "throat Verified 09/23/18 13:52 closes" Home Medications: Ambulatory Orders Escitalopram Oxalate [Lexapro -] 20 mg PO DAILY 03/18/17 Levothyroxine [Synthroid -] 50 mcg PO DAILY 03/18/17 Multivitamin [Poly-Vitamin] 1 each PO DAILY 03/18/17 Simvastatin 20 mg PO HS 03/18/17 Albuterol Sulfate Inhaler - [Ventolin HFA Inhaler -] 1 - 2 inh PO QID PRN Dexlansoprazole [Dexilant] 60 mg PO DAILY 05/12/18 Linaclotide [Linzess] 145 mcg PO DAILY 05/12/18 Meclizine HCl 12.5 mg PO BID #60 tablet 06/02/18 Nortriptyline HCl [Pamelor -] 50 mg PO HS #30 cap 06/02/18 Warfarin Na [Coumadin -] 9 mg PO DAILY@1800 06/10/18 Cardizem - 180 mg PO DAILY 09/23/18 Drisdol 50,000 units PO WEEKLY 09/23/18 Gabapentin [Neurontin] 300 mg PO DAILY 09/23/18 Halobetasol Prop 0.05% Tp Crm [Ultravate (Nf) -] 1 applic TP DAILY 09/23/18 Montelukast Sodium [Singulair] 10 mg PO DAILY 09/23/18 Oxycodone HCl/Acetaminophen [Percocet 5-325 mg Tablet] 1 tab PO PRN PRN Zolpidem Tartrate [Ambien] 10 mg PO HS 09/23/18 Anemia: No Asthma: Yes Cancer: Yes (UTERUS) Cardiac Disorders: No CVA: Yes (TIA) COPD: No CHF: No Dementia: No Diabetes: No GI Disorders: Yes (REFLUX) Disorders: No HTN: No Hypercholesterolemia: No Liver Disease: No Seizures: No Thyroid Disease: No - Surgical History Abdominal Surgery: No Appendectomy: No Cardiac Surgery: No Cholecystectomy: No Lung Surgery: No Neurologic Surgery: No Orthopedic Surgery: Yes (BIRD. BUNIONECTOMIES) - Immunization History Immunization Up to Date: Yes - Suicide/Smoking/Psychosocial Hx Smoking History: Never smoked Have you smoked in the past 12 months: No If you are a former smoker, when did you quit?: 35 YRS AGO Information on smoking cessation initiated: No Hx Alcohol Use: No Drug/Substance Use Hx: No Substance Use Type: None Hx Substance Use Treatment: No Review of Systems - Review of Systems Able to Perform ROS?: Yes Comments:: General: denied fever, chills, generalized weakness. HEENT: denied sore throat, rhinorrhea, ear pain. Cardiovascular: denied chest pain, palpitations, syncope, diaphoresis. Respiratory: denied shortness of breath, cough, sputum production, hemoptysis. Gastrointestinal: denied abdominal pain, nausea, vomiting, diarrhea, constipation, blood in stool. Genitourinary: denied dysuria, increased urinary frequency, hematuria, urinary incontinence, flank pain. Back: admitted to thoracic back pain, sacral pain. Musculoskeletal: denied joint pain, muscle pain, joint swelling. Neurological: admitted to headache, dizziness. denied numbness, tingling, weakness. Integumentary: denied rash, laceration, abrasion. Hematologic/Lymphatic: denied bruising or bleeding. *Physical Exam - Vital Signs Last Vital Signs Temp Pulse Resp BP Pulse Ox 98.1 F 65 16 111/65 90 L 04/29/19 16:09 04/29/19 16:09 04/29/19 16:09 04/29/19 16:09 04/29/19 16:09 - Physical Exam Comments: Constitutional: Well-nourished, Well-developed, appearing stated age. Airway: intact Breathing: bilateral breath sounds Circulation: 2+ carotid pulse B/L HEENT: head is normocephalic. tenderness to palpation of right posterior head. No facial bones tenderness to palpation. No fam sign. No raccoon eyes. EOMI. PERRLA. Neck: supple. Full ROM. no midline c-spine tenderness to palpation. No step offs. Cardiovascular: regular heart rhythm. no murmurs. no pericardial friction rub. Chest wall: no seatbelt sign. No tenderness to palpation of anterior chest wall. No deformity to anterior chest wall. Respiratory: clear to auscultation bilaterally. no crackles, rhonchi or wheezing. no stridor. Gastrointestinal: soft, nontender. normal bowel sounds. no rebound, guarding, masses. No ecchymoses. Back: tenderness to palpation of left paraspinal thoracic area, sacrum. no midline T-spine or L-spine tenderness to palpation. No step offs. Pelvis: lower extremities equal in length without external rotation. No hip tenderness to palpation. Extremities: peripheral pulses intact. no lower extremity edema. Neurological: CN 2-12 grossly intact. moves all four extremities. Psych: awake, alert, oriented x3. follows commands. answers questions appropriately. ED Treatment Course - LABORATORY CBC & Chemistry Diagram: 04/29/19 17:05 04/29/19 17:05 Medical Decision Making - Medical Decision Making 53 year old female with above PMH presented to ED for syncope/room spinning sensation which caused an accidental fall to the ground involving head injury. Initial Vital Signs Temp Pulse Resp BP Pulse Ox 98.1 F 65 16 111/65 90 L 04/29/19 16:09 04/29/19 16:09 04/29/19 16:09 04/29/19 16:09 04/29/19 16:09 Afebrile. No tachycardia. No tachypnea. Normal BP. Pt is currently satting 94% on room air. EKG: rate 65, regular rhythm, normal axis, QTc 484, biphasic T in V2, no other acute ST changes. 04/29/19 17:36 CBC WBC 6.5 K/mm3 (4.0-10.0) 04/29/19 17:05 RBC 4.24 M/mm3 (3.60-5.2) 04/29/19 17:05 Hgb 12.6 GM/dL (10.7-15.3) 04/29/19 17:05 Hct 38.0 % (32.4-45.2) 04/29/19 17:05 MCV 89.6 fl (80-96) 04/29/19 17:05 MCH 29.7 pg (25.7-33.7) 04/29/19 17:05 MCHC 33.2 g/dl (32.0-36.0) 04/29/19 17:05 RDW 14.1 % (11.6-15.6) 04/29/19 17:05 Plt Count 200 K/MM3 (134-434) 04/29/19 17:05 MPV 8.1 fl (7.5-11.1) 04/29/19 17:05 Absolute Neuts (auto) 3.6 K/mm3 (1.5-8.0) 04/29/19 17:05 Neutrophils % 55.3 % (42.8-82.8) 04/29/19 17:05 Lymphocytes % 29.6 % (8-40) 04/29/19 17:05 Monocytes % 8.6 % (3.8-10.2) 04/29/19 17:05 Eosinophils % 5.7 % (0-4.5) H 04/29/19 17:05 Basophils % 0.8 % (0-2.0) 04/29/19 17:05 Nucleated RBC % 0 % (0-0) 04/29/19 17:05 No leukocytosis. No anemia. 04/29/19 17:55 CMP Sodium 141 mmol/L (136-145) 04/29/19 17:05 Potassium 4.0 mmol/L (3.5-5.1) 04/29/19 17:05 Chloride 107 mmol/L (98-107) 04/29/19 17:05 Carbon Dioxide 28 mmol/L (21-32) 04/29/19 17:05 Anion Gap 5 MMOL/L (8-16) L 04/29/19 17:05 BUN 9.0 mg/dL (7-18) 04/29/19 17:05 Creatinine 0.9 mg/dL (0.55-1.3) 04/29/19 17:05 Est GFR (CKD-EPI)AfAm 84.01 04/29/19 17:05 Est GFR (CKD-EPI)NonAf 72.49 04/29/19 17:05 Random Glucose 86 mg/dL (74-106) 04/29/19 17:05 Calcium 8.9 mg/dL (8.5-10.1) 04/29/19 17:05 Total Bilirubin 0.2 mg/dL (0.2-1) 04/29/19 17:05 AST 38 U/L (15-37) H 04/29/19 17:05 ALT 41 U/L (13-61) 04/29/19 17:05 Alkaline Phosphatase 120 U/L (45-117) H 04/29/19 17:05 Troponin I < 0.02 ng/ml (0.00-0.05) 04/29/19 17:05 Total Protein 7.3 g/dl (6.4-8.2) 04/29/19 17:05 Albumin 3.5 g/dl (3.4-5.0) 04/29/19 17:05 No electrolyte abnormalities. No RAYMUNDO. Troponin wnl 04/29/19 18:00 CT head report: Name: ELROY BROWN DEPARTMENT OF RADIOLOGY Phys: Jessika Villareal RESIDENT : 1965 Age: 53 Sex: F [facility] Acct: [id number] Loc: [address] Exam Date: 04/29/19 [id number] Unit Number: [id number] EXAM#: TYPE/EXAM: RESULT: [id number] CT/HEAD CT WITHOUT CONTRAST Cranial CT without contrast Clinical information: status post fall; dizziness No intracranial injury or calvarial fracture is noted. There is no extra-axial fluid collection. No discrete infarct is identified within the limitations of CT. There is no gross mass lesion on noncontrast imaging. No definite abnormal attenuation is seen. The ventricles and cisterns appear unremarkable. Impression : No CT evidence of acute intracranial pathology. There has been no definite interval change in comparison to a prior CT exam of 05/11/2008. In comparison to a cranial MRI exam of 10/06/2018 note is again made of moderate bilateral ethmoid sinus opacification consistent with sinusitis which is probably chronic. Correlate clinically. The partially imaged maxillary sinuses demonstrate mild mucosal thickening bilaterally. Reported By: Silvestre Sifuentes MD 04/29/19 1750 04/29/19 18:23 CT cervical spine report: Name: ELORY BROWN DEPARTMENT OF RADIOLOGY Phys: Jessika Villareal RESIDENT : 1965 Age: 53 Sex: F [facility] Acct: [id number] Loc: [facility] [address] [place] [address] Exam Date: 04/29/19 Status: [place] [address] Unit Number: [id number] ACCESSION # : [id number] EXAM#: TYPE/EXAM: RESULT: [id number] CT/CERVICAL SPINE CT W/O CONTR Cervical spine CT without contrast Clinical information: status post fall Multiplanar imaging was performed. No fracture or posttraumatic malalignment is noted. Multilevel degenerative disc changes are seen. The perivertebral soft tissues demonstrate no obvious abnormality. Impression: No fracture is identified. Reported By: Silvestre Sifuentes MD 04/29/19 1813 04/29/19 19:16 No acute fractures noted on XR by my read. -Pending official reports Pt reassessed, reported continued sacral pain, but reported no episodes of lightheadedness/dizziness since in the ED. Pt to be admitted under observation for syncopal episode. Pending admission. 04/29/19 20:10 CXR report: Name: ELROY BROWN DEPARTMENT OF RADIOLOGY Phys: Jessika Villareal RESIDENT : 1965 Age: 53 Sex: F [facility] Acct: [id number] Loc: [address] Exam Date: 04/29/19 Status: [facility] [place] [address] Unit Number: [id number] EXAM#: TYPE/EXAM: RESULT: [id number] RAD/CHEST X-RAY PORTABLE* Portable chest: Fall from standing. Pain. Single AP view of the chest reveals an elevated right hemidiaphragm, prominent mediastinum and some atelectatic changes at the left base. An acute chest process is not seen. A gross fracture is not visualized. Correlation recommended. Reported By: Ravi Avila MD 04/29/19200204/29/19 20:17 Sacrum XR report: Name: ELROY BROWN DEPARTMENT OF RADIOLOGY Phys: Karina Villareala RESIDENT : 1965 Age: 53 Sex: F [facility] Acct: [id number] Loc: [address] Exam Date: 04/29/19 Status: [place] [id number] Unit Number: [id number] EXAM#: TYPE/EXAM: RESULT: RAD/SACRUM Sacrum: Pain. Fall. 3 views of the sacrum have been submitted. There is no sign of fracture. Blastic or lytic changes are not seen. The SI joints are patent. There is a left pelvic phlebolith. If symptoms persist or there is decreased range of motion and further imaging and orthopedic consultation may be appropriate Reported By: Ravi Avila MD 04/29/19201404/29/19 20:26 Thoracic spine Xr report: Name: ELROY BROWN DEPARTMENT OF RADIOLOGY Phys: DionnaJessika RESIDENT : 1965 Age: 53 Sex: F [facility] Acct: [id number] Loc: [address] Exam Date: 04/29/19 Status: [place] [id number] Unit Number: [id number] ACCESSION # : [id number] EXAM#: TYPE/EXAM: RESULT: RAD/SPINE-THORACIC Thoracic spine: Left paraspinal tenderness. Fall. 3 views of the thoracic spine reveal degenerative changes, intact paraspinal soft tissues and normal thoracic kyphosis with no sign of a compression fracture or subluxation. Blastic or lytic changes are not seen. Intervertebral disc spaces are preserved. The paraspinal and prevertebral soft tissues appear intact. In the lateral view the upper most thoracic spine cannot be seen. Incidental note is made of a midline trachea and left paraspinal clips in the cervical area. Correlation recommended. If one is concerned about a rib fracture, then rib films are suggested. 04/29/19 20:28 I spoke with CONTROLS ENGINEER Pablo about the patient, he agrees with plan for obs for syncope. Pt to be admitted under Dr. Coe's care. *DC/Admit/Observation/Transfer Diagnosis at time of Disposition: Dizziness - Discharge Dispostion Condition at time of disposition: Stable Decision to Admit order: Yes - Referrals Referrals: Gibson Coe MD [Primary Care Provider] - - Patient Instructions Printed Discharge Instructions: DI for Vertigo - Post Discharge Activity
[2019-04-29] MEDS ORDERED: ACETAMINOPHEN 1000 MG/100 ML VIAL (NON FORMULARY) IVPB ONE (16:31)
[2019-04-29] MEDS ORDERED: SODIUM CHLORIDE 1,000 ML IV STA (16:31)
[2019-04-29] MEDS ORDERED: METOCLOPRAMIDE HCL INJECTION 10 MG/2 ML VIAL IVPUSH ONE (16:58)
[2019-04-29 17:16] LABS: BASO % 0.8 % (0-2.0); EOS % 5.7 % (0-4.5); HEMOGLOBIN 12.6 GM/dL (10.7-15.3); LYMPH % 29.6 % (8-40); MCH 29.7 pg (25.7-33.7); MCHC 33.2 g/dl (32.0-36.0); MEAN CELL VOLUME 89.6 fl (80-96); MEAN PLT VOLUME 8.1 fl (7.5-11.1); MONO % 8.6 % (3.8-10.2); NEUT % 55.3 % (42.8-82.8); PLATELET COUNT 200 K/MM3 (134-434); RBC 4.24 M/mm3 (3.60-5.2); RDW 14.1 % (11.6-15.6); WHITE BLOOD COUNT 6.5 K/mm3 (4.0-10.0)
[2019-04-29 17:47] LABS: ALBUMIN 3.5 g/dl (3.4-5.0); ALK PHOS 120 U/L (45-117); ANION GAP 5 MMOL/L (8-16); BILIRUBIN,TOTAL 0.2 mg/dL (0.2-1); CALCIUM 8.9 mg/dL (8.5-10.1); CHLORIDE 107 mmol/L (98-107); CO2 28 mmol/L (21-32); CREATININE 0.9 mg/dL (0.55-1.3); GLUCOSE,RANDOM 86 mg/dL (74-106); SGOT/AST 38 U/L (15-37); SGPT/ALT 41 U/L (13-61); SODIUM 141 mmol/L (136-145); TOT PROT 7.3 g/dl (6.4-8.2)
[2019-04-29] MEDS ORDERED: METOCLOPRAMIDE HCL INJECTION 10 MG/2 ML VIAL ONE (18:44)
--- NOTE | 2019-04-29 19:17 | PDOC ---
Documentation entered by Corrine Casey SCRIBE, acting as scribe for Giancarlo Donovan MD. Giancarlo Donovan MD: This documentation has been prepared by the Carmela sheth Xhesika, SCRIBE, under my direction and personally reviewed by me in its entirety. I confirm that the documentation accurately reflects all work, treatment, procedures, and medical decision making performed by me. Attending Attestation - Resident Resident Name: Jessika Villareal - ED Attending Attestation I have performed the following: I have examined & evaluated the patient, The case was reviewed & discussed with the resident, I agree w/resident's findings & plan, Exceptions are as noted - HPI HPI: 04/29/19 16:55 The patient is a 53 year old female, with a significant past medical history of vertigo, RA, HTN, HLD, CAD, TIA, DVT (on Warfarin), fibromyalgia, GERD, Asthma, CAD (s/p cath), hypothyroidism, degenerative disc disease, and arthritis (s/p lateral Makoplasty partial knee replacement 05/20/18), who presents to the emergency department with dizziness and R posterior head pain s/p fall. The patient [place] the market, felt like the market was spinning, then everything went black. She fell to the ground and hit the R side of her head. She reprots waking up to another customer trying to help her up. Patient denies vomiting, was able to ambulate home after incident, however, continued to feel dizzy which prompted her arrival to the ED. The patient denies chest pain, shortness of breath, headache, palpitations, focal weakness/numbness. Denies fever, chills, cough, nausea, vomiting, diarrhea and constipation. Denies dysuria, frequency, urgency and hematuria. Allergies: Penicillins Past surgical history: lateral Makoplasty partial knee replacement 05/20/18 Social history: Nonsmoker. Denies EtOH use and recreational drug use. PCP: Dr. Salas Orthopedist: Dr. Loera - Physicial Exam PE: 04/29/19 16:58 GENERAL: Awake, alert, and fully oriented, in no acute distress HEAD: No signs of trauma EYES: PERRLA, EOMI, sclera anicteric, conjunctiva clear ENT: Auricles normal inspection, hearing grossly normal, nares patent, oropharynx clear without exudates. Moist mucosa NECK: Normal ROM, supple, no lymphadenopathy, JVD, or masses LUNGS: Breath sounds equal, clear to auscultation bilaterally. No wheezes, and no crackles HEART: Regular rate and rhythm, normal S1 and S2, no murmurs, rubs or gallops ABDOMEN: Soft, nontender, normoactive bowel sounds. No guarding, no rebound. No masses EXTREMITIES: Normal range of motion, no edema. No clubbing or cyanosis. No cords , erythema, or tenderness BACK: No midline spinal tenderness in cervical/thoracic/lumbar region NEUROLOGICAL: Normal speech, cranial nerves intact, 5/5 strength in all 4 extremities, normal sensation to light touch in all 4 extremities, normal cerebellar exam, normal gait, normal reflexes and tone SKIN: Warm, Dry, normal turgor, no rashes or lesions noted. - Medical Decision Making 04/29/19 19:15 53yo F with MMP including CAD, vertigo presents to the ED with syncope Vitals with hypoxia that corrected to 95% RA w/o intervention Labs thus far wnl Trauma w/u thus far wnl CXr pending Anticipate admission for tele obs for possible cardiac arrhythmia as peripheral vertigo does not typically cause LOC
--- NOTE | 2019-04-29 21:51 | HP ---
CHIEF COMPLAINT: Syncope. s/p FALL PCP: Dr. Coe HISTORY OF PRESENT ILLNESS: 53 year old female with PMH of vertigo, RA, HTN, HLD, CAD, TIA, h/o DVT on warfarin, asthma w/ chronic SOB, fibromyalgia, and hypothyroidism presented to ED for dizziness today. Pt reported she was at the supermarket, felt a room spinning sensation, then fell to the ground, hitting her head. She stated she awoke without memory of all of the events. She denied LOC, vomiting, neck pain, laceration. Pt reported she went home, but continued to have episodes of dizziness/lightheadedness, prompting her to come to the ED for evaluation. Pt reported she has had episodes of vertigo in the past, and that todays symptoms feel similar to prior episodes. Pt complained of right posterior head pain where she hit her head, left upper back pain, and sacral pain. ER course was notable for: CT head : Impression: No CT evidence of acute intracranial pathology. There has been no definite interval change in comparison to a prior CT exam of 05/11/2008. CT cervical spine: Impression: No fracture is identified. Sacrum XR: no sign of fracture. Blastic or lytic changes are not seen. The SI joints are patent. Thoracic spine Xr: toracic spine reveal degenerative changes, intact paraspinal soft tissues and normal thoracic kyphosis with no sign of a compression fracture or subluxation. EKG: rate 65, regular rhythm, normal axis, QTc 484, biphasic T in V2, no other acute ST changes. Troponin wnl In ED given: 1L NS IVF , Tylenol IVPB, and Metoclopramide 10 Iv push Recent Travel: no PAST MEDICAL HISTORY: vertigo, RA, HTN, HLD, CAD, TIA, h/o DVT on warfarin, asthma, fibromyalgia, and hypothyroidism, uterus ca, PAST SURGICAL HISTORY: BIRD. BUNIONECTOMIES, s/p uterus sx Social History: Smokin YRS AGO Alcohol:no Drugs: no Family History: Father ( [place]) Allergies: Penicillins Allergy (Severe, Verified 09/23/18 13:52) "throat closes" HOME MEDICATIONS: Home Medications Medication Instructions Recorded Escitalopram Oxalate [Lexapro -] 20 mg PO DAILY 03/18/17 Levothyroxine [Synthroid -] 50 mcg PO DAILY 03/18/17 Multivitamin [Poly-Vitamin] 1 each PO DAILY 03/18/17 Simvastatin 20 mg PO HS 03/18/17 Albuterol Sulfate Inhaler - 1 - 2 inh PO QID PRN 04/05/17 [Ventolin HFA Inhaler -] Dexlansoprazole [Dexilant] 60 mg PO DAILY 05/12/18 Linaclotide [Linzess] 145 mcg PO DAILY 05/12/18 Meclizine HCl 12.5 mg PO BID #60 tablet 06/02/18 Nortriptyline HCl [Pamelor -] 50 mg PO HS #30 cap 06/02/18 Warfarin Na [Coumadin -] 9 mg PO DAILY@1800 06/10/18 Cardizem - 180 mg PO DAILY 09/23/18 Drisdol 50,000 units PO WEEKLY 09/23/18 Gabapentin [Neurontin] 300 mg PO DAILY 09/23/18 Halobetasol Prop 0.05% Tp Crm 1 applic TP DAILY 09/23/18 [Ultravate (Nf) -] Montelukast Sodium [Singulair] 10 mg PO DAILY 09/23/18 Oxycodone HCl/Acetaminophen 1 tab PO PRN PRN 09/23/18 [Percocet 5-325 mg Tablet] Zolpidem Tartrate [Ambien] 10 mg PO HS 09/23/18 REVIEW OF SYSTEMS General: + dizziness, absent fever, chills, generalized weakness. HEENT: absent: sore throat, rhinorrhea, ear pain. Cardiovascular: absent chest pain, palpitations, syncope, diaphoresis. Respiratory: absent shortness of breath, cough, sputum production, hemoptysis. Gastrointestinal: absent abdominal pain, nausea, vomiting, diarrhea, constipation Genitourinary: denied dysuria, increased urinary frequency, hematuria, urinary incontinence, flank pain. Musculoskeletal:+ thoracic back pain, sacral pain. Neurological: + headache, dizziness Integumentary: denied rash, laceration, abrasion. PHYSICAL EXAMINATION Vital Signs - 24 hr 04/29/19 04/29/19 16:09 20:35 Temperature 98.1 F Pulse Rate 65 Pulse Rate [ 73 Apical] Respiratory 16 18 Rate Blood Pressure 111/65 Blood Pressure 110/65 [Left Arm] O2 Sat by Pulse 90 L 99 Oximetry (%) GENERAL: Awake, alert, pain to lower back HEENT: NC/AT, EOMI , NO JVD LUNGS: Breath sounds equal, clear to auscultation bilaterally. No wheezes, and no crackles. HEART: Regular rate and rhythm, normal S1 and S2 without murmur, rub or gallop. ABDOMEN: Soft, nontender, not distended, normoactive bowel sounds, no guarding, no rebound, no masses MUSCULOSKELETAL: tenderness thoracic area, sacrum. ROM fair NEUROLOGICAL: Cranial nerves II-XII intact. Normal speech. Normal gait. PSYCHIATRIC: Cooperative. Good eye contact. Appropriate mood and affect. SKIN: Warm, dry Laboratory Results - last 24 hr 04/29/19 04/29/19 17:05 17:05 WBC 6.5 RBC 4.24 Hgb 12.6 Hct 38.0 MCV 89.6 MCH 29.7 MCHC 33.2 RDW 14.1 Plt Count 200 MPV 8.1 Absolute Neuts (auto) 3.6 Neutrophils % 55.3 Lymphocytes % 29.6 Monocytes % 8.6 Eosinophils % 5.7 H Basophils % 0.8 Nucleated RBC % 0 Sodium 141 Potassium 4.0 Chloride 107 Carbon Dioxide 28 Anion Gap 5 L BUN 9.0 Creatinine 0.9 Est GFR (CKD-EPI)AfAm 84.01 Est GFR (CKD-EPI)NonAf 72.49 Random Glucose 86 Calcium 8.9 Total Bilirubin 0.2 AST 38 H ALT 41 Alkaline Phosphatase 120 H Troponin I < 0.02 Total Protein 7.3 Albumin 3.5 ASSESSMENT/PLAN: 53 year old female with PMH of vertigo, RA, HTN, HLD, CAD, TIA, h/o DVT on warfarin, depression, asthma w/ chronic SOB, fibromyalgia, and hypothyroidism presented to ED for dizziness today,Pt reported she was at the supermarket, felt a room spinning sensation, then fell to the ground, hitting her head. She stated she awoke without memory of all of the events. #Syncope #Fall CT head : Impression: No CT evidence of acute intracranial pathology. There has been no definite interval change in comparison to a prior CT exam of 05/11/2008. CT cervical spine: Impression: No fracture is identified. Sacrum XR: no sign of fracture. Blastic or lytic changes are not seen. The SI joints are patent. Thoracic spine Xr: toracic spine reveal degenerative changes, intact paraspinal soft tissues and normal thoracic kyphosis with no sign of a compression fracture or subluxation. EKG: rate 65, regular rhythm, normal axis, QTc 484, biphasic T in V2, no other acute ST changes. Troponin wnl - given 1L NS - given Tylenol IVPB, and Metoclopramide 10 Iv push - admit of ED OBS - pain management as needed #HTN, HLD, h/o DVT - continue with coumadin - continue with Cardizem - continue with zocor #Hypothyroidism - continue with synthroid 50 mcg daily # GERD, constipation - continue with dexlansoprazole - continue with linaclotide # depression - continue with lexapro - continue with nortriptyline DVT PPX: ON AC DIET: ALBERTA, low fat/ carb Problem List - Problem (1) Syncope and collapse Code(s): R55 - SYNCOPE AND COLLAPSE (2) History of DVT (deep vein thrombosis) Code(s): Z86.718 - PERSONAL HISTORY OF OTHER VENOUS THROMBOSIS AND EMBOLISM (3) GERD (gastroesophageal reflux disease) Code(s): K21.9 - GASTRO-ESOPHAGEAL REFLUX DISEASE WITHOUT ESOPHAGITIS (4) Constipation Code(s): K59.00 - CONSTIPATION, UNSPECIFIED (5) Depression Code(s): F32.9 - MAJOR DEPRESSIVE DISORDER, SINGLE EPISODE, UNSPECIFIED (6) Dizziness Code(s): R42 - DIZZINESS AND GIDDINESS (7) Hyperlipidemia Code(s): E78.5 - HYPERLIPIDEMIA, UNSPECIFIED Qualifiers: Hyperlipidemia type: pure hypercholesterolemia Qualified Code(s): E78.00 - Pure hypercholesterolemia, unspecified (8) Hypertension Code(s): I10 - ESSENTIAL (PRIMARY) HYPERTENSION Qualifiers: Hypertension type: essential hypertension Qualified Code(s): I10 - Essential (primary) hypertension (9) Hypothyroidism Code(s): E03.9 - HYPOTHYROIDISM, UNSPECIFIED Qualifiers: Hypothyroidism type: unspecified Qualified Code(s): E03.9 - Hypothyroidism , unspecified Visit type - Emergency Visit Emergency Visit: Yes ED Registration Date: 04/29/19 Care time: The patient presented to the Emergency Department on the above date and was hospitalized for further evaluation of their emergent condition. - New Patient This patient is new to me today: Yes Date on this admission: 04/29/19 - Critical Care Critical Care patient: No
[2019-04-29] MEDS ORDERED: oxyCODONE HCL 5 MG TABLET PO PRN (21:57)
[2019-04-29] MEDS ORDERED: MECLIZINE HCL 12.5 MG TABLET ONE (21:59)
[2019-04-29] MEDS ORDERED: ATORVASTATIN CA 10 MG TABLET (FP) ONE (22:00)
[2019-04-29] MEDS ORDERED: NORTRIPTYLINE HCL 50 MG CAPSULE PO SCH (22:00)
[2019-04-29] MEDS: ATORVASTATIN CA 10 MG TABLET (FP) PO SCH (22:11)
[2019-04-29] MEDS: MECLIZINE HCL 12.5 MG TABLET PO SCH (22:11)
[2019-04-30 03:49] VITALS: BMI 38.2
[2019-04-30] MEDS: LEVOTHYROXINE NA 50 MCG TABLET (FP) PO SCH (06:27)
[2019-04-30] MEDS: PANTOPRAZOLE 40 MG TABLET (FP) PO SCH (09:34)
[2019-04-30] MEDS: ESCITALOPRAM OXALATE 20 MG TABLET (FP) PO SCH (09:35)
[2019-04-30] MEDS: MECLIZINE HCL 12.5 MG TABLET PO SCH ×2 (09:35→21:16)
[2019-04-30] MEDS ORDERED: GABAPENTIN 300 MG CAPSULE (FP) PO SCH (10:00)
[2019-04-30] MEDS ORDERED: PATIENT'S OWN MEDICATION (NON-FORMULARY) (Linaclotide [Linzess] 145 MCG) PO SCH (10:00)
--- NOTE | 2019-04-30 10:32 | EKG ---
Test Reason : Blood Pressure : / mmHG Vent. Rate : 065 BPM Atrial Rate : 065 BPM P-R Int : 168 ms QRS Dur : 096 ms QT Int : 466 ms P-R-T Axes : 043 -04 016 degrees QTc Int : 484 ms NORMAL SINUS RHYTHM PROLONGED QT ABNORMAL ECG WHEN COMPARED WITH ECG OF 11-SEP-2018 13:30, NO SIGNIFICANT CHANGE WAS FOUND Confirmed by BUSHRA HER MD ([id number]) on 04/30/2019 10:32:38 AM Referred By: Confirmed By:BUSHRA HRE MD
--- NOTE | 2019-04-30 14:16 | PN ---
Progress Note, Physician Chief Complaint: patient seen and examined awake alert alot of pain in sacral region - Current Medication List Current Medications: Active Medications Acetaminophen (Tylenol -) 325 mg PO Q6H PRN PRN Reason: PAIN LEVEL 6-10 Atorvastatin Calcium (Lipitor -) 10 mg PO HS [facility] Last Admin: 04/29/19 22:11 Dose: 10 mg Diltiazem HCl (Cardizem Cd -) 180 mg PO DAILY [facility] Last Admin: 04/30/19 09:35 Dose: 180 mg Escitalopram Oxalate (Lexapro -) 20 mg PO DAILY [facility] Last Admin: 04/30/19 09:35 Dose: 20 mg Gabapentin (Neurontin -) 300 mg PO DAILY [facility] Last Admin: 04/30/19 09:35 Dose: 300 mg Levothyroxine Sodium (Synthroid -) 50 mcg PO DAILY@0700 [facility] Last Admin: 04/30/19 06:27 Dose: 50 mcg Meclizine HCl (Antivert -) 12.5 mg PO BID [facility] Last Admin: 04/30/19 09:35 Dose: 12.5 mg Montelukast Sodium (Singulair -) 10 mg PO [facility] Non-Formulary Medication (Linaclotide [Linzess]) 145 mcg PO DAILY [facility] Nortriptyline HCl (Pamelor -) 50 mg PO [facility] Oxycodone HCl (Roxicodone -) 10 mg PO Q6H PRN PRN Reason: PAIN LEVEL 6-10 Pantoprazole Sodium (Protonix -) 40 mg PO DAILY [facility] Last Admin: 04/30/19 09:34 Dose: 40 mg Warfarin Sodium (Coumadin -) 9 mg PO DAILY@1800 [facility] - Objective Vital Signs: Vital Signs Temperature 98 F 04/30/19 10:00 Pulse Rate 78 04/30/19 10:00 Respiratory Rate 20 04/30/19 10:00 Blood Pressure 115/52 L 04/30/19 10:00 O2 Sat by Pulse Oximetry (%) 98 04/30/19 10:00 Constitutional: Yes: Calm Cardiovascular: Yes: Regular Rate and Rhythm, S2 Respiratory: Yes: CTA Bilaterally Gastrointestinal: Yes: Normal Bowel Sounds, Soft Musculoskeletal: Yes: Other (sacral and lower back) Labs: CBC, BMP 04/29/19 17:05 04/29/19 17:05 Problem List - Problems (1) Dizziness Assessment/Plan: neurology cardiology telemetry echo carotid doppler Code(s): R42 - DIZZINESS AND GIDDINESS (2) Sacral back pain Assessment/Plan: ct scan pain control Code(s): M53.3 - SACROCOCCYGEAL DISORDERS, NOT ELSEWHERE CLASSIFIED (3) Hypothyroidism Assessment/Plan: tsh synthroid Code(s): E03.9 - HYPOTHYROIDISM, UNSPECIFIED Qualifiers: Hypothyroidism type: unspecified Qualified Code(s): E03.9 - Hypothyroidism , unspecified
[2019-04-30] MEDS: oxyCODONE HCL 5 MG TABLET PO PRN ×2 (14:21→19:51)
--- NOTE | 2019-04-30 15:14 | CON.NEURO ---
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 Cardio/Vascular: Yes: HTN, Hyperlipdemia Pulmonary: Yes: COPD Gastrointestinal: Yes: GERD Musculoskeletal: Yes: Osteoarthritis Rheumatology: Yes: Rheumatoid Arthritis Endocrine: Yes: Hypothyroidism - Alcohol/Substance Use Hx Alcohol Use: No - Smoking History Smoking history: Never smoked Have you smoked in the past 12 months: No If you are a former smoker, when did you quit?: 35 YRS AGO Home Medications - Allergies Allergies/Adverse Reactions: Allergies Allergy/AdvReac Type Severity Reaction Status Date / Time Penicillins Allergy Severe "throat Verified 09/23/18 13:52 closes" - Home Medications Home Medications: Ambulatory Orders Escitalopram Oxalate [Lexapro -] 20 mg PO DAILY 03/18/17 Levothyroxine [Synthroid -] 50 mcg PO DAILY 03/18/17 Multivitamin [Poly-Vitamin] 1 each PO DAILY 03/18/17 Simvastatin 20 mg PO HS 03/18/17 Albuterol Sulfate Inhaler - [Ventolin HFA Inhaler -] 1 - 2 inh PO QID PRN Dexlansoprazole [Dexilant] 60 mg PO DAILY 05/12/18 Linaclotide [Linzess] 145 mcg PO DAILY 05/12/18 Meclizine HCl 12.5 mg PO BID #60 tablet 06/02/18 Nortriptyline HCl [Pamelor -] 50 mg PO HS #30 cap 06/02/18 Warfarin Na [Coumadin -] 9 mg PO DAILY@1800 06/10/18 Cardizem - 180 mg PO DAILY 09/23/18 Drisdol 50,000 units PO WEEKLY 09/23/18 Gabapentin [Neurontin] 300 mg PO DAILY 09/23/18 Halobetasol Prop 0.05% Tp Crm [Ultravate (Nf) -] 1 applic TP DAILY 09/23/18 Montelukast Sodium [Singulair] 10 mg PO DAILY 09/23/18 Oxycodone HCl/Acetaminophen [Percocet 5-325 mg Tablet] 1 tab PO PRN PRN Zolpidem Tartrate [Ambien] 10 mg PO HS 09/23/18 Physical Exam-Neuro Vital Signs: Vital Signs Temperature 98 F 04/30/19 10:00 Pulse Rate 78 04/30/19 10:00 Respiratory Rate 20 04/30/19 10:00 Blood Pressure 115/52 L 04/30/19 10:00 O2 Sat by Pulse Oximetry (%) 98 04/30/19 10:00 Labs: CBC, BMP 04/29/19 17:05 04/29/19 17:05 Assessment/Plan CC Episode of Dizziness and Passing out HPI 53 year old female history of RA,HTN,HLD,CAD,TIA , DVT on Warfarin, Asthma, Fibromyalgia . Patient was brought to hospital on April 29 for feeling of dizziness, Patient describes as spinning sensation. She fell on ground and hit ground. She felt there was shaking of leg. Patient has very brief LOC, there was no incontinence, no tongue bite. Her ct head was normal. PAST MEDICAL HISTORY: vertigo, RA, HTN, HLD, CAD, TIA, h/o DVT on warfarin, asthma, fibromyalgia, and hypothyroidism, uterus ca, PAST SURGICAL HISTORY: BIRD. BUNIONECTOMIES, s/p uterus sx Social History: Smokin YRS AGO Alcohol:no Drugs: no Family History: Father ( [place]) Allergies: Penicillins Allergy (Severe, Verified 09/23/18 13:52) "throat closes" HOME MEDICATIONS: Home Medications Medication Instructions Recorded Escitalopram Oxalate [Lexapro -] 20 mg PO DAILY 03/18/17 Levothyroxine [Synthroid -] 50 mcg PO DAILY 03/18/17 Multivitamin [Poly-Vitamin] 1 each PO DAILY 03/18/17 Simvastatin 20 mg PO HS 03/18/17 Albuterol Sulfate Inhaler - 1 - 2 inh PO QID PRN 04/05/17 [Ventolin HFA Inhaler -] Dexlansoprazole [Dexilant] 60 mg PO DAILY 05/12/18 Linaclotide [Linzess] 145 mcg PO DAILY 05/12/18 Meclizine HCl 12.5 mg PO BID #60 tablet 06/02/18 Nortriptyline HCl [Pamelor -] 50 mg PO HS #30 cap 06/02/18 Warfarin Na [Coumadin -] 9 mg PO DAILY@1800 06/10/18 Cardizem - 180 mg PO DAILY 09/23/18 Drisdol 50,000 units PO WEEKLY 09/23/18 Gabapentin [Neurontin] 300 mg PO DAILY 09/23/18 Halobetasol Prop 0.05% Tp Crm 1 applic TP DAILY 09/23/18 [Ultravate (Nf) -] Montelukast Sodium [Singulair] 10 mg PO DAILY 09/23/18 Oxycodone HCl/Acetaminophen 1 tab PO PRN PRN 09/23/18 [Percocet 5-325 mg Tablet] Zolpidem Tartrate [Ambien] 10 mg PO HS 09/23/18 ROS , FH reviewed in chart NEUROLOGICAL EXAMINATION Alert speech is normal, oriented x 3, neck is supple, afebrile, VSS Eomi, pupils reactive , no nystagmus, face symmetrical, normal face sensation Moving all ext sensation is normal ct head is normal Assessment/Plan 53 year old female wtih multiple medical problem, has episode of dizziness followed by passing out very briefly. Most likley syncope . Unlikey to be storke or seizure. Plan: concur with carotid ultrasound - no need for mri - an EEG can be obtained - tele and cardiac work up as per PMD Thanking you so much Mariluz Barron MD
--- NOTE | 2019-04-30 15:54 | CON.CARD ---
Consult Consult Specialty:: Cardiology Reason for Consultation:: Syncope - History of Present Illness History of Present Illness: 53 year old female with PMH of vertigo, RA, HTN, prior strokes, h/o anticardiolipin Ab on warfarin, asthma w/ chronic SOB, fibromyalgia, and hypothyroidism and chronic back pain. She is admitted after a fall with transient LOC. Has history of nonischemic CM with EF 40% on echocardiogram at [facility] in 2018 with a negative stress test and non-obstructive CAD on cath in 2016. She was started on an ACEI. She was standing when she felt very dizzy and fell. She was able to block her fall with her hands and position herself so she wont get hurt but feels that she had transient LOC. No recent illness. Telemetry here shows brief NSVT. 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 Cardio/Vascular: Yes: HTN, Hyperlipdemia Pulmonary: Yes: COPD Gastrointestinal: Yes: GERD Musculoskeletal: Yes: Osteoarthritis Rheumatology: Yes: Rheumatoid Arthritis Endocrine: Yes: Hypothyroidism - Alcohol/Substance Use Hx Alcohol Use: No - Smoking History Smoking history: Never smoked Have you smoked in the past 12 months: No If you are a former smoker, when did you quit?: 35 YRS AGO Home Medications - Allergies Allergies/Adverse Reactions: Allergies Allergy/AdvReac Type Severity Reaction Status Date / Time Penicillins Allergy Severe "throat Verified 09/23/18 13:52 closes" - Home Medications Home Medications: Ambulatory Orders Escitalopram Oxalate [Lexapro -] 20 mg PO DAILY 03/18/17 Levothyroxine [Synthroid -] 50 mcg PO DAILY 03/18/17 Multivitamin [Poly-Vitamin] 1 each PO DAILY 03/18/17 Simvastatin 20 mg PO HS 03/18/17 Albuterol Sulfate Inhaler - [Ventolin HFA Inhaler -] 1 - 2 inh PO QID PRN Dexlansoprazole [Dexilant] 60 mg PO DAILY 05/12/18 Linaclotide [Linzess] 145 mcg PO DAILY 05/12/18 Meclizine HCl 12.5 mg PO BID #60 tablet 06/02/18 Nortriptyline HCl [Pamelor -] 50 mg PO HS #30 cap 06/02/18 Warfarin Na [Coumadin -] 9 mg PO DAILY@1800 06/10/18 Cardizem - 180 mg PO DAILY 09/23/18 Drisdol 50,000 units PO WEEKLY 09/23/18 Gabapentin [Neurontin] 300 mg PO DAILY 09/23/18 Halobetasol Prop 0.05% Tp Crm [Ultravate (Nf) -] 1 applic TP DAILY 09/23/18 Montelukast Sodium [Singulair] 10 mg PO DAILY 09/23/18 Oxycodone HCl/Acetaminophen [Percocet 5-325 mg Tablet] 1 tab PO PRN PRN Zolpidem Tartrate [Ambien] 10 mg PO HS 09/23/18 Review of Systems - Review of Systems Constitutional: reports: No Symptoms Eyes: reports: No Symptoms HENT: reports: No Symptoms Neck: reports: No Symptoms Cardiovascular: reports: Shortness of Breath. denies: Chest Pain, Edema Respiratory: reports: Exercise Intolerance. denies: Cough Gastrointestinal: reports: No Symptoms Vital Signs: Vital Signs Temperature 98 F 04/30/19 10:00 Pulse Rate 78 04/30/19 10:00 Respiratory Rate 20 04/30/19 10:00 Blood Pressure 115/52 L 04/30/19 10:00 O2 Sat by Pulse Oximetry (%) 98 04/30/19 10:00 Constitutional: Yes: Well Nourished, No Distress Eyes: Yes: Conjunctiva Clear, EOM Intact HENT: Yes: Atraumatic, Normocephalic Neck: Yes: Supple, Trachea Midline Respiratory: Yes: Regular, CTA Bilaterally Gastrointestinal: Yes: Normal Bowel Sounds, Soft JVD: No Carotid Bruit: No PMI: Non-Displaced Heart Sounds: Yes: S1, S2 Murmur: No: Systolic Murmur, Diastolic Murmur Musculoskeletal: Yes: WNL Extremities: Yes: WNL Edema: No - Other Data Labs, Other Data: CBC, BMP 04/29/19 17:05 04/29/19 17:05 Troponin, BNP 04/29/19 17:05 Troponin I < 0.02 Troponin, BNP 04/29/19 17:05 Troponin I < 0.02 NSR nl axis minimally prolonged QTc 480. Problem List - Problems (1) Syncope and collapse Code(s): R55 - SYNCOPE AND COLLAPSE Assessment/Plan history of vertigo, RA, prior strokes, h/o anticardiolipin Ab on warfarin, asthma w/ chronic SOB, fibromyalgia, and hypothyroidism. Mild Nonischemic CM was diagnosed on echocardiogram at [facility] from 12/2018 and was placed on ACEI. Presents with dizziness fall and transient LOC. Her history suggests reflex (neurocardiogenic) syncope. Possibly exacerbated by low dose ACEI (lisinopril 5) Telemetry showed brief NSVT. Rec: Monitor on telelmetry for 4 hours. follow Echo results. Check Mg, Phos and correct if low. Repeat ECG to measure QT If no further arrhythmias, can be discharged off ACEI. Follow up with Dr. Ritter (cards) and consider out patient event monitor.
--- NOTE | 2019-04-30 16:21 | ECHO ---
Name: ELROY BROWN Exam:Adult Echocardiogram Study Date: 04/30/2019 03:08 PM Age: 53 yrs Reason For Study: LVEF Height: 72 in Weight: 281 lb BSA: 2.5 m2 MMode/2D Measurements & Calculations IVSd: 0.87 cm Ao root diam: 3.2 cm LVIDd: 5.6 cm LA dimension: 3.3 cm LVIDs: 3.8 cm LVPWd: 0.87 cm EDV(Teich): 155.8 ml LVOT diam: 2.1 cm ESV(Teich): 61.2 ml Doppler Measurements & Calculations MV E max itz: 48.4 cm/sec Ao V2 max: 153.6 cm/sec MV A max itz: 72.6 cm/sec Ao max P.4 mmHg MV E/A: 0.67 Ao V2 mean: 115.2 cm/sec MV dec time: 0.20 sec Ao mean P.8 mmHg Ao V2 VTI: 30.4 cm ALEXANDRA(I,D): 1.1 cm2 ALEXANDRA(V,D): 1.1 cm2 LV V1 max P.1 mmHg SV(LVOT): 34.2 ml LV V1 mean P.50 mmHg LV V1 max: 52.3 cm/sec LV V1 mean: 32.7 cm/sec LV V1 VTI: 10.4 cm TR max itz: 108.8 cm/sec Med Peak E' Itz: 3.6 cm/sec TR max P.7 mmHg Med E/e': 13.4 Lat Peak E' Itz: 6.5 cm/sec Lat E/e': 7.5 Procedure A complete two-dimensional transthoracic echocardiogram was performed (2D, M-mode, Doppler and color flow Doppler). Left Ventricle The left ventricle is normal in size. Left ventricular systolic function is low normal. Ejection Frac tion = 50%. Septal motion is consistent with conduction abnormality. Right Ventricle The right ventricle is normal in size and function. Atria Normal left and right atrial size and function. Mitral Valve There is no mitral regurgitation noted. Tricuspid Valve There is trace tricuspid regurgitation. There was insufficient TR detected to calculate RV systolic p ressure. Aortic Valve No hemodynamically significant valvular aortic stenosis. No aortic regurgitation is present. Pulmonic Valve There is no pulmonic valvular regurgitation. Great Vessels The aortic root is normal size. Pericardium/Pleura There is no pericardial effusion. Interpretation Summary Left ventricular systolic function is low normal. Septal motion is consistent with conduction abnormality. The right ventricle is normal in size and function. There is trace tricuspid regurgitation. MD Hari Pabon 04/30/2019 04:21 PM
[2019-04-30 18:15] LABS: INR 1.34 (0.83-1.09); PROTHROMBIN TIME (PATIENT) 15.9 SEC (9.7-13.0)
[2019-04-30] MEDS: WARFARIN NA 3 MG TABLET PO SCH (19:26)
[2019-04-30] MEDS: ATORVASTATIN CA 10 MG TABLET (FP) PO SCH (21:16)
[2019-04-30] MEDS: NORTRIPTYLINE HCL 25 MG CAPSULE PO SCH (21:17)
[2019-04-30] MEDS: GABAPENTIN 300 MG CAPSULE (FP) PO SCH (21:51)
[2019-04-30] MEDS: MONTELUKAST NA 10 MG TABLET PO SCH (21:51)
[2019-04-30] MEDS: ZOLPIDEM TARTRATE 5 MG TABLET PO PRN (23:10)
[2019-05-01] MEDS: LEVOTHYROXINE NA 50 MCG TABLET (FP) PO SCH (05:59)
[2019-05-01] MEDS: oxyCODONE HCL 5 MG TABLET PO PRN ×3 (05:59→18:07)
[2019-05-01 08:11] LABS: INR 1.23 (0.83-1.09)
[2019-05-01 09:14] LABS: PROTHROMBIN TIME (PATIENT) 14.5 SEC (9.7-13.0)
[2019-05-01] MEDS: PANTOPRAZOLE 40 MG TABLET (FP) PO SCH (10:16)
[2019-05-01] MEDS: MECLIZINE HCL 12.5 MG TABLET PO SCH ×2 (10:16→22:19)
[2019-05-01] MEDS: ESCITALOPRAM OXALATE 20 MG TABLET (FP) PO SCH (10:16)
[2019-05-01] MEDS: GABAPENTIN 300 MG CAPSULE (FP) PO SCH ×2 (10:19→22:19)
--- NOTE | 2019-05-01 12:47 | PN ---
Progress Note, Physician Chief Complaint: patient tried to stand up with PT starting shaking got dizzy when going to bathroom complaining of back pain - Current Medication List Current Medications: Active Medications Acetaminophen (Tylenol -) 325 mg PO Q6H PRN PRN Reason: PAIN LEVEL 6-10 Atorvastatin Calcium (Lipitor -) 10 mg PO HS [facility] Last Admin: 04/30/19 21:16 Dose: 10 mg Escitalopram Oxalate (Lexapro -) 20 mg PO DAILY [facility] Last Admin: 05/01/19 10:16 Dose: 20 mg Gabapentin (Neurontin -) 300 mg PO BID [facility] Last Admin: 05/01/19 10:19 Dose: 300 mg Levothyroxine Sodium (Synthroid -) 50 mcg PO DAILY@0700 [facility] Last Admin: 05/01/19 05:59 Dose: 50 mcg Meclizine HCl (Antivert -) 12.5 mg PO BID [facility] Last Admin: 05/01/19 10:16 Dose: 12.5 mg Montelukast Sodium (Singulair -) 10 mg PO [facility] Last Admin: 04/30/19 21:51 Dose: 10 mg Non-Formulary Medication (Linaclotide [Linzess]) 145 mcg PO DAILY [facility] Nortriptyline HCl (Pamelor -) 50 mg PO [facility] Last Admin: 04/30/19 21:17 Dose: 50 mg Oxycodone HCl (Roxicodone -) 10 mg PO Q6H PRN PRN Reason: PAIN LEVEL 6-10 Last Admin: 05/01/19 11:24 Dose: 10 mg Pantoprazole Sodium (Protonix -) 40 mg PO DAILY [facility] Last Admin: 05/01/19 10:16 Dose: 40 mg Warfarin Sodium (Coumadin -) 9 mg PO DAILY@1800 [facility] Last Admin: 04/30/19 19:26 Dose: 9 mg Zolpidem Tartrate (Ambien -) 10 mg PO HS PRN PRN Reason: INSOMNIA Last Admin: 04/30/19 23:10 Dose: 10 mg - Objective Vital Signs: Vital Signs Temperature 97.5 F L 05/01/19 05:34 Pulse Rate 68 05/01/19 05:34 Respiratory Rate 18 05/01/19 05:34 Blood Pressure 115/72 05/01/19 05:34 O2 Sat by Pulse Oximetry (%) 93 L 05/01/19 04:00 Constitutional: Yes: Calm Cardiovascular: Yes: Regular Rate and Rhythm, S1, S2 Respiratory: Yes: CTA Bilaterally Gastrointestinal: Yes: Normal Bowel Sounds, Soft Musculoskeletal: Yes: Back Pain Edema: No Neurological: Yes: Alert Labs: CBC, BMP 04/29/19 17:05 04/29/19 17:05 INR, PTT INR 1.23 (0.83-1.09) H 05/01/19 06:36 Problem List - Problems (1) Dizziness Assessment/Plan: neurology noted cardiology noted telemetry echo carotid doppler no stenosis stop ramipril and diltiazem Code(s): R42 - DIZZINESS AND GIDDINESS (2) Sacral back pain Assessment/Plan: ct scan noted vale get CLAUDIA to see patient PT eval lidocaine patch gabapentin dose increased to bid tramadol pain control Code(s): M53.3 - SACROCOCCYGEAL DISORDERS, NOT ELSEWHERE CLASSIFIED (3) Hypothyroidism Assessment/Plan: tsh is elevated synthroid dose increased Code(s): E03.9 - HYPOTHYROIDISM, UNSPECIFIED Qualifiers: Hypothyroidism type: unspecified Qualified Code(s): E03.9 - Hypothyroidism , unspecified
--- NOTE | 2019-05-01 16:28 | PN ---
Progress Note, Physician Chief Complaint: Telem NSR No complaints History of Present Illness: 53 year old female with PMH of vertigo, RA, HTN, prior strokes, h/o anticardiolipin Ab on warfarin, asthma w/ chronic SOB, fibromyalgia, and hypothyroidism and chronic back pain. She is admitted after a fall with transient LOC. Has history of nonischemic CM with EF 40% on echocardiogram at [facility] in 2018 with a negative stress test and non-obstructive CAD on cath in 2016. She was started on an ACEI. She was standing when she felt very dizzy and fell. She was able to block her fall with her hands and position herself so she wont get hurt but feels that she had transient LOC. No recent illness. Telemetry here shows brief NSVT. - Current Medication List Current Medications: Active Medications Acetaminophen (Tylenol -) 325 mg PO Q6H PRN PRN Reason: PAIN LEVEL 6-10 Atorvastatin Calcium (Lipitor -) 10 mg PO [facility] Last Admin: 04/30/19 21:16 Dose: 10 mg Escitalopram Oxalate (Lexapro -) 20 mg PO DAILY [facility] Last Admin: 05/01/19 10:16 Dose: 20 mg Gabapentin (Neurontin -) 300 mg PO BID [facility] Last Admin: 05/01/19 10:19 Dose: 300 mg Levothyroxine Sodium (Synthroid -) 75 mcg PO DAILY@0700 [facility] Lidocaine (Lidoderm Patch -) 1 patch TP DAILY [facility] Meclizine HCl (Antivert -) 12.5 mg PO BID [facility] Last Admin: 05/01/19 10:16 Dose: 12.5 mg Miscellaneous (Lidoderm Patch Removal) 1 each [facility] DAILY@2200 [facility] Montelukast Sodium (Singulair -) 10 mg PO [facility] Last Admin: 04/30/19 21:51 Dose: 10 mg Non-Formulary Medication (Linaclotide [Linzess]) 145 mcg PO DAILY [facility] Nortriptyline HCl (Pamelor -) 50 mg PO [facility] Last Admin: 04/30/19 21:17 Dose: 50 mg Oxycodone HCl (Roxicodone -) 10 mg PO Q6H PRN PRN Reason: PAIN LEVEL 6-10 Last Admin: 05/01/19 11:24 Dose: 10 mg Pantoprazole Sodium (Protonix -) 40 mg PO DAILY [facility] Last Admin: 05/01/19 10:16 Dose: 40 mg Warfarin Sodium (Coumadin -) 9 mg PO DAILY@1800 [facility] Last Admin: 04/30/19 19:26 Dose: 9 mg Zolpidem Tartrate (Ambien -) 10 mg PO HS PRN PRN Reason: INSOMNIA Last Admin: 04/30/19 23:10 Dose: 10 mg - Objective Vital Signs: Vital Signs Temperature 97.5 F L 05/01/19 05:34 Pulse Rate 64 05/01/19 14:00 Respiratory Rate 20 05/01/19 14:00 Blood Pressure 98/56 L 05/01/19 14:00 O2 Sat by Pulse Oximetry (%) 97 05/01/19 15:53 Constitutional: Yes: Well Nourished, No Distress Eyes: Yes: Conjunctiva Clear, EOM Intact HENT: Yes: Atraumatic, Normocephalic Neck: Yes: Supple, Trachea Midline Cardiovascular: Yes: Regular Rate and Rhythm, S1, S2 Respiratory: Yes: Regular, CTA Bilaterally Edema: No Labs: CBC, BMP 04/29/19 17:05 04/29/19 17:05 INR, PTT INR 1.23 (0.83-1.09) H 05/01/19 06:36 Problem List - Problems (1) Syncope and collapse Code(s): R55 - SYNCOPE AND COLLAPSE Assessment/Plan history of vertigo, RA, prior strokes, h/o anticardiolipin Ab on warfarin, asthma w/ chronic SOB, fibromyalgia, and hypothyroidism. Mild Nonischemic CM was diagnosed on echocardiogram at [facility] from 12/2018 and was placed on ACEI. Presents with dizziness fall and transient LOC. Her history suggests reflex (neurocardiogenic) syncope. Possibly exacerbated by low dose ACEI (lisinopril 5) Recommend DC ACEI at time of discharge. Encourage Oral hydration. Will see as needed.
[2019-05-01] MEDS: LIDOCAINE 5% TOPICAL PATCH TP SCH (16:34)
[2019-05-01] MEDS ORDERED: PT OWN MED DRAWER 7, Y5N ONE (18:02)
[2019-05-01] MEDS: WARFARIN NA 3 MG TABLET PO SCH (18:08)
[2019-05-01] MEDS: LIDOCAINE PATCH REMOVAL MC SCH (22:15)
[2019-05-01] MEDS: ZOLPIDEM TARTRATE 5 MG TABLET PO PRN (22:19)
[2019-05-01] MEDS: ATORVASTATIN CA 10 MG TABLET (FP) PO SCH (22:19)
[2019-05-01] MEDS: MONTELUKAST NA 10 MG TABLET PO SCH (22:19)
[2019-05-01] MEDS: NORTRIPTYLINE HCL 25 MG CAPSULE PO SCH (22:43)
[2019-05-02] MEDS: ACETAMINOPHEN 325 MG TABLET (FP) PO PRN ×3 (00:18→20:20)
[2019-05-02] MEDS: oxyCODONE HCL 5 MG TABLET PO PRN ×2 (00:18→20:21)
--- NOTE | 2019-05-02 01:11 | HOSP ---
Subjective - Review of Symptoms Events since last encounter: Hospitalist Encounter Was notified by the RN that the patient reports taking Levothyroxine 112mcg daily TSH Level 6.76 Per PMDs notes adjustment made to 75mcg based on the med rec 50mcg dated () Plan: Ordered Levothyroxine 112mcg po daily Physical Examination Vital Signs: Vital Signs Temperature 97.6 F 05/01/19 20:40 Pulse Rate 60 05/01/19 20:40 Respiratory Rate 20 05/01/19 20:40 Blood Pressure 99/62 05/01/19 20:40 O2 Sat by Pulse Oximetry (%) 95 05/01/19 20:00 Labs: CBC, BMP 04/29/19 17:05 04/29/19 17:05
[2019-05-02] MEDS: LEVOTHYROXINE NA 112 MCG TABLET (FP) PO SCH (06:29)
[2019-05-02] MEDS ORDERED: ALBUTEROL SO4 0.083% IH SOL 2.5 MG/3 ML VIAL.NEB. NEB PRN (06:52)
[2019-05-02] MEDS ORDERED: LEVOTHYROXINE NA 75 MCG TABLET (FP) PO SCH (07:00)
[2019-05-02 08:23] LABS: BASO % 0.7 % (0-2.0); EOS % 6.3 % (0-4.5); HEMATOCRIT 38.1 % (32.4-45.2); HEMOGLOBIN 12.9 GM/dL (10.7-15.3); LYMPH % 31.4 % (8-40); MCHC 33.8 g/dl (32.0-36.0); MEAN CELL VOLUME 88.8 fl (80-96); MEAN PLT VOLUME 8.3 fl (7.5-11.1); MONO % 8.8 % (3.8-10.2); NEUT % 52.8 % (42.8-82.8); PLATELET COUNT 205 K/MM3 (134-434); RBC 4.29 M/mm3 (3.60-5.2); WHITE BLOOD COUNT 4.1 K/mm3 (4.0-10.0)
[2019-05-02 08:47] LABS: ALBUMIN 3.4 g/dl (3.4-5.0); BILIRUBIN,TOTAL 0.3 mg/dL (0.2-1); BLOOD UREA NITROGEN 6.9 mg/dL (7-18); CREATININE 0.7 mg/dL (0.55-1.3); POTASSIUM 4.3 mmol/L (3.5-5.1); TOT PROT 7.1 g/dl (6.4-8.2)
[2019-05-02] MEDS: LIDOCAINE 5% TOPICAL PATCH TP SCH (10:36)
[2019-05-02] MEDS: GABAPENTIN 300 MG CAPSULE (FP) PO SCH ×2 (10:36→22:20)
[2019-05-02] MEDS: ESCITALOPRAM OXALATE 20 MG TABLET (FP) PO SCH (10:36)
[2019-05-02] MEDS: PANTOPRAZOLE 40 MG TABLET (FP) PO SCH (10:36)
[2019-05-02] MEDS: MECLIZINE HCL 12.5 MG TABLET PO SCH ×2 (10:36→22:21)
--- NOTE | 2019-05-02 11:00 | PN ---
Progress Note, Physician - Current Medication List Current Medications: Active Medications Acetaminophen (Tylenol -) 325 mg PO Q6H PRN PRN Reason: PAIN LEVEL 6-10 Last Admin: 05/02/19 06:28 Dose: 325 mg Albuterol Sulfate (Ventolin 0.083% Nebulizer Soln -) 1 amp NEB RQID PRN PRN Reason: SHORT OF BREATH/WHEEZING Atorvastatin Calcium (Lipitor -) 10 mg PO [facility] Last Admin: 05/01/19 22:19 Dose: 10 mg Escitalopram Oxalate (Lexapro -) 20 mg PO DAILY [facility] Last Admin: 05/02/19 10:36 Dose: 20 mg Gabapentin (Neurontin -) 300 mg PO BID [facility] Last Admin: 05/02/19 10:36 Dose: 300 mg Levothyroxine Sodium (Synthroid -) 112 mcg PO ACBK [facility] Last Admin: 05/02/19 06:29 Dose: 112 mcg Lidocaine (Lidoderm Patch -) 1 patch TP DAILY [facility] Last Admin: 05/02/19 10:36 Dose: Not Given Meclizine HCl (Antivert -) 12.5 mg PO BID [facility] Last Admin: 05/02/19 10:36 Dose: 12.5 mg Miscellaneous (Lidoderm Patch Removal) 1 each MC DAILY@2200 [facility] Last Admin: 05/01/19 22:15 Dose: Not Given Montelukast Sodium (Singulair -) 10 mg PO [facility] Last Admin: 05/01/19 22:19 Dose: 10 mg Non-Formulary Medication (Linaclotide [Linzess]) 145 mcg PO DAILY [facility] Nortriptyline HCl (Pamelor -) 50 mg PO [facility] Last Admin: 05/01/19 22:43 Dose: 50 mg Oxycodone HCl (Roxicodone -) 10 mg PO Q6H PRN PRN Reason: PAIN LEVEL 6-10 Last Admin: 05/02/19 00:18 Dose: 10 mg Pantoprazole Sodium (Protonix -) 40 mg PO DAILY [facility] Last Admin: 05/02/19 10:36 Dose: 40 mg Warfarin Sodium (Coumadin -) 9 mg PO DAILY@1800 [facility] Last Admin: 05/01/19 18:08 Dose: 9 mg Zolpidem Tartrate (Ambien -) 10 mg PO PRN PRN Reason: INSOMNIA Last Admin: 05/01/19 22:19 Dose: 10 mg - Objective Vital Signs: Vital Signs Temperature 97.9 F 05/02/19 08:19 Pulse Rate 67 05/02/19 08:19 Respiratory Rate 18 05/02/19 08:19 Blood Pressure 97/53 L 05/02/19 08:19 O2 Sat by Pulse Oximetry (%) 97 05/02/19 03:41 Cardiovascular: Yes: Regular Rate and Rhythm Respiratory: Yes: Regular, CTA Bilaterally Gastrointestinal: Yes: Normal Bowel Sounds, Soft. No: Tenderness Musculoskeletal: Yes: Muscle Pain Labs: CBC, BMP 05/02/19 06:33 05/02/19 06:33 INR, PTT INR 1.23 (0.83-1.09) H 05/01/19 06:36 Assessment/Plan - Problems (1) Dizziness-Syncope Assessment/Plan: neurology noted cardiology noted telemetry echo carotid doppler no stenosis stop ramipril and diltiazem Code(s): R42 - DIZZINESS AND GIDDINESS (2) Sacral back pain Assessment/Plan: ct scan noted vale get CLAUDIA to see patient PT eval lidocaine patch gabapentin dose increased to bid tramadol pain control Code(s): M53.3 - SACROCOCCYGEAL DISORDERS, NOT ELSEWHERE CLASSIFIED (3) Hypothyroidism Assessment/Plan: tsh is elevated synthroid dose increased Code(s): E03.9 - HYPOTHYROIDISM, UNSPECIFIED Qualifiers: Hypothyroidism type: unspecified Qualified Code(s): E03.9 - Hypothyroidism , unspecified
[2019-05-02 11:41] LABS: INR 1.24 (0.83-1.09); PROTHROMBIN TIME (PATIENT) 14.7 SEC (9.7-13.0)
[2019-05-02] MEDS: WARFARIN NA 3 MG TABLET PO SCH (17:35)
[2019-05-02] MEDS: ATORVASTATIN CA 10 MG TABLET (FP) PO SCH (22:20)
[2019-05-02] MEDS: MONTELUKAST NA 10 MG TABLET PO SCH (22:20)
[2019-05-02] MEDS: NORTRIPTYLINE HCL 25 MG CAPSULE PO SCH (22:20)
[2019-05-02] MEDS: ZOLPIDEM TARTRATE 5 MG TABLET PO PRN (22:21)
[2019-05-02] MEDS: LIDOCAINE PATCH REMOVAL MC SCH (22:21)
[2019-05-03] MEDS: ACETAMINOPHEN 325 MG TABLET (FP) PO PRN ×3 (03:38→15:33)
[2019-05-03] MEDS: oxyCODONE HCL 5 MG TABLET PO PRN ×4 (03:39→21:33)
[2019-05-03] MEDS: LEVOTHYROXINE NA 112 MCG TABLET (FP) PO SCH (06:45)
--- NOTE | 2019-05-03 08:12 | CONSULT ---
Consult - text type - Consultation Consultation Note: NEUROSURGERY CONSULTATION Jamal Le is a pleasant 53 year old Welsh speaking female with multiple medical problems and complaints of back and neck pain following a fall last Saturday. She relates a long history of back and neck pain associated with numbness and tingling in all extremities, dropping things and loss of fine motor skills in her hands. She feels that these have progressed after her fall. CT Lumbar does not reveal significant new traumatic pathology mandating Neurosurgical attention. The patient has increased tone and hyperreflexia which is bilateral and raises concern for potential Central cord syndrome versus progressive Cervical spondylotic myelopathy. Patient would benefit from expedited MRI Cervical. If there is no concerning pathology identified, she may be cleared soon afterwards from a Neurosurgery standpoint for SNF/Rehab/discharge based upon functional evaluation.
[2019-05-03] MEDS: ESCITALOPRAM OXALATE 20 MG TABLET (FP) PO SCH (10:00)
[2019-05-03] MEDS: PANTOPRAZOLE 40 MG TABLET (FP) PO SCH (10:00)
[2019-05-03] MEDS: MECLIZINE HCL 12.5 MG TABLET PO SCH ×2 (10:00→21:27)
[2019-05-03] MEDS: GABAPENTIN 300 MG CAPSULE (FP) PO SCH ×2 (10:00→21:27)
[2019-05-03] MEDS: LIDOCAINE 5% TOPICAL PATCH TP SCH (10:01)
--- NOTE | 2019-05-03 10:53 | PN ---
Progress Note, Physician - Current Medication List Current Medications: Active Medications Acetaminophen (Tylenol -) 325 mg PO Q6H PRN PRN Reason: PAIN LEVEL 6-10 Last Admin: 05/03/19 10:00 Dose: 325 mg Albuterol Sulfate (Ventolin 0.083% Nebulizer Soln -) 1 amp NEB RQID PRN PRN Reason: SHORT OF BREATH/WHEEZING Atorvastatin Calcium (Lipitor -) 10 mg PO [facility] Last Admin: 05/02/19 22:20 Dose: 10 mg Escitalopram Oxalate (Lexapro -) 20 mg PO DAILY [facility] Last Admin: 05/03/19 10:00 Dose: 20 mg Gabapentin (Neurontin -) 300 mg PO BID [facility] Last Admin: 05/03/19 10:00 Dose: 300 mg Levothyroxine Sodium (Synthroid -) 112 mcg PO ACBK [facility] Last Admin: 05/03/19 06:45 Dose: 112 mcg Lidocaine (Lidoderm Patch -) 1 patch TP DAILY [facility] Last Admin: 05/03/19 10:01 Dose: Not Given Meclizine HCl (Antivert -) 12.5 mg PO BID [facility] Last Admin: 05/03/19 10:00 Dose: 12.5 mg Miscellaneous (Lidoderm Patch Removal) 1 each [facility] DAILY@2200 [facility] Last Admin: 05/02/19 22:21 Dose: Not Given Montelukast Sodium (Singulair -) 10 mg PO [facility] Last Admin: 05/02/19 22:20 Dose: 10 mg Non-Formulary Medication (Linaclotide [Linzess]) 145 mcg PO DAILY [facility] Nortriptyline HCl (Pamelor -) 50 mg PO [facility] Last Admin: 05/02/19 22:20 Dose: 50 mg Oxycodone HCl (Roxicodone -) 10 mg PO Q6H PRN PRN Reason: PAIN LEVEL 6-10 Last Admin: 05/03/19 10:00 Dose: 10 mg Pantoprazole Sodium (Protonix -) 40 mg PO DAILY [facility] Last Admin: 05/03/19 10:00 Dose: 40 mg Warfarin Sodium (Coumadin -) 9 mg PO DAILY@1800 [facility] Last Admin: 05/02/19 17:35 Dose: 9 mg Zolpidem Tartrate (Ambien -) 10 mg PO PRN PRN Reason: INSOMNIA Last Admin: 05/02/19 22:21 Dose: 10 mg - Objective Vital Signs: Vital Signs Temperature 97.6 F 05/03/19 05:59 Pulse Rate 86 05/03/19 05:59 Respiratory Rate 18 05/03/19 05:59 Blood Pressure 97/60 05/03/19 05:59 O2 Sat by Pulse Oximetry (%) 95 05/03/19 04:00 Cardiovascular: Yes: Regular Rate and Rhythm Respiratory: Yes: Regular, CTA Bilaterally Gastrointestinal: Yes: Normal Bowel Sounds, Soft Musculoskeletal: Yes: Back Pain, Muscle Weakness Edema: No Labs: CBC, BMP 05/02/19 06:33 05/02/19 06:33 INR, PTT INR 1.24 (0.83-1.09) H 05/02/19 06:33 Assessment/Plan - Problems (1) Dizziness-Syncope Assessment/Plan: neurology noted cardiology noted telemetry echo carotid doppler no stenosis stop ramipril and diltiazem Code(s): R42 - DIZZINESS AND GIDDINESS (2) Sacral back pain Assessment/Plan: ct scan noted vale get CLAUDIA to see patient PT eval lidocaine patch gabapentin dose increased to bid tramadol pain control Code(s): M53.3 - SACROCOCCYGEAL DISORDERS, NOT ELSEWHERE CLASSIFIED (3) Hypothyroidism Assessment/Plan: tsh is elevated synthroid dose increased Code(s): E03.9 - HYPOTHYROIDISM, UNSPECIFIED Qualifiers: Hypothyroidism type: unspecified Qualified Code(s): E03.9 - Hypothyroidism , unspecified (4) Neck Pain Assessment/Plan: mri per ns pt physical therapy
[2019-05-03 17:21] LABS: INR 1.39 (0.83-1.09); PROTHROMBIN TIME (PATIENT) 16.4 SEC (9.7-13.0)
[2019-05-03] MEDS: WARFARIN NA 3 MG TABLET PO SCH (17:31)
[2019-05-03] MEDS: ATORVASTATIN CA 10 MG TABLET (FP) PO SCH (21:26)
[2019-05-03] MEDS: MONTELUKAST NA 10 MG TABLET PO SCH (21:27)
[2019-05-03] MEDS: ZOLPIDEM TARTRATE 5 MG TABLET PO PRN (21:27)
[2019-05-03] MEDS: NORTRIPTYLINE HCL 25 MG CAPSULE PO SCH (21:27)
[2019-05-03] MEDS: LIDOCAINE PATCH REMOVAL MC SCH (21:35)
[2019-05-04] MEDS: LEVOTHYROXINE NA 112 MCG TABLET (FP) PO SCH (06:10)
[2019-05-04] MEDS: ACETAMINOPHEN 325 MG TABLET (FP) PO PRN ×3 (07:44→21:00)
[2019-05-04] MEDS: oxyCODONE HCL 5 MG TABLET PO PRN ×3 (07:45→20:58)
[2019-05-04] MEDS: LIDOCAINE 5% TOPICAL PATCH TP SCH (09:00)
[2019-05-04] MEDS ORDERED: PT OWN MED DRAWER 7, Y5N ONE (09:49)
[2019-05-04] MEDS: PANTOPRAZOLE 40 MG TABLET (FP) PO SCH (10:05)
[2019-05-04] MEDS: MECLIZINE HCL 12.5 MG TABLET PO SCH ×2 (10:05→21:02)
[2019-05-04] MEDS: GABAPENTIN 300 MG CAPSULE (FP) PO SCH ×2 (10:05→21:01)
[2019-05-04] MEDS: ESCITALOPRAM OXALATE 20 MG TABLET (FP) PO SCH (10:05)
--- NOTE | 2019-05-04 11:14 | PN ---
Progress Note, Physician - Current Medication List Current Medications: Active Medications Acetaminophen (Tylenol -) 325 mg PO Q6H PRN PRN Reason: PAIN LEVEL 6-10 Last Admin: 05/04/19 07:44 Dose: 325 mg Albuterol Sulfate (Ventolin 0.083% Nebulizer Soln -) 1 amp NEB RQID PRN PRN Reason: SHORT OF BREATH/WHEEZING Atorvastatin Calcium (Lipitor -) 10 mg PO [facility] Last Admin: 05/03/19 21:26 Dose: 10 mg Escitalopram Oxalate (Lexapro -) 20 mg PO DAILY [facility] Last Admin: 05/04/19 10:05 Dose: 20 mg Gabapentin (Neurontin -) 300 mg PO BID [facility] Last Admin: 05/04/19 10:05 Dose: 300 mg Levothyroxine Sodium (Synthroid -) 112 mcg PO ACBK [facility] Last Admin: 05/04/19 06:10 Dose: 112 mcg Lidocaine (Lidoderm Patch -) 1 patch TP DAILY [facility] Last Admin: 05/04/19 09:00 Dose: Not Given Meclizine HCl (Antivert -) 12.5 mg PO BID [facility] Last Admin: 05/04/19 10:05 Dose: 12.5 mg Miscellaneous (Lidoderm Patch Removal) 1 each MC DAILY@2200 [facility] Last Admin: 05/03/19 21:35 Dose: Not Given Montelukast Sodium (Singulair -) 10 mg PO [facility] Last Admin: 05/03/19 21:27 Dose: 10 mg Non-Formulary Medication (Linaclotide [Linzess]) 145 mcg PO DAILY [facility] Nortriptyline HCl (Pamelor -) 50 mg PO [facility] Last Admin: 05/03/19 21:27 Dose: 50 mg Oxycodone HCl (Roxicodone -) 10 mg PO Q6H PRN PRN Reason: PAIN LEVEL 6-10 Last Admin: 05/04/19 07:45 Dose: 10 mg Pantoprazole Sodium (Protonix -) 40 mg PO DAILY [facility] Last Admin: 05/04/19 10:05 Dose: 40 mg Warfarin Sodium (Coumadin -) 9 mg PO DAILY@1800 [facility] Last Admin: 05/03/19 17:31 Dose: 9 mg Zolpidem Tartrate (Ambien -) 10 mg PO PRN PRN Reason: INSOMNIA Last Admin: 05/03/19 21:27 Dose: 10 mg - Objective Vital Signs: Vital Signs Temperature 98.0 F 05/04/19 02:00 Pulse Rate 68 05/04/19 02:00 Respiratory Rate 20 05/04/19 08:38 Blood Pressure 107/58 L 05/04/19 02:00 O2 Sat by Pulse Oximetry (%) 96 05/03/19 22:51 Cardiovascular: Yes: S1, S2 Respiratory: Yes: Regular, CTA Bilaterally Gastrointestinal: Yes: Normal Bowel Sounds, Soft Edema: No Labs: CBC, BMP 05/02/19 06:33 05/02/19 06:33 INR, PTT INR 1.39 (0.83-1.09) H 05/03/19 16:53 Assessment/Plan - Problems (1) Dizziness-Syncope Assessment/Plan: neurology noted cardiology noted telemetry echo carotid doppler no stenosis stop ramipril and diltiazem Code(s): R42 - DIZZINESS AND GIDDINESS (2) Sacral back pain Assessment/Plan: ct scan noted --discs ds CLAUDIA consult noted lidocaine patch gabapentin dose increased to bid tramadol pain control PT Code(s): M53.3 - SACROCOCCYGEAL DISORDERS, NOT ELSEWHERE CLASSIFIED (3) Hypothyroidism Assessment/Plan: tsh is elevated synthroid dose increased Code(s): E03.9 - HYPOTHYROIDISM, UNSPECIFIED Qualifiers: Hypothyroidism type: unspecified Qualified Code(s): E03.9 - Hypothyroidism , unspecified (4) Neck Pain Assessment/Plan: mri noted disc with nerve compresion ns follow up physical therapy (5) DVT-h/o Assessment/Plan: Coumadin and lovenox hem consult check on previous w/u
[2019-05-04 12:36] LABS: INR 1.4 (0.83-1.09); PROTHROMBIN TIME (PATIENT) 16.6 SEC (9.7-13.0)
--- NOTE | 2019-05-04 15:10 | PN ---
Progress Note (short form) - Note Progress Note: MRI Cervical reviewed. No acute pathological findings mandating urgent neurosurgical intervention. No neurosurgical contraindication to discharge.
--- NOTE | 2019-05-04 15:33 | CONSULT ---
Consultation: Hematology/Oncology Consultation REQUESTING PROVIDER: Dr. 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 Patient reports that all of her DVTs had been in the right lower extremities and had been preceeded by symptoms of numbness and tingling in her legs. She states that the first one was many years ago (cannot remember the exact first time). Currently reports several months of mild bilateral lower extremity numbness. states that her TIAs all started as dysarthria and left lower extremity weakness. Currently denies chest pain, shortness of breath, nausea, vomiting, diarrhea, fevers, chills. Reports that her vertigo has improved. Heme/Onc was consulted for history of DVT. Smoking: never smoker (smoked < 100 cigarettes in her lifetime) Alcohol: non-drinker Drug use: none Family History: sister with breast cancer, aunt with breast cancer, no family history of bleeding or clotting disorders Country of Origin: [place] Surgeries: recent partial thyroidectomy (04/14/19 at [facility]), hysterectomy many years ago for "cancer", never on chemo Mammogram: Q6 months Colonoscopy: last was 2 years ago, was told she needs another in 5 years. 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 REVIEW OF SYSTEMS: CONSTITUTIONAL: Absent: fever, chills, diaphoresis, generalized weakness, malaise, loss of appetite, weight change HEENT: Absent: rhinorrhea, nasal congestion, throat pain, throat swelling, difficulty swallowing, mouth swelling, ear pain, eye pain, visual changes CARDIOVASCULAR: Absent: chest pain, syncope, palpitations, irregular heart rate, lightheadedness , peripheral edema RESPIRATORY: Absent: cough, shortness of breath, dyspnea with exertion, orthopnea, wheezing, stridor, hemoptysis GASTROINTESTINAL: Absent: abdominal pain, abdominal distension, nausea, vomiting, diarrhea, constipation, melena, hematochezia GENITOURINARY: Absent: dysuria, frequency, urgency, hesitancy, hematuria, flank pain, genital pain MUSCULOSKELETAL: Absent: myalgia, arthralgia, joint swelling, back pain, neck pain SKIN: Absent: rash, itching, pallor HEMATOLOGIC/IMMUNOLOGIC: Absent: easy bleeding, easy bruising, lymphadenopathy, frequent infections ENDOCRINE: Absent: unexplained weight gain, unexplained weight loss, heat intolerance, cold intolerance NEUROLOGIC: paresthesias Absent: headache, focal weakness or dizziness, unsteady gait, seizure, mental status changes, bladder or bowel incontinence PSYCHIATRIC: Absent: anxiety, depression, suicidal or homicidal ideation, hallucinations. PHYSICAL EXAMINATION Vital Signs - 24 hr 05/03/19 05/03/19 05/03/19 16:19 18:28 20:05 Temperature 98.4 F 98.0 F Pulse Rate 82 71 Respiratory 18 19 Rate Blood Pressure 126/81 107/70 O2 Sat by Pulse 93 L Oximetry (%) 05/03/19 05/03/19 05/04/19 21:00 22:51 02:00 Temperature 98.0 F Pulse Rate 68 Respiratory 20 Rate Blood Pressure 107/58 L O2 Sat by Pulse 100 96 Oximetry (%) 05/04/19 05/04/19 05/04/19 08:38 10:00 14:00 Temperature 98.6 F Pulse Rate 99 H 85 Respiratory 20 20 16 Rate Blood Pressure 112/61 129/16 L O2 Sat by Pulse Oximetry (%) GENERAL: A&Ox3 no acute distress EYES: PERRL, EOMI ENT: oropharynx clear, no erythema NECK: No JVD, thyroidectomy scar noted, well healed, no cervical or axillary lymphadenopathy BREAST: L breast normal without any nodularities or masses noted; R breast there is a small nodularity in the upper inner quadrant that is mildly tender to palpation LUNGS: CTA, no wheezes or rhonchi HEART: RRR, no murmurs ABDOMEN: Obese, soft, nontender Extremities: no edema, mildly tender to palpation, no calf or thigh erythema NEUROLOGICAL: Cranial nerves II-XII intact. Normal speech. Gait not observed. No focal neurologic deficits noted. PSYCHIATRIC: Cooperative. Good eye contact. Appropriate mood and affect. SKIN: Warm, dry, normal turgor, no rashes or lesions noted. Laboratory Results - last 24 hr 05/03/19 05/04/19 16:53 12:08 PT with INR 16.40 H 16.60 H INR 1.39 H 1.40 H Active Medications Generic Name Dose Route Start Last Admin Trade Name Freq PRN Reason Stop Dose Admin Acetaminophen 325 mg 04/29/19 21:57 05/04/19 14:49 Tylenol - PO 325 mg Q6H PRN Administration PAIN LEVEL 6-10 Albuterol Sulfate 1 amp 05/02/19 06:52 Ventolin 0.083% Nebulizer Soln - NEB RQID PRN SHORT OF BREATH/WHEEZING Atorvastatin Calcium 10 mg 04/29/19 22:00 05/03/19 21:26 Lipitor - PO 10 mg HS EVITA Administration Escitalopram Oxalate 20 mg 04/30/19 10:00 05/04/19 10:05 Lexapro - PO 20 mg DAILY EVITA Administration Gabapentin 300 mg 04/30/19 22:00 05/04/19 10:05 Neurontin - PO 300 mg BID EVITA Administration Levothyroxine Sodium 112 mcg 05/02/19 07:00 05/04/19 06:10 Synthroid - PO 112 mcg ACBK EVITA Administration Lidocaine 1 patch 05/01/19 12:45 05/04/19 09:00 Lidoderm Patch - TP Not Given DAILY [facility] Meclizine HCl 12.5 mg 04/29/19 22:00 05/04/19 10:05 Antivert - PO 12.5 mg BID EVITA Administration Miscellaneous 1 each 05/01/19 22:00 05/03/19 21:35 Lidoderm Patch Removal MC Not Given DAILY@2200 EVITA Montelukast Sodium 10 mg 04/30/19 22:00 05/03/19 21:27 Singulair - PO 10 mg HS EVITA Administration Non-Formulary Medication 145 mcg 04/30/19 10:00 Linaclotide [Linzess] PO DAILY [facility] Nortriptyline HCl 50 mg 04/30/19 06:41 05/03/19 21:27 Pamelor - PO 50 mg HS EVITA Administration Oxycodone HCl 10 mg 04/30/19 14:07 05/04/19 14:50 Roxicodone - PO 10 mg Q6H PRN Administration PAIN LEVEL 6-10 Pantoprazole Sodium 40 mg 04/30/19 10:00 05/04/19 10:05 Protonix - PO 40 mg DAILY EVITA Administration Warfarin Sodium 9 mg 04/30/19 18:30 05/03/19 17:31 Coumadin - PO 9 mg DAILY@1800 EVITA Administration Zolpidem Tartrate 10 mg 04/30/19 22:00 05/03/19 21:27 Ambien - PO 10 mg HS PRN Administration INSOMNIA ASSESSMENT/PLAN: 53 year old, israeli-speaking female with a past medical history of rheumatoid arthritis, hypertension, hyperlipidemia, coronary artery disease, multiple TIAs in the past without residual deficits, history of 4-5 DVTs in the past on 9mg warfarin daily, asthma, fibromyalgia who presented to the hospital s/p fall and vertigo; we are consulted for history of DVTs on coumadin #History of DVTs #Subtherapeutic INR #Hx of DVT: patient has had multiple DVTs allegedly in the right lower extremity and has been treated with coumadin 9mg daily. She appears to have mild symptoms of numbness/tingling in bilateral lower extremities without tenderness -per patient, did not have workup for hypercoagulability in the past -ordered b/l duplex ultrasound of the lower extremities -ordered factor V leiden, prothrombin gene , lupus anticoagulant, homocysteine levels -will need to order anti cardiolipin and B2 glycoprotein tomorrow -currently subtherapeutic on 9mg coumadin daily; INR had been ~1.4 for the past 4 days -start weight based lovenox today (120mg BID) and dose with one time coumadine 12mg now Ravi Rose D.O., PGY-[address] Maria Luz Goldman: We will continue to follow the patient. Thank you for this consultative opportunity. Visit type - Emergency Visit Emergency Visit: No - New Patient This patient is new to me today: Yes Date on this admission: 05/04/19 - Critical Care Critical Care patient: No ATTENDING PHYSICIAN STATEMENT I saw and evaluated the patient. I reviewed the resident's note and discussed the case with the resident. I agree with the resident's findings and plan as documented. SUBJECTIVE: OBJECTIVE: ASSESSMENT AND PLAN:
[2019-05-04] MEDS ORDERED: WARFARIN NA 3 MG TABLET PO ONE ×2 (16:13→17:35)
--- NOTE | 2019-05-04 17:10 | PN ---
Teaching Attending Note Name of Resident: Ravi Rose ATTENDING PHYSICIAN STATEMENT I saw and evaluated the patient. I reviewed the resident's note and discussed the case with the resident. I agree with the resident's findings and plan as documented. SUBJECTIVE: Patient seen and examined Discussed with Dr. 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 Non smoker, drinker, without industrial exposures or intoxicants Family history with sister and aunt with breast ca; uncle with ca --? type Surgical history - breast biopsies x2 - benign ; thyroid surgery - partial thyroidectomy- benign etiology ROS - occipital KOHLI's, diplopia, epistaxis, SOB, chest pain, occasional hemoptysis, GERD, constipation, paresthesias, muscular pains PE Last Vital Signs Temp Pulse Resp BP Pulse Ox 98.6 F 85 16 129/16 L 96 05/04/19 14:00 05/04/19 14:00 05/04/19 14:05/04/19 14:00 05/03/19 22:51 HEENT: GISELL, EOM Intact Oropharynx: No thrush, No mucositis Neck: Supple Nodes: Without adenopathy Breasts: Without masses,pendulous Cor: RSR, No murmurs, No gallops Lungs: Clear to P&A Abd: Soft, Normal bowel sounds, No organomegaly Ext:No significant edema Skin: No rashes, Integument intact CBC, BMP 05/02/19 06:33 05/02/19 06:33 Current Medications Generic Name Dose Route Start Last Admin Trade Name Freq PRN Reason Stop Dose Admin Acetaminophen 325 mg 04/29/19 21:57 05/04/19 14:49 Tylenol - PO 325 mg Q6H PRN Administration PAIN LEVEL 6-10 Albuterol Sulfate 1 amp 05/02/19 06:52 Ventolin 0.083% Nebulizer Soln - NEB RQID PRN SHORT OF BREATH/WHEEZING Atorvastatin Calcium 10 mg 04/29/19 22:00 05/03/19 21:26 Lipitor - PO 10 mg HS EVITA Administration Enoxaparin Sodium 120 mg 05/04/19 22:00 Lovenox - SQ BID EVITA Escitalopram Oxalate 20 mg 04/30/19 10:00 05/04/19 10:05 Lexapro - PO 20 mg DAILY EVITA Administration Gabapentin 300 mg 04/30/19 22:00 05/04/19 10:05 Neurontin - PO 300 mg BID EVITA Administration Levothyroxine Sodium 112 mcg 05/02/19 07:00 05/04/19 06:10 Synthroid - PO 112 mcg ACBK EVITA Administration Lidocaine 1 patch 05/01/19 12:45 05/04/19 09:00 Lidoderm Patch - TP Not Given DAILY [facility] Meclizine HCl 12.5 mg 04/29/19 22:00 05/04/19 10:05 Antivert - PO 12.5 mg BID EVITA Administration Miscellaneous 1 each 05/01/19 22:00 05/03/19 21:35 Lidoderm Patch Removal MC Not Given DAILY@2200 EVITA Montelukast Sodium 10 mg 04/30/19 22:00 05/03/19 21:27 Singulair - PO 10 mg HS EVITA Administration Non-Formulary Medication 145 mcg 04/30/19 10:00 Linaclotide [Linzess] PO DAILY [facility] Nortriptyline HCl 50 mg 04/30/19 06:41 05/03/19 21:27 Pamelor - PO 50 mg HS EVITA Administration Oxycodone HCl 10 mg 04/30/19 14:07 05/04/19 14:50 Roxicodone - PO 10 mg Q6H PRN Administration PAIN LEVEL 6-10 Pantoprazole Sodium 40 mg 04/30/19 10:00 05/04/19 10:05 Protonix - PO 40 mg DAILY EVITA Administration Zolpidem Tartrate 10 mg 04/30/19 22:00 05/03/19 21:27 Ambien - PO 10 mg HS PRN Administration INSOMNIA Impression: History of multiple vascular events. No prior evaluation. Will initiate thrombophilia work up. Additional problems Rheumtoid arthritis, Asthma Fibromyalgia CAD HPL Vertigo.
[2019-05-04] MEDS: ENOXAPARIN NA (PORCINE) 120 MG/0.8 ML DISP.SYRIN SQ SCH (21:00)
[2019-05-04] MEDS: ATORVASTATIN CA 10 MG TABLET (FP) PO SCH (21:01)
[2019-05-04] MEDS: LIDOCAINE PATCH REMOVAL MC SCH (21:02)
[2019-05-04] MEDS: NORTRIPTYLINE HCL 25 MG CAPSULE PO SCH (21:02)
[2019-05-04] MEDS: MONTELUKAST NA 10 MG TABLET PO SCH (21:02)
[2019-05-04] MEDS: ZOLPIDEM TARTRATE 5 MG TABLET PO PRN (22:16)
[2019-05-05] MEDS: ACETAMINOPHEN 325 MG TABLET (FP) PO PRN ×4 (02:49→22:54)
[2019-05-05] MEDS: oxyCODONE HCL 5 MG TABLET PO PRN ×4 (02:49→22:54)
[2019-05-05] MEDS: LEVOTHYROXINE NA 112 MCG TABLET (FP) PO SCH (06:53)
[2019-05-05 07:07] LABS: INR 1.44 (0.83-1.09)
--- NOTE | 2019-05-05 09:17 | PN ---
Progress Note, Physician - Current Medication List Current Medications: Active Medications Acetaminophen (Tylenol -) 325 mg PO Q6H PRN PRN Reason: PAIN LEVEL 6-10 Last Admin: 05/05/19 02:49 Dose: 325 mg Albuterol Sulfate (Ventolin 0.083% Nebulizer Soln -) 1 amp NEB RQID PRN PRN Reason: SHORT OF BREATH/WHEEZING Atorvastatin Calcium (Lipitor -) 10 mg PO HS [facility] Last Admin: 05/04/19 21:01 Dose: 10 mg Enoxaparin Sodium (Lovenox -) 120 mg SQ BID [facility] Last Admin: 05/04/19 21:00 Dose: 120 mg Escitalopram Oxalate (Lexapro -) 20 mg PO DAILY [facility] Last Admin: 05/04/19 10:05 Dose: 20 mg Gabapentin (Neurontin -) 300 mg PO BID [facility] Last Admin: 05/04/19 21:01 Dose: 300 mg Levothyroxine Sodium (Synthroid -) 112 mcg PO ACBK [facility] Last Admin: 05/05/19 06:53 Dose: 112 mcg Lidocaine (Lidoderm Patch -) 1 patch TP DAILY [facility] Last Admin: 05/04/19 09:00 Dose: Not Given Meclizine HCl (Antivert -) 12.5 mg PO BID [facility] Last Admin: 05/04/19 21:02 Dose: 12.5 mg Miscellaneous (Lidoderm Patch Removal) 1 each MC DAILY@2200 [facility] Last Admin: 05/04/19 21:02 Dose: Not Given Montelukast Sodium (Singulair -) 10 mg PO HS [facility] Last Admin: 05/04/19 21:02 Dose: 10 mg Non-Formulary Medication (Linaclotide [Linzess]) 145 mcg PO DAILY [facility] Nortriptyline HCl (Pamelor -) 50 mg PO [facility] Last Admin: 05/04/19 21:02 Dose: 50 mg Oxycodone HCl (Roxicodone -) 10 mg PO Q6H PRN PRN Reason: PAIN LEVEL 6-10 Last Admin: 05/05/19 02:49 Dose: 10 mg Pantoprazole Sodium (Protonix -) 40 mg PO DAILY [facility] Last Admin: 05/04/19 10:05 Dose: 40 mg Zolpidem Tartrate (Ambien -) 10 mg PO HS PRN PRN Reason: INSOMNIA Last Admin: 05/04/19 22:16 Dose: 10 mg - Objective Vital Signs: Vital Signs Temperature 97.7 F 05/05/19 01:00 Pulse Rate 59 L 05/05/19 05:00 Respiratory Rate 20 05/05/19 08:26 Blood Pressure 113/70 05/05/19 05:00 O2 Sat by Pulse Oximetry (%) 98 05/05/19 08:26 Cardiovascular: Yes: S1, S2 Respiratory: Yes: Regular, CTA Bilaterally Gastrointestinal: Yes: Normal Bowel Sounds, Soft Labs: CBC, BMP 05/02/19 06:33 05/02/19 06:33 INR, PTT INR 1.44 (0.83-1.09) H 05/05/19 06:05 Assessment/Plan - Problems (1) Dizziness-Syncope Assessment/Plan: neurology noted cardiology noted telemetry echo carotid doppler no stenosis stop ramipril and diltiazem Code(s): R42 - DIZZINESS AND GIDDINESS (2) Sacral back pain Assessment/Plan: ct scan noted --discs ds CLAUDIA consult noted lidocaine patch gabapentin dose increased to bid tramadol pain control PT Code(s): M53.3 - SACROCOCCYGEAL DISORDERS, NOT ELSEWHERE CLASSIFIED (3) Hypothyroidism Assessment/Plan: tsh is elevated synthroid dose increased Code(s): E03.9 - HYPOTHYROIDISM, UNSPECIFIED Qualifiers: Hypothyroidism type: unspecified Qualified Code(s): E03.9 - Hypothyroidism , unspecified (4) Neck Pain Assessment/Plan: mri noted disc with nerve compresion ns follow up NOTED physical therapy (5) DVT-h/o Assessment/Plan: Coumadin and lovenox hem consult NOTED check on previous w/u
--- NOTE | 2019-05-05 09:39 | PN ---
Progress Note (short form) - Note Progress Note: 53 year old female history of RA,HTN,HLD,CAD,TIA , DVT on Warfarin, Asthma, Fibromyalgia . Patient was brought to hospital on April 29 for feeling of dizziness, Patient describes as spinning sensation. She fell on ground and hit ground. She felt there was shaking of leg. Patient has very brief LOC, there was no incontinence, no tongue bite. Her ct head was normal. She has been shaking when stands, and shaking is better. NEUROLOGICAL EXAMINATION Alert speech is normal, oriented x 3, neck is supple, afebrile, VSS Eomi, pupils reactive , no nystagmus, face symmetrical, normal face sensation Moving all ext sensation is normal ct head is normal Assessment/Plan 53 year old female wtih multiple medical problem, has episode of dizziness followed by passing out very briefly.Patient has syncope, unlikley to be stroke or seizure, no new symptoms Plan: no further recommendation from neuro point of view, follow up prn Thanking you so much Mariluz Barron MD
[2019-05-05] MEDS: ENOXAPARIN NA (PORCINE) 120 MG/0.8 ML DISP.SYRIN SQ SCH ×2 (09:56→21:23)
[2019-05-05] MEDS: PANTOPRAZOLE 40 MG TABLET (FP) PO SCH (09:56)
[2019-05-05] MEDS: GABAPENTIN 300 MG CAPSULE (FP) PO SCH ×2 (09:57→21:22)
[2019-05-05] MEDS: LIDOCAINE 5% TOPICAL PATCH TP SCH (09:57)
[2019-05-05] MEDS: ESCITALOPRAM OXALATE 20 MG TABLET (FP) PO SCH (09:57)
[2019-05-05] MEDS: MECLIZINE HCL 12.5 MG TABLET PO SCH ×2 (09:57→21:22)
[2019-05-05] MEDS ORDERED: WARFARIN NA 2 MG TABLET (UD) PO SCH (18:00)
[2019-05-05] MEDS ORDERED: WARFARIN NA 10 MG TABLET (FP) PO ONE (18:00)
[2019-05-05] MEDS ORDERED: WARFARIN NA 10 MG, WARFARIN NA 2 MG PO SCH (18:00)
[2019-05-05] MEDS: MONTELUKAST NA 10 MG TABLET PO SCH (21:22)
[2019-05-05] MEDS: NORTRIPTYLINE HCL 25 MG CAPSULE PO SCH (21:22)
[2019-05-05] MEDS: ATORVASTATIN CA 10 MG TABLET (FP) PO SCH (21:22)
[2019-05-05] MEDS: LIDOCAINE PATCH REMOVAL MC SCH (21:28)
[2019-05-05] MEDS: ZOLPIDEM TARTRATE 5 MG TABLET PO PRN (22:55)
[2019-05-06] MEDS: oxyCODONE HCL 5 MG TABLET PO PRN ×2 (05:23→09:47)
[2019-05-06] MEDS: ACETAMINOPHEN 325 MG TABLET (FP) PO PRN ×2 (05:23→09:48)
[2019-05-06] MEDS: LEVOTHYROXINE NA 112 MCG TABLET (FP) PO SCH (06:34)
[2019-05-06 09:43] LABS: INR 1.66 (0.83-1.09); PROTHROMBIN TIME (PATIENT) 19.7 SEC (9.7-13.0)
--- NOTE | 2019-05-06 09:46 | DS ---
Physical Examination Vital Signs: Vital Signs Temperature 97.4 F L 05/06/19 02:00 Pulse Rate 85 05/06/19 09:26 Respiratory Rate 18 05/06/19 09:26 Blood Pressure 116/69 05/06/19 09:26 O2 Sat by Pulse Oximetry (%) 96 05/06/19 09:00 Cardiovascular: Yes: Regular Rate and Rhythm Respiratory: Yes: Regular, CTA Bilaterally Gastrointestinal: Yes: Normal Bowel Sounds, Soft Musculoskeletal: Yes: Back Pain, Muscle Pain, Muscle Weakness Labs: CBC, BMP 05/02/19 06:33 05/02/19 06:33 Discharge Summary Reason For Visit: SYNCOPE Current Active Problems Constipation (Acute) Depression (Acute) Dizziness (Acute) GERD (gastroesophageal reflux disease) (Acute) History of DVT (deep vein thrombosis) (Acute) Sacral back pain (Acute) Syncope and collapse (Acute) Hospital Course: - Problems (1) Dizziness-Syncope Assessment/Plan: neurology noted cardiology noted telemetry echo carotid doppler no stenosis stop ramipril and diltiazem Code(s): R42 - DIZZINESS AND GIDDINESS (2) Sacral back pain Assessment/Plan: ct scan noted --discs ds CLAUDIA consult noted lidocaine patch gabapentin dose increased to bid tramadol pain control PT needs snf--d/w pt and agrees Code(s): M53.3 - SACROCOCCYGEAL DISORDERS, NOT ELSEWHERE CLASSIFIED (3) Hypothyroidism Assessment/Plan: tsh is elevated synthroid dose increased Code(s): E03.9 - HYPOTHYROIDISM, UNSPECIFIED Qualifiers: Hypothyroidism type: unspecified Qualified Code(s): E03.9 - Hypothyroidism , unspecified (4) Neck Pain Assessment/Plan: mri noted disc with nerve compresion ns follow up NOTED physical therapy noted needs snf (5) DVT-h/o Assessment/Plan: Coumadin and lovenox hem consult NOTED check on previous w/u Condition: Improved - Instructions Referrals: Gibson Coe MD [Primary Care Provider] - Disposition: NURSING HOME FACILITY - Home Medications Comprehensive Discharge Medication List: Ambulatory Orders Escitalopram Oxalate [Lexapro -] 20 mg PO DAILY 03/18/17 Simvastatin 20 mg PO HS 03/18/17 Albuterol Sulfate Inhaler - [Ventolin HFA Inhaler -] 1 - 2 inh PO QID PRN Linaclotide [Linzess] 145 mcg PO DAILY 05/12/18 Meclizine HCl 12.5 mg PO BID #60 tablet 06/02/18 Nortriptyline HCl [Pamelor -] 50 mg PO HS #30 cap 06/02/18 Gabapentin [Neurontin] 300 mg PO DAILY 09/23/18 Montelukast Sodium [Singulair] 10 mg PO DAILY 09/23/18 Zolpidem Tartrate [Ambien] 10 mg PO HS 09/23/18 Albuterol 0.083% Nebulizer Alena [Ventolin 0.083% Nebulizer Soln -] 1 amp NEB RQID PRN amp 05/06/19 Levothyroxine [Synthroid -] 112 mcg PO ACBK tablet 05/06/19 Lidocaine 5% Patch [Lidoderm -] 1 patch TP DAILY patch 05/06/19 Pantoprazole Sodium [Protonix -] 40 mg PO DAILY tablet.ec 05/06/19 Warfarin Na [Coumadin -] 12 mg PO DAILY@1800 tablet 05/06/19 oxyCODONE HCL [Roxicodone -] 10 mg PO Q6H PRN tablet MDD 4 05/06/19
[2019-05-06] MEDS: ESCITALOPRAM OXALATE 20 MG TABLET (FP) PO SCH (09:47)
[2019-05-06] MEDS: MECLIZINE HCL 12.5 MG TABLET PO SCH (09:47)
[2019-05-06] MEDS: PANTOPRAZOLE 40 MG TABLET (FP) PO SCH (09:47)
[2019-05-06] MEDS: LIDOCAINE 5% TOPICAL PATCH TP SCH (09:48)
[2019-05-06] MEDS: ENOXAPARIN NA (PORCINE) 120 MG/0.8 ML DISP.SYRIN SQ SCH (09:48)
[2019-05-06] MEDS: GABAPENTIN 300 MG CAPSULE (FP) PO SCH (09:49)
--- NOTE | 2019-05-06 10:57 | PN ---
Progress Note (short form) - Note Progress Note: Patient stable. Discussed potential role of Cervical collar which the patient declined. Physical Therapy and Pain Management would appear to be the next appropriate steps in her care. Surgery would be reserved for symptoms that persist or progress despite conservative efforts. Patient agreed with this plan of care. All questions answered. Contact information given.
[2019-05-06 12:52] LABS: HOMOCYSTINE-PLASMA OR SERUM 11.3 umol/L (0.0-15.0)
[2019-05-06 14:30] VITALS: BP 106/72; PULSE 84; TEMP 98.5
[2019-05-08 10:10] LABS: DRVVT - 53.7 sec (0.0-47.0); HEXAGONAL PHASE PHOSPHOLIPID 0 sec (0-11); dRVVT MIX 38.9 sec (0.0-47.0)
== END 2019-05-06 18:25 | DRG 552 ==
LOC: JER 15:52 → JERBED 19:13 → J4W 22:46 → OBSVTOIN 05-03 08:51
PROVIDERS: ADMIT Family Medicine; ATTEND Family Medicine
DX: M53.3 Sacrococcygeal disorders, not elsewhere classified (principal); I47.2 Ventricular tachycardia; I42.8 Other cardiomyopathies; M50.10 Cervical disc disorder with radiculopathy, unspecified cervical region; R55 Syncope and collapse; I10 Essential (primary) hypertension; E78.5 Hyperlipidemia, unspecified; K21.9 Gastro-esophageal reflux disease without esophagitis; F32.9 Major depressive disorder, single episode, unspecified; E03.9 Hypothyroidism, unspecified; Z86.718 Personal history of other venous thrombosis and embolism; G58.8 Other specified mononeuropathies; M06.9 Rheumatoid arthritis, unspecified; M54.5 Low back pain; M54.2 Cervicalgia; K59.00 Constipation, unspecified; I25.10 Atherosclerotic heart disease of native coronary artery without angina pectoris
CPT/HCPCS: 36415; 70450-TC; 71045-TC-FY; 72070-TC-FY; 72125-TC; 72131-TC; 72141-TC; 72192-TC; 72220-TC-FY; 80053; 81240; 81241; 83090; 84443; 84484; 85025; 85610; 85613; 85732; 86146; 93005; 93010; 93306-TC; 93880-TC; 93970-TC; 94660; 95816; 97116-GP; 97162-GP; 99282-25; G0378; J0131; J7030

== ENCOUNTER 2020-07-08 08:32 | Inpatient (IN) | payer OTHER ==
[2020-07-08] MEDS ORDERED: ACETAMINOPHEN 1000 MG/100 ML VIAL (NON FORMULARY) IVPB ONE (09:18)
[2020-07-08] MEDS ORDERED: ONDANSETRON 4 MG/2 ML VIAL IVPUSH ONE (09:18)
[2020-07-08] MEDS ORDERED: ACETAMINOPHEN INJECTION 100 ML IVPB ONE (09:53)
[2020-07-08] MEDS ORDERED: SODIUM CHLORIDE 1,000 ML IV STA (10:08)
[2020-07-08 10:24] LABS: BASO % 0.5 % (0-2.0); EOS % 2.1 % (0-4.5); HEMATOCRIT 35.3 % (32.4-45.2); HEMOGLOBIN 11.7 GM/dL (10.7-15.3); LYMPH % 13.4 % (8-40); MCH 28.1 pg (25.7-33.7); MCHC 33.2 g/dl (32.0-36.0); MEAN CELL VOLUME 84.7 fl (80-96); MEAN PLT VOLUME 8.8 fl (7.5-11.1); MONO % 9.6 % (3.8-10.2); NEUT % 74.4 % (42.8-82.8); PLATELET COUNT 196 K/MM3 (134-434); RBC 4.17 M/mm3 (3.60-5.2); RDW 15.3 % (11.6-15.6); WHITE BLOOD COUNT 9.5 K/mm3 (4.0-10.0)
[2020-07-08 10:29] LABS: PROTHROMBIN TIME (PATIENT) 52.7 SEC (9.7-13.0)
[2020-07-08 10:32] LABS: ACTIVATED PTT 59.3 SECONDS (25.2-36.5)
[2020-07-08 10:40] LABS: INR 4.55 (0.83-1.09)
[2020-07-08 10:46] LABS: EPI CELLS 29 /uL (0-25.1); HYALINE CASTS 1 /uL (0-3.1); PH,URINE 6.5 (5.0-8.0); URINE APPEARANCE CLOUDY; URINE BACTERIA 627 /uL (0-1359); URINE BILIRUBIN NEGATIVE (NEGATIVE); URINE COLOR YELLOW; URINE GLUCOSE (UA) NEGATIVE (NEGATIVE); URINE KETONE TRACE (NEGATIVE); URINE LEUK ESTERASE 2+ (NEGATIVE); URINE NITRITE NEGATIVE (NEGATIVE); URINE PROTEIN TRACE (NEGATIVE); URINE RBC 27 /uL (0-23.9); URINE WBC 45 /uL (0-25.8)
[2020-07-08 10:48] LABS: POTASSIUM 3.7 mmol/L (3.5-5.1)
[2020-07-08 10:50] LABS: CALCIUM 8.8 mg/dL (8.5-10.1)
[2020-07-08 10:51] LABS: ALBUMIN 3.3 g/dl (3.4-5.0); BLOOD UREA NITROGEN 9.9 mg/dL (7-18)
[2020-07-08 10:54] LABS: CREATININE 0.9 mg/dL (0.55-1.3)
[2020-07-08 10:55] LABS: BILIRUBIN,TOTAL 0.3 mg/dL (0.2-1)
[2020-07-08 10:56] LABS: TOT PROT 7.5 g/dl (6.4-8.2)
[2020-07-08] MEDS ORDERED: fentaNYL CITRATE 250 MCG/5 ML VIAL IVPUSH ONE (13:22)
[2020-07-08] MEDS ORDERED: SODIUM CHLORIDE 0.9% 500 ML INFUS.BAG IV ONE (13:22)
[2020-07-08] MEDS ORDERED: CEFTRIAXONE 1,000 MG in DEXTROSE 5%-WATER - 50 ML IVPB ONE (13:34)
[2020-07-08] MEDS ORDERED: CEFTRIAXONE 1 GM/50 ML BAG ONE (13:46)
[2020-07-08] MEDS ORDERED: VANCOMYCIN 1 GM in D5W (PRE-DOCKED) 1,000 MG/250 ML IVPB ONE (13:46)
[2020-07-08] MEDS ORDERED: VANCOMYCIN 1 GRAM (PRE-DOCKED) 1,000 MG/250 ML BAG IVPB ONE (13:56)
[2020-07-08] MEDS ORDERED: ACETAMINOPHEN 325 MG TABLET (FP) PO PRN (15:46)
[2020-07-08] MEDS ORDERED: HYDROmorphone HCl 2 MG/ML VIAL IVPUSH PRN (15:46)
[2020-07-08] MEDS ORDERED: ACETAMINOPHEN 325 MG TABLET (FP) ONE (16:26)
[2020-07-08] MEDS: D5-1/2NS+20 MEQ KCL - 20 MEQ/1,000 ML INFUS.BAG IV SCH (16:43)
[2020-07-08] MEDS ORDERED: SODIUM CHLORIDE 0.9% 1000 ML INFUS.BAG IV ONE (18:34)
[2020-07-09] MEDS: D5-1/2NS+20 MEQ KCL - 20 MEQ/1,000 ML INFUS.BAG IV SCH ×2 (02:30→17:06)
[2020-07-09 09:09] LABS: BASO % 0.5 % (0-2.0); EOS % 3.8 % (0-4.5); HEMATOCRIT 33.3 % (32.4-45.2); HEMOGLOBIN 11.1 GM/dL (10.7-15.3); MCH 28.4 pg (25.7-33.7); MCHC 33.4 g/dl (32.0-36.0); MEAN CELL VOLUME 85.2 fl (80-96); MONO % 7.6 % (3.8-10.2); NEUT % 69.1 % (42.8-82.8); PLATELET COUNT 190 K/MM3 (134-434); RBC 3.91 M/mm3 (3.60-5.2); RDW 14.9 % (11.6-15.6); WHITE BLOOD COUNT 6.3 K/mm3 (4.0-10.0)
[2020-07-09 09:13] LABS: INR 3.71 (0.83-1.09); PROTHROMBIN TIME (PATIENT) 43.9 SEC (9.7-13.0)
[2020-07-09 10:11] LABS: CALCIUM 8.8 mg/dL (8.5-10.1)
[2020-07-09 10:12] LABS: ALBUMIN 3.1 g/dl (3.4-5.0); BLOOD UREA NITROGEN 4.9 mg/dL (7-18)
[2020-07-09 10:15] LABS: CREATININE 0.7 mg/dL (0.55-1.3)
[2020-07-09 10:17] LABS: BILIRUBIN,TOTAL 0.7 mg/dL (0.2-1); TOT PROT 7.3 g/dl (6.4-8.2)
[2020-07-09] MEDS ORDERED: ACETAMINOPHEN 1000 MG/100 ML VIAL (NON FORMULARY) IVPB PRN (12:56)
[2020-07-09] MEDS ORDERED: MORPHINE SULFATE 2 MG/ML VIAL IVPUSH PRN (12:56)
[2020-07-09] MEDS: morphine SULFATE 4 MG/ML VIAL IVPUSH PRN (21:20)
[2020-07-10 09:35] LABS: BASO % 0.6 % (0-2.0); EOS % 3.7 % (0-4.5); HEMATOCRIT 32.9 % (32.4-45.2); HEMOGLOBIN 11.1 GM/dL (10.7-15.3); LYMPH % 21.7 % (8-40); MCH 28.6 pg (25.7-33.7); MCHC 33.6 g/dl (32.0-36.0); MEAN CELL VOLUME 85.2 fl (80-96); MEAN PLT VOLUME 8.6 fl (7.5-11.1); MONO % 7.3 % (3.8-10.2); NEUT % 66.7 % (42.8-82.8); PLATELET COUNT 191 K/MM3 (134-434); RBC 3.87 M/mm3 (3.60-5.2); RDW 15.1 % (11.6-15.6); WHITE BLOOD COUNT 4.6 K/mm3 (4.0-10.0)
[2020-07-10 09:40] LABS: INR 2.43 (0.83-1.09); PROTHROMBIN TIME (PATIENT) 28.7 SEC (9.7-13.0)
[2020-07-10 09:54] LABS: POTASSIUM 4.1 mmol/L (3.5-5.1)
[2020-07-10 09:58] LABS: ALBUMIN 3.1 g/dl (3.4-5.0); BLOOD UREA NITROGEN 5.7 mg/dL (7-18)
[2020-07-10 10:01] LABS: CREATININE 0.7 mg/dL (0.55-1.3)
[2020-07-10 10:02] LABS: BILIRUBIN,TOTAL 0.7 mg/dL (0.2-1); TOT PROT 7.3 g/dl (6.4-8.2)
[2020-07-10] MEDS: D5-1/2NS+20 MEQ KCL - 20 MEQ/1,000 ML INFUS.BAG IV SCH (16:50)
[2020-07-10] MEDS: ZOLPIDEM TARTRATE 5 MG TABLET PO PRN (21:38)
[2020-07-11] MEDS: D5-1/2NS+20 MEQ KCL - 20 MEQ/1,000 ML INFUS.BAG IV SCH ×2 (03:20→17:43)
[2020-07-11 07:32] LABS: BASO % 0.6 % (0-2.0); EOS % 5.4 % (0-4.5); HEMATOCRIT 35.4 % (32.4-45.2); HEMOGLOBIN 11.8 GM/dL (10.7-15.3); LYMPH % 24.4 % (8-40); MCHC 33.4 g/dl (32.0-36.0); MEAN CELL VOLUME 83.8 fl (80-96); MEAN PLT VOLUME 8.3 fl (7.5-11.1); MONO % 7.7 % (3.8-10.2); NEUT % 61.9 % (42.8-82.8); PLATELET COUNT 223 K/MM3 (134-434); RBC 4.22 M/mm3 (3.60-5.2); RDW 14.6 % (11.6-15.6); WHITE BLOOD COUNT 4.4 K/mm3 (4.0-10.0)
[2020-07-11 07:43] LABS: INR 1.82 (0.83-1.09); PROTHROMBIN TIME (PATIENT) 21.6 SEC (9.7-13.0)
[2020-07-11 08:13] LABS: ALBUMIN 3.4 g/dl (3.4-5.0); BLOOD UREA NITROGEN 6.9 mg/dL (7-18); CALCIUM 9.2 mg/dL (8.5-10.1)
[2020-07-11 08:16] LABS: CREATININE 0.7 mg/dL (0.55-1.3)
[2020-07-11 08:18] LABS: BILIRUBIN,TOTAL 0.5 mg/dL (0.2-1)
[2020-07-11] MEDS: MONTELUKAST NA 10 MG TABLET PO SCH (10:06)
[2020-07-11] MEDS: ENOXAPARIN NA (PORCINE) 120 MG/0.8 ML DISP.SYRIN SQ SCH (11:00)
[2020-07-11] MEDS: morphine SULFATE 4 MG/ML VIAL IVPUSH PRN (11:35)
[2020-07-11] MEDS ORDERED: PT OWN MED DRAWER 7, Y5N ONE (17:38)
[2020-07-11] MEDS: ATORVASTATIN CA 10 MG TABLET (FP) PO SCH (21:30)
[2020-07-11] MEDS: ZOLPIDEM TARTRATE 5 MG TABLET PO PRN (23:40)
[2020-07-12] MEDS: D5-1/2NS+20 MEQ KCL - 20 MEQ/1,000 ML INFUS.BAG IV SCH ×2 (05:04→17:34)
[2020-07-12] MEDS: LEVOTHYROXINE NA 112 MCG TABLET (FP) PO SCH (06:10)
[2020-07-12 08:28] LABS: INR 1.54 (0.83-1.09); PROTHROMBIN TIME (PATIENT) 18.4 SEC (9.7-13.0)
[2020-07-12 08:29] LABS: BASO % 0.7 % (0-2.0); EOS % 5.3 % (0-4.5); HEMATOCRIT 35.4 % (32.4-45.2); HEMOGLOBIN 11.7 GM/dL (10.7-15.3); LYMPH % 21.1 % (8-40); MCH 27.7 pg (25.7-33.7); MCHC 32.9 g/dl (32.0-36.0); MEAN CELL VOLUME 84.1 fl (80-96); MEAN PLT VOLUME 8.4 fl (7.5-11.1); MONO % 8.4 % (3.8-10.2); NEUT % 64.5 % (42.8-82.8); PLATELET COUNT 221 K/MM3 (134-434); RBC 4.21 M/mm3 (3.60-5.2); RDW 14.7 % (11.6-15.6); WHITE BLOOD COUNT 4.4 K/mm3 (4.0-10.0)
[2020-07-12 08:44] LABS: POTASSIUM 4.2 mmol/L (3.5-5.1)
[2020-07-12 08:59] LABS: ALBUMIN 3.1 g/dl (3.4-5.0); BLOOD UREA NITROGEN 6.5 mg/dL (7-18); CALCIUM 9.1 mg/dL (8.5-10.1)
[2020-07-12 09:02] LABS: BILIRUBIN,TOTAL 0.5 mg/dL (0.2-1); CREATININE 0.7 mg/dL (0.55-1.3)
[2020-07-12 09:04] LABS: TOT PROT 7.6 g/dl (6.4-8.2)
[2020-07-12] MEDS: MONTELUKAST NA 10 MG TABLET PO SCH (10:29)
[2020-07-12] MEDS ORDERED: ACETAMINOPHEN 1000 MG/100 ML VIAL (NON FORMULARY) IVPB PRN (13:28)
[2020-07-12] MEDS ORDERED: PT OWN MED DRAWER 7, Y5N ONE (21:10)
[2020-07-12] MEDS: ENOXAPARIN NA (PORCINE) 120 MG/0.8 ML DISP.SYRIN SQ SCH (21:12)
[2020-07-12] MEDS: ATORVASTATIN CA 10 MG TABLET (FP) PO SCH (21:13)
[2020-07-12] MEDS: ZOLPIDEM TARTRATE 5 MG TABLET PO PRN (22:02)
[2020-07-13] MEDS: D5-1/2NS+20 MEQ KCL - 20 MEQ/1,000 ML INFUS.BAG IV SCH ×3 (05:30→20:00)
[2020-07-13] MEDS: LEVOTHYROXINE NA 112 MCG TABLET (FP) PO SCH (06:15)
[2020-07-13] MEDS ORDERED: PT OWN MED DRAWER 7, Y5N ONE (09:26)
[2020-07-13] MEDS: ENOXAPARIN NA (PORCINE) 120 MG/0.8 ML DISP.SYRIN SQ SCH ×2 (09:28→22:25)
[2020-07-13] MEDS: MONTELUKAST NA 10 MG TABLET PO SCH (09:28)
[2020-07-13] MEDS: morphine SULFATE 4 MG/ML VIAL IVPUSH PRN (15:35)
[2020-07-13] MEDS ORDERED: ACETAMINOPHEN 1000 MG/100 ML VIAL (NON FORMULARY) IVPB PRN (17:15)
[2020-07-13] MEDS: ATORVASTATIN CA 10 MG TABLET (FP) PO SCH (22:25)
[2020-07-14] MEDS: ZOLPIDEM TARTRATE 5 MG TABLET PO PRN (00:10)
[2020-07-14] MEDS: D5-1/2NS+20 MEQ KCL - 20 MEQ/1,000 ML INFUS.BAG IV SCH (06:22)
[2020-07-14] MEDS: LEVOTHYROXINE NA 112 MCG TABLET (FP) PO SCH (06:22)
[2020-07-14] MEDS: ENOXAPARIN NA (PORCINE) 120 MG/0.8 ML DISP.SYRIN SQ SCH ×2 (10:07→21:19)
[2020-07-14] MEDS: MONTELUKAST NA 10 MG TABLET PO SCH (10:08)
[2020-07-14 14:00] VITALS: BMI 37.5
[2020-07-14] MEDS ORDERED: PT OWN MED DRAWER 7, Y5N ONE ×2 (15:31→21:10)
[2020-07-14] MEDS: DICYCLOMINE HCL 10 MG CAPSULE PO SCH ×2 (15:39→21:20)
[2020-07-14] MEDS ORDERED: WARFARIN NA 2 MG TABLET PO ONE (18:00)
[2020-07-14] MEDS: ATORVASTATIN CA 10 MG TABLET (FP) PO SCH (21:20)
[2020-07-15] MEDS: ZOLPIDEM TARTRATE 5 MG TABLET PO PRN (00:35)
[2020-07-15] MEDS: LEVOTHYROXINE NA 112 MCG TABLET (FP) PO SCH (06:00)
[2020-07-15] MEDS ORDERED: WARFARIN NA 1 MG TABLET PO ONE (08:42)
[2020-07-15] MEDS ORDERED: PT OWN MED DRAWER 7, Y5N ONE (09:20)
[2020-07-15] MEDS: ENOXAPARIN NA (PORCINE) 120 MG/0.8 ML DISP.SYRIN SQ SCH (09:26)
[2020-07-15] MEDS: DICYCLOMINE HCL 10 MG CAPSULE PO SCH (09:26)
[2020-07-15] MEDS: MONTELUKAST NA 10 MG TABLET PO SCH (09:26)
[2020-07-15 13:17] VITALS: BP 108/67; PULSE 85; TEMP 97.9
== END 2020-07-15 14:49 | disposition home or self-care (01) | DRG 392 ==
LOC: JER 08:32 → JERBED 13:40 → J6S 07-09 00:38
PROVIDERS: ADMIT Family Medicine; ATTEND Family Medicine
DX: K57.80 Diverticulitis of intestine, part unspecified, with perforation and abscess without bleeding (principal); K51.50 Left sided colitis without complications; R10.32 Left lower quadrant pain; M06.9 Rheumatoid arthritis, unspecified; I10 Essential (primary) hypertension; E78.5 Hyperlipidemia, unspecified; I25.10 Atherosclerotic heart disease of native coronary artery without angina pectoris; E66.9 Obesity, unspecified; Z68.37 Body mass index [BMI] 37.0-37.9, adult; K21.9 Gastro-esophageal reflux disease without esophagitis
CPT/HCPCS: 36415; 71045-TC-FY; 74176-TC; 74177-TC; 80053; 81003; 82550; 83605; 83690; 84484; 85025; 85610; 85730; 86850; 86900; 86901; 87040; 87086; 93005; 93010; 99285-25; C9803; J0131; Q9967; U0003

== ENCOUNTER 2020-08-08 05:30 | Day surgery (SDC) | payer OTHER ==
[2020-08-08] MEDS ORDERED: IRON SUCROSE INJECTION 200 MG in SODIUM CHLORIDE 100 ML IVPB ONE (10:00)
[2020-08-08 17:14] VITALS: TEMP 98.1
[2020-08-08 17:15] VITALS: BP 140/74; PULSE 76
== END 2020-08-08 14:13 | disposition home or self-care (01) ==
LOC: JONCNONCHE 05:30
PROVIDERS: ATTEND Internal Medicine Hematology & Oncology
PROC: 3E033GC Introduction of Other Therapeutic Substance into Peripheral Vein, Percutaneous Approach (ICD-10-PCS; principal; 2020-08-08)
DX: D50.9 Iron deficiency anemia, unspecified (principal)
CPT/HCPCS: 96365; J1756

== ENCOUNTER 2020-08-11 06:04 | Day surgery (SDC) | payer OTHER ==
[2020-08-11] MEDS ORDERED: IRON SUCROSE INJECTION 200 MG in SODIUM CHLORIDE 100 ML IVPB ONE (10:00)
[2020-08-11 16:14] VITALS: BP 117/71; PULSE 72; TEMP 98
== END 2020-08-11 13:45 | disposition home or self-care (01) ==
LOC: JONCNONCHE 06:04
PROVIDERS: ATTEND Internal Medicine Hematology & Oncology
PROC: 3E033GC Introduction of Other Therapeutic Substance into Peripheral Vein, Percutaneous Approach (ICD-10-PCS; principal; 2020-08-11)
DX: D50.9 Iron deficiency anemia, unspecified (principal)
CPT/HCPCS: 96365; J1756

== ENCOUNTER 2020-08-15 06:11 | Day surgery (SDC) | payer OTHER ==
[2020-08-15] MEDS ORDERED: IRON SUCROSE INJECTION 200 MG in SODIUM CHLORIDE 100 ML IVPB ONE (11:30)
[2020-08-15 12:19] LABS: BASO % 0.4 % (0-2.0); EOS % 3.7 % (0-4.5); HEMATOCRIT 34.3 % (32.4-45.2); HEMOGLOBIN 11.1 GM/dL (10.7-15.3); LYMPH % 22.6 % (8-40); MCH 27.8 pg (25.7-33.7); MCHC 32.3 g/dl (32.0-36.0); MEAN CELL VOLUME 85.9 fl (80-96); MEAN PLT VOLUME 8.9 fl (7.5-11.1); MONO % 8.2 % (3.8-10.2); NEUT % 65.1 % (42.8-82.8); PLATELET COUNT 219 K/MM3 (134-434); RBC 3.99 M/mm3 (3.60-5.2); RDW 15.9 % (11.6-15.6); WHITE BLOOD COUNT 5.5 K/mm3 (4.0-10.0)
[2020-08-15 13:20] LABS: IRON SERUM 127 ug/dL (50-175)
[2020-08-15 13:21] LABS: TOTAL IRON BINDING CAPACITY 402 ug/dL (250-450)
[2020-08-15 17:57] VITALS: TEMP 98.1
[2020-08-15 17:59] VITALS: BP 108/67; PULSE 82
== END 2020-08-15 13:00 | disposition home or self-care (01) ==
LOC: JONCNONCHE 06:11 → JONCCHEMO 06:11 → JONCNONCHE 13:00
PROVIDERS: ATTEND Internal Medicine Hematology & Oncology
PROC: 3E013GC Introduction of Other Therapeutic Substance into Subcutaneous Tissue, Percutaneous Approach (ICD-10-PCS; principal; 2020-08-15)
DX: D50.9 Iron deficiency anemia, unspecified (principal)
CPT/HCPCS: 36415; 83540; 83550; 85025; 96365; J1756

== ENCOUNTER 2020-08-19 14:09 | Day surgery (SDC) | payer OTHER ==
[2020-08-19 13:01] VITALS: BP 111/68; PULSE 78; TEMP 98.1
[~2020-08-19 14:09] MED LIST: IRON SUCROSE INJECTION 200 MG in SODIUM CHLORIDE 100 ML IVPB ONE
== END 2020-08-19 15:00 | disposition home or self-care (01) ==
LOC: JONCNONCHE 14:09
PROVIDERS: ATTEND Internal Medicine Hematology & Oncology
PROC: 3E033GC Introduction of Other Therapeutic Substance into Peripheral Vein, Percutaneous Approach (ICD-10-PCS; principal; 2020-08-19)
DX: D50.9 Iron deficiency anemia, unspecified (principal)
CPT/HCPCS: 96365; J1756

== ENCOUNTER 2020-08-22 06:30 | Day surgery (SDC) | payer OTHER ==
[2020-08-22] MEDS ORDERED: IRON SUCROSE INJECTION 200 MG in SODIUM CHLORIDE 90 ML IVPB ONE (12:00)
[2020-08-22 15:07] VITALS: TEMP 97.3
[2020-08-22 15:08] VITALS: BP 100/60; PULSE 100
== END 2020-08-22 12:41 | disposition home or self-care (01) ==
LOC: JONCNONCHE 06:30
PROVIDERS: ATTEND Internal Medicine Hematology & Oncology
PROC: 3E033GC Introduction of Other Therapeutic Substance into Peripheral Vein, Percutaneous Approach (ICD-10-PCS; principal; 2020-08-22)
DX: D50.9 Iron deficiency anemia, unspecified (principal)
CPT/HCPCS: 96365; J1756

== ENCOUNTER 2020-09-04 20:14 | Inpatient (IN) | payer OTHER ==
[2020-09-04 20:50] VITALS: BMI 38.0
[2020-09-04] MEDS ORDERED: ACETAMINOPHEN 1000 MG/100 ML BAG IVPB ONE (22:20)
[2020-09-04] MEDS ORDERED: LACTATED RINGERS SOLUTION 1000 ML INFUS.BAG IV ONE (22:20)
[2020-09-04] MEDS ORDERED: DEXAMETHASONE SOD PHOSPHATE 10 MG/1 ML VIAL IVPUSH ONE (22:21)
[2020-09-04] MEDS ORDERED: DEXAMETHASONE SOD PHOSPHATE 10 MG/1 ML VIAL ONE (23:17)
[2020-09-04] MEDS ORDERED: ACETAMINOPHEN INJECTION 100 ML IVPB ONE (23:17)
[2020-09-04 23:52] LABS: BASO % 0.2 % (0-2.0); HEMATOCRIT 39.1 % (32.4-45.2); HEMOGLOBIN 13.1 GM/dL (10.7-15.3); MCH 29.3 pg (25.7-33.7); MCHC 33.4 g/dl (32.0-36.0); MEAN CELL VOLUME 87.5 fl (80-96); MEAN PLT VOLUME 8.2 fl (7.5-11.1); MONO % 9.1 % (3.8-10.2); NEUT % 60.7 % (42.8-82.8); PLATELET COUNT 170 K/MM3 (134-434); RBC 4.46 M/mm3 (3.60-5.2); RDW 17.3 % (11.6-15.6); WHITE BLOOD COUNT 3.7 K/mm3 (4.0-10.0)
[2020-09-05 00:08] LABS: CHLORIDE 106 mmol/L (98-107); SODIUM 138 mmol/L (136-145)
[2020-09-05 00:10] LABS: CALCIUM 8.6 mg/dL (8.5-10.1); GLUCOSE,RANDOM 97 mg/dL (74-106)
[2020-09-05 00:11] LABS: BLOOD UREA NITROGEN 11.4 mg/dL (7-18)
[2020-09-05 00:12] LABS: ALBUMIN 3.5 g/dl (3.4-5.0); ANION GAP 6 MMOL/L (8-16); CO2 25 mmol/L (21-32); MAGNESIUM 1.9 mg/dL (1.8-2.4)
[2020-09-05 00:13] LABS: CREATININE 0.9 mg/dL (0.55-1.3)
[2020-09-05 00:14] LABS: SGPT/ALT 41 U/L (13-61)
[2020-09-05 00:15] LABS: BILIRUBIN,TOTAL 0.3 mg/dL (0.2-1)
[2020-09-05 00:16] LABS: SGOT/AST 56 U/L (15-37)
[2020-09-05 00:17] LABS: LDH 230 U/L (84-246); TOT PROT 7.7 g/dl (6.4-8.2)
[2020-09-05 00:19] LABS: ALK PHOS 117 U/L (45-117)
[2020-09-05 00:23] LABS: INR 1.16 (0.83-1.09)
[2020-09-05 00:26] LABS: ACTIVATED PTT 31.5 SECONDS (25.2-36.5)
[2020-09-05] MEDS ORDERED: ALBUTEROL SO4 HFA INHALER IH PRN (08:23)
[2020-09-05] MEDS ORDERED: ASCORBIC ACID 500 MG TABLET (FP) ONE (08:56)
[2020-09-05] MEDS ORDERED: CHOLECALCIFEROL (VIT D3) 1,000 UNIT (25 MCG) TABLET ONE (08:56)
[2020-09-05] MEDS ORDERED: ZINC SULFATE 220 MG CAPSULE (FP) ONE (08:56)
[2020-09-05] MEDS ORDERED: DEXAMETHASONE SOD PHOSPHATE 4 MG/1 ML VIAL ONE (08:56)
[2020-09-05] MEDS ORDERED: ESCITALOPRAM OXALATE 10 MG TABLET ONE (08:57)
[2020-09-05] MEDS: DEXAMETHASONE SOD PHOSPHATE 4 MG/1 ML VIAL IVPUSH SCH (09:00)
[2020-09-05] MEDS: ZINC SULFATE 220 MG CAPSULE (FP) PO SCH (09:00)
[2020-09-05] MEDS: ASCORBIC ACID 500 MG TABLET (FP) PO SCH ×2 (09:00→21:37)
[2020-09-05] MEDS: ESCITALOPRAM OXALATE 20 MG TABLET PO SCH (09:00)
[2020-09-05] MEDS: CHOLECALCIFEROL (VIT D3) 1,000 UNIT (25 MCG) TABLET PO SCH (09:00)
[2020-09-05] MEDS ORDERED: ENOXAPARIN NA (PORCINE) 40 MG/0.4 ML DISP.SYRIN SQ SCH (10:00)
[2020-09-05 10:52] LABS: BASO % 0.4 % (0-2.0); HEMATOCRIT 37.8 % (32.4-45.2); HEMOGLOBIN 12.6 GM/dL (10.7-15.3); LYMPH % 27.3 % (8-40); MCH 29.4 pg (25.7-33.7); MCHC 33.3 g/dl (32.0-36.0); MEAN CELL VOLUME 88.1 fl (80-96); MEAN PLT VOLUME 8.4 fl (7.5-11.1); NEUT % 69.3 % (42.8-82.8); PLATELET COUNT 173 K/MM3 (134-434); RBC 4.29 M/mm3 (3.60-5.2); RDW 17.1 % (11.6-15.6)
[2020-09-05 11:03] LABS: INR 1.08 (0.83-1.09); PROTHROMBIN TIME (PATIENT) 13.2 SEC (9.7-13.0)
[2020-09-05 11:13] LABS: ALBUMIN 3.6 g/dl (3.4-5.0); CALCIUM 8.8 mg/dL (8.5-10.1)
[2020-09-05 11:16] LABS: CREATININE 0.8 mg/dL (0.55-1.3)
[2020-09-05 11:18] LABS: BILIRUBIN,TOTAL 0.3 mg/dL (0.2-1); TOT PROT 8.2 g/dl (6.4-8.2)
[2020-09-05] MEDS ORDERED: REMDESIVIR 200 MG in SODIUM CHLORIDE 210 ML IVPB ONE (14:00)
[2020-09-05] MEDS ORDERED: WARFARIN NA 1 MG TABLET PO SCH (18:00)
[2020-09-05] MEDS ORDERED: WARFARIN NA 10 MG TABLET PO SCH (18:00)
[2020-09-05] MEDS ORDERED: WARFARIN NA 5 MG TABLET ONE (18:19)
[2020-09-05] MEDS ORDERED: WARFARIN NA 1 MG TABLET ONE (18:19)
[2020-09-05] MEDS: WARFARIN NA 10 MG, WARFARIN NA 1 MG PO SCH (18:23)
[2020-09-05] MEDS: ATORVASTATIN CA 20 MG TABLET (FP) PO SCH (21:37)
[2020-09-05] MEDS: GABAPENTIN 400 MG CAPSULE PO SCH (21:37)
[2020-09-05] MEDS ORDERED: ACETAMINOPHEN 1000 MG/100 ML BAG IVPB ONE (22:43)
[2020-09-06 07:36] LABS: BASO % 0.1 % (0-2.0); HEMATOCRIT 36.9 % (32.4-45.2); HEMOGLOBIN 12.3 GM/dL (10.7-15.3); LYMPH % 14.9 % (8-40); MCH 29.3 pg (25.7-33.7); MCHC 33.4 g/dl (32.0-36.0); MEAN CELL VOLUME 87.7 fl (80-96); MEAN PLT VOLUME 8.8 fl (7.5-11.1); MONO % 7.6 % (3.8-10.2); NEUT % 77.4 % (42.8-82.8); PLATELET COUNT 186 K/MM3 (134-434); RBC 4.21 M/mm3 (3.60-5.2); RDW 17.1 % (11.6-15.6); WHITE BLOOD COUNT 7.4 K/mm3 (4.0-10.0)
[2020-09-06 07:41] LABS: INR 1.12 (0.83-1.09); PROTHROMBIN TIME (PATIENT) 13.7 SEC (9.7-13.0)
[2020-09-06 07:53] LABS: ALBUMIN 3.6 g/dl (3.4-5.0); CALCIUM 8.9 mg/dL (8.5-10.1)
[2020-09-06 07:54] LABS: MAGNESIUM 2.5 mg/dL (1.8-2.4)
[2020-09-06 07:56] LABS: CREATININE 0.8 mg/dL (0.55-1.3)
[2020-09-06 07:57] LABS: PHOSPHOROUS 4.1 mg/dL (2.5-4.9)
[2020-09-06 07:58] LABS: BILIRUBIN,TOTAL 0.6 mg/dL (0.2-1)
[2020-09-06 08:31] LABS: ERYTHROCYTE SEDIMENTATION RATE 46 mm/hr (0-30)
[2020-09-06] MEDS: GABAPENTIN 400 MG CAPSULE PO SCH ×2 (09:37→21:12)
[2020-09-06] MEDS: ASCORBIC ACID 500 MG TABLET (FP) PO SCH ×2 (09:37→21:12)
[2020-09-06] MEDS: ZINC SULFATE 220 MG CAPSULE (FP) PO SCH (09:37)
[2020-09-06] MEDS: CHOLECALCIFEROL (VIT D3) 1,000 UNIT (25 MCG) TABLET PO SCH (09:37)
[2020-09-06] MEDS: LEVOTHYROXINE NA 112 MCG TABLET (FP) PO SCH (09:37)
[2020-09-06] MEDS: ESCITALOPRAM OXALATE 20 MG TABLET PO SCH (09:37)
[2020-09-06] MEDS: DEXAMETHASONE SOD PHOSPHATE 4 MG/1 ML VIAL IVPUSH SCH (09:37)
[2020-09-06] MEDS: REMDESIVIR 100 MG in SODIUM CHLORIDE 230 ML IVPB SCH (14:11)
[2020-09-06] MEDS ORDERED: ACETAMINOPHEN 325 MG TABLET (FP) PO PRN (14:59)
[2020-09-06] MEDS ORDERED: PT OWN MED DRAWER 7, Y5N ONE (17:08)
[2020-09-06] MEDS: WARFARIN NA 10 MG, WARFARIN NA 1 MG PO SCH (17:51)
[2020-09-06] MEDS: ATORVASTATIN CA 20 MG TABLET (FP) PO SCH (21:12)
[2020-09-07] MEDS: LEVOTHYROXINE NA 112 MCG TABLET (FP) PO SCH (06:05)
[2020-09-07 07:33] LABS: BASO % 0.1 % (0-2.0); HEMATOCRIT 34.4 % (32.4-45.2); HEMOGLOBIN 11.6 GM/dL (10.7-15.3); LYMPH % 23.1 % (8-40); MCH 29.6 pg (25.7-33.7); MCHC 33.8 g/dl (32.0-36.0); MEAN CELL VOLUME 87.6 fl (80-96); MEAN PLT VOLUME 8.7 fl (7.5-11.1); MONO % 8.9 % (3.8-10.2); NEUT % 67.9 % (42.8-82.8); PLATELET COUNT 174 K/MM3 (134-434); RBC 3.93 M/mm3 (3.60-5.2); RDW 17.2 % (11.6-15.6); WHITE BLOOD COUNT 5.3 K/mm3 (4.0-10.0)
[2020-09-07 07:56] LABS: ALBUMIN 3.4 g/dl (3.4-5.0); BLOOD UREA NITROGEN 12.3 mg/dL (7-18); CALCIUM 8.3 mg/dL (8.5-10.1)
[2020-09-07 07:57] LABS: MAGNESIUM 2.4 mg/dL (1.8-2.4)
[2020-09-07 07:59] LABS: CREATININE 0.7 mg/dL (0.55-1.3)
[2020-09-07 08:01] LABS: BILIRUBIN,TOTAL 0.7 mg/dL (0.2-1); TOT PROT 7.4 g/dl (6.4-8.2)
[2020-09-07] MEDS: CHOLECALCIFEROL (VIT D3) 1,000 UNIT (25 MCG) TABLET PO SCH (09:52)
[2020-09-07] MEDS: DULoxetine HCL 30 MG CAPSULE.DR PO SCH (09:52)
[2020-09-07] MEDS: GABAPENTIN 400 MG CAPSULE PO SCH ×2 (09:52→21:38)
[2020-09-07] MEDS: ZINC SULFATE 220 MG CAPSULE (FP) PO SCH (09:52)
[2020-09-07] MEDS: ASCORBIC ACID 500 MG TABLET (FP) PO SCH ×2 (09:52→21:38)
[2020-09-07] MEDS: ESCITALOPRAM OXALATE 20 MG TABLET PO SCH (09:52)
[2020-09-07] MEDS: DEXAMETHASONE SOD PHOSPHATE 4 MG/1 ML VIAL IVPUSH SCH (09:52)
[2020-09-07] MEDS: VENLAFAXINE HCL 37.5 MG TABLET PO SCH (09:53)
[2020-09-07 10:01] LABS: ERYTHROCYTE SEDIMENTATION RATE 42 mm/hr (0-30)
[2020-09-07] MEDS: REMDESIVIR 100 MG in SODIUM CHLORIDE 230 ML IVPB SCH (14:49)
[2020-09-07] MEDS: WARFARIN NA 10 MG, WARFARIN NA 1 MG PO SCH (17:17)
[2020-09-07] MEDS: ATORVASTATIN CA 20 MG TABLET (FP) PO SCH (21:38)
[2020-09-08] MEDS: LEVOTHYROXINE NA 112 MCG TABLET (FP) PO SCH (06:30)
[2020-09-08 08:16] LABS: BASO % 0.1 % (0-2.0); EOS % 0.1 % (0-4.5); HEMOGLOBIN 12.2 GM/dL (10.7-15.3); MCH 29.3 pg (25.7-33.7); MCHC 33.8 g/dl (32.0-36.0); MEAN CELL VOLUME 86.8 fl (80-96); MEAN PLT VOLUME 8.4 fl (7.5-11.1); MONO % 11.5 % (3.8-10.2); NEUT % 55.3 % (42.8-82.8); PLATELET COUNT 174 K/MM3 (134-434); RBC 4.15 M/mm3 (3.60-5.2); RDW 17.4 % (11.6-15.6)
[2020-09-08 08:27] LABS: BLOOD UREA NITROGEN 15.4 mg/dL (7-18); CALCIUM 8.3 mg/dL (8.5-10.1)
[2020-09-08 08:28] LABS: ALBUMIN 3.3 g/dl (3.4-5.0); MAGNESIUM 2.2 mg/dL (1.8-2.4)
[2020-09-08 08:30] LABS: BILIRUBIN,TOTAL 0.3 mg/dL (0.2-1); CREATININE 0.8 mg/dL (0.55-1.3); TOT PROT 7.4 g/dl (6.4-8.2)
[2020-09-08 08:31] LABS: PHOSPHOROUS 2.9 mg/dL (2.5-4.9)
[2020-09-08] MEDS: ESCITALOPRAM OXALATE 20 MG TABLET PO SCH (09:43)
[2020-09-08] MEDS: ZINC SULFATE 220 MG CAPSULE (FP) PO SCH (09:43)
[2020-09-08] MEDS: CHOLECALCIFEROL (VIT D3) 1,000 UNIT (25 MCG) TABLET PO SCH (09:43)
[2020-09-08] MEDS: DULoxetine HCL 30 MG CAPSULE.DR PO SCH (09:43)
[2020-09-08] MEDS: VENLAFAXINE HCL 37.5 MG TABLET PO SCH (09:43)
[2020-09-08] MEDS: GABAPENTIN 400 MG CAPSULE PO SCH ×2 (09:43→21:05)
[2020-09-08] MEDS: ASCORBIC ACID 500 MG TABLET (FP) PO SCH ×2 (09:43→21:05)
[2020-09-08] MEDS: DEXAMETHASONE SOD PHOSPHATE 4 MG/1 ML VIAL IVPUSH SCH (09:44)
[2020-09-08] MEDS: REMDESIVIR 100 MG in SODIUM CHLORIDE 230 ML IVPB SCH (14:54)
[2020-09-08] MEDS: WARFARIN NA 10 MG, WARFARIN NA 1 MG PO SCH (17:44)
[2020-09-08] MEDS: ATORVASTATIN CA 20 MG TABLET (FP) PO SCH (21:05)
[2020-09-09] MEDS: LEVOTHYROXINE NA 112 MCG TABLET (FP) PO SCH (06:21)
[2020-09-09] MEDS ORDERED: ESCITALOPRAM OXALATE 10 MG TABLET ONE (09:03)
[2020-09-09] MEDS: DEXAMETHASONE SOD PHOSPHATE 4 MG/1 ML VIAL IVPUSH SCH (09:24)
[2020-09-09] MEDS: ASCORBIC ACID 500 MG TABLET (FP) PO SCH ×2 (09:25→20:42)
[2020-09-09] MEDS: CHOLECALCIFEROL (VIT D3) 1,000 UNIT (25 MCG) TABLET PO SCH (09:25)
[2020-09-09] MEDS: DULoxetine HCL 30 MG CAPSULE.DR PO SCH (09:25)
[2020-09-09] MEDS: GABAPENTIN 400 MG CAPSULE PO SCH ×2 (09:25→20:42)
[2020-09-09] MEDS: ZINC SULFATE 220 MG CAPSULE (FP) PO SCH (09:25)
[2020-09-09] MEDS: ESCITALOPRAM OXALATE 20 MG TABLET PO SCH (09:25)
[2020-09-09] MEDS: VENLAFAXINE HCL 37.5 MG TABLET PO SCH (09:26)
[2020-09-09 09:57] LABS: BASO % 0.2 % (0-2.0); EOS % 0.2 % (0-4.5); HEMATOCRIT 36.5 % (32.4-45.2); HEMOGLOBIN 12.2 GM/dL (10.7-15.3); LYMPH % 30.8 % (8-40); MCHC 33.5 g/dl (32.0-36.0); MEAN CELL VOLUME 86.4 fl (80-96); MEAN PLT VOLUME 8.4 fl (7.5-11.1); MONO % 7.6 % (3.8-10.2); NEUT % 61.2 % (42.8-82.8); PLATELET COUNT 205 K/MM3 (134-434); RBC 4.23 M/mm3 (3.60-5.2); WHITE BLOOD COUNT 5.4 K/mm3 (4.0-10.0)
[2020-09-09] MEDS ORDERED: PT OWN MED DRAWER 7, Y5N ONE ×2 (10:05→19:58)
[2020-09-09 10:10] LABS: ALBUMIN 3.3 g/dl (3.4-5.0)
[2020-09-09 10:12] LABS: CALCIUM 8.8 mg/dL (8.5-10.1)
[2020-09-09 10:13] LABS: MAGNESIUM 2.1 mg/dL (1.8-2.4)
[2020-09-09 10:16] LABS: CREATININE 0.8 mg/dL (0.55-1.3); PHOSPHOROUS 2.7 mg/dL (2.5-4.9)
[2020-09-09 10:17] LABS: BILIRUBIN,TOTAL 0.3 mg/dL (0.2-1); BLOOD UREA NITROGEN 15.6 mg/dL (7-18); TOT PROT 7.2 g/dl (6.4-8.2)
[2020-09-09 11:13] LABS: ERYTHROCYTE SEDIMENTATION RATE 38 mm/hr (0-30)
[2020-09-09] MEDS: REMDESIVIR 100 MG in SODIUM CHLORIDE 230 ML IVPB SCH (13:44)
[2020-09-09 14:14] VITALS: BP 118/66; PULSE 67; TEMP 98.3
[2020-09-09] MEDS: WARFARIN NA 10 MG, WARFARIN NA 1 MG PO SCH (20:04)
[2020-09-09] MEDS: ATORVASTATIN CA 20 MG TABLET (FP) PO SCH (20:43)
[2020-09-09 20:55] LABS: INR 2.14 (0.83-1.09); PROTHROMBIN TIME (PATIENT) 25.7 SEC (9.7-13.0)
== END 2020-09-09 22:00 | disposition home or self-care (01) | DRG 177 ==
LOC: JER 20:14 → JERBED 22:21 → J7W 09-05 21:19 → J6S 09-08 21:16
PROVIDERS: ADMIT Internal Medicine; ATTEND Internal Medicine
PROC: XW13325 Transfusion of Convalescent Plasma (Nonautologous) into Peripheral Vein, Percutaneous Approach, New Technology Group 5 (ICD-10-PCS; principal; 2020-09-05)
PROC: XW033E5 Introduction of Remdesivir Anti-infective into Peripheral Vein, Percutaneous Approach, New Technology Group 5 (ICD-10-PCS; 2020-09-05)
DX: U07.1 COVID-19 (principal); J96.01 Acute respiratory failure with hypoxia; J12.82 Pneumonia due to coronavirus disease 2019; J98.11 Atelectasis; E03.9 Hypothyroidism, unspecified; I10 Essential (primary) hypertension; E78.5 Hyperlipidemia, unspecified; I25.10 Atherosclerotic heart disease of native coronary artery without angina pectoris; Z88.0 Allergy status to penicillin; J45.909 Unspecified asthma, uncomplicated; K21.9 Gastro-esophageal reflux disease without esophagitis; E66.9 Obesity, unspecified; Z68.38 Body mass index [BMI] 38.0-38.9, adult; R79.1 Abnormal coagulation profile
CPT/HCPCS: 36415; 36430; 71045-TC-FY; 80053; 82728; 83615; 83735; 84100; 84484; 85025; 85379; 85610; 85651; 85730; 86140; 86850; 86900; 86901; 87040; 87086; 87804; 87899; 93005; 93010; 94010; 97116-GP; 97161-GP; 99285-25; C9399; C9803; J0131; J1100; P9017; U0003

== ENCOUNTER 2021-07-25 14:29 | Observation (INO) | payer OTHER ==
[2021-07-25 17:15] LABS: BASO % 0.3 % (0-2.0); EOS % 0.2 % (0-4.5); HEMATOCRIT 38.2 % (32.4-45.2); LYMPH % 13.2 % (8-40); MCH 29.9 pg (25.7-33.7); MEAN PLT VOLUME 8.6 fl (7.5-11.1); MONO % 2.9 % (3.8-10.2); NEUT % 83.4 % (42.8-82.8); PLATELET COUNT 211 10^3/uL (134-434); RBC 4.34 M/mm3 (3.60-5.2); RDW 14.3 % (11.6-15.6); WHITE BLOOD COUNT 7.5 K/mm3 (4.0-10.0)
[2021-07-25 17:25] LABS: INR 3.3 (0.83-1.09); PROTHROMBIN TIME (PATIENT) 37.4 SEC (9.7-13.0)
[2021-07-25 17:28] LABS: ACTIVATED PTT 52.2 SECONDS (25.2-36.5)
[2021-07-25 18:04] LABS: PH,URINE 7.5 (5.0-8.0); URINE APPEARANCE CLEAR; URINE BILIRUBIN NEGATIVE (NEGATIVE); URINE COLOR ORANGE; URINE GLUCOSE (UA) NEGATIVE (NEGATIVE); URINE KETONE NEGATIVE (NEGATIVE); URINE LEUK ESTERASE 1+ (NEGATIVE); URINE NITRITE NEGATIVE (NEGATIVE); URINE PROTEIN 3+ (NEGATIVE)
[2021-07-25 18:24] LABS: ALBUMIN 3.4 g/dl (3.4-5.0); BILIRUBIN,TOTAL 0.4 mg/dL (0.2-1); CALCIUM 8.9 mg/dL (8.5-10.1); CREATININE 0.9 mg/dL (0.55-1.3); TOT PROT 7.7 g/dl (6.4-8.2)
[2021-07-25 19:44] LABS: URINE RBC >100 /hpf (0-4); URINE WBC 0-3 (NEGATIVE)
[2021-07-25 19:45] LABS: EPI CELLS 0-3 /HPF; URINE BACTERIA FEW /hpf (NEGATIVE)
[2021-07-25] MEDS ORDERED: ACETAMINOPHEN 325 MG TABLET (FP) PO PRN (20:47)
[2021-07-25] MEDS ORDERED: POLYETHYLENE GLYCOL (HEALTHYLAX) 3350 17 GM PACKET PO PRN (20:47)
[2021-07-26] MEDS ORDERED: ALBUTEROL SO4 HFA INHALER IH PRN (00:22)
[2021-07-26] MEDS ORDERED: ZOLPIDEM TARTRATE 5 MG TABLET PO PRN (00:22)
[2021-07-26] MEDS ORDERED: ALBUTEROL SO4 2.5/IPRATROPIUM 0.5 INH SOL 3 ML VIAL.NEB. NEB PRN (00:22)
[2021-07-26] MEDS ORDERED: NORTRIPTYLINE HCL 50 MG CAPSULE PO SCH (00:23)
[2021-07-26] MEDS ORDERED: RANOLAZINE E.R. 500 MG TABLET (FP) PO SCH (00:30)
[2021-07-26] MEDS ORDERED: CYCLOBENZAPRINE HCL 10 MG TABLET (FP) PO PRN (00:33)
[2021-07-26 01:27] VITALS: BMI 31.4
[2021-07-26] MEDS: PREGABALIN 100 MG CAPSULE PO SCH ×3 (02:07→21:06)
[2021-07-26] MEDS ORDERED: NORTRIPTYLINE HCL 25 MG CAPSULE PO SCH (02:20)
[2021-07-26] MEDS: LEVOTHYROXINE 150 MCG, LEVOTHYROXINE 25 MCG PO SCH (06:01)
[2021-07-26] MEDS ORDERED: LEVOTHYROXINE NA 112 MCG TABLET (FP) PO SCH (07:00)
[2021-07-26] MEDS ORDERED: LEVOTHYROXINE NA 25 MCG TABLET (FP) ONE (08:21)
[2021-07-26] MEDS ORDERED: LEVOTHYROXINE NA 150 MCG TABLET ONE (08:22)
[2021-07-26 08:48] LABS: INR 2.04 (0.83-1.09); PROTHROMBIN TIME (PATIENT) 24.1 SEC (9.7-13.0)
[2021-07-26 08:49] LABS: BASO % 0.6 % (0-2.0); EOS % 1.6 % (0-4.5); HEMATOCRIT 36.4 % (32.4-45.2); HEMOGLOBIN 12.6 GM/dL (10.7-15.3); LYMPH % 37.6 % (8-40); MCH 30.4 pg (25.7-33.7); MCHC 34.6 g/dl (32.0-36.0); MEAN CELL VOLUME 87.8 fl (80-96); MEAN PLT VOLUME 8.5 fl (7.5-11.1); MONO % 7.2 % (3.8-10.2); PLATELET COUNT 196 10^3/uL (134-434); RBC 4.15 M/mm3 (3.60-5.2); RDW 14.5 % (11.6-15.6); WHITE BLOOD COUNT 8.7 K/mm3 (4.0-10.0)
[2021-07-26 08:51] LABS: ACTIVATED PTT 37.5 SECONDS (25.2-36.5)
[2021-07-26] MEDS ORDERED: PT OWN MED DRAWER 7, Y5N ONE ×4 (09:17→20:53)
[2021-07-26] MEDS: SOLIFENACIN SUCCINATE 5 MG TAB PO SCH (09:20)
[2021-07-26] MEDS: RANOLAZINE E.R. 500 MG TABLET (FP) PO SCH ×2 (09:20→21:06)
[2021-07-26] MEDS: MECLIZINE HCL 12.5 MG TABLET PO SCH ×2 (09:21→21:06)
[2021-07-26] MEDS: FUROSEMIDE 40 MG TABLET (FP) PO SCH (09:21)
[2021-07-26] MEDS: LORATADINE 10 MG TABLET PO SCH (09:21)
[2021-07-26] MEDS: PANTOPRAZOLE 40 MG TABLET PO SCH (09:21)
[2021-07-26] MEDS: MONTELUKAST NA 10 MG TABLET PO SCH (09:21)
[2021-07-26] MEDS ORDERED: GABAPENTIN 300 MG CAPSULE PO SCH (10:00)
[2021-07-26] MEDS ORDERED: BREZTRI AEROSPHERE IH SCH (10:00)
[2021-07-26] MEDS ORDERED: PATIENT'S OWN MEDICATION (NON-FORMULARY) (Dexlansoprazole [Dexilant] 60 MG Cap.Dr.Bp) PO SCH (10:00)
[2021-07-26] MEDS ORDERED: BUDESONIDE 0.5 MG/2 ML INH SUSP VIAL NEB SCH (10:00)
[2021-07-26] MEDS ORDERED: VILAZODONE HYDROCHLORIDE 20 MG TABLET PO SCH (12:00)
[2021-07-26] MEDS: BUDESONIDE 0.5 MG/2 ML INH SUSP VIAL NEB SCH (20:20)
[2021-07-27] MEDS ORDERED: LEVOTHYROXINE NA 25 MCG TABLET (FP) ONE (05:29)
[2021-07-27] MEDS ORDERED: LEVOTHYROXINE NA 150 MCG TABLET ONE (05:30)
[2021-07-27] MEDS: LEVOTHYROXINE 150 MCG, LEVOTHYROXINE 25 MCG PO SCH (06:30)
[2021-07-27 09:44] LABS: HEMATOCRIT 36.8 % (32.4-45.2); HEMOGLOBIN 12.4 GM/dL (10.7-15.3); INR 1.42 (0.83-1.09); MCHC 33.6 g/dl (32.0-36.0); MEAN CELL VOLUME 89.3 fl (80-96); PLATELET COUNT 197 10^3/uL (134-434); RBC 4.12 M/mm3 (3.60-5.2); RDW 14.7 % (11.6-15.6); WHITE BLOOD COUNT 6.9 K/mm3 (4.0-10.0)
[2021-07-27] MEDS ORDERED: PT OWN MED DRAWER 7, Y5N ONE (09:50)
[2021-07-27] MEDS: BUDESONIDE 0.5 MG/2 ML INH SUSP VIAL NEB SCH (10:00)
[2021-07-27] MEDS: SOLIFENACIN SUCCINATE 5 MG TAB PO SCH (10:13)
[2021-07-27] MEDS: MECLIZINE HCL 12.5 MG TABLET PO SCH (10:13)
[2021-07-27] MEDS: MONTELUKAST NA 10 MG TABLET PO SCH (10:13)
[2021-07-27] MEDS: RANOLAZINE E.R. 500 MG TABLET (FP) PO SCH (10:13)
[2021-07-27] MEDS: FUROSEMIDE 40 MG TABLET (FP) PO SCH (10:13)
[2021-07-27] MEDS: PANTOPRAZOLE 40 MG TABLET PO SCH (10:13)
[2021-07-27] MEDS: LORATADINE 10 MG TABLET PO SCH (10:13)
[2021-07-27] MEDS: PREGABALIN 100 MG CAPSULE PO SCH (10:14)
[2021-07-27 12:39] VITALS: BP 104/65; PULSE 75; TEMP 98
== END 2021-07-27 12:34 | disposition home or self-care (01) ==
LOC: JER 14:29 → INTOOBSV 19:57 → UNDOADMOB 19:57 → JERBED 19:57 → J6S 07-26 00:29 → JERBED 07-26 00:29 → UNDODISOB 07-27 12:34
PROVIDERS: ADMIT Internal Medicine; ATTEND Family Medicine
PROC: 3E0F7GC Introduction of Other Therapeutic Substance into Respiratory Tract, Via Natural or Artificial Opening (ICD-10-PCS; principal; 2021-07-25)
DX: D65 Disseminated intravascular coagulation [defibrination syndrome] (principal); I25.10 Atherosclerotic heart disease of native coronary artery without angina pectoris; R79.89 Other specified abnormal findings of blood chemistry; K21.9 Gastro-esophageal reflux disease without esophagitis; M06.9 Rheumatoid arthritis, unspecified; M79.7 Fibromyalgia; K44.9 Diaphragmatic hernia without obstruction or gangrene; E66.8 Other obesity; Z68.31 Body mass index [BMI] 31.0-31.9, adult; I11.9 Hypertensive heart disease without heart failure; Z79.01 Long term (current) use of anticoagulants; J45.909 Unspecified asthma, uncomplicated; E03.9 Hypothyroidism, unspecified; Z85.42 Personal history of malignant neoplasm of other parts of uterus; Z87.440 Personal history of urinary (tract) infections; Z90.79 Acquired absence of other genital organ(s); Z86.73 Personal history of transient ischemic attack (TIA), and cerebral infarction without residual deficits; Z85.41 Personal history of malignant neoplasm of cervix uteri; Z88.0 Allergy status to penicillin; Z87.891 Personal history of nicotine dependence
CPT/HCPCS: 36415; 71046-TC-FY; 74176-TC; 80053; 81003; 82550; 84484; 85025; 85027; 85610; 85730; 87086; 93005; 93010; 94640; 99285-25; C9803; G0378; U0003; U0005

== ENCOUNTER 2021-10-03 07:09 | Day surgery (SDC) | payer OTHER ==
[~2021-10-03 07:09] MED LIST changes: -IRON SUCROSE INJECTION 200 MG in SODIUM CHLORIDE 100 ML IVPB ONE; +VANCOMYCIN 1,000 MG VIAL (RESTRICTED TO ID ONLY) IVPB ONE
[2021-10-03] MEDS ORDERED: CELECOXIB 200 MG CAPSULE ONE (07:45)
[2021-10-03] MEDS ORDERED: BUPIVACAINE HCL/PF 0.5% (5MG/ML) 10 ML VIAL ONE ×2 (08:18→09:07)
[2021-10-03 08:29] VITALS: BMI 31.8
[2021-10-03] MEDS ORDERED: VANCOMYCIN 1,000 MG VIAL (RESTRICTED TO ID ONLY) ONE ×2 (08:30→08:40)
[2021-10-03] MEDS ORDERED: BUPIVACAINE LIPOSOME/PF (EXPAREL) 266 MG/20 ML VIAL ONE (09:07)
[2021-10-03] MEDS ORDERED: SODIUM CHLORIDE 0.9% P/F 10 ML VIAL IJ ONE (09:07)
[2021-10-03] MEDS ORDERED: MIDAZOLAM HCL 2 MG/2 ML SINGLE DOSE VIAL ONE ×2 (09:07→09:58)
[2021-10-03] MEDS ORDERED: ONDANSETRON 4 MG/2 ML VIAL ONE (10:11)
[2021-10-03] MEDS ORDERED: DEXAMETHASONE SOD PHOSPHATE 4 MG/1 ML VIAL ONE (10:11)
[2021-10-03] MEDS ORDERED: PHENYLEPHRINE HCL 10 MG/1 ML SINGLE DOSE VIAL ONE (10:12)
[2021-10-03] MEDS ORDERED: TRANEXAMIC ACID 1000 MG/10 ML VIAL ONE (10:22)
[2021-10-03] MEDS ORDERED: PROPOFOL 20 ML ONE ×6 (10:23→11:56)
[2021-10-03] MEDS ORDERED: ePHEDrine SULFATE 50 MG/1 ML AMPULE ONE (10:29)
[2021-10-03] MEDS ORDERED: VANCOMYCIN 1,000 MG VIAL (RESTRICTED TO ID ONLY) IVPB ONE (11:50)
[2021-10-03] MEDS ORDERED: HYDROmorphone HCL/PF 1 MG/ML VIAL ONE (11:51)
[2021-10-03] MEDS ORDERED: ACETAMINOPHEN INJECTION 100 ML IVPB ONE (12:30)
[2021-10-03] MEDS ORDERED: ONDANSETRON 4 MG/2 ML VIAL IVPUSH PRN (12:32)
[2021-10-03] MEDS ORDERED: DOCUSATE SODIUM 100 MG CAPSULE (FP) PO PRN (12:38)
[2021-10-03] MEDS ORDERED: oxyCODONE HCL 5 MG TABLET PO PRN ×2 (12:38→13:51)
[2021-10-03] MEDS: ACETAMINOPHEN 500 MG TABLET (FP) PO SCH ×2 (12:40→18:29)
[2021-10-03] MEDS ORDERED: ACETAMINOPHEN 1000 MG/100 ML BAG IVPB ONE (12:45)
[2021-10-03] MEDS ORDERED: LACTATED RINGERS SOLUTION 1,000 ML IV SCH ×2 (12:45→14:00)
[2021-10-03] MEDS: KETOROLAC TROMETHAMINE 30 MG/1 ML VIAL IVPUSH SCH ×2 (12:50→18:29)
[2021-10-03] MEDS ORDERED: oxyCODONE HCL 5 MG TABLET ONE (13:06)
[2021-10-03] MEDS ORDERED: ALBUTEROL SO4 HFA INHALER IH PRN (13:44)
[2021-10-03] MEDS ORDERED: RANOLAZINE E.R. 500 MG TABLET (FP) PO SCH (13:45)
[2021-10-03] MEDS ORDERED: MAG HYDROX/AL HYDROX/SIMETH 30 ML UNIT-DOSE CUP PO PRN (13:47)
[2021-10-03] MEDS ORDERED: VANCOMYCIN 2,000 MG in DEXTROSE 5%-WATER - 250 ML IVPB ONE (13:48)
[2021-10-03] MEDS ORDERED: LORazepam 2 MG/ML SDV VIAL IVPUSH PRN (13:51)
[2021-10-03] MEDS: oxyCODONE HCL 5 MG TABLET PO PRN (16:53)
[2021-10-03] MEDS: BUDESONIDE 0.5 MG/2 ML INH SUSP VIAL NEB SCH (21:08)
[2021-10-03] MEDS: NORTRIPTYLINE HCL 25 MG CAPSULE PO SCH (21:16)
[2021-10-03] MEDS: GABAPENTIN 300 MG CAPSULE PO SCH (21:16)
[2021-10-03] MEDS: ATORVASTATIN CA 10 MG TABLET (FP) PO SCH (21:17)
[2021-10-03] MEDS: MECLIZINE HCL 12.5 MG TABLET PO SCH (21:17)
[2021-10-03] MEDS: oxyCODONE HCL 10 MG SUSTAINED ACTING TABLET PO SCH (21:17)
[2021-10-03] MEDS: RANOLAZINE E.R. 500 MG TABLET (FP) PO SCH (21:17)
[2021-10-04] MEDS ORDERED: VANCOMYCIN 2,000 MG in DEXTROSE 5%-WATER - 500 ML IVPB ONE
[2021-10-04] MEDS ORDERED: VANCOMYCIN 1 GRAM (PRE-DOCKED) 1,000 MG/250 ML BAG IVPB ONE
[2021-10-04] MEDS: ACETAMINOPHEN 500 MG TABLET (FP) PO SCH ×4 (00:29→18:01)
[2021-10-04] MEDS: ZOLPIDEM TARTRATE 5 MG TABLET PO PRN (00:30)
[2021-10-04] MEDS ORDERED: LEVOTHYROXINE NA 100 MCG TABLET (FP) ONE (06:10)
[2021-10-04] MEDS ORDERED: LEVOTHYROXINE NA 75 MCG TABLET (FP) ONE (06:10)
[2021-10-04] MEDS: LEVOTHYROXINE 75 MCG, LEVOTHYROXINE 100 MCG PO SCH (06:28)
[2021-10-04] MEDS: oxyCODONE HCL 5 MG TABLET PO PRN ×2 (06:31→17:59)
[2021-10-04] MEDS ORDERED: PATIENT'S OWN MEDICATION (NON-FORMULARY) (Levothyroxine Sodium [Levothyroxine Sodium] 175 PO SCH (07:00)
[2021-10-04 08:13] LABS: INR 1.11 (0.83-1.09); PROTHROMBIN TIME (PATIENT) 12.8 SEC (9.7-13.0)
[2021-10-04] MEDS: GABAPENTIN 300 MG CAPSULE PO SCH ×2 (09:08→22:04)
[2021-10-04] MEDS: MULTIVITAMINS (DAILY MVI) TABLET (FP) PO SCH (09:08)
[2021-10-04] MEDS: CYCLOBENZAPRINE HCL 10 MG TABLET (FP) PO SCH (09:08)
[2021-10-04] MEDS: FUROSEMIDE 40 MG TABLET (FP) PO SCH (09:08)
[2021-10-04] MEDS: MONTELUKAST NA 10 MG TABLET PO SCH (09:08)
[2021-10-04] MEDS: MECLIZINE HCL 12.5 MG TABLET PO SCH ×2 (09:09→22:03)
[2021-10-04] MEDS: PANTOPRAZOLE 40 MG TABLET PO SCH (09:09)
[2021-10-04] MEDS: RANOLAZINE E.R. 500 MG TABLET (FP) PO SCH ×2 (09:09→22:06)
[2021-10-04] MEDS: oxyCODONE HCL 10 MG SUSTAINED ACTING TABLET PO SCH ×2 (09:10→23:23)
[2021-10-04] MEDS: BUDESONIDE 0.5 MG/2 ML INH SUSP VIAL NEB SCH ×2 (09:11→22:05)
[2021-10-04] MEDS ORDERED: VILAZODONE HYDROCHLORIDE 20 MG TABLET PO SCH (10:00)
[2021-10-04] MEDS ORDERED: PATIENT'S OWN MEDICATION (NON-FORMULARY) (Dexlansoprazole [Dexilant] 60 MG Cap.Dr.Bp) PO SCH (10:00)
[2021-10-04 10:54] LABS: HEMATOCRIT 30.3 % (32.4-45.2); MCH 29.7 pg (25.7-33.7); MEAN CELL VOLUME 89.9 fl (80-96); MEAN PLT VOLUME 9.6 fl (7.5-11.1); PLATELET COUNT 179 10^3/uL (134-434); RBC 3.37 M/mm3 (3.60-5.2); RDW 14.2 % (11.6-15.6); WHITE BLOOD COUNT 7.5 K/mm3 (4.0-10.0)
[2021-10-04] MEDS: ENOXAPARIN NA (PORCINE) 120 MG/0.8 ML DISP.SYRIN SQ SCH ×2 (12:26→22:03)
[2021-10-04] MEDS: VILAZODONE HYDROCHLORIDE 10 MG TABLET PO SCH (12:30)
[2021-10-04] MEDS ORDERED: WARFARIN NA 5 MG TABLET PO SCH (18:00)
[2021-10-04] MEDS: ATORVASTATIN CA 10 MG TABLET (FP) PO SCH (22:02)
[2021-10-04] MEDS: NORTRIPTYLINE HCL 25 MG CAPSULE PO SCH (22:02)
[2021-10-04] MEDS: PATIENT'S OWN MEDICATION (NON-FORMULARY) (Budesonide/Glycopyr/Formoterol [Breztri Aerosphe IH SCH ×2 (23:39→23:45)
[2021-10-05] MEDS: ZOLPIDEM TARTRATE 5 MG TABLET PO PRN (01:21)
[2021-10-05] MEDS: ACETAMINOPHEN 500 MG TABLET (FP) PO SCH ×2 (01:35→06:42)
[2021-10-05] MEDS ORDERED: LEVOTHYROXINE NA 100 MCG TABLET (FP) ONE (06:13)
[2021-10-05] MEDS ORDERED: LEVOTHYROXINE NA 75 MCG TABLET (FP) ONE (06:13)
[2021-10-05] MEDS: LEVOTHYROXINE 75 MCG, LEVOTHYROXINE 100 MCG PO SCH (06:41)
[2021-10-05 08:09] LABS: INR 1.13 (0.83-1.09)
[2021-10-05 08:20] LABS: ALBUMIN 2.9 g/dl (3.4-5.0); BILIRUBIN,TOTAL 0.5 mg/dl (0.2-1); CALCIUM 8.4 mg/dl (8.5-10); CREATININE 0.8 mg/dl (0.55-1.3); TOT PROT 5.9 g/dl (6.4-8.2)
[2021-10-05 09:25] VITALS: BP 102/47; PULSE 74; TEMP 98.9
[2021-10-05 09:36] LABS: HEMATOCRIT 28.5 % (32.4-45.2); HEMOGLOBIN 9.3 GM/dL (10.7-15.3); MCH 29.8 pg (25.7-33.7); MCHC 32.7 g/dl (32.0-36.0); MEAN PLT VOLUME 9.9 fl (7.5-11.1); PLATELET COUNT 144 10^3/uL (134-434); RBC 3.13 M/mm3 (3.60-5.2); RDW 14.5 % (11.6-15.6); WHITE BLOOD COUNT 6.7 K/mm3 (4.0-10.0)
[2021-10-05] MEDS: CYCLOBENZAPRINE HCL 10 MG TABLET (FP) PO SCH (09:58)
[2021-10-05] MEDS: RANOLAZINE E.R. 500 MG TABLET (FP) PO SCH (09:58)
[2021-10-05] MEDS: GABAPENTIN 300 MG CAPSULE PO SCH (09:58)
[2021-10-05] MEDS: VILAZODONE HYDROCHLORIDE 10 MG TABLET PO SCH (09:58)
[2021-10-05] MEDS: MULTIVITAMINS (DAILY MVI) TABLET (FP) PO SCH (09:58)
[2021-10-05] MEDS: PANTOPRAZOLE 40 MG TABLET PO SCH (09:59)
[2021-10-05] MEDS: MONTELUKAST NA 10 MG TABLET PO SCH (09:59)
[2021-10-05] MEDS: oxyCODONE HCL 10 MG SUSTAINED ACTING TABLET PO SCH (09:59)
[2021-10-05] MEDS: MECLIZINE HCL 12.5 MG TABLET PO SCH (10:00)
[2021-10-05] MEDS: ENOXAPARIN NA (PORCINE) 120 MG/0.8 ML DISP.SYRIN SQ SCH (10:12)
[2021-10-05] MEDS: FUROSEMIDE 40 MG TABLET (FP) PO SCH (10:43)
[2021-10-05] MEDS: BUDESONIDE 0.5 MG/2 ML INH SUSP VIAL NEB SCH (10:44)
== END 2021-10-05 11:43 | disposition home health service (06) ==
LOC: FASUSAT 07:09 → EDSTATUS 09:30 → FM/S 14:17 → FASUSAT 10-05 11:43
PROVIDERS: ATTEND Orthopaedic Surgery
PROC: 8E0YXBZ Computer Assisted Procedure of Lower Extremity (ICD-10-PCS; 2021-10-03)
PROC: 0SRD069 Replacement of Left Knee Joint with Oxidized Zirconium on Polyethylene Synthetic Substitute, Cemented, Open Approach (ICD-10-PCS; principal; 2021-10-03 10:32)
DX: M17.12 Unilateral primary osteoarthritis, left knee (principal)
CPT/HCPCS: 20985; 27447; C1776; S2900; 36415; 73560-TC-LT-FY; 80053; 85027; 85610; 94640; 94660; 94760; 97010-GP; 97116-GP; 97163-GP

== ENCOUNTER 2021-10-09 09:34 | Emergency (ER) | payer OTHER ==
[2021-10-09 09:55] VITALS: BP 134/76; PULSE 74; TEMP 99.5; BMI 38.1
[2021-10-09] MEDS ORDERED: morphine CARPU-JECT 4 MG/1 ML DISP.SYRIN IVPUSH ONE (10:42)
[2021-10-09] MEDS ORDERED: morphine SULFATE 4 MG/ML VIAL ONE (12:43)
[2021-10-09 13:20] LABS: BASO % 0.4 % (0-2.0); EOS % 2.4 % (0-4.5); HEMATOCRIT 30.2 % (32.4-45.2); LYMPH % 19.5 % (8-40); MCH 30.1 pg (25.7-33.7); MCHC 33.3 g/dl (32.0-36.0); MEAN CELL VOLUME 90.4 fl (80-96); MEAN PLT VOLUME 8.8 fl (7.5-11.1); NEUT % 69.7 % (42.8-82.8); PLATELET COUNT 204 10^3/uL (134-434); RBC 3.34 M/mm3 (3.60-5.2); RDW 14.5 % (11.6-15.6); WHITE BLOOD COUNT 5.6 K/mm3 (4.0-10.0)
[2021-10-09 13:38] LABS: ALBUMIN 3.2 g/dl (3.4-5.0); BLOOD UREA NITROGEN 8.8 mg/dL (7-18); CALCIUM 8.8 mg/dL (8.5-10.1)
[2021-10-09 13:42] LABS: CREATININE 0.7 mg/dL (0.55-1.3)
[2021-10-09 13:43] LABS: BILIRUBIN,TOTAL 0.9 mg/dL (0.2-1); TOT PROT 6.8 g/dl (6.4-8.2)
[2021-10-09 14:29] LABS: ACTIVATED PTT 31.6 SECONDS (25.2-36.5); INR 1.1 (0.83-1.09); PROTHROMBIN TIME (PATIENT) 12.7 SEC (9.7-13.0)
== END 2021-10-09 15:05 | disposition home or self-care (01) ==
LOC: JER 09:34
PROC: 3E033NZ Introduction of Analgesics, Hypnotics, Sedatives into Peripheral Vein, Percutaneous Approach (ICD-10-PCS; principal; 2021-10-09)
DX: M79.605 Pain in left leg (principal)
CPT/HCPCS: 36415; 80053; 85025; 85610; 85730; 93971-TC; 99284-25

== ENCOUNTER 2021-12-23 12:18 | Observation (INO) | payer OTHER ==
[2021-12-23] MEDS ORDERED: ACETAMINOPHEN 1000 MG/100 ML BAG IVPB ONE (13:35)
[2021-12-23] MEDS ORDERED: ACETAMINOPHEN INJECTION 100 ML IVPB ONE (13:37)
[2021-12-23 14:00] LABS: BASO % 0.6 % (0-2.0); HEMATOCRIT 32.7 % (32.4-45.2); HEMOGLOBIN 10.9 GM/dL (10.7-15.3); LYMPH % 16.1 % (8-40); MCH 28.2 pg (25.7-33.7); MCHC 33.2 g/dl (32.0-36.0); MEAN PLT VOLUME 8.9 fl (7.5-11.1); MONO % 5.7 % (3.8-10.2); NEUT % 74.6 % (42.8-82.8); PLATELET COUNT 177 10^3/uL (134-434); RBC 3.85 M/mm3 (3.60-5.2); RDW 14.1 % (11.6-15.6)
[2021-12-23 14:10] LABS: INR 2.73 (0.83-1.09); PROTHROMBIN TIME (PATIENT) 31.7 SEC (9.7-13.0)
[2021-12-23 14:23] LABS: CALCIUM 8.9 mg/dL (8.5-10.1)
[2021-12-23 14:24] LABS: ALBUMIN 3.4 g/dl (3.4-5.0); BLOOD UREA NITROGEN 10.5 mg/dL (7-18)
[2021-12-23 14:27] LABS: CREATININE 0.7 mg/dL (0.55-1.3)
[2021-12-23 14:28] LABS: BILIRUBIN,TOTAL 0.3 mg/dL (0.2-1); TOT PROT 7.2 g/dl (6.4-8.2)
[2021-12-23] MEDS ORDERED: morphine CARPU-JECT 2 MG/1 ML DISP.SYRIN IVPUSH ONE (15:40)
[2021-12-24 00:34] VITALS: BMI 39.1
[2021-12-24] MEDS ORDERED: ALBUTEROL SO4 HFA INHALER IH PRN (06:29)
[2021-12-24] MEDS ORDERED: LEVOTHYROXINE NA 75 MCG TABLET (FP) ONE (07:00)
[2021-12-24] MEDS ORDERED: LEVOTHYROXINE NA 100 MCG TABLET (FP) ONE (07:00)
[2021-12-24] MEDS ORDERED: PATIENT'S OWN MEDICATION (NON-FORMULARY) (Levothyroxine Sodium [Levothyroxine Sodium] 175 PO SCH (07:00)
[2021-12-24] MEDS: LEVOTHYROXINE 75 MCG, LEVOTHYROXINE 100 MCG PO SCH (07:01)
[2021-12-24] MEDS: ACETAMINOPHEN 325 MG TABLET (FP) PO PRN ×2 (07:01→18:13)
[2021-12-24 07:54] LABS: BASO % 0.8 % (0-2.0); EOS % 7.8 % (0-4.5); HEMATOCRIT 31.6 % (32.4-45.2); HEMOGLOBIN 10.6 GM/dL (10.7-15.3); LYMPH % 26.6 % (8-40); MCH 28.4 pg (25.7-33.7); MCHC 33.4 g/dl (32.0-36.0); MEAN CELL VOLUME 85.1 fl (80-96); MEAN PLT VOLUME 8.9 fl (7.5-11.1); MONO % 8.1 % (3.8-10.2); NEUT % 56.7 % (42.8-82.8); PLATELET COUNT 162 10^3/uL (134-434); RBC 3.72 M/mm3 (3.60-5.2); WHITE BLOOD COUNT 4.7 K/mm3 (4.0-10.0)
[2021-12-24 08:15] LABS: BLOOD UREA NITROGEN 8.4 mg/dL (7-18); CALCIUM 8.6 mg/dL (8.5-10.1); MAGNESIUM 2.4 mg/dL (1.8-2.4)
[2021-12-24 08:18] LABS: CREATININE 0.6 mg/dL (0.55-1.3)
[2021-12-24] MEDS: RANOLAZINE E.R. 500 MG TABLET (FP) PO SCH ×2 (10:23→21:47)
[2021-12-24] MEDS: FUROSEMIDE 40 MG TABLET (FP) PO SCH (10:24)
[2021-12-24] MEDS: PANTOPRAZOLE 40 MG TABLET PO SCH (10:24)
[2021-12-24] MEDS: MONTELUKAST NA 10 MG TABLET PO SCH (10:25)
[2021-12-24] MEDS: GABAPENTIN 300 MG CAPSULE PO SCH ×2 (10:25→21:47)
[2021-12-24] MEDS: VILAZODONE HYDROCHLORIDE 20 MG TABLET PO SCH (10:26)
[2021-12-24 13:17] LABS: INR 2.07 (0.83-1.09)
[2021-12-24] MEDS ORDERED: WARFARIN NA 1 MG TABLET PO SCH (18:00)
[2021-12-24] MEDS ORDERED: WARFARIN NA 5 MG TABLET PO SCH (18:00)
[2021-12-24] MEDS ORDERED: oxyCODONE HCL 5 MG TABLET PO ONE (20:49)
[2021-12-24] MEDS: ATORVASTATIN CA 10 MG TABLET (FP) PO SCH (21:47)
[2021-12-24] MEDS: BUDESONIDE/FORMETEROL FUMARATE 160/4.5 mcg INHALER IH SCH (21:49)
[2021-12-24] MEDS ORDERED: ZOLPIDEM TARTRATE 5 MG TABLET PO PRN (22:00)
[2021-12-24] MEDS ORDERED: NORTRIPTYLINE HCL 50 MG CAPSULE PO SCH (22:00)
[2021-12-25] MEDS: ACETAMINOPHEN 325 MG TABLET (FP) PO PRN ×2 (03:50→10:30)
[2021-12-25] MEDS ORDERED: NORTRIPTYLINE HCL 25 MG CAPSULE PO SCH (05:39)
[2021-12-25] MEDS ORDERED: LEVOTHYROXINE NA 100 MCG TABLET (FP) ONE (05:50)
[2021-12-25] MEDS ORDERED: LEVOTHYROXINE NA 75 MCG TABLET (FP) ONE (05:50)
[2021-12-25] MEDS: LEVOTHYROXINE 75 MCG, LEVOTHYROXINE 100 MCG PO SCH (06:30)
[2021-12-25 07:22] LABS: INR 1.76 (0.83-1.09); PROTHROMBIN TIME (PATIENT) 20.3 SEC (9.7-13.0)
[2021-12-25] MEDS ORDERED: WARFARIN NA 3 MG TABLET PO SCH (08:18)
[2021-12-25] MEDS ORDERED: ENOXAPARIN NA (PORCINE) 120 MG/0.8 ML DISP.SYRIN SQ ONE (08:30)
[2021-12-25 08:37] LABS: BASO % 0.7 % (0-2.0); EOS % 6.4 % (0-4.5); HEMATOCRIT 31.5 % (32.4-45.2); HEMOGLOBIN 10.5 GM/dL (10.7-15.3); LYMPH % 27.9 % (8-40); MCH 28.5 pg (25.7-33.7); MCHC 33.4 g/dl (32.0-36.0); MEAN CELL VOLUME 85.5 fl (80-96); MONO % 8.9 % (3.8-10.2); NEUT % 56.1 % (42.8-82.8); PLATELET COUNT 155 10^3/uL (134-434); RBC 3.69 M/mm3 (3.60-5.2); RDW 13.7 % (11.6-15.6); WHITE BLOOD COUNT 5.3 K/mm3 (4.0-10.0)
[2021-12-25] MEDS: VILAZODONE HYDROCHLORIDE 20 MG TABLET PO SCH (10:29)
[2021-12-25] MEDS: RANOLAZINE E.R. 500 MG TABLET (FP) PO SCH ×2 (10:30→21:44)
[2021-12-25] MEDS: FUROSEMIDE 40 MG TABLET (FP) PO SCH (10:31)
[2021-12-25] MEDS: PANTOPRAZOLE 40 MG TABLET PO SCH (10:31)
[2021-12-25] MEDS: GABAPENTIN 300 MG CAPSULE PO SCH ×2 (10:31→21:44)
[2021-12-25] MEDS: MONTELUKAST NA 10 MG TABLET PO SCH (10:31)
[2021-12-25] MEDS: BUDESONIDE/FORMETEROL FUMARATE 160/4.5 mcg INHALER IH SCH ×2 (10:32→21:47)
[2021-12-25] MEDS ORDERED: oxyCODONE HCL 5 MG TABLET PO ONE (17:51)
[2021-12-25] MEDS: NORTRIPTYLINE HCL 25 MG CAPSULE PO SCH (21:44)
[2021-12-25] MEDS: ATORVASTATIN CA 10 MG TABLET (FP) PO SCH (21:44)
[2021-12-25] MEDS: PRAMIPEXOLE DIHYDROCHLORIDE 0.125 MG TABLET PO SCH (22:07)
[2021-12-25] MEDS: TOPIRAMATE 25 MG TABLET PO SCH (22:07)
[2021-12-26] MEDS ORDERED: LEVOTHYROXINE NA 75 MCG TABLET (FP) ONE (06:08)
[2021-12-26] MEDS ORDERED: LEVOTHYROXINE NA 100 MCG TABLET (FP) ONE (06:08)
[2021-12-26] MEDS: GABAPENTIN 300 MG CAPSULE PO SCH ×3 (06:09→23:09)
[2021-12-26] MEDS: LEVOTHYROXINE 75 MCG, LEVOTHYROXINE 100 MCG PO SCH (06:09)
[2021-12-26 06:48] LABS: INR 1.63 (0.83-1.09); PROTHROMBIN TIME (PATIENT) 18.8 SEC (9.7-13.0)
[2021-12-26] MEDS: PRAMIPEXOLE DIHYDROCHLORIDE 0.125 MG TABLET PO SCH ×2 (09:55→23:08)
[2021-12-26] MEDS: FUROSEMIDE 20 MG TABLET (FP) PO SCH (09:55)
[2021-12-26] MEDS: TOPIRAMATE 25 MG TABLET PO SCH ×2 (09:55→23:08)
[2021-12-26] MEDS: PANTOPRAZOLE 40 MG TABLET PO SCH (09:55)
[2021-12-26] MEDS: VILAZODONE HYDROCHLORIDE 20 MG TABLET PO SCH (09:55)
[2021-12-26] MEDS: RANOLAZINE E.R. 500 MG TABLET (FP) PO SCH ×2 (09:55→23:09)
[2021-12-26] MEDS: MONTELUKAST NA 10 MG TABLET PO SCH (09:56)
[2021-12-26] MEDS: BUDESONIDE/FORMETEROL FUMARATE 160/4.5 mcg INHALER IH SCH ×2 (11:18→23:14)
[2021-12-26] MEDS ORDERED: oxyCODONE HCL 5 MG TABLET PO PRN (17:54)
[2021-12-26] MEDS ORDERED: WARFARIN NA 3 MG TABLET PO SCH (18:00)
[2021-12-26] MEDS: NORTRIPTYLINE HCL 25 MG CAPSULE PO SCH (23:08)
[2021-12-26] MEDS: ATORVASTATIN CA 10 MG TABLET (FP) PO SCH (23:09)
[2021-12-27] MEDS ORDERED: LEVOTHYROXINE NA 75 MCG TABLET (FP) ONE (06:13)
[2021-12-27] MEDS ORDERED: LEVOTHYROXINE NA 100 MCG TABLET (FP) ONE (06:13)
[2021-12-27] MEDS: GABAPENTIN 300 MG CAPSULE PO SCH (06:22)
[2021-12-27] MEDS: LEVOTHYROXINE 75 MCG, LEVOTHYROXINE 100 MCG PO SCH (06:22)
[2021-12-27] MEDS ORDERED: LEVOTHYROXINE NA 75 MCG TABLET (FP) PO SCH (07:00)
[2021-12-27 08:19] LABS: INR 1.56 (0.83-1.09)
[2021-12-27 08:35] VITALS: BP 114/69; PULSE 83; TEMP 98.8
[2021-12-27] MEDS ORDERED: ENOXAPARIN NA (PORCINE) 120 MG/0.8 ML DISP.SYRIN SQ SCH (10:00)
[2021-12-27] MEDS: FUROSEMIDE 20 MG TABLET (FP) PO SCH (10:37)
[2021-12-27] MEDS: PANTOPRAZOLE 40 MG TABLET PO SCH (10:37)
[2021-12-27] MEDS: MONTELUKAST NA 10 MG TABLET PO SCH (10:37)
[2021-12-27] MEDS: RANOLAZINE E.R. 500 MG TABLET (FP) PO SCH (10:37)
[2021-12-27] MEDS: TOPIRAMATE 25 MG TABLET PO SCH (10:38)
[2021-12-27] MEDS: BUDESONIDE/FORMETEROL FUMARATE 160/4.5 mcg INHALER IH SCH (10:40)
[2021-12-27] MEDS: PRAMIPEXOLE DIHYDROCHLORIDE 0.125 MG TABLET PO SCH (10:40)
[2021-12-27] MEDS: VILAZODONE HYDROCHLORIDE 20 MG TABLET PO SCH (10:41)
[2021-12-28] MEDS ORDERED: TOPIRAMATE 25 MG TABLET PO SCH (08:00)
== END 2021-12-27 15:01 | disposition home or self-care (01) ==
LOC: JER 12:18 → JERBED 18:53 → J4W 12-24 00:37
PROVIDERS: ADMIT Internal Medicine; ATTEND Family Medicine
PROC: 3E033NZ Introduction of Analgesics, Hypnotics, Sedatives into Peripheral Vein, Percutaneous Approach (ICD-10-PCS; principal; 2021-12-23)
PROC: 3E023GC Introduction of Other Therapeutic Substance into Muscle, Percutaneous Approach (ICD-10-PCS; 2021-12-23)
DX: M25.562 Pain in left knee (principal); R55 Syncope and collapse; K21.9 Gastro-esophageal reflux disease without esophagitis; E78.5 Hyperlipidemia, unspecified; I82.469 Acute embolism and thrombosis of unspecified calf muscular vein; I95.2 Hypotension due to drugs; W18.39XA Other fall on same level, initial encounter; M79.7 Fibromyalgia; Y93.84 Activity, sleeping; Y92.003 Bedroom of unspecified non-institutional (private) residence as the place of occurrence of the external cause; E66.8 Other obesity; Z68.39 Body mass index [BMI] 39.0-39.9, adult; E03.9 Hypothyroidism, unspecified; Z86.73 Personal history of transient ischemic attack (TIA), and cerebral infarction without residual deficits; Z87.39 Personal history of other diseases of the musculoskeletal system and connective tissue; I25.10 Atherosclerotic heart disease of native coronary artery without angina pectoris; Z79.01 Long term (current) use of anticoagulants; I11.9 Hypertensive heart disease without heart failure; J44.9 Chronic obstructive pulmonary disease, unspecified; Z85.41 Personal history of malignant neoplasm of cervix uteri; Z90.79 Acquired absence of other genital organ(s); D68.61 Antiphospholipid syndrome; K57.90 Diverticulosis of intestine, part unspecified, without perforation or abscess without bleeding; Z20.822 Contact with and (suspected) exposure to COVID-19; K44.9 Diaphragmatic hernia without obstruction or gangrene; Z88.0 Allergy status to penicillin; G43.909 Migraine, unspecified, not intractable, without status migrainosus; R20.8 Other disturbances of skin sensation; L53.8 Other specified erythematous conditions; D64.9 Anemia, unspecified; M06.9 Rheumatoid arthritis, unspecified
CPT/HCPCS: 36415; 70450-TC; 72125-TC; 73562-TC-LT-FY; 80048; 80053; 80061; 82607; 82728; 83540; 83550; 83735; 84443; 84484; 85025; 85610; 85730; 93005; 93010; 93971-TC; 96372; 96374; 96375; 97116-GP; 97161-GP; 99285-25; C9803-CS; G0378; U0003; U0005

== ENCOUNTER 2022-12-03 06:18 | Day surgery (SDC) | payer OTHER ==
[2022-11-29 13:42] VITALS: BMI 32.5
[2022-12-03 07:08] VITALS: RESP 16
[2022-12-03] MEDS ORDERED: DEXAMETHASONE SOD PHOSPHATE 4 MG/1 ML VIAL ONE ×2 (07:14→07:34)
[2022-12-03] MEDS ORDERED: ONDANSETRON 4 MG/2 ML VIAL ONE (07:14)
[2022-12-03] MEDS ORDERED: LIDOCAINE HCL/PF 2% SDV 5ML VIAL ONE (07:14)
[2022-12-03] MEDS ORDERED: PROPOFOL 40 ML ONE (07:14)
[2022-12-03] MEDS ORDERED: MIDAZOLAM HCL 2 MG/2 ML SINGLE DOSE VIAL ONE (07:15)
[2022-12-03] MEDS ORDERED: SUCCINYLCHOLINE CHLORIDE 200 MG/10 ML SYRINGE ONE (07:15)
[2022-12-03] MEDS ORDERED: BUPIVACAINE HCL/PF 0.25% (2.5MG/ML) 10 ML VIAL ONE (07:26)
[2022-12-03] MEDS ORDERED: EPINEPHrine 1:1,000 1,000 MCG/ML ML ONE (07:26)
[2022-12-03] MEDS ORDERED: ALBUTEROL SO4 HFA INHALER IH ONE (07:34)
[2022-12-03] MEDS ORDERED: VANCOMYCIN 1,000 MG VIAL (RESTRICTED TO ID ONLY) ONE (07:44)
[2022-12-03] MEDS ORDERED: oxyCODONE HCL 5 MG TABLET PO PRN (09:33)
[2022-12-03] MEDS ORDERED: ONDANSETRON 4 MG/2 ML VIAL IVPUSH PRN (09:33)
[2022-12-03] MEDS ORDERED: ACETAMINOPHEN 1000 MG/100 ML BAG IVPB ONE (09:34)
[2022-12-03] MEDS ORDERED: LACTATED RINGERS SOLUTION 1,000 ML IV SCH (09:45)
[2022-12-03] MEDS ORDERED: FENTANYL CITRATE/PF 50 MCG/ML VIAL ONE (10:31)
[2022-12-03] MEDS ORDERED: ACETAMINOPHEN INJECTION 100 ML IVPB ONE (10:32)
[2022-12-03] MEDS ORDERED: oxyCODONE HCL 5 MG TABLET ONE (10:45)
[2022-12-03 11:13] LABS: BF WBC & OTHER NUCLEATED CELLS 1114 /mm3
[2022-12-03 11:40] LABS: BODY FLUID MONOCYTE 4 %
[2022-12-03 11:42] VITALS: TEMP 97.6
[2022-12-03 12:03] VITALS: BP 93/54; PULSE 70
== END 2022-12-03 11:50 | disposition home or self-care (01) ==
LOC: FASU 06:18
PROVIDERS: ATTEND Orthopaedic Surgery Sports Medicine
PROC: 0SNDXZZ Release Left Knee Joint, External Approach (ICD-10-PCS; principal; 2022-12-03 08:06)
PROC: 0SND4ZZ Release Left Knee Joint, Percutaneous Endoscopic Approach (ICD-10-PCS; 2022-12-03 08:06)
DX: M24.662 Ankylosis, left knee (principal)
CPT/HCPCS: 87070; 87075; 87205; 89060; 94760

== ENCOUNTER → 2024-04-02 | Day surgery (SDC) | payer OTHER | END | disposition home or self-care (01) | LOC: FMAMMOTONE 09:55 | PROVIDERS: ATTEND Family Medicine | PROC: 0HBU3ZX Excision of Left Breast, Percutaneous Approach, Diagnostic (ICD-10-PCS; principal; 2024-04-02) | DX: Z53.8 Procedure and treatment not carried out for other reasons (principal); N64.89 Other specified disorders of breast | CPT/HCPCS: 19081 ==

== ENCOUNTER 2024-06-29 13:31 | Emergency (ER) | payer OTHER ==
[2024-06-29 13:39] VITALS: PULSE 61; TEMP 97.8; BMI 32.8
[2024-06-29] MEDS ORDERED: ACETAMINOPHEN INJECTION 100 ML ONE (14:56)
[2024-06-29] MEDS: ACETAMINOPHEN 1000 MG/100 ML BAG IVPB ONE (15:26)
[2024-06-29 15:34] LABS: HEMATOCRIT 34.6 % (32.4-45.2); HEMOGLOBIN 11.3 GM/dL (10.7-15.3); MCH 28.6 pg (25.7-33.7); MCHC 32.6 g/dl (32.0-36.0); MEAN CELL VOLUME 87.8 fl (80-96); MEAN PLT VOLUME 8.4 fl (7.5-11.1); PLATELET COUNT 210 10^3/uL (134-434); RBC 3.95 M/mm3 (3.60-5.2); RDW 14.1 % (11.6-15.6); WHITE BLOOD COUNT 7.2 K/mm3 (4.0-10.0)
[2024-06-29 15:38] LABS: INR 3.18 (0.83-1.09); PROTHROMBIN TIME (PATIENT) 34.7 SEC (9.7-13.0)
[2024-06-29 15:41] LABS: ACTIVATED PTT 52.2 SECONDS (25.2-36.5)
[2024-06-29 15:58] LABS: CALCIUM 9.1 mg/dL (8.5-10.1)
[2024-06-29 15:59] LABS: BLOOD UREA NITROGEN 10.1 mg/dL (7-18)
[2024-06-29 16:02] LABS: CREATININE 0.9 mg/dL (0.55-1.3)
[2024-06-29 16:03] LABS: BILIRUBIN,TOTAL 0.4 mg/dL (0.2-1)
[2024-06-29 16:35] LABS: ANISOCYTOSIS 0; HELMET CELLS 0; HOWELL-JOLLY BODIES 0; MACROCYTOSIS 0; OVALOCYTE 0; ROULEAU 0; SICKELED CELLS 0; TARGET CELLS 0; TEAR DROP CELLS 0; TOXIC GRANULATION 0
[2024-06-29 19:38] VITALS: BP 109/62; RESP 16
[2024-06-29 20:32] LABS: BASO % 0.3 % (0-2.0); HEMATOCRIT 32.2 % (32.4-45.2); HEMOGLOBIN 10.7 GM/dL (10.7-15.3); LYMPH % 9.3 % (8-40); MCH 28.7 pg (25.7-33.7); MCHC 33.1 g/dl (32.0-36.0); MEAN CELL VOLUME 86.6 fl (80-96); MEAN PLT VOLUME 8.3 fl (7.5-11.1); MONO % 0.6 % (3.8-10.2); NEUT % 89.8 % (42.8-82.8); PLATELET COUNT 197 10^3/uL (134-434); RBC 3.72 M/mm3 (3.60-5.2); RDW 14.4 % (11.6-15.6)
== END 2024-06-29 20:45 | disposition home or self-care (01) ==
LOC: JER 13:31
PROC: 3E033NZ Introduction of Analgesics, Hypnotics, Sedatives into Peripheral Vein, Percutaneous Approach (ICD-10-PCS; principal; 2024-06-29)
DX: M25.062 Hemarthrosis, left knee (principal)
CPT/HCPCS: 36415; 73701-TC-RT; 80053; 85025; 85610; 85730; 93971-TC; 99285-25; J0131; Q9967

== ENCOUNTER 2024-07-01 04:08 | Observation (INO) | payer OTHER ==
[2024-07-01] MEDS ORDERED: ACETAMINOPHEN INJECTION 100 ML ONE (05:18)
[2024-07-01] MEDS: ACETAMINOPHEN 1000 MG/100 ML BAG IVPB ONE (05:36)
[2024-07-01 06:21] LABS: BASO % 0.4 % (0-2.0); EOS % 0.3 % (0-4.5); HEMATOCRIT 28.8 % (32.4-45.2); HEMOGLOBIN 9.5 GM/dL (10.7-15.3); MCH 28.8 pg (25.7-33.7); MCHC 32.8 g/dl (32.0-36.0); MEAN CELL VOLUME 87.8 fl (80-96); MEAN PLT VOLUME 8.8 fl (7.5-11.1); MONO % 6.5 % (3.8-10.2); NEUT % 79.8 % (42.8-82.8); PLATELET COUNT 203 10^3/uL (134-434); RBC 3.29 M/mm3 (3.60-5.2); RDW 14.2 % (11.6-15.6)
[2024-07-01 06:27] LABS: INR 2.05 (0.83-1.09); PROTHROMBIN TIME (PATIENT) 23.1 SEC (9.7-13.0)
[2024-07-01 06:30] LABS: ACTIVATED PTT 37.3 SECONDS (25.2-36.5)
[2024-07-01 06:36] LABS: CALCIUM 8.6 mg/dL (8.5-10.1)
[2024-07-01 06:37] LABS: ALBUMIN 3.5 g/dl (3.4-5.0)
[2024-07-01 06:40] LABS: CREATININE 0.8 mg/dL (0.55-1.3)
[2024-07-01] MEDS ORDERED: CEFEPIME 1 GM/100 ML BAG IVPB ONE (06:40)
[2024-07-01 06:42] LABS: BILIRUBIN,TOTAL 0.5 mg/dL (0.2-1); TOT PROT 6.9 g/dl (6.4-8.2)
[2024-07-01] MEDS: CEFEPIME HCL/D5W 1 GM/50 ML BAG IVPB ONE (06:45)
[2024-07-01] MEDS ORDERED: VANCOMYCIN 1 GRAM (PRE-DOCKED) 1,000 MG/250 ML BAG IVPB ONE (08:03)
[2024-07-01] MEDS: VANCOMYCIN 1,000 MG in DEXTROSE 5%-WATER - 250 ML IVPB ONE (08:04)
[2024-07-01 08:21] LABS: ERYTHROCYTE SEDIMENTATION RATE 51 mm/hr (0-30)
[2024-07-01] MEDS ORDERED: oxyCODONE HCL 5 MG TABLET ONE ×2 (09:48→12:09)
[2024-07-01] MEDS: oxyCODONE HCL 5 MG TABLET PO ONE ×2 (09:51→12:11)
[2024-07-01 10:37] LABS: EPI CELLS 17 /uL (0-25.1); PH,URINE 7.5 (5.0-8.0); URINE APPEARANCE CLEAR; URINE BILIRUBIN NEGATIVE (NEGATIVE); URINE COLOR YELLOW; URINE GLUCOSE (UA) NEGATIVE (NEGATIVE); URINE KETONE NEGATIVE (NEGATIVE); URINE LEUK ESTERASE 2+ (NEGATIVE); URINE NITRITE NEGATIVE (NEGATIVE); URINE PROTEIN NEGATIVE (NEGATIVE); URINE RBC 19 /uL (0-23.9); URINE UROBILINOGEN 0.2 mg/dL (0.2-1.0); URINE WBC 34 /uL (0-25.8)
[2024-07-01 10:38] LABS: HYALINE CASTS 0 /uL (0-3.1); URINE BACTERIA 46 /uL (0-1359)
[2024-07-01 14:52] VITALS: BMI 33.6
[2024-07-01] MEDS ORDERED: ALBUTEROL SO4 2.5/IPRATROPIUM 0.5 INH SOL 3 ML VIAL.NEB. NEB PRN (15:22)
[2024-07-01] MEDS ORDERED: DOCUSATE SODIUM 100 MG CAPSULE (FP) PO PRN (15:22)
[2024-07-01] MEDS ORDERED: ALBUTEROL SO4 0.083% IH SOL 2.5 MG/3 ML VIAL.NEB. NEB PRN (15:22)
[2024-07-01] MEDS: TOPIRAMATE 25 MG TABLET PO SCH (21:40)
[2024-07-01] MEDS: ATORVASTATIN CA 20 MG TABLET (FP) PO SCH (21:40)
[2024-07-01] MEDS: ZOLPIDEM TARTRATE 5 MG TABLET PO PRN (21:40)
[2024-07-01] MEDS: RANOLAZINE E.R. 500 MG TABLET (FP) PO SCH (21:40)
[2024-07-01] MEDS: GABAPENTIN 100 MG CAPSULE PO SCH (21:40)
[2024-07-01] MEDS: ACETAMINOPHEN 325 MG TABLET (FP) PO PRN (21:41)
[2024-07-01] MEDS: MONTELUKAST NA 10 MG TABLET PO SCH (21:41)
[2024-07-01] MEDS: NORTRIPTYLINE HCL 25 MG CAPSULE PO SCH (21:42)
[2024-07-01] MEDS: BUDESONIDE/FORMETEROL FUMARATE 160/4.5 mcg INHALER IH SCH (21:43)
[2024-07-01] MEDS: PRAMIPEXOLE DIHYDROCHLORIDE 0.125 MG TABLET PO SCH (22:57)
[2024-07-02] MEDS: LEVOTHYROXINE NA 150 MCG TABLET PO SCH (06:31)
[2024-07-02 10:05] LABS: INR 1.36 (0.83-1.09); PROTHROMBIN TIME (PATIENT) 15.5 SEC (9.7-13.0)
[2024-07-02 10:16] LABS: BASO % 0.7 % (0-2.0); EOS % 3.3 % (0-4.5); HEMATOCRIT 31.5 % (32.4-45.2); HEMOGLOBIN 10.1 GM/dL (10.7-15.3); LYMPH % 33.8 % (8-40); MCH 28.4 pg (25.7-33.7); MCHC 32.2 g/dl (32.0-36.0); MEAN CELL VOLUME 88.4 fl (80-96); MEAN PLT VOLUME 8.7 fl (7.5-11.1); MONO % 7.4 % (3.8-10.2); NEUT % 54.8 % (42.8-82.8); PLATELET COUNT 194 10^3/uL (134-434); RBC 3.57 M/mm3 (3.60-5.2); RDW 14.8 % (11.6-15.6); WHITE BLOOD COUNT 6.5 K/mm3 (4.0-10.0)
[2024-07-02 10:19] LABS: POTASSIUM 3.5 mmol/L (3.5-5.1)
[2024-07-02 10:31] LABS: CALCIUM 8.4 mg/dL (8.5-10.1)
[2024-07-02 10:32] LABS: ALBUMIN 3.4 g/dl (3.4-5.0); BLOOD UREA NITROGEN 12.3 mg/dL (7-18)
[2024-07-02 10:35] LABS: CREATININE 0.8 mg/dL (0.55-1.3)
[2024-07-02 10:36] LABS: BILIRUBIN,TOTAL 0.7 mg/dL (0.2-1); TOT PROT 6.7 g/dl (6.4-8.2)
[2024-07-02] MEDS: PANTOPRAZOLE 40 MG TABLET PO SCH (10:51)
[2024-07-02] MEDS: FUROSEMIDE 20 MG TABLET (FP) PO SCH (10:51)
[2024-07-02] MEDS: oxyCODONE HCL 5 MG TABLET PO PRN (15:20)
[2024-07-02] MEDS ORDERED: LEVOTHYROXINE NA 150 MCG TABLET PO SCH (20:31)
[2024-07-03] MEDS: LEVOTHYROXINE 125 MCG, LEVOTHYROXINE 50 MCG PO SCH (06:04)
[2024-07-03] MEDS: ENOXAPARIN NA (PORCINE) 100 MG/1 ML DISP.SYRIN SQ SCH (10:40)
[2024-07-03 12:10] LABS: BASO % 0.7 % (0-2.0); EOS % 3.6 % (0-4.5); HEMOGLOBIN 10.6 GM/dL (10.7-15.3); INR 1.12 (0.83-1.09); LYMPH % 26.8 % (8-40); MEAN CELL VOLUME 87.7 fl (80-96); MEAN PLT VOLUME 8.4 fl (7.5-11.1); MONO % 7.9 % (3.8-10.2); PLATELET COUNT 210 10^3/uL (134-434); PROTHROMBIN TIME (PATIENT) 12.6 SEC (9.7-13.0); RBC 3.66 M/mm3 (3.60-5.2); RDW 14.8 % (11.6-15.6); WHITE BLOOD COUNT 6.3 K/mm3 (4.0-10.0)
[2024-07-04 21:54] VITALS: RESP 18
[2024-07-05 09:50] LABS: BASO % 0.5 % (0-2.0); HEMATOCRIT 32.3 % (32.4-45.2); HEMOGLOBIN 10.8 GM/dL (10.7-15.3); MCH 29.6 pg (25.7-33.7); MCHC 33.3 g/dl (32.0-36.0); MEAN CELL VOLUME 88.7 fl (80-96); MONO % 7.3 % (3.8-10.2); NEUT % 71.2 % (42.8-82.8); PLATELET COUNT 239 10^3/uL (134-434); RBC 3.65 M/mm3 (3.60-5.2); RDW 14.6 % (11.6-15.6); WHITE BLOOD COUNT 6.1 K/mm3 (4.0-10.0)
[2024-07-05 10:44] LABS: POTASSIUM 4.4 mmol/L (3.5-5.1)
[2024-07-05 10:51] LABS: ALBUMIN 3.6 g/dl (3.4-5.0); BLOOD UREA NITROGEN 11.7 mg/dL (7-18)
[2024-07-05 10:54] LABS: CREATININE 0.9 mg/dL (0.55-1.3)
[2024-07-05 10:55] LABS: BILIRUBIN,TOTAL 0.7 mg/dL (0.2-1); TOT PROT 7.4 g/dl (6.4-8.2)
[2024-07-06 14:45] VITALS: BP 105/66; PULSE 84; TEMP 97.5
== END 2024-07-06 14:48 | disposition home or self-care (01) ==
LOC: JER 04:08 → JERBED 09:50 → INTOOBSV 09:50 → UNDOADMOB 09:50 → J5S 12:31 → JERBED 12:31 → J5S 15:14
PROVIDERS: ADMIT Family Medicine; ATTEND Family Medicine
PROC: 3E033NZ Introduction of Analgesics, Hypnotics, Sedatives into Peripheral Vein, Percutaneous Approach (ICD-10-PCS; principal; 2024-07-01)
PROC: 3E03329 Introduction of Other Anti-infective into Peripheral Vein, Percutaneous Approach (ICD-10-PCS; 2024-07-01)
DX: R58 Hemorrhage, not elsewhere classified (principal); R60.0 Localized edema; T14.8XXA Other injury of unspecified body region, initial encounter; X58.XXXA Exposure to other specified factors, initial encounter; L03.90 Cellulitis, unspecified; M79.7 Fibromyalgia; M79.89 Other specified soft tissue disorders; I42.9 Cardiomyopathy, unspecified; M06.9 Rheumatoid arthritis, unspecified; E03.9 Hypothyroidism, unspecified; Z90.79 Acquired absence of other genital organ(s); Z79.01 Long term (current) use of anticoagulants; Z87.891 Personal history of nicotine dependence; Z88.0 Allergy status to penicillin
CPT/HCPCS: 0241U-QW; 36415; 80053; 81003; 84443; 85025; 85610; 85651; 85730; 86140; 86850; 86900; 86901; 87040; 87086; 96365; 96367; 96375; 97116-GP; 97162-GP; 99285-25; G0378; J0131

== ENCOUNTER 2024-07-17 14:20 | Inpatient (IN) | payer OTHER ==
[2024-07-17] MEDS ORDERED: VANCOMYCIN 1 GRAM (PRE-DOCKED) 1,000 MG/250 ML BAG IVPB ONE (16:32)
[2024-07-17] MEDS ORDERED: ACETAMINOPHEN INJECTION 100 ML ONE (16:32)
[2024-07-17] MEDS ORDERED: CEFEPIME 2 GM/100 ML BAG IVPB ONE (16:33)
[2024-07-17 16:39] LABS: BASO % 0.9 % (0-2.0); EOS % 3.8 % (0-4.5); HEMATOCRIT 30.6 % (32.4-45.2); HEMOGLOBIN 10.1 GM/dL (10.7-15.3); LYMPH % 27.9 % (8-40); MCH 28.7 pg (25.7-33.7); MCHC 32.9 g/dl (32.0-36.0); MEAN CELL VOLUME 87.3 fl (80-96); MEAN PLT VOLUME 8.1 fl (7.5-11.1); MONO % 7.9 % (3.8-10.2); NEUT % 59.5 % (42.8-82.8); PLATELET COUNT 200 10^3/uL (134-434); RBC 3.51 M/mm3 (3.60-5.2); RDW 14.7 % (11.6-15.6); WHITE BLOOD COUNT 4.6 K/mm3 (4.0-10.0)
[2024-07-17] MEDS: CEFEPIME HCL 2 GM VIAL (RESTRICTED TO ID) IVPB ONE (16:50)
[2024-07-17] MEDS: ACETAMINOPHEN 1000 MG/100 ML BAG IVPB ONE (16:50)
[2024-07-17 16:54] LABS: POTASSIUM 3.4 mmol/L (3.5-5.1)
[2024-07-17 16:57] LABS: CALCIUM 8.9 mg/dL (8.5-10.1)
[2024-07-17 16:58] LABS: ALBUMIN 3.4 g/dl (3.4-5.0); BLOOD UREA NITROGEN 9.3 mg/dL (7-18)
[2024-07-17 17:01] LABS: CREATININE 0.8 mg/dL (0.55-1.3)
[2024-07-17 17:02] LABS: BILIRUBIN,TOTAL 0.4 mg/dL (0.2-1); TOT PROT 7.2 g/dl (6.4-8.2)
[2024-07-17] MEDS: VANCOMYCIN 1 GM PREMIX (F) 1 GM/200 ML BAG IVPB ONE (17:20)
[2024-07-17 17:32] LABS: ERYTHROCYTE SEDIMENTATION RATE 50 mm/hr (0-30)
[2024-07-17 18:01] LABS: HIV INTERPRETATION NEGATIVE (NEGATIVE)
[2024-07-18] MEDS: ACETAMINOPHEN 1000 MG/100 ML BAG IVPB ONE (00:18)
[2024-07-18] MEDS ORDERED: ALBUTEROL SO4 HFA INHALER IH PRN (01:50)
[2024-07-18] MEDS ORDERED: ALBUTEROL SO4 2.5/IPRATROPIUM 0.5 INH SOL 3 ML VIAL.NEB. NEB PRN (01:50)
[2024-07-18 03:53] VITALS: BMI 34.3
[2024-07-18] MEDS ORDERED: ACETAMINOPHEN 325 MG TABLET (FP) PO PRN (06:00)
[2024-07-18] MEDS ORDERED: LEVOTHYROXINE NA 150 MCG TABLET PO SCH (07:00)
[2024-07-18] MEDS: LEVOTHYROXINE 100 MCG, LEVOTHYROXINE 75 MCG PO SCH (07:16)
[2024-07-18] MEDS: VANCOMYCIN PREMIX 1.5 GM 1,500 MG/300 ML BAG IVPB SCH (08:41)
[2024-07-18] MEDS: TOPIRAMATE 25 MG TABLET PO SCH (09:19)
[2024-07-18] MEDS: FUROSEMIDE 20 MG TABLET (FP) PO SCH (09:19)
[2024-07-18] MEDS: RANOLAZINE E.R. 500 MG TABLET (FP) PO SCH (09:19)
[2024-07-18] MEDS: PRAMIPEXOLE DIHYDROCHLORIDE 0.125 MG TABLET PO SCH (10:22)
[2024-07-18] MEDS ORDERED: diphenhydrAMINE HCL 25 MG CAPSULE (FP) PO PRN (10:34)
[2024-07-18 10:38] LABS: BASO % 0.8 % (0-2.0); EOS % 5.1 % (0-4.5); HEMATOCRIT 30.3 % (32.4-45.2); LYMPH % 15.1 % (8-40); MCHC 33.1 g/dl (32.0-36.0); MEAN CELL VOLUME 87.6 fl (80-96); MEAN PLT VOLUME 8.8 fl (7.5-11.1); PLATELET COUNT 168 10^3/uL (134-434); RBC 3.46 M/mm3 (3.60-5.2); RDW 14.5 % (11.6-15.6); WHITE BLOOD COUNT 3.6 K/mm3 (4.0-10.0)
[2024-07-18 10:53] LABS: POTASSIUM 3.7 mmol/L (3.5-5.1)
[2024-07-18 11:03] LABS: CALCIUM 8.9 mg/dL (8.5-10.1)
[2024-07-18 11:04] LABS: BLOOD UREA NITROGEN 8.6 mg/dL (7-18)
[2024-07-18 11:06] LABS: CREATININE 0.8 mg/dL (0.55-1.3)
[2024-07-18] MEDS: oxyCODONE HCL 5 MG TABLET PO PRN (15:03)
[2024-07-18] MEDS: ACETAMINOPHEN 500 MG TABLET (FP) PO ONE (18:29)
[2024-07-18] MEDS: MONTELUKAST NA 10 MG TABLET PO SCH (21:24)
[2024-07-18] MEDS: ATORVASTATIN CA 20 MG TABLET (FP) PO SCH (21:25)
[2024-07-18] MEDS: DOXYCYCLINE INJECTION 100 MG in DEXTROSE 5%-WATER 100 ML IVPB SCH (21:26)
[2024-07-18] MEDS: NORTRIPTYLINE HCL 25 MG CAPSULE PO SCH (21:34)
[2024-07-18] MEDS: ZOLPIDEM TARTRATE 5 MG TABLET PO ONE (22:56)
[2024-07-19] MEDS ORDERED: VANCOMYCIN PREMIX 1.5 GM 1,500 MG/300 ML BAG IVPB SCH (06:00)
[2024-07-19 09:53] LABS: HEMATOCRIT 29.4 % (32.4-45.2); HEMOGLOBIN 9.7 GM/dL (10.7-15.3); MEAN CELL VOLUME 87.7 fl (80-96); MEAN PLT VOLUME 8.4 fl (7.5-11.1); PLATELET COUNT 173 10^3/uL (134-434); RBC 3.36 M/mm3 (3.60-5.2); RDW 14.4 % (11.6-15.6); WHITE BLOOD COUNT 3.4 K/mm3 (4.0-10.0)
[2024-07-19 10:11] LABS: POTASSIUM 4.2 mmol/L (3.5-5.1)
[2024-07-19 10:19] LABS: BLOOD UREA NITROGEN 5.4 mg/dL (7-18); CALCIUM 8.7 mg/dL (8.5-10.1)
[2024-07-19 10:20] LABS: MAGNESIUM 2.1 mg/dL (1.8-2.4)
[2024-07-19 10:22] LABS: CREATININE 0.8 mg/dL (0.55-1.3)
[2024-07-19 14:59] VITALS: RESP 18
[2024-07-20] MEDS: ZOLPIDEM TARTRATE 5 MG TABLET PO ONE (00:25)
[2024-07-20] MEDS: ZOLPIDEM TARTRATE 5 MG TABLET PO PRN (21:31)
[2024-07-21 07:09] VITALS: BP 91/57; PULSE 80; TEMP 97.5
== END 2024-07-21 12:06 | disposition home or self-care (01) | DRG 603 ==
LOC: JER 14:20 → JERBED 17:37 → J8W 18:50
PROVIDERS: ADMIT Internal Medicine; ATTEND Family Medicine
DX: L03.116 Cellulitis of left lower limb (principal); D68.59 Other primary thrombophilia; J44.9 Chronic obstructive pulmonary disease, unspecified; E03.9 Hypothyroidism, unspecified; M06.9 Rheumatoid arthritis, unspecified; M79.81 Nontraumatic hematoma of soft tissue; M79.7 Fibromyalgia; K21.9 Gastro-esophageal reflux disease without esophagitis; Z86.718 Personal history of other venous thrombosis and embolism
CPT/HCPCS: 36415; 73590-TC-LT-FY; 73700-TC-RT; 80048; 80053; 83540; 83550; 83735; 85025; 85027; 85651; 86140; 86803; 87389; 93005; 93010; 93971-TC; 99285-25; J0131; J1644

== ENCOUNTER 2025-04-09 13:23 | Observation (INO) | payer OTHER ==
[2025-04-09 14:12] VITALS: BMI 34.2
[2025-04-09 15:04] LABS: ABSOLUTE IMMATURE GRANULOCYTES 0.02 x10^3/uL (0.0-0.031); BASOPHILS # 0.04 x10^3/uL (0.01-0.08); EOSINOPHIL % 4.0 % (0.7-5.8); EOSINOPHILS # 0.23 x10^3/uL (0.04-0.36); MCHC 31.4 g/dl (32.2-35.5); MEAN CELL VOLUME 92.4 fl (79.4-94.8); MEAN PLT VOLUME 10.4 fl (9.4-12.3); MONOCYTE # 0.42 x10^3/uL (0.24-0.86); MONOCYTE % 7.3 % (4.7-12.5); RDW 12.9 % (12.3-16.6)
[2025-04-09 15:09] LABS: INR 1.17 (0.83-1.09); PROTHROMBIN TIME (PATIENT) 12.9 SEC (9.7-13.0)
[2025-04-09 15:12] LABS: ACTIVATED PTT 35.1 SECONDS (25.2-36.5)
[2025-04-09 15:14] LABS: EPI CELLS 5 /uL (0-25.1); HYALINE CASTS 0 /uL (0-3.1); URINE APPEARANCE CLEAR; URINE BACTERIA 31 /uL (0-1359); URINE BILIRUBIN NEGATIVE (NEGATIVE); URINE COLOR YELLOW; URINE GLUCOSE (UA) NEGATIVE (NEGATIVE); URINE KETONE NEGATIVE (NEGATIVE); URINE LEUK ESTERASE 2+ (NEGATIVE); URINE NITRITE NEGATIVE (NEGATIVE); URINE PROTEIN NEGATIVE (NEGATIVE); URINE RBC 12 /uL (0-23.9); URINE UROBILINOGEN 1.0 mg/dL (0.2-1.0); URINE WBC 19 /uL (0-25.8)
[2025-04-09 15:20] LABS: CO2 30.0 mmol/L (21-32); GLUCOSE,RANDOM 90.0 mg/dL (74-106)
[2025-04-09 15:23] LABS: CREATININE 0.8 mg/dL (0.55-1.3); SGOT/AST 32.0 U/L (15-37); SGPT/ALT 24.0 U/L (13-61)
[2025-04-09 15:24] LABS: LDL CHOLESTEROL (ONLY SJRH) 83.0 mg/dL (5-100); TOT PROT 7.8 g/dl (6.4-8.2)
[2025-04-09 15:26] LABS: ALK PHOS 93.0 U/L (45-117)
[2025-04-09] MEDS: SODIUM CHLORIDE 1,000 ML IV SCH (17:22)
[2025-04-10] MEDS: ZOLPIDEM TARTRATE 5 MG TABLET PO ONE (00:08)
[2025-04-10] MEDS: APIXABAN 2.5 MG TABLET PO ONE (00:08)
[2025-04-10 06:29] LABS: ABSOLUTE IMMATURE GRANULOCYTES 0.01 x10^3/uL (0.0-0.031); BASOPHILS # 0.04 x10^3/uL (0.01-0.08); EOSINOPHIL % 4.5 % (0.7-5.8); EOSINOPHILS # 0.20 x10^3/uL (0.04-0.36); MCHC 31.5 g/dl (32.2-35.5); MEAN CELL VOLUME 91.9 fl (79.4-94.8); MEAN PLT VOLUME 10.6 fl (9.4-12.3); MONOCYTE # 0.37 x10^3/uL (0.24-0.86); MONOCYTE % 8.3 % (4.7-12.5); RDW 12.8 % (12.3-16.6)
[2025-04-10 07:17] LABS: CO2 27.0 mmol/L (21-32); CREATININE 0.7 mg/dL (0.55-1.3); GLUCOSE,RANDOM 83.0 mg/dL (74-106)
[2025-04-10] MEDS ORDERED: ALBUTEROL SO4 2.5/IPRATROPIUM 0.5 INH SOL 3 ML VIAL.NEB. NEB PRN (10:41)
[2025-04-10] MEDS ORDERED: ACETAMINOPHEN 325 MG TABLET (FP) PO PRN (10:41)
[2025-04-10] MEDS: PANTOPRAZOLE 40 MG TABLET PO SCH (11:46)
[2025-04-10] MEDS: GABAPENTIN 300 MG CAPSULE PO SCH (11:47)
[2025-04-10] MEDS: RANOLAZINE E.R. 500 MG TABLET (FP) PO SCH (11:47)
[2025-04-10] MEDS: BUDESONIDE 0.5 MG/2 ML INH SUSP VIAL NEB SCH (15:51)
[2025-04-10] MEDS: ACETAMINOPHEN 325 MG TABLET (FP) PO PRN (20:54)
[2025-04-10] MEDS ORDERED: PATIENT'S OWN MEDICATION (NON-FORMULARY) (Linaclotide 145 MCG Capsule) PO SCH (22:00)
[2025-04-10] MEDS: TOPIRAMATE 25 MG TABLET PO SCH (22:36)
[2025-04-10] MEDS: NORTRIPTYLINE HCL 25 MG CAPSULE PO SCH (22:36)
[2025-04-10] MEDS: ZOLPIDEM TARTRATE 5 MG TABLET PO PRN (22:37)
[2025-04-10] MEDS: ATORVASTATIN CA 10 MG TABLET (FP) PO SCH (22:37)
[2025-04-10] MEDS: APIXABAN 2.5 MG TABLET PO SCH (22:37)
[2025-04-10] MEDS: PRAMIPEXOLE DIHYDROCHLORIDE 0.125 MG TABLET PO SCH (22:41)
[2025-04-11] MEDS: GABAPENTIN 300 MG CAPSULE PO SCH (06:31)
[2025-04-11] MEDS: LEVOTHYROXINE NA 125 MCG TABLET (FP) PO SCH (06:32)
[2025-04-11 06:36] VITALS: RESP 16
[2025-04-11] MEDS ORDERED: LEVOTHYROXINE NA 150 MCG TABLET PO SCH (07:00)
[2025-04-11] MEDS ORDERED: LEVOTHYROXINE NA 25 MCG TABLET (FP) PO SCH (07:00)
[2025-04-11 10:07] VITALS: BP 106/64; PULSE 64; TEMP 97.9
[2025-04-11] MEDS: MONTELUKAST NA 10 MG TABLET PO SCH (10:07)
[2025-04-11] MEDS: ANASTROZOLE 1 MG TABLET PO SCH (10:08)
[2025-04-11] MEDS: FUROSEMIDE 20 MG TABLET (FP) PO SCH (10:14)
[2025-04-11] MEDS: ASPIRIN 81 MG CHEWABLE TABLETS PO SCH (10:48)
== END 2025-04-11 12:00 | disposition home or self-care (01) ==
LOC: JER 13:23 → JERBED 14:39 → J4S 15:48
PROVIDERS: ADMIT Family Medicine; ATTEND Family Medicine
PROC: 3E0F7GC Introduction of Other Therapeutic Substance into Respiratory Tract, Via Natural or Artificial Opening (ICD-10-PCS; principal; 2025-04-09)
DX: M62.81 Muscle weakness (generalized) (principal); J44.9 Chronic obstructive pulmonary disease, unspecified; I69.354 Hemiplegia and hemiparesis following cerebral infarction affecting left non-dominant side; M19.90 Unspecified osteoarthritis, unspecified site; I10 Essential (primary) hypertension; E78.5 Hyperlipidemia, unspecified; Z96.652 Presence of left artificial knee joint; M06.9 Rheumatoid arthritis, unspecified; Z90.79 Acquired absence of other genital organ(s); Z79.01 Long term (current) use of anticoagulants; Z87.891 Personal history of nicotine dependence; Z85.41 Personal history of malignant neoplasm of cervix uteri; Z88.0 Allergy status to penicillin
CPT/HCPCS: 36415; 70450-TC; 70551-TC; 80048; 80053; 80061; 81003; 82550; 82553; 83036; 84484; 85025; 85610; 85730; 86850; 86900; 86901; 93005; 93010; 93880-TC; 94640; 99285-25; G0378